=== PATIENT | female | born 1945 | race Caucasian/White ===

== ENCOUNTER 2017-08-29 02:53 | Inpatient (IN) | payer BC, MEDICARE ==
[2017-08-29] MEDS ORDERED: NS 0.9% 1000 ML* 1,000 ML IV ONE (03:00)
[2017-08-29] MEDS ORDERED: Albuterol/Ipratropium NEB.SOL* Albuterol 2.5 MG/Ipratropium 0.5 MG 3 ML INH ONE ×2 (03:22→04:38)
[2017-08-29] MEDS ORDERED: Nitroglycerin TAB 0.4 MG* 0.4 MG TAB SL ONE (03:23)
[2017-08-29 03:35] LABS: ABS Basophils 0.1 10^3/ul (0-0.2); ABS Eosinophils 0.2 10^3/ul (0-0.6); ABS Lymphocytes 1.5 10^3/ul (1.0-4.8); ABS Monocytes 0.9 10^3/ul (0-0.8); ABS Neutrophils 8.1 10^3/ul (1.5-7.7); ABS Nucleated RBC 0 10^3/ul; Hematocrit 39 % (35-47); Hemoglobin 13.1 g/dl (12.0-16.0); Lymphocyte % 13.8 % (25-47); Mean Corpuscular HGB Conc 33 g/dl (31-36); Mean Corpuscular Hemoglobin 30 pg (27-31); Mean Corpuscular Volume 91 fL (80-97); Mean Platelet Volume 8 um3 (7.4-10.4); Nucleated Red Blood Cells % 0.1; Platelet Count 205 10^3/ul (150-450); Red Blood Count 4.33 10^6/ul (4.0-5.4); Red Cell Distribution Width 17 % (10.5-15); White Blood Count 10.9 10^3/ul (3.5-10.8)
[2017-08-29 03:41] LABS: EGFR Non-African American 27.5 (>60); INR 1.01 (0.77-1.02)
[2017-08-29] MEDS ORDERED: methylPREDNISolone 125 MG* 2 ML VIAL IV ONE (04:38)
[2017-08-29] MEDS ORDERED: Labetalol IV* 5 MG/ML 20 ML VIAL IV PUSH ONE (04:40)
[2017-08-29] MEDS ORDERED: Levofloxacin 750 MG IVPREMIX(* 750 MG/150 ML BAG IVPB ONE (04:44)
[2017-08-29] MEDS ORDERED: Furosemide IV* 10 MG/ML VIAL (40 MG) IV SLOW PU ONE (05:43)
[2017-08-29] MEDS ORDERED: Albuterol 2.5 MG/3 ML NEB.SOL* (0.083%) INH PRN (05:51)
[2017-08-29] MEDS ORDERED: clonazePAM TAB(*) 0.5 MG PO PRN (05:51)
[2017-08-29] MEDS ORDERED: cloNIDine 0.2 MG PATCH* 0.2 MG/24 HR 7 DAY PATCH TRANSDERM SCH (06:00)
--- NOTE | 2017-08-29 07:01 | ED ---
Miladys Castro Julia, scribed for Mendez Dumont MD on 08/29/17 at 0308 . Respiratory - HPI Summary HPI Summary: This patient is a 72 year old F BIBA to [facility] accompanied by her with a chief complaint of SOB since 16:30 yesterday worsening this morning. Patient reports recent LE edema, cough, and neck pain. Patient denies wheezing, chest pain, and palpitations. Patient has a history of CHF, COPD, descending aortic stent, PTX, and anxiety. Patient believes she may be having an anxiety attack. - History of Current Complaint Chief Complaint: EDShortnessOfBreath Stated Complaint: DIFFICULTY BREATHING Hx Obtained From: Patient Onset/Duration: Lasting Hours, Worse Since - this morning Pain Intensity: 0 Character: Dyspnea at Rest Associated Signs and Symptoms: SOB, Edema Related History: Similar Episode/Dx as - COPD, CHF, PTX, anxiety - Allergy/Home Medications Allergies/Adverse Reactions: Allergies Allergy/AdvReac Type Severity Reaction Status Date / Time erythromycin base Allergy Unknown Verified 08/29/17 05:13 Reaction Details latex Allergy Itching Verified 08/29/17 05:13 nickel Allergy Hives Verified 08/29/17 05:13 Home Medications: Home Medications Albuterol Sulfate [Proventil Hfa] 2 puff INH Q4HR PRN 08/29/17 [History Confirmed 08/29/17] Carvedilol TAB* [Coreg TAB*] 25 mg PO BID 08/29/17 [History Confirmed 08/29/17] Citalopram TAB* [CeleXA TAB*] 20 mg PO DAILY 08/29/17 [History Confirmed ] Famotidine TAB* [Pepcid 20 MG TAB*] 20 mg PO QPM 08/29/17 [History Confirmed ] Levothyroxine TAB* [Synthroid TAB*] 100 mcg PO DAILY 08/29/17 [History Confirmed 08/29/17] Valsartan TAB* [Diovan TAB*] 320 mg PO DAILY 08/29/17 [History Confirmed ] amLODIPine TAB* [Norvasc 5 mg TAB*] 10 mg PO DAILY 08/29/17 [History Confirmed 08/29/17] cloNIDine 0.2 MG PATCH* [Onwfmjtg-Zty-0 0.2 mg Patch*] 0.2 mg TRANSDERM Q7D [History Confirmed 08/29/17] clonazePAM TAB(*) [KlonoPIN TAB(*)] 0.5 mg PO BID PRN 08/29/17 [History Confirmed 08/29/17] PMH/Surg Hx/FS Hx/Imm Hx Endocrine/Hematology History: Denies: Hx Diabetes Cardiovascular History: Reports: Hx Congestive Heart Failure, Hx Hypercholesterolemia, Hx Hypertension - on medication Respiratory History: Reports: Hx Chronic Obstructive Pulmonary Disease (COPD), Other Respiratory Problems/Disorders - PTX History: Reports: Hx Renal Disease - stage 4 Psychiatric History: Reports: Hx Anxiety - Cancer History Cancer Type, Location and Year: uterine CA- - Surgical History Surgery Procedure, Year, and Place: 3 right foot surgery, hysterectomy(urterine CA) Infectious Disease History: No Infectious Disease History: Denies: Traveled Outside the [place] in Last 30 Days - Family History Known Family History: Positive: Cardiac Disease - mother - Social History Alcohol Use: None Hx Substance Use: No Substance Use Type: Reports: None Hx Tobacco Use: Yes Smoking Status (MU): Light Every Day Tobacco Smoker Amount Used/How Often: 1/2 PPD Review of Systems Negative: Palpitations, Chest Pain Respiratory: Negative - wheezing Positive: Shortness Of Breath, Cough Positive: Myalgia - neck, Edema All Other Systems Reviewed And Are Negative: Yes Physical Exam - Summary Physical Exam Summary: Appearance: Well appearing, no pain distress, tripod position Skin: warm, dry, reflects adequate perfusion Head/face: normal Eyes: EOMI, RUTH ENT: normal Neck: mild JVD, non-tender Respiratory:, breath sounds present but diminished at the bases with fine wheezes and rales at the bases bilaterally worse on the L Cardiovascular: RRR, pulses symmetrical, no murmur Abdomen: non-tender, soft Bowel: present Musculoskeletal: , strength/ROM intact, bilateral pitting edema to just below the knees Neuro: normal, sensory motor intact, A&Ox3 Triage Information Reviewed: Yes Vital Signs On Initial Exam: Initial Vitals Temp Pulse Resp BP Pulse Ox 99 F 82 26 161/86 100 08/29/17 02:58 08/29/17 02:58 08/29/17 02:58 08/29/17 02:58 08/29/17 02:58 Vital Signs Reviewed: Yes Diagnostics - Vital Signs Vital Signs Temp Pulse Resp BP Pulse Ox 08/29/17 02:58 99 F 82 26 161/86 100 - Laboratory Lab Results: Lab Results 08/29/17 08/29/17 08/29/17 Range/Units 03:15 03:15 03:15 WBC 10.9 H (3.5-10.8) 10^3/ul RBC 4.33 (4.0-5.4) 10^6/ul Hgb 13.1 (12.0-16.0) g/dl Hct 39 (35-47) % MCV 91 (80-97) fL MCH 30 (27-31) pg MCHC 33 (31-36) g/dl RDW 17 H (10.5-15) % Plt Count 205 (150-450) 10^3/ul MPV 8 (7.4-10.4) um3 Neut % (Auto) 74.9 (38-83) % Lymph % (Auto) 13.8 L (25-47) % [place] % (Auto) 8.0 (1-9) % Eos % (Auto) 2.0 (0-6) % Baso % (Auto) 1.3 (0-2) % Absolute Neuts (auto) 8.1 H (1.5-7.7) 10^3/ul Absolute Lymphs (auto) 1.5 (1.0-4.8) 10^3/ul Absolute Monos (auto) 0.9 H (0-0.8) 10^3/ul Absolute Eos (auto) 0.2 (0-0.6) 10^3/ul Absolute Basos (auto) 0.1 (0-0.2) 10^3/ul Absolute Nucleated RBC 0 10^3/ul Nucleated RBC % 0.1 INR (Anticoag Therapy) 1.01 (0.77-1.02) APTT 31.6 (26.0-36.3) seconds D-Dimer, Quantitative > 1050 H (Less Than 230) ng/mL Patient Temperature ABG pH (7.35-7.45) ABG pH (Temp Correct) ABG pCO2 (35-45) mmHg ABG pCO2 (Temp Corrct ABG pO2 (80-100) mmHg ABG pO2 (Temp Correct ABG HCO3 (19-31) mmol/L ABG O2 Saturation (95-98) % ABG Base Excess (-2.0-2.0) Respiration Rate O2 Delivery Device Ventilator Type Vent Mode FiO2 Inspiratory Time PEEP Pressure Support Pressure Control EPAP IPAP BiPAP Sodium (133-145) mmol/L Potassium (3.5-5.0) mmol/L Chloride (101-111) mmol/L Carbon Dioxide (22-32) mmol/L Anion Gap (2-11) mmol/L BUN (6-24) mg/dL Creatinine (0.51-0.95) mg/dL Est GFR ( Amer) (>60) Est GFR (Non-Af Amer) (>60) BUN/Creatinine Ratio (8-20) Glucose (70-100) mg/dL Lactic Acid (0.5-2.0) mmol/L Calcium (8.6-10.3) mg/dL Total Bilirubin (0.2-1.0) mg/dL AST (13-39) U/L ALT (7-52) U/L Alkaline Phosphatase (34-104) U/L Troponin I (<0.04) ng/mL B-Natriuretic Peptide 269 H ( - 100) pg/mL Total Protein (6.4-8.9) g/dL Albumin (3.2-5.2) g/dL Globulin (2-4) g/dL Albumin/Globulin Ratio (1-3) TSH (0.34-5.60) mcIU/mL Digoxin 08/29/17 08/29/17 08/29/17 Range/Units 03:15 03:15 04:55 WBC (3.5-10.8) 10^3/ul RBC (4.0-5.4) 10^6/ul Hgb (12.0-16.0) g/dl Hct (35-47) % MCV (80-97) fL MCH (27-31) pg MCHC (31-36) g/dl RDW (10.5-15) % Plt Count (150-450) 10^3/ul MPV (7.4-10.4) um3 Neut % (Auto) (38-83) % Lymph % (Auto) (25-47) % [place] % (Auto) (1-9) % Eos % (Auto) (0-6) % Baso % (Auto) (0-2) % Absolute Neuts (auto) (1.5-7.7) 10^3/ul Absolute Lymphs (auto) (1.0-4.8) 10^3/ul Absolute Monos (auto) (0-0.8) 10^3/ul Absolute Eos (auto) (0-0.6) 10^3/ul Absolute Basos (auto) (0-0.2) 10^3/ul Absolute Nucleated RBC 10^3/ul Nucleated RBC % INR (Anticoag Therapy) (0.77-1.02) APTT (26.0-36.3) seconds D-Dimer, Quantitative (Less Than 230) ng/mL Patient Temperature Not Reportable ABG pH 7.37 (7.35-7.45) ABG pH (Temp Correct) Not Reportable ABG pCO2 44 (35-45) mmHg ABG pCO2 (Temp Corrct Not Reportable ABG pO2 53 L* (80-100) mmHg ABG pO2 (Temp Correct Not Reportable ABG HCO3 24.6 (19-31) mmol/L ABG O2 Saturation 92.0 L (95-98) % ABG Base Excess -0.1 (-2.0-2.0) Respiration Rate Not Reportable O2 Delivery Device Nc Ventilator Type Not Reportable Vent Mode Not Reportable FiO2 3 Inspiratory Time Not Reportable PEEP Not Reportable Pressure Support Not Reportable Pressure Control Not Reportable EPAP Not Reportable IPAP Not Reportable BiPAP Not Reportable Sodium 137 (133-145) mmol/L Potassium 4.3 (3.5-5.0) mmol/L Chloride 107 (101-111) mmol/L Carbon Dioxide 25 (22-32) mmol/L Anion Gap 5 (2-11) mmol/L BUN 39 H (6-24) mg/dL Creatinine 1.81 H (0.51-0.95) mg/dL Est GFR ( Amer) 35.3 (>60) Est GFR (Non-Af Amer) 27.5 (>60) BUN/Creatinine Ratio 21.5 H (8-20) Glucose 117 H (70-100) mg/dL Lactic Acid 0.8 (0.5-2.0) mmol/L Calcium 9.3 (8.6-10.3) mg/dL Total Bilirubin 0.50 (0.2-1.0) mg/dL AST 22 (13-39) U/L ALT 20 (7-52) U/L Alkaline Phosphatase 76 (34-104) U/L Troponin I 0.06 H* (<0.04) ng/mL B-Natriuretic Peptide ( - 100) pg/mL Total Protein 7.6 (6.4-8.9) g/dL Albumin 3.7 (3.2-5.2) g/dL Globulin 3.9 (2-4) g/dL Albumin/Globulin Ratio 0.9 L (1-3) TSH 5.48 (0.34-5.60) mcIU/mL Digoxin Cancelled Result Diagrams: 08/29/17 03:15 08/29/17 03:15 Lab Statement: Any lab studies that have been ordered have been reviewed, and results considered in the medical decision making process. - Radiology CXR Radiology Interpretation Completed By: ED Physician - cardiomegaly, wide mediastinum with aoritc stent in place, increased interstitial markings without effusion - EKG 0332 Cardiac Rate: NL - at 78 BPM EKG Rhythm: Sinus Rhythm ST Segment: Non-Specific EKG Interpretation: nml axis, poor R wave progression, borderline QT prolongation Re-Evaluation - Re-Evaluation 1 Re-Evaluation Time: 04:40 Change: Improved - Breathing improved with two treatments Disposition - Course Course Of Treatment: pt with a hx of COPD/CHF and TAD s/p stenting. Tripoding with wheezing and some coarsness of breathing on arrival. Breathing calmed significantly with breathing tx. Added steroids and abx. 1 dose of nitro on arrival. No impact to BP. IV labetalol for BPs. No ripping or tearing CP. No pain in abd, arms or neck. BPs in both arms similar. Aldo LE edema, symmetric. Cr up. Admit for further. - Differential Dx - Cardiopulmonary Differential Diagnoses - Cardiopulmonary: CAD, Chest Wall Pain, Exacerbation Of COPD, Hypoxia, Influenza, Lower Resp Infection, Pneumothorax, Pulmonary Edema, Pulmonary Embolism - Diagnoses Provider Diagnoses: Dyspnea, COPD exacerbation, Tobacco abuse, Elevated blood pressure reading - Physician Notifications Discussed Care Of Patient With: Hue Roman - admit for further Time Discussed With Above Provider: 04:45 Instructed by Provider To: Admit As Inpatient - Critical Care Time Critical Care Time: 30-74 min - exlusive of seperately billable proceudre Discharge - Discharge Plan Condition: Fair Disposition: AD[facility]ITT[facility] TO [facility] The documentation as recorded by the Miladys castro Julia accurately reflects the service I personally performed and the decisions made by me, Mendez Dumont MD.
--- NOTE | 2017-08-29 08:02 | RAD ---
INDICATION: Chest pain. COMPARISON: Comparison is made with a prior chest x-ray study from March 01, 2016. TECHNIQUE: A portable view of the chest was obtained. FINDINGS: The heart is moderately enlarged. The thoracic aorta is tortuous and ectatic. There is a endovascular stent graft present within the aorta. The lungs are clear. There is blunting of the left costophrenic angle consistent with a small pleural effusion or pleural thickening. IMPRESSION: 1. CARDIOMEGALY, UNCHANGED. 2. TORTUOUS ECTATIC THORACIC AORTA , STATUS POST PLACEMENT OF AORTIC ENDOVASCULAR STENT GRAFT. 3. SMALL LEFT PLEURAL EFFUSION VERSUS PLEURAL THICKENING.
[2017-08-29] MEDS: Carvedilol TAB* 25 MG PO SCH ×2 (08:59→21:18)
[2017-08-29] MEDS: Heparin VIAL(*) 5000 UNITS/ML VIAL (FIVE THOUSAND) SUBCUT SCH ×3 (08:59→21:20)
[2017-08-29] MEDS: Valsartan TAB* 160 MG PO SCH (08:59)
[2017-08-29] MEDS: Levothyroxine TAB* 100 MCG TAB PO SCH (08:59)
[2017-08-29] MEDS: amLODIPine TAB* 5 MG PO SCH (08:59)
[2017-08-29] MEDS: Citalopram TAB* 10 MG PO SCH (08:59)
[2017-08-29] MEDS ORDERED: predniSONE TAB* 20 MG PO SCH (09:00)
--- NOTE | 2017-08-29 10:28 | HP ---
CC: Dr. Lockhart; Dr. Aleman * HISTORY AND PHYSICAL: DATE OF ADMISSION: 08/29/17 PRIMARY CARE PROVIDER: Dr. Lockhart. CUFF SLITTER: Dr. Aleman. CHIEF COMPLAINT: Shortness of breath. HISTORY OF PRESENT ILLNESS: Ms. Hannah is a 72-year-old female who has a history of hypertension; anxiety/depression; questionable CHF and history of descending aortic aneurysm with rupture, status post emergent repair in 2016, who presents to the emergency room with complaints of shortness of breath. The patient is very short of breath at the time I went to evaluate her. She has just gotten up to the commode to go to the bathroom. The patient states that off and on for the last few months she would get what she describes are panic attacks. She states that she will get severely short of breath. She will sit straight up with her feet down on the floor and watch TV for a period of time and very slowly the shortness of breath will go away. The patient, however, has been noted in the emergency room to be severely dyspneic with any exertion per nursing. Additionally, the patient complains of feeling lightheaded like she may pass out. The patient admits to cough with foamy white sputum. She also notes increased swelling in her legs beginning before 2016. She had her diuretics stopped late last year for chronic kidney disease. The patient denies any chest pain. She states that she cannot lie flat at baseline , so it is unclear if this is worse than normal. PAST MEDICAL HISTORY: 1. Hypertension. 2. Anxiety/depression. 3. Hypothyroidism. 4. GERD. 5. Possible CHF. 6. History of uterine cancer. PAST SURGICAL HISTORY: 1. Hysterectomy. 2. Descending aortic aneurysm repair in 2016. 3. Right foot surgery x3. MEDICATIONS: 1. Clonidine 0.2 mg per patch topically q.7 days. 2. Celexa 20 mg p.o. daily. 3. Famotidine 20 mg p.o. q.p.m. 4. Amlodipine 10 mg p.o. daily. 5. Coreg 25 mg p.o. b.i.d. 6. Clonazepam 0.5 mg p.o. b.i.d. 7. Proventil 2 puffs inhaled q.4 hours p.r.n. shortness of breath. 8. Valsartan 320 mg p.o. daily. 9. Levothyroxine 100 mcg p.o. daily. ALLERGIES: ERYTHROMYCIN, NICKEL, and LATEX. FAMILY HISTORY: Mom in her 80s of CHF. Dad at 86, complications after hip fracture. SOCIAL HISTORY: The patient is an active smoker of one half pack per day. She does not drink alcohol. 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 She is . She has 3 children. Her , Jarrett, is her healthcare proxy and if he is not available her daughterYamile Newhart-Lee is her healthcare proxy. REVIEW OF SYSTEMS: Complete 11-system of review of systems was obtained. Pertinent positives and negatives are as per HPI, and in addition the patient complains of being constipated and having neck pain; otherwise, the review of systems is negative. PHYSICAL EXAMINATION GENERAL: The patient is a well-developed, elderly female, seen sitting straight up on the bed in moderate respiratory distress. VITAL SIGNS: Blood pressure 163/64, pulse 78, respirations 20, temp 99, O2 sat 95% on 3 L. HEENT: Pupils are equal and round. Extraocular muscles are intact. Oropharynx is clear. Oral mucosa is moist. There is no submandibular, cervical or supraclavicular adenopathy. Thyroid is not enlarged. No thyroid nodules are noted. PULMONARY: There are decreased breath sounds at the bases bilaterally. Breath sounds, however, are diminished in all lung [place]. CARDIAC: Normal S1, S2. Regular rate and rhythm. I do not appreciate any murmurs. There is left greater than right lower extremity edema. ABDOMEN: Bowel sounds are present. Abdomen is soft, nontender, nondistended. MUSCULOSKELETAL: There is no cyanosis or clubbing of the digits. There is full active range of motion of all 4 extremities. SKIN: Warm and dry. There are no rashes. NEURO: Cranial nerves II through XII are grossly intact. Sensation is intact to light touch throughout. Strength is 5/5 and symmetric in both upper and lower extremities bilaterally. PSYCH: The patient is alert, she is oriented x3. Affect appears appropriate. DIAGNOSTIC STUDIES/LAB DATA: WBC 10.9, hemoglobin 13.1, hematocrit 39, platelets 205. INR 1.01. D-dimer greater than 1050. Sodium 137, potassium 4.3 , chloride 107, CO2 25, BUN 39, creatinine 1.81, glucose 117, lactic acid 0.8, calcium 9.3. Bilirubin 0.5, AST 22, ALT 20, alk phos 76. Troponin 0.06. BNP 269. Albumin 3.7. EKG reveals normal sinus rhythm without any acute ST-T wave abnormalities. Chest x-ray to my interpretation reveals likely cardiomegaly. The patient appears to have a tortuous aorta with possible identified graft material. A question of left pleural effusion. ASSESSMENT AND PLAN: Ms. Hannah is a 72-year-old female who has a history of hypertension, anxiety/depression, ongoing tobacco use, possible congestive heart failure, and is status post descending aortic aneurysm/dissection repair who presents to the emergency room with complaints of shortness of breath. 1. Dyspnea. The differential diagnosis for dyspnea includes acute congestive heart failure versus chronic obstructive pulmonary disease exacerbation versus possible pulmonary embolism. Infection seems unlikely as the patient denies any true sputum production or fever. No clear infiltrates are seen on chest x- ray. The patient will undergo a transthoracic echocardiogram to evaluate her EF. A dose of Lasix 40 mg IV x1 now will be given. I am suspicious the patient may have systolic CHF given her medications including Coreg and valsartan as well as her complaints of foamy white sputum, increased lower extremity edema and inability to lie back. COPD is also a possibility as the patient does have a longstanding history of smoking. Her breath sounds are diminished in all lung monroe. The patient received Solu-Medrol in the emergency room as well as levofloxacin and nebulizer. The patient will have albuterol nebs available to her. I will also order prednisone 40 mg daily to start this morning. I am going to hold on antibiotic therapy for now, however. The patient does have a markedly elevated D- dimer of greater than 1050. Her left lower extremity is more swollen than the right. A Doppler of the left lower extremity will be obtained to evaluate for DVT. If DVT is identified, the patient will obviously need to be anticoagulated; however, a V/Q scan could be considered to evaluate for possible PE. CTA would need to be avoided given the patient's chronic kidney disease. 2. Elevated troponin. I suspect this represents demand ischemia. The patient will have followup troponins obtained at 0600 and 0900. Her EKG is not concerning at this point. We will follow the troponin. I will not anticoagulate fully at this time. 3. Stage 4 chronic kidney disease. The patient's creatinine is elevated at 1.81. We do not have many previous creatinines to compare to. The patient does state that she has taken off her diuretic late last winter because of her chronic kidney disease. Her creatinine will need to be monitored especially as I am giving a dose of IV Lasix. 4. Hypertension. The patient's blood pressure is moderately elevated. She will receive her usual home medication regimen and we will adjust her medications as needed to achieve optimal blood pressure control. 5. Anxiety/depression. The patient is currently quite anxious. She will continue with her Celexa and p.r.n. clonazepam. 6. Hypothyroidism. We will continue current dose of Synthroid. We will check TSH. 7. Gastroesophageal reflux disease. We will continue her famotidine. 8. DVT prophylaxis. According to the Adult Thrombosis Prophylaxis Risk Factor Assessment Guide, the patient has a total risk factor score of 5, making her the highest risk. Heparin 5000 units subcutaneous q.8 hours will be initiated as DVT prophylaxis. 7. Code status is full. TIME SPENT: Sixty-five minutes was spent admitting this patient. [id number]/[facility] #: [id number] KASEY
--- NOTE | 2017-08-29 10:47 | ECHO ---
Amended Report Patient: REYMUNDO MANZANARES [facility] Rec#: [id number] : 1945 Date: 08/29/2017 Age: 72y Height: 165.1 cm / 65.0 in Weight: 90.7 kg / 199.9 lbs Sex: F BSA: 2 Room#: [facility] Admit Date#: 08/29/2017 Type: Inpatient Referring: Hue Roman DO Reading: Toby Cm MD Sexual Abuse Counsellor: Nicolle Gomez RN RDCS CC: Petar Dalal MD Transthoracic Echocardiogram Indication: Dyspnea BP: 170/59 HR: 79 Rhythm: NSR Findings History: CHF, HTN, HLD, COPD, smoker, renal disease, aortic aneurysm with stenting of the descending aorta, obesity. Technical Comments: The study is technically limited due to patient body habitus. The study is technically limited due to the patient's history of COPD. The study was technically limited due to the patient's inability to lay in the left lateral decubitus position. The patient was sitting upright in bed during the exam. Completed at 0925. Left Ventricle: The left ventricular chamber size is normal. Moderate concentric left ventricular hypertrophy is observed. Global left ventricular wall motion and contractility are within normal limits. There is normal left ventricular systolic function. The estimated ejection fraction is 55-60%. The assessment of diastolic function is non-diagnostic. Left Atrium: The left atrium is mild to moderately dilated. Right Ventricle: The right ventricle wall thickness is mildly increased. The right ventricular cavity size is normal. The right ventricular global systolic function is normal. Right Atrium: The right atrium is mild to moderately dilated. Aortic Valve: The aortic valve is trileaflet. The aortic valve leaflets are mildly thickened. There is mild thickening of the right coronary cusp. Systolic excursion of the right coronary cusp is reduced. There is mild to moderate aortic regurgitation. There is borderline aortic stenosis present. The mean gradient of the aortic valve is 9.5 mmHg. The peak instantaneous gradient of the aortic valve is 19 mmHg. The aortic valve area, by peak velocities, is calculated at 2 cm2. The aortic valve area, by VTI's, is calculated at 2.3 cm2. Mitral Valve: The mitral valve leaflets are mildly thickened. There is a trace of mitral regurgitation. There is no evidence of mitral stenosis. Tricuspid Valve: The tricuspid valve leaflets are normal. There is trace tricuspid regurgitation. Unable to estimate the right ventricular systolic pressure. There is no tricuspid stenosis. Pulmonic Valve: The pulmonic valve structure is not well visualized. There is a trace pulmonic regurgitation. There is no pulmonic stenosis. Pericardium: There is a small pericardial effusion. There are no signs of significant hemodynamic compromise. The pericardial effusion is seen adjacent to the left ventricle. The pericardial effusion is seen adjacent to the right atrium. A pericardial fat pad is visualized. Aorta: There is moderate dilatation of the ascending aorta.4.4 cm The aortic arch is not well visualized. There is no dilation of the aortic root. Pulmonary Artery: The main pulmonary artery is not well visualized. Venous: The inferior vena cava is dilated. There is an approximate 50% respiratory change in the inferior vena cava dimension. Summary: There was not any prior study for comparison. Conclusions Global left ventricular wall motion and contractility are within normal limits. There is normal left ventricular systolic function. The estimated ejection fraction is 55-60%. The right ventricular global systolic function is normal. There is mild thickening of the right coronary cusp. There is borderline aortic stenosis present. The mean gradient of the aortic valve is 9.5 mmHg. There is mild to moderate aortic regurgitation. There is a trace of mitral regurgitation. There is trace tricuspid regurgitation. Unable to estimate the right ventricular systolic pressure. There is a small pericardial effusion. The pericardial effusion is seen adjacent to the right atrium. There is moderate dilatation of the ascending aorta.4.4 cm Measurements Name Value Normal Range RVDdMajor (2D) 2.5 cm (2.2 - 4.4) RAd ISD 4CH 5.6 cm (3.4 - 4.9) RA (A4C)W 3.5 cm (2.9 - 4.6) IVSd (2D) 1.5 cm (0.6 - 1) LVPWd (2D) 1.5 cm (0.6 - 1) LVIDd (2D) 5.2 cm (3.6 - 5.4) LVIDs (2D) 3.3 cm - LV FS (2D) 36 % (25 - 45) Aortic Annulus 2.1 cm (1.4 - 2.6) Ao root diameter (2D) 3 cm (2.1 - 3.5) Ascending Ao 4.4 cm (2.1 - 3.4) LA dimension (AP) 2D 2.9 cm (2.3 - 3.8) LAd ISD 4CH 5.8 cm (2.9 - 5.3) LA ISD 4CH W 4.6 cm (2.5 - 4.5) Name Value Normal Range MV E-wave Vmax 0.96 m/sec - MV deceleration time 172 msec - MV A-wave Vmax 1.2 m/sec - MV E:A ratio 0.84 ratio - LV septal e' Vmax 0.06 m/sec - LV lateral e' Vmax 0.09 m/sec - LV E:e' septal ratio 16 ratio - LV E:e' lateral ratio 10.7 ratio - Name Value Normal Range AV Vmax 2.2 m/sec - AV VTI 45.9 cm - AV peak gradient 19 mmHg - AV mean gradient 9.5 mmHg - LVOT diameter 2 cm - LVOT Vmax 1.4 m/sec - LVOT VTI 33.7 cm - LVOT peak gradient 8.2 mmHg - LVOT mean gradient 5.3 mmHg - DOI (VTI) 0.73 ratio - DOI (Vmax) 0.64 ratio - DAPHNE (continuity Vmax) 2 cm2 - DAPHNE (continuity VTI) 2.3 cm2 - AR PHT 460 msec - Name Value Normal Range IVC diameter 2.6 cm - Name Value Normal Range PV Vmax 0.86 m/sec -
--- NOTE | 2017-08-29 12:47 | RAD ---
HISTORY: Left leg edema TECHNIQUE: Multiple transverse and longitudinal ultrasound images were obtained of the veins of the left lower extremity using grayscale, color Doppler, and spectral Doppler imaging with and without compression and with augmentation. FINDINGS: VEINS: The common femoral vein, deep femoral vein, femoral vein and popliteal vein are compressible throughout their course, with normal flow on color Doppler imaging and normal response to augmentation on spectral Doppler imaging. SOFT TISSUES: There is subcutaneous edema overlying the lower left leg. IMPRESSION: No sonographic evidence of deep vein thrombosis.
--- NOTE | 2017-08-29 12:52 | RAD ---
INDICATION: Cough. Short of breath. History of thoracic aneurysm/dissection. History of endovascular stent grafts. COMPARISON: CTA chest March 02, 2016 TECHNIQUE: Noncontrast axial source images were obtained from the thoracic inlet to the hemidiaphragms. Coronal and sagittal reconstructed images were acquired. The visualized neck to include the thyroid appear normal. Chest wall: There are no acute abnormalities of the bony thorax or chest wall. There is no supraclavicular, infraclavicular, or axillary lymphadenopathy. Lungs : There is coarsening of interstitium. There is linear change in the right lung base, right middle lobe, left lung base, lingular segment most consistent with atelectasis. Suggest follow-up chest x-ray. Cardiomediastinal structures: The heart is mildly enlarged. There is a small pericardial effusion. There is interval placement of a endovascular stent in the thoracic aorta. The stent originates in the lamine ascending aorta and extends caudally to the proximal abdominal aorta. This examination is not a CT angiogram and therefore evaluation of the graft is incomplete. Importantly, however. There is no increase in the size of the [place] aorta in the interval. 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 Immediately below the endovascular stent graft the abdominal aorta measures 4.2 x 5.8 cm this measurement appears essentially unchanged. Pleura : There is a small moderate-sized left-sided pleural effusion. Other: There are no other acute or significant CT findings of the visualized upper abdomen. IMPRESSION: 1. Linear airspace disease most consistent with atelectasis. 2. Small left-sided pleural effusion. 3. Cardiomegaly with small pericardial effusion. Interval endovascular stent graft as described.
--- NOTE | 2017-08-29 15:57 | PN ---
Subjective Date of Service: 08/29/17 Interval History: Feels less SOB, at or near her baseline. Little cough. No chest pain. Objective Active Medications: Albuterol (Ventolin 2.5 Mg/3 Ml Neb.Danita*) 2.5 mg INH Q4H PRN PRN Reason: SOB/WHEEZING Amlodipine Besylate (Norvasc Tab*) 10 mg PO DAILY [facility] Last Admin: 08/29/17 08:59 Dose: 10 mg Carvedilol (Coreg Tab*) 25 mg PO BID [facility] Last Admin: 08/29/17 08:59 Dose: 25 mg Citalopram Hydrobromide (Celexa Tab*) 20 mg PO DAILY [facility] Last Admin: 08/29/17 08:59 Dose: 20 mg Clonazepam (Klonopin Tab(*)) 0.5 mg PO BID PRN PRN Reason: ANXIETY Clonidine HCl (Cljvfqpf-Qli-6 0.2 Mg Patch*) 0.2 mg TRANSDERM Q7D [facility] Last Admin: 08/29/17 09:04 Dose: 0.2 mg Famotidine (Pepcid Tab*) 20 mg PO QPM [facility] Heparin Sodium (Porcine) (Heparin Vial(*)) 5,000 units SUBCUT Q8HR [facility] Last Admin: 08/29/17 13:44 Dose: 5,000 units Levothyroxine Sodium (Synthroid Tab*) 100 mcg PO 0600 [facility] Last Admin: 08/29/17 08:59 Dose: 100 mcg Prednisone (Deltasone Tab*) 40 mg PO DAILY [facility] Last Admin: 08/29/17 09:04 Dose: Not Given Valsartan (Diovan Tab*) 320 mg PO DAILY [facility] Last Admin: 08/29/17 08:59 Dose: 320 mg Vital Signs - 8 hr 08/29/17 08/29/17 08/29/17 08:00 10:15 12:30 Temperature 98.1 F Pulse Rate 85 76 Respiratory 28 16 20 Rate Blood Pressure 152/61 (mmHg) O2 Sat by Pulse 92 94 Oximetry Oxygen Devices in Use Now: Nasal Cannula Appearance: Alert, partly up in bed. In good spirits. Looks comfortable. Eyes: No Scleral Icterus Respiratory: Symmetrical Chest Expansion and Respiratory Effort, Clear to Percussion, - - diminished BS BL Cardiovascular: NL Sounds; No Murmurs; No JVD, RRR, No Edema, - Extremities: No Clubbing, Cyanosis, - - Tr edema L leg Skin: No Rash or Ulcers, No Nodules or Sclerosis, - Neurological: Alert and Oriented x 3, NL Sensation Result Diagrams: 08/29/17 03:15 08/29/17 03:15 Additional Lab and Data: Lab Results 08/29/17 08/29/17 08/29/17 Range/Units 03:15 03:15 03:15 WBC 10.9 H (3.5-10.8) 10^3/ul RBC 4.33 (4.0-5.4) 10^6/ul Hgb 13.1 (12.0-16.0) g/dl Hct 39 (35-47) % MCV 91 (80-97) fL MCH 30 (27-31) pg MCHC 33 (31-36) g/dl RDW 17 H (10.5-15) % Plt Count 205 (150-450) 10^3/ul MPV 8 (7.4-10.4) um3 Neut % (Auto) 74.9 (38-83) % Lymph % (Auto) 13.8 L (25-47) % [place] % (Auto) 8.0 (1-9) % Eos % (Auto) 2.0 (0-6) % Baso % (Auto) 1.3 (0-2) % Absolute Neuts (auto) 8.1 H (1.5-7.7) 10^3/ul Absolute Lymphs (auto) 1.5 (1.0-4.8) 10^3/ul Absolute Monos (auto) 0.9 H (0-0.8) 10^3/ul Absolute Eos (auto) 0.2 (0-0.6) 10^3/ul Absolute Basos (auto) 0.1 (0-0.2) 10^3/ul Absolute Nucleated RBC 0 10^3/ul Nucleated RBC % 0.1 INR (Anticoag Therapy) 1.01 (0.77-1.02) APTT 31.6 (26.0-36.3) seconds D-Dimer, Quantitative > 1050 H (Less Than 230) ng/mL Patient Temperature ABG pH (7.35-7.45) ABG pH (Temp Correct) ABG pCO2 (35-45) mmHg ABG pCO2 (Temp Corrct ABG pO2 (80-100) mmHg ABG pO2 (Temp Correct ABG HCO3 (19-31) mmol/L ABG O2 Saturation (95-98) % ABG Base Excess (-2.0-2.0) Respiration Rate O2 Delivery Device Ventilator Type Vent Mode FiO2 Inspiratory Time PEEP Pressure Support Pressure Control EPAP IPAP BiPAP Sodium (133-145) mmol/L Potassium (3.5-5.0) mmol/L Chloride (101-111) mmol/L Carbon Dioxide (22-32) mmol/L Anion Gap (2-11) mmol/L BUN (6-24) mg/dL Creatinine (0.51-0.95) mg/dL Est GFR ( Amer) (>60) Est GFR (Non-Af Amer) (>60) BUN/Creatinine Ratio (8-20) Glucose (70-100) mg/dL Lactic Acid (0.5-2.0) mmol/L Calcium (8.6-10.3) mg/dL Total Bilirubin (0.2-1.0) mg/dL AST (13-39) U/L ALT (7-52) U/L Alkaline Phosphatase (34-104) U/L Troponin I (<0.04) ng/mL B-Natriuretic Peptide 269 H ( - 100) pg/mL Total Protein (6.4-8.9) g/dL Albumin (3.2-5.2) g/dL Globulin (2-4) g/dL Albumin/Globulin Ratio (1-3) TSH (0.34-5.60) mcIU/mL Digoxin 08/29/17 08/29/17 08/29/17 Range/Units 03:15 03:15 04:55 WBC (3.5-10.8) 10^3/ul RBC (4.0-5.4) 10^6/ul Hgb (12.0-16.0) g/dl Hct (35-47) % MCV (80-97) fL MCH (27-31) pg MCHC (31-36) g/dl RDW (10.5-15) % Plt Count (150-450) 10^3/ul MPV (7.4-10.4) um3 Neut % (Auto) (38-83) % Lymph % (Auto) (25-47) % [place] % (Auto) (1-9) % Eos % (Auto) (0-6) % Baso % (Auto) (0-2) % Absolute Neuts (auto) (1.5-7.7) 10^3/ul Absolute Lymphs (auto) (1.0-4.8) 10^3/ul Absolute Monos (auto) (0-0.8) 10^3/ul Absolute Eos (auto) (0-0.6) 10^3/ul Absolute Basos (auto) (0-0.2) 10^3/ul Absolute Nucleated RBC 10^3/ul Nucleated RBC % INR (Anticoag Therapy) (0.77-1.02) APTT (26.0-36.3) seconds D-Dimer, Quantitative (Less Than 230) ng/mL Patient Temperature Not Reportable ABG pH 7.37 (7.35-7.45) ABG pH (Temp Correct) Not Reportable ABG pCO2 44 (35-45) mmHg ABG pCO2 (Temp Corrct Not Reportable ABG pO2 53 L* (80-100) mmHg ABG pO2 (Temp Correct Not Reportable ABG HCO3 24.6 (19-31) mmol/L ABG O2 Saturation 92.0 L (95-98) % ABG Base Excess -0.1 (-2.0-2.0) Respiration Rate Not Reportable O2 Delivery Device Nc Ventilator Type Not Reportable Vent Mode Not Reportable FiO2 3 Inspiratory Time Not Reportable PEEP Not Reportable Pressure Support Not Reportable Pressure Control Not Reportable EPAP Not Reportable IPAP Not Reportable BiPAP Not Reportable Sodium 137 (133-145) mmol/L Potassium 4.3 (3.5-5.0) mmol/L Chloride 107 (101-111) mmol/L Carbon Dioxide 25 (22-32) mmol/L Anion Gap 5 (2-11) mmol/L BUN 39 H (6-24) mg/dL Creatinine 1.81 H (0.51-0.95) mg/dL Est GFR ( Amer) 35.3 (>60) Est GFR (Non-Af Amer) 27.5 (>60) BUN/Creatinine Ratio 21.5 H (8-20) Glucose 117 H (70-100) mg/dL Lactic Acid 0.8 (0.5-2.0) mmol/L Calcium 9.3 (8.6-10.3) mg/dL Total Bilirubin 0.50 (0.2-1.0) mg/dL AST 22 (13-39) U/L ALT 20 (7-52) U/L Alkaline Phosphatase 76 (34-104) U/L Troponin I 0.06 H* (<0.04) ng/mL B-Natriuretic Peptide ( - 100) pg/mL Total Protein 7.6 (6.4-8.9) g/dL Albumin 3.7 (3.2-5.2) g/dL Globulin 3.9 (2-4) g/dL Albumin/Globulin Ratio 0.9 L (1-3) TSH 5.48 (0.34-5.60) mcIU/mL Digoxin Cancelled Assess/Plan/Problems-Billing Assessment: - Patient Problems (1) Diastolic CHF Current Visit: Yes Status: Acute Code(s): I50.30 - UNSPECIFIED DIASTOLIC ( CONGESTIVE) HEART FAILURE SNOMED Code(s): 242150545 Comment: Will check BMP in AM, probably start small (20 mg) dose or oral furosemide. (2) COPD (chronic obstructive pulmonary disease) Current Visit: Yes Status: Acute Code(s): J44.9 - CHRONIC OBSTRUCTIVE PULMONARY DISEASE, UNSPECIFIED SNOMED Code(s): 76759012 Comment: Stop prednisone. No wheezing now or on admission, may not be of signiiicant benefit. Pt afraid to take it. (3) CKD (chronic kidney disease) stage 4, GFR 15-29 ml/min Current Visit: Yes Status: Acute Code(s): N18.4 - CHRONIC KIDNEY DISEASE, STAGE 4 (SEVERE) SNOMED Code(s): 034306573 Comment: Est GFR 27.5 08/29, repeat BMP 08/30/17. (4) HTN (hypertension) Current Visit: Yes Status: Acute Code(s): I10 - ESSENTIAL (PRIMARY) HYPERTENSION SNOMED Code(s): 40091287 Comment: Continue home doses valsartan, amlodipine, carvedilol. (5) Hypothyroidism Current Visit: Yes Status: Acute Code(s): E03.9 - HYPOTHYROIDISM, UNSPECIFIED SNOMED Code(s): 05537681 Comment: TSH wnl 08/29/17. Continue levothyroxine.
--- NOTE | 2017-08-29 16:11 | PN ---
Subjective Date of Service: 08/29/17 Interval History: This is an addendum to today's earlier note. Objective Active Medications: Albuterol (Ventolin 2.5 Mg/3 Ml Neb.Danita*) 2.5 mg INH Q4H PRN PRN Reason: SOB/WHEEZING Amlodipine Besylate (Norvasc Tab*) 10 mg PO DAILY [facility] Last Admin: 08/29/17 08:59 Dose: 10 mg Carvedilol (Coreg Tab*) 25 mg PO BID [facility] Last Admin: 08/29/17 08:59 Dose: 25 mg Citalopram Hydrobromide (Celexa Tab*) 20 mg PO DAILY [facility] Last Admin: 08/29/17 08:59 Dose: 20 mg Clonazepam (Klonopin Tab(*)) 0.5 mg PO BID PRN PRN Reason: ANXIETY Clonidine HCl (Nhurbocd-Kxm-9 0.2 Mg Patch*) 0.2 mg TRANSDERM Q7D [facility] Last Admin: 08/29/17 09:04 Dose: 0.2 mg Famotidine (Pepcid Tab*) 20 mg PO QPM [facility] Heparin Sodium (Porcine) (Heparin Vial(*)) 5,000 units SUBCUT Q8HR [facility] Last Admin: 08/29/17 13:44 Dose: 5,000 units Levothyroxine Sodium (Synthroid Tab*) 100 mcg PO 0600 [facility] Last Admin: 08/29/17 08:59 Dose: 100 mcg Valsartan (Diovan Tab*) 320 mg PO DAILY [facility] Last Admin: 08/29/17 08:59 Dose: 320 mg Vital Signs - 8 hr 08/29/17 08/29/17 08/29/17 10:15 12:30 15:20 Temperature 98.1 F 98.4 F Pulse Rate 85 76 82 Respiratory 16 20 20 Rate Blood Pressure 152/61 150/65 (mmHg) O2 Sat by Pulse 92 94 97 Oximetry Oxygen Devices in Use Now: Nasal Cannula Result Diagrams: 08/29/17 03:15 08/29/17 03:15 Additional Lab and Data: Lab Results 08/29/17 08/29/17 08/29/17 Range/Units 03:15 03:15 03:15 WBC 10.9 H (3.5-10.8) 10^3/ul RBC 4.33 (4.0-5.4) 10^6/ul Hgb 13.1 (12.0-16.0) g/dl Hct 39 (35-47) % MCV 91 (80-97) fL MCH 30 (27-31) pg MCHC 33 (31-36) g/dl RDW 17 H (10.5-15) % Plt Count 205 (150-450) 10^3/ul MPV 8 (7.4-10.4) um3 Neut % (Auto) 74.9 (38-83) % Lymph % (Auto) 13.8 L (25-47) % [place] % (Auto) 8.0 (1-9) % Eos % (Auto) 2.0 (0-6) % Baso % (Auto) 1.3 (0-2) % Absolute Neuts (auto) 8.1 H (1.5-7.7) 10^3/ul Absolute Lymphs (auto) 1.5 (1.0-4.8) 10^3/ul Absolute Monos (auto) 0.9 H (0-0.8) 10^3/ul Absolute Eos (auto) 0.2 (0-0.6) 10^3/ul Absolute Basos (auto) 0.1 (0-0.2) 10^3/ul Absolute Nucleated RBC 0 10^3/ul Nucleated RBC % 0.1 INR (Anticoag Therapy) 1.01 (0.77-1.02) APTT 31.6 (26.0-36.3) seconds D-Dimer, Quantitative > 1050 H (Less Than 230) ng/mL Patient Temperature ABG pH (7.35-7.45) ABG pH (Temp Correct) ABG pCO2 (35-45) mmHg ABG pCO2 (Temp Corrct ABG pO2 (80-100) mmHg ABG pO2 (Temp Correct ABG HCO3 (19-31) mmol/L ABG O2 Saturation (95-98) % ABG Base Excess (-2.0-2.0) Respiration Rate O2 Delivery Device Ventilator Type Vent Mode FiO2 Inspiratory Time PEEP Pressure Support Pressure Control EPAP IPAP BiPAP Sodium (133-145) mmol/L Potassium (3.5-5.0) mmol/L Chloride (101-111) mmol/L Carbon Dioxide (22-32) mmol/L Anion Gap (2-11) mmol/L BUN (6-24) mg/dL Creatinine (0.51-0.95) mg/dL Est GFR ( Amer) (>60) Est GFR (Non-Af Amer) (>60) BUN/Creatinine Ratio (8-20) Glucose (70-100) mg/dL Lactic Acid (0.5-2.0) mmol/L Calcium (8.6-10.3) mg/dL Total Bilirubin (0.2-1.0) mg/dL AST (13-39) U/L ALT (7-52) U/L Alkaline Phosphatase (34-104) U/L Troponin I (<0.04) ng/mL B-Natriuretic Peptide 269 H ( - 100) pg/mL Total Protein (6.4-8.9) g/dL Albumin (3.2-5.2) g/dL Globulin (2-4) g/dL Albumin/Globulin Ratio (1-3) TSH (0.34-5.60) mcIU/mL Digoxin 08/29/17 08/29/17 08/29/17 Range/Units 03:15 03:15 04:55 WBC (3.5-10.8) 10^3/ul RBC (4.0-5.4) 10^6/ul Hgb (12.0-16.0) g/dl Hct (35-47) % MCV (80-97) fL MCH (27-31) pg MCHC (31-36) g/dl RDW (10.5-15) % Plt Count (150-450) 10^3/ul MPV (7.4-10.4) um3 Neut % (Auto) (38-83) % Lymph % (Auto) (25-47) % [place] % (Auto) (1-9) % Eos % (Auto) (0-6) % Baso % (Auto) (0-2) % Absolute Neuts (auto) (1.5-7.7) 10^3/ul Absolute Lymphs (auto) (1.0-4.8) 10^3/ul Absolute Monos (auto) (0-0.8) 10^3/ul Absolute Eos (auto) (0-0.6) 10^3/ul Absolute Basos (auto) (0-0.2) 10^3/ul Absolute Nucleated RBC 10^3/ul Nucleated RBC % INR (Anticoag Therapy) (0.77-1.02) APTT (26.0-36.3) seconds D-Dimer, Quantitative (Less Than 230) ng/mL Patient Temperature Not Reportable ABG pH 7.37 (7.35-7.45) ABG pH (Temp Correct) Not Reportable ABG pCO2 44 (35-45) mmHg ABG pCO2 (Temp Corrct Not Reportable ABG pO2 53 L* (80-100) mmHg ABG pO2 (Temp Correct Not Reportable ABG HCO3 24.6 (19-31) mmol/L ABG O2 Saturation 92.0 L (95-98) % ABG Base Excess -0.1 (-2.0-2.0) Respiration Rate Not Reportable O2 Delivery Device Nc Ventilator Type Not Reportable Vent Mode Not Reportable FiO2 3 Inspiratory Time Not Reportable PEEP Not Reportable Pressure Support Not Reportable Pressure Control Not Reportable EPAP Not Reportable IPAP Not Reportable BiPAP Not Reportable Sodium 137 (133-145) mmol/L Potassium 4.3 (3.5-5.0) mmol/L Chloride 107 (101-111) mmol/L Carbon Dioxide 25 (22-32) mmol/L Anion Gap 5 (2-11) mmol/L BUN 39 H (6-24) mg/dL Creatinine 1.81 H (0.51-0.95) mg/dL Est GFR ( Amer) 35.3 (>60) Est GFR (Non-Af Amer) 27.5 (>60) BUN/Creatinine Ratio 21.5 H (8-20) Glucose 117 H (70-100) mg/dL Lactic Acid 0.8 (0.5-2.0) mmol/L Calcium 9.3 (8.6-10.3) mg/dL Total Bilirubin 0.50 (0.2-1.0) mg/dL AST 22 (13-39) U/L ALT 20 (7-52) U/L Alkaline Phosphatase 76 (34-104) U/L Troponin I 0.06 H* (<0.04) ng/mL B-Natriuretic Peptide ( - 100) pg/mL Total Protein 7.6 (6.4-8.9) g/dL Albumin 3.7 (3.2-5.2) g/dL Globulin 3.9 (2-4) g/dL Albumin/Globulin Ratio 0.9 L (1-3) TSH 5.48 (0.34-5.60) mcIU/mL Digoxin Cancelled Assess/Plan/Problems-Billing Assessment: - Patient Problems (1) Diastolic CHF Current Visit: Yes Status: Acute Code(s): I50.30 - UNSPECIFIED DIASTOLIC ( CONGESTIVE) HEART FAILURE SNOMED Code(s): 105109689 Comment: Will check BMP in AM, probably start small (20 mg) dose or oral furosemide. (2) COPD (chronic obstructive pulmonary disease) Current Visit: Yes Status: Acute Code(s): J44.9 - CHRONIC OBSTRUCTIVE PULMONARY DISEASE, UNSPECIFIED SNOMED Code(s): 84413656 Comment: Stop prednisone. No wheezing now or on admission, may not be of signiiicant benefit. Pt afraid to take it. (3) CKD (chronic kidney disease) stage 4, GFR 15-29 ml/min Current Visit: Yes Status: Acute Code(s): N18.4 - CHRONIC KIDNEY DISEASE, STAGE 4 (SEVERE) SNOMED Code(s): 498253062 Comment: Est GFR 27.5 08/29, repeat BMP 08/30/17. (4) HTN (hypertension) Current Visit: Yes Status: Acute Code(s): I10 - ESSENTIAL (PRIMARY) HYPERTENSION SNOMED Code(s): 16531254 Comment: Continue home doses valsartan, amlodipine, carvedilol. (5) Hypothyroidism Current Visit: Yes Status: Acute Code(s): E03.9 - HYPOTHYROIDISM, UNSPECIFIED SNOMED Code(s): 02341941 Comment: TSH wnl 08/29/17. Continue levothyroxine. (6) Tobacco abuse Current Visit: Yes Status: Acute Code(s): Z72.0 - TOBACCO USE SNOMED Code( s): 428828659 Comment: Pt advised to quit smoking and avoid second hand smoke.
[2017-08-29] MEDS: Famotidine TAB* 20 MG PO SCH (18:09)
[2017-08-30] MEDS: Levothyroxine TAB* 100 MCG TAB PO SCH (06:05)
[2017-08-30] MEDS: Heparin VIAL(*) 5000 UNITS/ML VIAL (FIVE THOUSAND) SUBCUT SCH ×3 (06:06→21:05)
[2017-08-30 07:26] LABS: Hematocrit 36 % (35-47); Hemoglobin 11.9 g/dl (12.0-16.0); Mean Corpuscular HGB Conc 33 g/dl (31-36); Mean Corpuscular Hemoglobin 30 pg (27-31); Mean Corpuscular Volume 91 fL (80-97); Mean Platelet Volume 8 um3 (7.4-10.4); Platelet Count 207 10^3/ul (150-450); Red Blood Count 3.99 10^6/ul (4.0-5.4); Red Cell Distribution Width 17 % (10.5-15); White Blood Count 16.2 10^3/ul (3.5-10.8)
[2017-08-30 07:42] LABS: EGFR Non-African American 17.5 (>60)
[2017-08-30] MEDS: Citalopram TAB* 10 MG PO SCH (08:34)
[2017-08-30] MEDS: Carvedilol TAB* 25 MG PO SCH ×2 (08:34→21:05)
[2017-08-30] MEDS: amLODIPine TAB* 5 MG PO SCH (08:34)
[2017-08-30] MEDS: Valsartan TAB* 160 MG PO SCH (08:34)
[2017-08-30] MEDS ORDERED: NS 0.9% 1000 ML* 500 ML IV ONE (08:42)
[2017-08-30 15:49] LABS: EGFR Non-African American 14.8 (>60)
[2017-08-30] MEDS: Famotidine TAB* 20 MG PO SCH (18:21)
[2017-08-31] MEDS: Levothyroxine TAB* 100 MCG TAB PO SCH (05:45)
[2017-08-31] MEDS: Heparin VIAL(*) 5000 UNITS/ML VIAL (FIVE THOUSAND) SUBCUT SCH ×2 (05:46→14:43)
[2017-08-31] MEDS: Valsartan TAB* 160 MG PO SCH (08:16)
[2017-08-31] MEDS: Citalopram TAB* 10 MG PO SCH (08:16)
[2017-08-31] MEDS: Carvedilol TAB* 25 MG PO SCH (08:16)
[2017-08-31] MEDS: amLODIPine TAB* 5 MG PO SCH (08:16)
--- NOTE | 2017-08-31 10:17 | DCNOTE ---
Subjective Date of Service: 08/31/17 Interval History: No c/o 's office [phone]. Objective Active Medications: Albuterol (Ventolin 2.5 Mg/3 Ml Neb.Danita*) 2.5 mg INH Q4H PRN PRN Reason: SOB/WHEEZING Amlodipine Besylate (Norvasc Tab*) 10 mg PO DAILY [facility] Last Admin: 08/31/17 08:16 Dose: 10 mg Carvedilol (Coreg Tab*) 25 mg PO BID [facility] Last Admin: 08/31/17 08:16 Dose: 25 mg Citalopram Hydrobromide (Celexa Tab*) 20 mg PO DAILY [facility] Last Admin: 08/31/17 08:16 Dose: 20 mg Clonazepam (Klonopin Tab(*)) 0.5 mg PO BID PRN PRN Reason: ANXIETY Clonidine HCl (Nzdyqmnx-Yxz-6 0.2 Mg Patch*) 0.2 mg TRANSDERM Q7D [facility] Last Admin: 08/29/17 09:04 Dose: 0.2 mg Famotidine (Pepcid Tab*) 20 mg PO QPM [facility] Last Admin: 08/30/17 18:21 Dose: 20 mg Heparin Sodium (Porcine) (Heparin Vial(*)) 5,000 units SUBCUT Q8HR [facility] Last Admin: 08/31/17 05:46 Dose: 5,000 units Levothyroxine Sodium (Synthroid Tab*) 100 mcg PO 0600 [facility] Last Admin: 08/31/17 05:45 Dose: 100 mcg Valsartan (Diovan Tab*) 320 mg PO DAILY [facility] Last Admin: 08/31/17 08:16 Dose: 320 mg Vital Signs - 8 hr 08/31/17 08/31/17 08/31/17 04:27 07:56 07:58 Temperature 97.9 F 97.4 F Pulse Rate 61 63 Respiratory 16 18 18 Rate Blood Pressure 146/55 148/53 (mmHg) O2 Sat by Pulse 99 97 Oximetry Oxygen Devices in Use Now: Nasal Cannula Appearance: Alert, standing by her bed. In fair spirits. Looks comfortable but concerned. Eyes: No Scleral Icterus Neck: NL Appearance and Movements; NL JVP, No Thyroid Enlargement, Masses Respiratory: Symmetrical Chest Expansion and Respiratory Effort, Clear to Auscultation, Clear to Percussion Cardiovascular: NL Sounds; No Murmurs; No JVD, RRR, No Edema, - Extremities: No Clubbing, Cyanosis, - - Tr edema BL. Skin: No Rash or Ulcers, No Nodules or Sclerosis, - Neurological: Alert and Oriented x 3, NL Sensation Result Diagrams: 08/30/17 06:22 08/31/17 05:37 Additional Lab and Data: Lab Results 08/29/17 08/29/17 08/29/17 Range/Units 03:15 03:15 03:15 WBC 10.9 H (3.5-10.8) 10^3/ul RBC 4.33 (4.0-5.4) 10^6/ul Hgb 13.1 (12.0-16.0) g/dl Hct 39 (35-47) % MCV 91 (80-97) fL MCH 30 (27-31) pg MCHC 33 (31-36) g/dl RDW 17 H (10.5-15) % Plt Count 205 (150-450) 10^3/ul MPV 8 (7.4-10.4) um3 Neut % (Auto) 74.9 (38-83) % Lymph % (Auto) 13.8 L (25-47) % [place] % (Auto) 8.0 (1-9) % Eos % (Auto) 2.0 (0-6) % Baso % (Auto) 1.3 (0-2) % Absolute Neuts (auto) 8.1 H (1.5-7.7) 10^3/ul Absolute Lymphs (auto) 1.5 (1.0-4.8) 10^3/ul Absolute Monos (auto) 0.9 H (0-0.8) 10^3/ul Absolute Eos (auto) 0.2 (0-0.6) 10^3/ul Absolute Basos (auto) 0.1 (0-0.2) 10^3/ul Absolute Nucleated RBC 0 10^3/ul Nucleated RBC % 0.1 INR (Anticoag Therapy) 1.01 (0.77-1.02) APTT 31.6 (26.0-36.3) seconds D-Dimer, Quantitative > 1050 H (Less Than 230) ng/mL Patient Temperature ABG pH (7.35-7.45) ABG pH (Temp Correct) ABG pCO2 (35-45) mmHg ABG pCO2 (Temp Corrct ABG pO2 (80-100) mmHg ABG pO2 (Temp Correct ABG HCO3 (19-31) mmol/L ABG O2 Saturation (95-98) % ABG Base Excess (-2.0-2.0) Respiration Rate O2 Delivery Device Ventilator Type Vent Mode FiO2 Inspiratory Time PEEP Pressure Support Pressure Control EPAP IPAP BiPAP Sodium (133-145) mmol/L Potassium (3.5-5.0) mmol/L Chloride (101-111) mmol/L Carbon Dioxide (22-32) mmol/L Anion Gap (2-11) mmol/L BUN (6-24) mg/dL Creatinine (0.51-0.95) mg/dL Est GFR ( Amer) (>60) Est GFR (Non-Af Amer) (>60) BUN/Creatinine Ratio (8-20) Glucose (70-100) mg/dL Lactic Acid (0.5-2.0) mmol/L Calcium (8.6-10.3) mg/dL Total Bilirubin (0.2-1.0) mg/dL AST (13-39) U/L ALT (7-52) U/L Alkaline Phosphatase (34-104) U/L Troponin I (<0.04) ng/mL B-Natriuretic Peptide 269 H ( - 100) pg/mL Total Protein (6.4-8.9) g/dL Albumin (3.2-5.2) g/dL Globulin (2-4) g/dL Albumin/Globulin Ratio (1-3) TSH (0.34-5.60) mcIU/mL Digoxin 08/29/17 08/29/17 08/29/17 Range/Units 03:15 03:15 04:55 WBC (3.5-10.8) 10^3/ul RBC (4.0-5.4) 10^6/ul Hgb (12.0-16.0) g/dl Hct (35-47) % MCV (80-97) fL MCH (27-31) pg MCHC (31-36) g/dl RDW (10.5-15) % Plt Count (150-450) 10^3/ul MPV (7.4-10.4) um3 Neut % (Auto) (38-83) % Lymph % (Auto) (25-47) % [place] % (Auto) (1-9) % Eos % (Auto) (0-6) % Baso % (Auto) (0-2) % Absolute Neuts (auto) (1.5-7.7) 10^3/ul Absolute Lymphs (auto) (1.0-4.8) 10^3/ul Absolute Monos (auto) (0-0.8) 10^3/ul Absolute Eos (auto) (0-0.6) 10^3/ul Absolute Basos (auto) (0-0.2) 10^3/ul Absolute Nucleated RBC 10^3/ul Nucleated RBC % INR (Anticoag Therapy) (0.77-1.02) APTT (26.0-36.3) seconds D-Dimer, Quantitative (Less Than 230) ng/mL Patient Temperature Not Reportable ABG pH 7.37 (7.35-7.45) ABG pH (Temp Correct) Not Reportable ABG pCO2 44 (35-45) mmHg ABG pCO2 (Temp Corrct Not Reportable ABG pO2 53 L* (80-100) mmHg ABG pO2 (Temp Correct Not Reportable ABG HCO3 24.6 (19-31) mmol/L ABG O2 Saturation 92.0 L (95-98) % ABG Base Excess -0.1 (-2.0-2.0) Respiration Rate Not Reportable O2 Delivery Device Nc Ventilator Type Not Reportable Vent Mode Not Reportable FiO2 3 Inspiratory Time Not Reportable PEEP Not Reportable Pressure Support Not Reportable Pressure Control Not Reportable EPAP Not Reportable IPAP Not Reportable BiPAP Not Reportable Sodium 137 (133-145) mmol/L Potassium 4.3 (3.5-5.0) mmol/L Chloride 107 (101-111) mmol/L Carbon Dioxide 25 (22-32) mmol/L Anion Gap 5 (2-11) mmol/L BUN 39 H (6-24) mg/dL Creatinine 1.81 H (0.51-0.95) mg/dL Est GFR ( Amer) 35.3 (>60) Est GFR (Non-Af Amer) 27.5 (>60) BUN/Creatinine Ratio 21.5 H (8-20) Glucose 117 H (70-100) mg/dL Lactic Acid 0.8 (0.5-2.0) mmol/L Calcium 9.3 (8.6-10.3) mg/dL Total Bilirubin 0.50 (0.2-1.0) mg/dL AST 22 (13-39) U/L ALT 20 (7-52) U/L Alkaline Phosphatase 76 (34-104) U/L Troponin I 0.06 H* (<0.04) ng/mL B-Natriuretic Peptide ( - 100) pg/mL Total Protein 7.6 (6.4-8.9) g/dL Albumin 3.7 (3.2-5.2) g/dL Globulin 3.9 (2-4) g/dL Albumin/Globulin Ratio 0.9 L (1-3) TSH 5.48 (0.34-5.60) mcIU/mL Digoxin Cancelled Assess/Plan/Problems-Billing Assessment: - Patient Problems (1) Diastolic CHF Current Visit: Yes Status: Acute Code(s): I50.30 - UNSPECIFIED DIASTOLIC ( CONGESTIVE) HEART FAILURE SNOMED Code(s): 490070909 Comment: No diuretic while wup for ARF in progress. (2) COPD (chronic obstructive pulmonary disease) Current Visit: Yes Status: Acute Code(s): J44.9 - CHRONIC OBSTRUCTIVE PULMONARY DISEASE, UNSPECIFIED SNOMED Code(s): 32507479 Comment: Stop prednisone. No wheezing now or on admission, may not be of signiiicant benefit. Pt afraid to take it. (3) CKD (chronic kidney disease) stage 4, GFR 15-29 ml/min Current Visit: Yes Status: Acute Code(s): N18.4 - CHRONIC KIDNEY DISEASE, STAGE 4 (SEVERE) SNOMED Code(s): 076239490 Comment: Creatinine up to 3.71. Awaiting bed at [facility] for transfer for nephrology care. PVR 22 ml by nurse 08/31/17. Dr. Alonso accepting hospitalist. Note no eos on smear. (4) HTN (hypertension) Current Visit: Yes Status: Acute Code(s): I10 - ESSENTIAL (PRIMARY) HYPERTENSION SNOMED Code(s): 18661769 Comment: Continue home doses valsartan, amlodipine, carvedilol. (5) Hypothyroidism Current Visit: Yes Status: Acute Code(s): E03.9 - HYPOTHYROIDISM, UNSPECIFIED SNOMED Code(s): 55704995 Comment: TSH wnl 08/29/17. Continue levothyroxine. (6) Tobacco abuse Current Visit: Yes Status: Acute Code(s): Z72.0 - TOBACCO USE SNOMED Code( s): 595428926 Comment: Pt advised to quit smoking and avoid second hand smoke. Status and Disposition: Transfer to [facility].
--- NOTE | 2017-08-31 11:38 | PN ---
Progress Note - Progress Note Date of Service: 08/31/17 Note: Time spent on discharge 70 minutes.
--- NOTE | 2017-08-31 12:33 | TRS ---
CC: Dr. Dalal * DATE OF ADMISSION: 08/29/2017. DATE OF TRANSFER: 08/31/2017. HISTORY OF PRESENT ILLNESS: This 72-year-old woman presented with shortness of breath. The details of the admission presentation are in the admission note. She received Furosemide 40 mg IV in the emergency room. She has three troponins levels, all of which were 0.06, 0.05, and 0.04 in that order. She was monitored on our Telemetry Unit. She has a transthoracic echocardiogram on 08/29/2017 that showed an ejection fraction of 55 to 60 percent. The exam was technically limited. There was borderline aortic stenosis, mild to moderate aortic regurgitation, and 4.4 cm dilatation of the ascending aorta. I believe that the 40 mg dose of Furosemide in the emergency room was the only diuretic she received. Her creatinine at the time of administration of the Furosemide was 1.81. About 24 hours later, her creatinine was 2.68. No diuretic was given that day. She was given 500 ml of normal saline. That afternoon of the , her creatinine was 3.10 and this morning on the day of transfer it is 3.71. She remained relatively asymptomatic. I think she really improved some. She did get a dose of Methylprednisolone 125 mg in the emergency room. She did not get any further doses of steroid. She did get Levothyroxine 750 mg in the emergency room on August 29. She got one dose of Labetalol 20 mg IV. She got a Nitroglycerin tablet. She got nebulized Albuterol and Ipratropium. On the day of transfer, her postvoid residual by bladder scan was 22 ml. Random urine sodium on August 30 at 4:15 p.m. was 43. Random creatinine at that time was 56.9. FINAL DIAGNOSES: 1. COPD. 2. Possible diastolic heart failure. 3. Hypothyroidism. 4. Acute renal failure. TRANSFER MEDICATIONS: 1. Albuterol 2.5 mg by nebulizer every 4 hours prn. 2. Amlodipine 10 mg daily. 3. Carvedilol 25 mg b.i.d. 4. Citalopram 20 mg daily. 5. Clonazepam 0.5 mg b.i.d. prn. 6. Clonidine 0.2 mg patch every 7 days. 7. Famotidine 20 mg daily in the evening. 8. Levothyroxine 100 mcg daily. 9. Valsartan 320 mg daily. The patient was transferred to [facility] for nephrology care. [id number]/[facility] #: [id number] [facility]
[2017-08-31 15:51] VITALS: BP 148/51
== END 2017-08-31 16:08 | disposition short-term general hospital (02) | DRG 194 ==
LOC: ED 02:53 → MEDTELE 05:49
PROVIDERS: ADMIT Hospitalist; ATTEND Internal Medicine
DX: I13.0 Hypertensive heart and chronic kidney disease with heart failure and stage 1 through stage 4 chronic kidney disease, or unspecified chronic kidney disease (principal); I50.30 Unspecified diastolic (congestive) heart failure; N18.4 Chronic kidney disease, stage 4 (severe); N17.9 Acute kidney failure, unspecified; F17.210 Nicotine dependence, cigarettes, uncomplicated; E03.9 Hypothyroidism, unspecified; J44.9 Chronic obstructive pulmonary disease, unspecified; F41.8 Other specified anxiety disorders; K21.9 Gastro-esophageal reflux disease without esophagitis; Z85.42 Personal history of malignant neoplasm of other parts of uterus; Z79.899 Other long term (current) drug therapy; Z88.1 Allergy status to other antibiotic agents; Z91.040 Latex allergy status; Z91.048 Other nonmedicinal substance allergy status; R74.8 Abnormal levels of other serum enzymes
CPT/HCPCS: 36415; 71045; 71250; 80048; 80053; 82570; 82803; 83605; 83880; 84300; 84443; 84484; 85025; 85027; 85379; 85610; 85730; 87040; 89190; 93005; 93306; 94640; 94760; 99285; A9270-GY; J1644; J1940; J2930; J7512

== ENCOUNTER 2017-09-25 14:21 | Observation (INO) | payer BC, MEDICARE ==
--- NOTE | 2017-09-25 15:43 | RAD ---
INDICATION: Hemoptysis COMPARISON: August 29, 2017 TECHNIQUE: PA and lateral dual-energy views were obtained. FINDINGS: Bones/Soft Tissues: There are no acute bony findings. Cardiomediastinal: The cardiomediastinal silhouette is unchanged. There is prior endovascular stent grafting. Lungs: There are bilateral pleural effusions left greater than right. There is probably basilar atelectasis.. Pleura: Bilateral pleural effusions as noted above. Other: None IMPRESSION: BILATERAL PLEURAL EFFUSIONS WITH RESULTANT BIBASILAR ATELECTASIS. THERE IS MILD WORSENING AERATION IN THE RIGHT LUNG BASE. SUGGEST FOLLOW-UP INDICATED.
[2017-09-25 15:54] LABS: Hematocrit 28 % (35-47); Hemoglobin 9.3 g/dl (12.0-16.0); Mean Corpuscular HGB Conc 33 g/dl (31-36); Mean Corpuscular Hemoglobin 30 pg (27-31); Mean Corpuscular Volume 90 fL (80-97); Mean Platelet Volume 7 um3 (7.4-10.4); Platelet Count 119 10^3/ul (150-450); Red Cell Distribution Width 17 % (10.5-15); White Blood Count 4.1 10^3/ul (3.5-10.8)
[2017-09-25 16:00] LABS: INR 0.99 (0.77-1.02)
[2017-09-25 16:42] LABS: EGFR Non-African American 11.5 (>60)
[2017-09-25] MEDS ORDERED: Albuterol/Ipratropium NEB.SOL* Albuterol 2.5 MG/Ipratropium 0.5 MG 3 ML INH ONE ×2 (17:36→17:38)
[2017-09-25] MEDS ORDERED: Ipratropium 0.5MG/2.5ML NEB* 0.5 MG/2.5 ML NEB.SOLN INH PRN (18:33)
--- NOTE | 2017-09-25 18:50 | ADMNOTE ---
Subjective Date of Service: 09/25/17 Interval History: ADMISSION HISTORY AND PHYSICAL EXAM: Allergies Allergy/AdvReac Type Severity Reaction Status Date / Time erythromycin base Allergy Unknown Verified 09/25/17 14:53 Reaction Details latex Allergy Itching Verified 09/25/17 14:53 nickel Allergy Hives Verified 09/25/17 14:53 walnut Allergy Anaphylatic Verified 09/25/17 14:53 Shock Home Medications Medication Instructions Recorded Confirmed Type Carvedilol TAB* [Coreg TAB*] 25 mg PO BID 08/29/17 09/25/17 History Citalopram TAB* [CeleXA TAB*] 20 mg PO BEDTIME 08/29/17 09/25/17 History Famotidine TAB* [Pepcid 20 MG TAB*] 20 mg PO DAILY 08/29/17 09/25/17 History Levothyroxine TAB* [Synthroid TAB*] 100 mcg PO DAILY 08/29/17 09/25/17 History cloNIDine 0.2 MG PATCH* 0.2 mg TRANSDERM WEEKLY 08/29/17 09/25/17 History [Ikwvhqrw-Zre-3 0.2 mg Patch*] clonazePAM TAB(*) [KlonoPIN TAB(*)] 0.25 mg PO BID PRN MDD 2 08/29/17 09/25/17 History Ipratropium 0.5MG/2.5ML NEB* 0.5 mg INH Q4H PRN 09/25/17 09/25/17 History [Atrovent 0.5 MG NEB.LEEROY*] Isosorbide Mononitrate ER TAB* 60 mg PO DAILY 09/25/17 09/25/17 History [Imdur ER TAB*] Turmeric [Curcumin] 1 gm PO DAILY 09/25/17 09/25/17 History hydrALAZINE TAB* [Apresoline TAB*] 50 mg PO TID 09/25/17 09/25/17 History HPI: The patient was in her usual state of health until about 12:00 to 1:00 PM today. She was eating lunch with her daughter. A cracker got caught in her throat and she coughed until she eventually coughed up the cracker. Her daughter brought her to her appointment with Dr. Boyd at 1:45 PM. In his office she coughed up some blood. Dr. Boyd walked her over the the ED. She has not coughed up any more blood since then. She denies any change in her chronic cough or PRIEST, denies any chest pain, chills, sweats. Family History: Findings - Mother in her 80's of CHF. Father age 86 after hip fracture. Social History: Findings - Recent smoker (Quit 08/27). No alcohol abuse. Lives with her . and daughter Yamile are HCP's. Three children. Past Medical History: Findings - Descending aortic aneurysm repair 06/2016, uterine cancer, HTN, CKD, hypothryoid, depression, GERD, ? CHF. Review of Systems - Measurements Intake and Output: Intake and Output Last 24 Hours 09/23/17 09/24/17 09/25/17 09/26/17 06:59 06:59 06:59 06:59 Weight 220 lb - Review of Systems Constitutional Symptoms: Negative: Weight Gain, Weight Loss, Weakness, Fatigue, Fever, Night Sweats, Unexplained Falls, Other Dermatology: Positive: Normal HEENT: Positive: Normal Eyes: Positive: Normal Thyroid: Positive: Primary Hypothyroidism Pulmonary: Positive: Cough, Shortness of Breath, Home Oxygen Cardiology: Positive: Shortness of Breath, Edema Gastroenterology: Positive: Normal Genital - Urinary: Positive: Normal Musculoskeletal: Negative: Joint Pain, Joint Stiffness, Arthritis, Osteoporosis, Low Back Pain , Sciatica, Joint Deformities, Kyphoscoliosis, Other Endocrinology: Positive: Thyroid Problems Hematologic/Lymphatic: Positive: Anemia Neurology: Positive: Normal Psychiatry: Positive: Depression Allergic/Immunologic: Negative: Hx Anaphylaxis, Hx Angioedema, Hx Environmental, Hx Seasonal, Athsma, Hx HIV, Immunocompromise, Swollen Glands LymphNodes, Other Objective Vital Signs - 8 hr 09/25/17 09/25/17 09/25/17 14:23 14:37 14:40 Temperature 97.7 F Pulse Rate 74 70 78 Respiratory 26 23 Rate Blood Pressure 173/55 174/66 (mmHg) O2 Sat by Pulse 94 91 94 Oximetry 09/25/17 09/25/17 09/25/17 15:00 15:30 16:00 Temperature Pulse Rate 75 77 Respiratory 22 17 Rate Blood Pressure 166/58 176/65 194/69 (mmHg) O2 Sat by Pulse 97 96 Oximetry 09/25/17 09/25/17 09/25/17 16:30 17:00 17:24 Temperature Pulse Rate 80 81 80 Respiratory 21 27 28 Rate Blood Pressure 183/85 194/69 (mmHg) O2 Sat by Pulse 96 97 97 Oximetry 09/25/17 09/25/17 09/25/17 17:30 17:55 18:00 Temperature Pulse Rate 80 80 77 Respiratory 25 21 Rate Blood Pressure 195/73 177/95 (mmHg) O2 Sat by Pulse 97 96 Oximetry Oxygen Devices in Use Now: Nasal Cannula Appearance: Alert, neutral affect. Partly up on ED stretcher. Looks comfortable. No cough during my visit. Neck: NL Appearance and Movements; NL JVP, No Thyroid Enlargement, Masses Respiratory: Symmetrical Chest Expansion and Respiratory Effort, Clear to Auscultation, Clear to Percussion Cardiovascular: NL Sounds; No Murmurs; No JVD, RRR, No Edema, - Abdominal: NL Sounds; No Tenderness; No Distention, No Hepatosplenomegaly, - Extremities: No Clubbing, Cyanosis, - - 2+ pitting edema BL, R sl worse Skin: No Nodules or Sclerosis, - - Skin dry and shiny on both lower legs Neurological: Alert and Oriented x 3, NL Sensation Result Diagrams: 09/25/17 15:30 09/25/17 15:30 Assess/Plan/Problems-Billing Assessment: - Patient Problems (1) Hemoptysis Current Visit: Yes Status: Acute Code(s): R04.2 - HEMOPTYSIS SNOMED Code(s ): 65940461 Comment: Likely related to near-aspiration of cracker. Patient seems completely at her baseline now. I will admit her for observation to see if hemoptysis recurs. Repeat CXR 09/26. (2) CKD (chronic kidney disease) stage 5, GFR less than 15 ml/min Current Visit: Yes Status: Acute Code(s): N18.5 - CHRONIC KIDNEY DISEASE, STAGE 5 SNOMED Code(s): 963182032 Comment: Est GFR 11.5 on 09/25/17. Repeat BMP 09/26. Fup with Dr. Boyd. (3) HTN (hypertension) Current Visit: No Status: Acute Code(s): I10 - ESSENTIAL (PRIMARY) HYPERTENSION SNOMED Code(s): 19634205 Comment: Continue home doses hydralzine, clonidine, carvedilol, isosorbide mononitrate. (4) Hypothyroidism Current Visit: No Status: Acute Code(s): E03.9 - HYPOTHYROIDISM, UNSPECIFIED SNOMED Code(s): 39810544 Comment: TSH wnl 08/29/17. Continue levothyroxine. (5) Tobacco abuse Current Visit: No Status: Acute Code(s): Z72.0 - TOBACCO USE SNOMED Code(s ): 370829242 Comment: Pt quit smoking about 6 weeks before this admission (DOA 09/25/17).
[2017-09-25] MEDS ORDERED: cloNIDine 0.2 MG PATCH* 0.2 MG/24 HR 7 DAY PATCH TRANSDERM SCH (19:00)
[2017-09-25] MEDS: hydrALAZINE TAB* 25 MG PO SCH (20:53)
[2017-09-25] MEDS: Carvedilol TAB* 25 MG PO SCH (20:53)
[2017-09-25] MEDS: Heparin VIAL(*) 5000 UNITS/ML VIAL (FIVE THOUSAND) SUBCUT SCH (20:54)
[2017-09-25] MEDS ORDERED: Citalopram TAB* 10 MG PO SCH (21:00)
[2017-09-25] MEDS: clonazePAM TAB(*) 0.5 MG PO PRN (23:26)
[2017-09-26] MEDS: Heparin VIAL(*) 5000 UNITS/ML VIAL (FIVE THOUSAND) SUBCUT SCH ×2 (05:59→14:01)
[2017-09-26] MEDS ORDERED: Levothyroxine TAB* 100 MCG TAB PO SCH (06:00)
[2017-09-26 06:57] LABS: EGFR Non-African American 11.2 (>60)
[2017-09-26] MEDS: Carvedilol TAB* 25 MG PO SCH (08:47)
[2017-09-26] MEDS: hydrALAZINE TAB* 25 MG PO SCH ×2 (08:47→14:00)
[2017-09-26] MEDS ORDERED: Famotidine TAB* 20 MG PO SCH (09:00)
[2017-09-26] MEDS ORDERED: Isosorbide Mononitrate ER TAB* 60 MG PO SCH (09:00)
--- NOTE | 2017-09-26 10:03 | RAD ---
Indication: Hemoptysis. 2 views of the chest including dual energy PA views demonstrates aortic stent graft in place. Overall appearance of the aorta is tortuous and unchanged from previous exam. There is loculated left pleural effusion. Small right pleural effusion is noted. Overall no changes noted since September 25, 2017. IMPRESSION: Patient is status post stent graft repair of the descending thoracic aorta with bilateral pleural effusion and likely bibasilar atelectasis unchanged from previous exam.
--- NOTE | 2017-09-26 10:40 | PN ---
Subjective Date of Service: 09/26/17 Family History: Findings - Mother in her 80's of CHF. Father age 86 after hip fracture. Social History: Findings - Recent smoker (Quit 08/27). No alcohol abuse. Lives with her . and daughter Yamile are HCP's. Three children. Past Medical History: Findings - Descending aortic aneurysm repair 06/2016, uterine cancer, HTN, CKD, hypothryoid, depression, GERD, ? CHF. Objective Active Medications: Carvedilol (Coreg Tab*) 25 mg PO BID [facility] Last Admin: 09/26/17 08:47 Dose: 25 mg Citalopram Hydrobromide (Celexa Tab*) 10 mg PO BEDTIME [facility] Last Admin: 09/25/17 20:53 Dose: 10 mg Clonazepam (Klonopin Tab(*)) 0.25 mg PO BID PRN PRN Reason: ANXIETY Last Admin: 09/25/17 23:26 Dose: 0.25 mg Clonidine HCl (Sosbwrti-Qla-2 0.2 Mg Patch*) 0.2 mg TRANSDERM WEEKLY [facility] Famotidine (Pepcid Tab*) 20 mg PO DAILY [facility] Last Admin: 09/26/17 07:47 Dose: 20 mg Heparin Sodium (Porcine) (Heparin Vial(*)) 5,000 units SUBCUT Q8HR [facility] Last Admin: 09/26/17 05:59 Dose: 5,000 units Hydralazine HCl (Apresoline Tab*) 50 mg PO TID [facility] Last Admin: 09/26/17 08:47 Dose: 50 mg Ipratropium [place] (Atrovent 0.5 Mg Neb.Danita*) 0.5 mg INH Q4H PRN PRN Reason: SOB/WHEEZING Isosorbide Mononitrate (Imdur Er Tab*) 60 mg PO DAILY [facility] Last Admin: 09/26/17 08:47 Dose: 60 mg Levothyroxine Sodium (Synthroid Tab*) 100 mcg PO 0600 [facility] Last Admin: 09/26/17 05:59 Dose: 100 mcg Vital Signs - 8 hr 09/26/17 09/26/17 04:16 07:13 Temperature 97.5 F 97.6 F Pulse Rate 73 76 Respiratory 16 16 Rate Blood Pressure 178/60 185/65 (mmHg) O2 Sat by Pulse 97 95 Oximetry Oxygen Devices in Use Now: Nasal Cannula Result Diagrams: 09/25/17 15:30 09/26/17 06:31 Assess/Plan/Problems-Billing Assessment:
[2017-09-26] MEDS: clonazePAM TAB(*) 0.5 MG PO PRN (14:00)
[2017-09-26 15:11] VITALS: BP 182/71
--- NOTE | 2017-09-27 19:02 | DS ---
CC: Dr. Iglesia Lockhart. * MEDICINE DISCHARGE SUMMARY: DATE OF ADMISSION: 09/25/17 DATE OF DISCHARGE: 09/26/17 PRIMARY CARE PHYSICIAN: Iglesia oLckhart MD PROVIDER: Rosalba Villegas NP ATTENDING PHYSICIAN: Hue Roman DO * (as dictated by Rosalba Villegas NP). PRIMARY DISCHARGE DIAGNOSES: 1. Hemoptysis following aspiration of cracker. 2. Kidney disease. 3. Elevated D-dimer. SECONDARY DISCHARGE DIAGNOSES: 1. Descending aortic aneurysm repair in 2016. 2. Hypertension. 3. Hypothyroidism. 4. Depression. 5. Gastroesophageal reflux disease. 6. Question of congestive heart failure. 7. History of uterine cancer. MEDICATIONS AT DISCHARGE: 1. Clonidine 0.2 mg patch apply weekly transdermally. 2. 1 g daily. 3. Levothyroxine 100 mcg daily. 4. Atrovent 0.5 mg inhaled q. 4 hours p.r.n. 5. Famotidine 20 mg daily. 6. Hydralazine 50 mg t.i.d. 7. Isosorbide mononitrate ER 60 mg daily. 8. Carvedilol 25 mg b.i.d. 9. Clonazepam 0.25 mg b.i.d. p.r.n. 10. Citalopram 20 mg at bedtime. HOSPITAL COURSE OF STAY: For full details, please refer to the H and P provided by Dr. Camargo on admission. In summary, the patient was in a usual state of health. When at lunch, she was eating with her daughter and a cracker got caught in her throat and she coughed until she eventually coughed up the cracker. She was brought into her appointment following the event to Dr. Boyd 's office and she coughed up some more blood and the patient was transported to the ER for further evaluation. There has been no further hemoptysis since then. She denies any changes to her chronic cough or dyspnea and is on her baseline oxygen. She denies any chest pain, leg pain or shortness of breath. She had a repeat chest x-ray, which looks similar to previous. While in the ER , D-dimer was checked, but her pre- test probability for PE as well as her assessment, it seems to be low likelihood of PE. Given that she had some atelectasis and pleural effusions seen on chest x-ray, it is felt that V/Q scan would likely be inclusive given the haziness of her lungs. I did review her results and her condition with Dr. Boyd who will see her again next week as well as with Dr. Sanchez. Dr. Sanchez felt that the patient would likely not benefit at this time for V/Q scan and with her low-test probability, felt that it would be okay to hold off on testing unless patient shows further complications or concerns. She will see the patient in outpatient followup. The patient was advised to follow up with Dr. Sanchez as an outpatient, which can be arranged through her PCP office. No further complaints at this time. The patient is at baseline and eager to go home. PHYSICAL EXAM: Vital Signs: Temperature 97.4, pulse of 81, respiratory rate 18 , blood pressure 165/63, O2 saturation is 96% on 2 L. General: This is an older female, sitting up in chair, in no acute distress. HEENT: Pupils are equal, round, and reactive to light. Oral mucosa is moist. Neck is supple. No JVD noted. Cardiac: S1, S2. Heart sounds regular rate and rhythm. Lungs are clear to auscultation bilaterally. Abdomen: Soft, nontender, nondistended. Bowel sounds normoactive. Extremities: The patient has 2+ bilateral lower extremity edema, but no tenderness or erythema. Neuro: She is alert and oriented x3. Affect is appropriate. No focal deficits noted. DIET: Renal, low sodium diet. ACTIVITY: As tolerated. CONDITION: Stable. DISPOSITION: To home. TIME SPENT: Time spent on this discharge was approximately 40 minutes. OUTPATIENT FOLLOWUP NEEDS: The patient needs to follow up with Dr. Boyd, which is scheduled for next week as well as Dr. Sanchez for Pulmonology. Again, this is only a brief summary of the patient's hospital course of stay. For full details, please refer to the full medical record. If you have any further questions or need further assistance, please feel free to contact me at [phone]. ROSALBA VILLEGAS NP [id number]/[facility] #: [id number] KASEY
== END 2017-09-26 15:50 | disposition home or self-care (01) ==
LOC: ED 14:21 → MED 18:29
PROVIDERS: ADMIT Internal Medicine; ATTEND Hospitalist
DX: R04.2 Hemoptysis (principal); N18.5 Chronic kidney disease, stage 5; R79.1 Abnormal coagulation profile; I10 Essential (primary) hypertension; E03.9 Hypothyroidism, unspecified; R06.02 Shortness of breath; R05 Cough; Z72.0 Tobacco use; Z87.19 Personal history of other diseases of the digestive system; Z85.42 Personal history of malignant neoplasm of other parts of uterus
CPT/HCPCS: 36415; 71046; 80048; 80053; 85027; 85379; 85610; 94640; 94760; 99283; A9270-GY; G0378; J1644

== ENCOUNTER 2017-10-03 18:49 | Inpatient (IN) | payer BC ==
[2017-10-03] MEDS ORDERED: LORazepam INJ* 2 MG/ML 1 ML VIAL IV PUSH ONE (19:01)
[2017-10-03] MEDS ORDERED: Nitroglycerin TAB 0.4 MG* 0.4 MG TAB SL ONE (19:01)
[2017-10-03 19:16] LABS: ABS Basophils 0.1 10^3/ul (0-0.2); ABS Eosinophils 0.1 10^3/ul (0-0.6); ABS Lymphocytes 1.5 10^3/ul (1.0-4.8); ABS Monocytes 0.7 10^3/ul (0-0.8); ABS Neutrophils 6.6 10^3/ul (1.5-7.7); ABS Nucleated RBC 0 10^3/ul; Eosinophil % 1.2 % (0-6); Hematocrit 32 % (35-47); Hemoglobin 10.4 g/dl (12.0-16.0); Lymphocyte % 16.8 % (25-47); Mean Corpuscular HGB Conc 33 g/dl (31-36); Mean Corpuscular Hemoglobin 30 pg (27-31); Mean Corpuscular Volume 91 fL (80-97); Nucleated Red Blood Cells % 0.1; Platelet Count 180 10^3/ul (150-450); Red Blood Count 3.47 10^6/ul (4.0-5.4); Red Cell Distribution Width 18 % (10.5-15)
[2017-10-03] MEDS ORDERED: Furosemide IV* 10 MG/ML 10 ML VIAL (100 MG) IV ONE (19:20)
[2017-10-03 19:21] LABS: INR 1.02 (0.77-1.02)
--- NOTE | 2017-10-03 19:41 | RAD ---
INDICATION: Difficulty breathing COMPARISON: Most recent comparison chest x-rays dated September 26, 2017 TECHNIQUE: Single AP portable view of the chest was obtained. FINDINGS: Image quality is compromised due to the relative inferiority of a portable chest x-ray. Similar to the prior chest x-ray there is a thoracic aortic stent graft starting at the ascending aorta and extending down to the level the diaphragm. There is mild cardiomegaly. There is density obscuring the bilateral lung bases. Patchy densities are seen more superiorly over the lungs. The pulmonary vasculature appears to be engorged and indistinct. IMPRESSION: Chest x-ray findings are most consistent with cardiogenic pulmonary edema with likely bibasilar pleural effusions. The appearance is similar to the September 26, 2017 chest x-ray.
[2017-10-03] MEDS ORDERED: nitroGLYCERIN DRIP* 25,000 MCG/250 ML BTL IV SCH (20:00)
[2017-10-03] MEDS ORDERED: Furosemide IV* 10 MG/ML 2 ML VIAL (20 MG) IV ONE (20:36)
[2017-10-03] MEDS ORDERED: Albuterol 2.5 MG/3 ML NEB.SOL* (0.083%) INH PRN (20:36)
[2017-10-03] MEDS ORDERED: Furosemide IV* 10 MG/ML VIAL (40 MG) IV SLOW PU ONE (20:45)
[2017-10-03] MEDS ORDERED: Metolazone TAB* 5 MG PO ONE (20:45)
[2017-10-03] MEDS ORDERED: nitroGLYCERIN DRIP* 25,000 MCG/250 ML BTL ONE (20:46)
--- NOTE | 2017-10-03 20:49 | ED ---
Kaleb Castro Nilda, scribed for Mendez Dumont MD on 10/03/17 at 1911 . Respiratory - HPI Summary HPI Summary: LVL 5 CAVEAT: Hx and PE are limited due to pt severe respiratory distress and inability to speak. This patient is a 72 year old F BIBA accompanied by EMS with a chief complaint of acute constant severe respiratory distress since approximately 45 mins ago. Per EMS, patient was 65% O2Sat and in severe respiratory distress at home and was given CPAP on EMS arrival. CPAP was given at pressure of 7.5 and resulted in O2Sat improvement to 89%. Symptoms aggravated by nothing and alleviated by oxygen. Pt is still unable to speak and can only answer questions by head nodding. Patient reports exacerbated edema lately, but denies CP, wheezing, and cough. PMHx CHF and COPD. Pt has high BP on arrival (210). - History of Current Complaint Stated Complaint: DIFF BREATHING Hx Obtained From: Patient, EMS Onset/Duration: Sudden Onset, Lasting Minutes, Still Present Timing: Constant Initial Severity: Severe Current Severity: Severe Character: Dyspnea at Rest Sputum Amount: None Aggravating Factor(s): Nothing Alleviating Factor(s): Oxygen Associated Signs and Symptoms: Edema, Dyspnea - Allergy/Home Medications Allergies/Adverse Reactions: Allergies Allergy/AdvReac Type Severity Reaction Status Date / Time erythromycin base Allergy Unknown Verified 09/25/17 14:53 Reaction Details latex Allergy Itching Verified 09/25/17 14:53 nickel Allergy Hives Verified 09/25/17 14:53 walnut Allergy Anaphylatic Verified 09/25/17 14:53 Shock PMH/Surg Hx/FS Hx/Imm Hx Endocrine/Hematology History: Reports: Hx Thyroid Disease Denies: Hx Diabetes Cardiovascular History: Reports: Hx Congestive Heart Failure, Hx Hypercholesterolemia, Hx Hypertension - on medication Respiratory History: Reports: Hx Chronic Obstructive Pulmonary Disease (COPD), Other Respiratory Problems/Disorders - PTX History: Reports: Hx Renal Disease - stage 4 Musculoskeletal History: Denies: Hx Arthritis, Hx Osteoporosis Sensory History: Reports: Hx Contacts or Glasses Denies: Hx Hearing Aid Opthamlomology History: Reports: Hx Contacts or Glasses Psychiatric History: Reports: Hx Anxiety, Hx Depression - Cancer History Cancer Type, Location and Year: uterine CA- - Surgical History Surgery Procedure, Year, and Place: 3 right foot surgery, hysterectomy(urterine CA) - Family History Known Family History: Positive: Cardiac Disease - mother - Social History Alcohol Use: None Hx Substance Use: No Substance Use Type: Reports: None Hx Tobacco Use: Yes Smoking Status (MU): Light Every Day Tobacco Smoker Amount Used/How Often: 1/2 PPD Review of Systems - ROS Summary Review of Systems Summary: LVL 5 CAVEAT: Hx and PE are limited due to pt's severe respiratory distress and inability to speak. Negative: Chest Pain Positive: Shortness Of Breath, Other - negative wheezing. Negative: Cough Positive: Edema All Other Systems Reviewed And Are Negative: No Physical Exam - Summary Physical Exam Summary: Appearance: severe distress, labored breathing Skin: warm, dry, chronic changes in skin of lower extremities Head/face: normal Eyes: EOMI, RUTH Neck: supple, non-tender, JVD in neck Respiratory: Tachypnea, coarse breath sounds bilat (left greater than right) Cardiovascular: Tachycardia, distant heart sounds, pulses symmetrical Abdomen: non-tender, soft Musculoskeletal: 4+ pitting edema, good peripheral pulses Neuro: alert but unable to speak, no focal deficit or weakness Triage Information Reviewed: Yes Vital Signs On Initial Exam: Initial Vitals Temp Pulse Resp BP Pulse Ox 99.6 F 113 30 173/104 100 10/03/17 18:54 10/03/17 18:54 10/03/17 18:54 10/03/17 18:54 10/03/17 18:54 Vital Signs Reviewed: Yes Completion Of Physical Exam Limited Due To: Level 5 - LVL 5 CAVEAT: Hx and PE are limited due to pt severe respiratory distress and inability to speak. Diagnostics - Vital Signs Vital Signs Temp Pulse Resp BP Pulse Ox 10/03/17 20:25 102 18 100 10/03/17 20:00 104 100 10/03/17 19:30 104 172/93 100 10/03/17 19:27 38 10/03/17 19:05 109 43 100 10/03/17 19:00 110 138/108 99 10/03/17 18:57 110 88 10/03/17 18:55 173/104 10/03/17 18:54 99.6 F 113 30 173/104 100 - Laboratory Lab Results: Lab Results 10/03/17 10/03/17 10/03/17 Range/Units 19:01 19:06 19:06 WBC 9.0 (3.5-10.8) 10^3/ul RBC 3.47 L (4.0-5.4) 10^6/ul Hgb 10.4 L (12.0-16.0) g/dl Hct 32 L (35-47) % MCV 91 (80-97) fL MCH 30 (27-31) pg MCHC 33 (31-36) g/dl RDW 18 H (10.5-15) % Plt Count 180 (150-450) 10^3/ul MPV 7.0 L (7.4-10.4) um3 Neut % (Auto) 73.6 (38-83) % Lymph % (Auto) 16.8 L (25-47) % Tucker % (Auto) 7.3 H (0-7) % Eos % (Auto) 1.2 (0-6) % Baso % (Auto) 1.1 (0-2) % Absolute Neuts (auto) 6.6 (1.5-7.7) 10^3/ul Absolute Lymphs (auto) 1.5 (1.0-4.8) 10^3/ul Absolute Monos (auto) 0.7 (0-0.8) 10^3/ul Absolute Eos (auto) 0.1 (0-0.6) 10^3/ul Absolute Basos (auto) 0.1 (0-0.2) 10^3/ul Absolute Nucleated RBC 0 10^3/ul Nucleated RBC % 0.1 INR (Anticoag Therapy) (0.77-1.02) Patient Temperature Not Reportable ABG pH 7.18 L* (7.35-7.45) ABG pH (Temp Correct) Not Reportable ABG pCO2 71 H (35-45) mmHg ABG pCO2 (Temp Corrct TNP ABG pO2 150 H (80-100) mmHg ABG pO2 (Temp Correct Not Reportable ABG HCO3 21.6 (19-31) mmol/L ABG O2 Saturation 99.8 H (95-98) % ABG Base Excess -4.2 L (-2.0-2.0) Respiration Rate Not Reportable O2 Delivery Device Cpap Ventilator Type Not Reportable Vent Mode Not Reportable FiO2 100 Inspiratory Time Not Reportable PEEP Not Reportable Pressure Support Not Reportable Pressure Control Not Reportable EPAP Not Reportable IPAP Not Reportable BiPAP Not Reportable Sodium (139-145) mmol/L Potassium (3.5-5.0) mmol/L Chloride (101-111) mmol/L Carbon Dioxide (22-32) mmol/L Anion Gap (2-11) mmol/L BUN (6-24) mg/dL Creatinine (0.51-0.95) mg/dL Est GFR ( Amer) (>60) Est GFR (Non-Af Amer) (>60) BUN/Creatinine Ratio (8-20) Glucose (70-100) mg/dL Calcium (8.6-10.3) mg/dL Total Bilirubin (0.2-1.0) mg/dL AST (13-39) U/L ALT (7-52) U/L Alkaline Phosphatase (34-104) U/L Troponin I (<0.04) ng/mL B-Natriuretic Peptide 458 H ( - 100) pg/mL Total Protein (6.4-8.9) g/dL Albumin (3.2-5.2) g/dL Globulin (2-4) g/dL Albumin/Globulin Ratio (1-3) TSH (0.34-5.60) mcIU/mL Digoxin (0.8-2.0) ng/ml 10/03/17 10/03/17 10/03/17 Range/Units 19:06 19:06 20:00 WBC (3.5-10.8) 10^3/ul RBC (4.0-5.4) 10^6/ul Hgb (12.0-16.0) g/dl Hct (35-47) % MCV (80-97) fL MCH (27-31) pg MCHC (31-36) g/dl RDW (10.5-15) % Plt Count (150-450) 10^3/ul MPV (7.4-10.4) um3 Neut % (Auto) (38-83) % Lymph % (Auto) (25-47) % Tucker % (Auto) (0-7) % Eos % (Auto) (0-6) % Baso % (Auto) (0-2) % Absolute Neuts (auto) (1.5-7.7) 10^3/ul Absolute Lymphs (auto) (1.0-4.8) 10^3/ul Absolute Monos (auto) (0-0.8) 10^3/ul Absolute Eos (auto) (0-0.6) 10^3/ul Absolute Basos (auto) (0-0.2) 10^3/ul Absolute Nucleated RBC 10^3/ul Nucleated RBC % INR (Anticoag Therapy) 1.02 (0.77-1.02) Patient Temperature Not Reportable ABG pH 7.14 L* (7.35-7.45) ABG pH (Temp Correct) Not Reportable ABG pCO2 73 H* (35-45) mmHg ABG pCO2 (Temp Corrct Not Reportable ABG pO2 243 H (80-100) mmHg ABG pO2 (Temp Correct Not Reportable ABG HCO3 21.1 (19-31) mmol/L ABG O2 Saturation 100.1 H (95-98) % ABG Base Excess -4.9 L (-2.0-2.0) Respiration Rate Not Reportable O2 Delivery Device Bipap Ventilator Type Not Reportable Vent Mode Not Reportable FiO2 100 Inspiratory Time Not Reportable PEEP Not Reportable Pressure Support Not Reportable Pressure Control Not Reportable EPAP Not Reportable IPAP Not Reportable BiPAP Not Reportable Sodium 142 (139-145) mmol/L Potassium 4.2 (3.5-5.0) mmol/L Chloride 109 (101-111) mmol/L Carbon Dioxide 24 (22-32) mmol/L Anion Gap 9 (2-11) mmol/L BUN 40 H (6-24) mg/dL Creatinine 4.35 H (0.51-0.95) mg/dL Est GFR ( Amer) 12.8 (>60) Est GFR (Non-Af Amer) 10.0 (>60) BUN/Creatinine Ratio 9.2 (8-20) Glucose 152 H (70-100) mg/dL Calcium 8.8 (8.6-10.3) mg/dL Total Bilirubin 0.80 (0.2-1.0) mg/dL AST 21 (13-39) U/L ALT 13 (7-52) U/L Alkaline Phosphatase 92 (34-104) U/L Troponin I 0.02 (<0.04) ng/mL B-Natriuretic Peptide ( - 100) pg/mL Total Protein 6.3 L (6.4-8.9) g/dL Albumin 3.4 (3.2-5.2) g/dL Globulin 2.9 (2-4) g/dL Albumin/Globulin Ratio 1.2 (1-3) TSH 5.09 (0.34-5.60) mcIU/mL Digoxin < 0.2 L (0.8-2.0) ng/ml Result Diagrams: 10/03/17 19:06 10/03/17 19:06 Lab Statement: Any lab studies that have been ordered have been reviewed, and results considered in the medical decision making process. - Radiology CXR Radiology Interpretation Completed By: Radiologist - Chest x-ray findings are most consistent with cardiogenic pulmonary edema with likely bibasilar pleural effusions. The appearance is similar to the September 26, 2017 chest x-ray. Dr. Dumont has reviewed this report. - EKG 1911 Cardiac Rate: Tachycardia EKG Rhythm: Sinus Tachycardia - 106 bpm EKG Interpretation: nonspeicific ST, normal axis, baseline artifact. QTc 488msec. Re-Evaluation - Re-Evaluation First Eval Re-Evaluation Time: 19:57 Comment: Pt was started on NTG drip and is starting to improve but is still having respiratory difficulties. Reviewed plan to admit pt. She is agreeable with plan. Disposition - Course Course Of Treatment: pt presents critically ill in resp distress. Pitting edema above knees, coarse lungs with JVD. BPs up. Transitioned to BiPAP /6 here from CPAP prehosp. Improving WOB. Nitro SL then IV gtt started. Dylon. CXR c/w pulm edema. Acidotic. D/W Hospitalist team who evaluated at bedside and will admit to ICU for further. - Differential Dx - Cardiopulmonary Differential Diagnoses - Cardiopulmonary: Acute Coronary, CAD, Cardiomyopathy, CHF, Exacerbation Of COPD - Diagnoses Provider Diagnoses: CKD (chronic kidney disease) stage 5, GFR less than 15 ml/min, Pulmonary edema cardiac cause, Respiratory failure with hypoxia, HTN (hypertension) - Physician Notifications Discussed Care Of Patient With: Dat Vilalseñor - Hospitalist [facility]ATH[facility] SPONGER Time Discussed With Above Provider: 19:56 Instructed by Provider To: Admit As Inpatient - Critical Care Time Critical Care Time: 30-74 min - 30 mins CCT. CCT is EXCLUSIVE of separately billable procedures. Discharge - Sign-Out/Discharge Documenting (check all that apply): Discharge - Pt admitted to [facility] ( Hospitalist LEATHER SPONGER) for further treatment in ICU. - Discharge Plan Condition: Stable Disposition: ADMITTED TO [facility] Referrals: Iglesia Lockhart MD [Primary Care Provider] - - Billing Disposition and Condition Condition: STABLE Disposition: [facility] The documentation as recorded by the Kaleb castro Nilda accurately reflects the service I personally performed and the decisions made by Julia torres Kirk, MD.
[2017-10-03 20:55] LABS: Urine Appearance Cloudy; Urine Blood 1+ (Negative); Urine Color Yellow; Urine Ketones Negative (Negative); Urine Protein 3+(>=500 mg/dL) (Negative); Urine Specific Gravity 1.011 (1.010-1.030); Urine Urobilinogen Negative (Negative)
[2017-10-03] MEDS ORDERED: cloNIDine 0.2 MG PATCH* 0.2 MG/24 HR 7 DAY PATCH TRANSDERM SCH (21:00)
[2017-10-03] MEDS: Mometasone/Formoter 200/5 MDI INH SCH (21:02)
[2017-10-03] MEDS ORDERED: methylPREDNISolone 125 MG* 2 ML VIAL IV ONE (21:08)
[2017-10-03] MEDS ORDERED: Albuterol/Ipratropium NEB.SOL* Albuterol 2.5 MG/Ipratropium 0.5 MG 3 ML INH SCH (23:00)
[2017-10-03] MEDS: hydrALAZINE TAB* 25 MG PO SCH ×2 (23:46→23:56)
[2017-10-03] MEDS: Carvedilol TAB* 25 MG PO SCH (23:46)
[2017-10-03] MEDS: Heparin VIAL(*) 5000 UNITS/ML VIAL (FIVE THOUSAND) SUBCUT SCH (23:47)
[2017-10-03] MEDS: Furosemide IV* 100 MG in NS 0.9% 100 ML* 90 ML IV SCH (23:47)
--- NOTE | 2017-10-04 00:42 | HP ---
CC: Dr. Lockhart; Dr. Hickman; Dr. Boyd * HISTORY AND PHYSICAL: DATE OF ADMISSION: 10/03/17 PRIMARY CARE PROVIDER: Dr. Lockhart. ATTENDING PHYSICIAN WHILE IN THE HOSPITAL: Stuart Gupta MD * (report dictated by Abhijit Villaseñor NP) CONSULTING STREET SUPERINTENDENT: Dr. Hickman. CONSULTING DICTAPHONE TECHNICIAN: Dr. Boyd. CHIEF COMPLAINT: Shortness of breath. HISTORY OF PRESENT ILLNESS: Mrs. Hannah is a 72-year-old female patient with multiple medical problems coming into the ED today with complaints of respiratory distress, increasing shortness of breath. She has a history of CKD , history of CHF, hypertension, COPD, history of depression, hypothyroidism, uterine cancer, hypertension, AAA requiring AAA repair 2 years ago. She comes in to the ED today. She is really unable to give much history at this point and she is wearing a BiPAP. She will answer simple questions, but the history is mostly obtained from the . There has been reports today that the patient has been having worsening shortness of breath over the last couple of days but today it was much worse particularly when she was walking back from the bathroom. was concerned, immediately called 911 because she could barely breathe. The patient does state that she has been gaining weight. She says that she cannot really lie flat to sleep. She says that she has been getting progressively worse over the last couple of days. There has been no reports of cough. She does admit to having weight change and admitted having leg swelling, but no fevers or coughing was reported. No nausea, vomiting, diarrhea and she denied having any chest pain. She came into the emergency department today. She was noted to be in extremis. She was put on BiPAP immediately and there was concern for possible CHF exacerbation. We were asked to evaluate for admission. PAST MEDICAL HISTORY: Significant for: 1. Descending thoracic aneurysm. 2. GERD. 3. Hypertension. 4. CHF. 5. COPD. 6. Hypothyroidism. 7. Uterine cancer. 8. Depression. 9. CKD. PAST SURGICAL HISTORY: 1. She has had a descending aneurysm repair. 2. Hysterectomy. HOME MEDICATIONS: Include: 1. Turmeric 1 g p.o. daily. 2. Synthroid 100 mcg p.o. daily. 3. Imdur 60 mg daily. 4. Atrovent 0.5 mg inhaled every 4 hours as needed. 5. Pepcid 20 mg daily. 6. Celexa 20 mg at bedtime. 7. Carvedilol 25 mg p.o. b.i.d. 8. Hydralazine 50 mg p.o. t.i.d. 9. Klonopin 0.25 mg p.o. b.i.d. as needed. 10. Clonidine patch 0.2 mg transdermally weekly. ALLERGIES TO MEDICATIONS: Include erythromycin. FAMILY HISTORY: Mother had a history of CHF. Father had a history of dementia. SOCIAL HISTORY: The patient is a smoker. She quit about a month ago. She does not drink alcohol. Surrogate decision maker is her . REVIEW OF SYSTEMS: There is no documented fever. There is a significant weight change. Denies having any double vision. No ear discharge. There is no rhinorrhea. Denies having any sore throat. No thyroid enlargement. Denies having any chest pain. She does admit to having orthopnea. She does admit to having nocturnal dyspnea. There was no abdominal pain. There was no nausea, no vomiting. There is no dysuria, no frequency. There are no seizures. No loss of consciousness, no pruritus, and no skin ulcerations. Review of 14 systems completed, all others negative. PHYSICAL EXAMINATION GENERAL: At this time, Ms. Hannah is a 72-year-old female patient. She is sitting in the ED stretcher. She appears to be in mild to moderate amount of respiratory distress. VITAL SIGNS: Blood pressure 189/82, pulse 100, respirations were 18, O2 saturations 95% on 50%, temperature was 99.6. HEENT: Head: Atraumatic, normocephalic. Eyes: EOMs intact. Sclerae anicteric, not pale. Throat: Oral mucosa appears to be dry. No oropharyngeal erythema. NECK: Supple. LUNGS: She had crackles and wheezing noted in the bases bilaterally. She had equal diaphragmatic expansion. HEART: Sounds S1, S2. Regular rate and rhythm. ABDOMEN: Soft, flat, nontender. Bowel sounds are present. EXTREMITIES: Pulses were 2+ throughout. She had +4 pitting edema bilaterally to just below her knees. She had 5/5 strength. NEUROLOGIC: She is awake. She is alert. She is drowsy, but she awakens. She knows her name. She knows where she is. She is oriented x3. Her speech was clear. Her tongue was midline. Benefits Consulting Analyst were equal. She had no gross focal neurological deficits. SKIN: Grossly intact. DIAGNOSTIC STUDIES/LAB DATA: WBC 9.0, RBC of 3.47, hemoglobin 10.4, hematocrit 32, platelet count 180. INR 1.02. Blood gas, her initial pH was 7.18, pCO2 of 71, and bicarb was 21. Repeat was 7.14 for pH, 73 for pCO2 and 21 for bicarb. Chemistries: Sodium 142, potassium 4.2, chloride of 109, bicarb 24, BUN 40, creatinine of 4.35, glucose was 152, calcium 8.8, total bili 0.8, AST 21, ALT 13, alk phos 92. Troponin 0.02. Albumin of 3.4. BNP of 458. Urine showed 3+ protein, 1+ blood, 1+ wbc, 2+ glucose. Toxicology was negative. She had a chest x-ray obtained today for which when I reviewed it, it does appear that she has bilateral effusion. Radiology read it as chest x-ray findings most consistent with cardiogenic pulmonary edema with likely basilar pleural effusions similar to 09/26/17 exam. She had an EKG obtained today, shows a sinus tachycardia, rate of 106. No ST elevations were noted. When we reviewed it to her previous EKG from about a month ago, appears to be unchanged except the rate is faster now. She had an echo done about a month ago. EF was noted to be 55% to 60%. Old medical records were reviewed. ASSESSMENT AND PLAN: Ms. Hannah is a 72-year-old female patient with a complex medical history coming into the ED today with complaints of increasing shortness of breath, not feeling well and on evaluation found to be what appeared to be in congestive heart failure exacerbation. We were asked to evaluate for admission. She will be admitted under inpatient status for: 1. Acute respiratory failure: I suspect this is multifactorial. This is probably being driven by congestive heart failure. In addition to this, she also does have component of chronic obstructive pulmonary disease exacerbation. She does appear to be again volume overloaded. My plan will be to go ahead and give her Lasix. She has got a bolus here in the ED, a total of 80 mg IV. In addition to this, she also got Zaroxolyn and we are starting her on a Lasix drip at 20 mg an hour and will continue aggressive diuresis. I have also put her on nebulizers in the form of DuoNebs every 4 hours and p.r.n. albuterol and inhaled steroids. She did receive a dose of steroids here in the ED. I am concerned because the second ABG did not show improvement; however, the patient clinically does appear to be improving. She is more awake. She is talking. The respiratory therapist had just increased her inspiratory and expiratory pressures on BIPAP. I would like to give her another hour to see if she continues to improve so we can avoid intubation. Should she not improve, then we will proceed with intubation. I did touch base with Dr. Hickman, who felt that at this point, intubation will be warranted. However, clinically, she is improving and Dr. Dumont, the ER physician that would perform intubation, felt that he would like to give her some more time. The two of them discussed and at this point, the plan will be to wait to see if she improves. If she does not , proceed with intubation, but she clinically does appear to be better and will continue to follow. I did order Reyna catheter and frequent BMPs because of the Lasix drip. 2. Acute respiratory failure: Again, continue the BiPAP, nebs. Continue treating the underlying congestive heart failure and continue to follow. 3. Hypertension with hypertensive malignancy. She is on a nitro drip. I would like to try to get that blood pressure and the systolic less than 160, the nitro drip was started at 20 with titration orders. Continue this as well as Lasix drip and will continue to follow. 4. History of gastroesophageal reflux disease: Continue meds as prescribed. 5. History of congestive heart failure: Again, she does appear to be in acute failure at this point. We will get an echo, cycle her troponins, diurese her aggressively and will follow. 6. Hypothyroidism: Continue her Synthroid. 7. Depression: Continue with supportive care. 8. Chronic kidney disease: Again with diuretics, I am concerned for her kidney function. I did touch base with Dr. Boyd and he will be coming into evaluate to help us and will continue to follow. 9. DVT prophylaxis: Heparin subcu has been ordered. 10. Code status: Full code. 11. Fluid, electrolytes, nutrition, n.p.o. diet pending due to her respiratory status. At this point, again if she does need intubation, I do not want to have her a full diet. TIME SPENT: Time spent on the admission was approximately 70 minutes, greater than half time spent [id number] with the patient obtaining my history and physical, other half time spent going over the plan of care with patient and implementing the plan of care. I did discuss the plan of care with my attending, Dr. Gupta, he is in agreement. ABHIJIT VILLASEÑOR, WAITER/WAITRESS TAKE OUT [id number]/CPS #: [id number] KASEY
[2017-10-04 00:43] LABS: EGFR Non-African American 9.3 (>60)
[2017-10-04 03:40] LABS: EGFR Non-African American 9.5 (>60)
[2017-10-04] MEDS: Furosemide IV* 100 MG in NS 0.9% 100 ML* 90 ML IV SCH ×5 (04:32→23:29)
[2017-10-04 05:38] LABS: ABS Basophils 0 10^3/ul (0-0.2); ABS Eosinophils 0 10^3/ul (0-0.6); ABS Lymphocytes 0.4 10^3/ul (1.0-4.8); ABS Monocytes 0.1 10^3/ul (0-0.8); ABS Neutrophils 5.3 10^3/ul (1.5-7.7); ABS Nucleated RBC 0 10^3/ul; Eosinophil % 0.1 % (0-6); Hematocrit 25 % (35-47); Hemoglobin 8.2 g/dl (12.0-16.0); Lymphocyte % 6.8 % (25-47); Mean Corpuscular HGB Conc 33 g/dl (31-36); Mean Corpuscular Hemoglobin 30 pg (27-31); Mean Corpuscular Volume 91 fL (80-97); Mean Platelet Volume 7.1 um3 (7.4-10.4); Nucleated Red Blood Cells % 0; Platelet Count 138 10^3/ul (150-450); Red Blood Count 2.76 10^6/ul (4.0-5.4); Red Cell Distribution Width 17 % (10.5-15); White Blood Count 5.7 10^3/ul (3.5-10.8)
[2017-10-04 05:56] LABS: EGFR Non-African American 9.5 (>60)
[2017-10-04] MEDS ORDERED: Furosemide IV* 10 MG/ML 10 ML VIAL (100 MG) IV SCH (08:00)
[2017-10-04] MEDS: nitroGLYCERIN DRIP* 25,000 MCG/250 ML BTL IV SCH ×2 (08:10→17:44)
[2017-10-04] MEDS: hydrALAZINE TAB* 25 MG PO SCH ×3 (08:17→22:07)
[2017-10-04] MEDS: Levothyroxine TAB* 100 MCG TAB PO SCH (08:17)
--- NOTE | 2017-10-04 08:57 | ECHO ---
Patient: REYMUNDO MANZANARES [facility] Rec#: [id number] : 1945 Date: 10/04/2017 Age: 72y Height: 165.1 cm / 65.0 in Weight: 96.16 kg / 211.9 lbs Sex: F BSA: 2.03 Room#: ICU-1 Admit Date#: 10/03/2017 Type: Inpatient Referring: Dat Villaseñor NP Reading: Neelam Roland MD Skein Winder: [facility] Tran[facility]hor[facility] Ech[facility]ogram Indication: CHF BP: 151/62 HR: 80 Rhythm: NSR Findings History: CHF, AAA repair, CAD with PCI, HTN, HLD, COPD, CKD IV, smoker, hypothyroid, uterine cancer. Technical Comments: The study quality is fair. The study is technically limited due to the patient's history of COPD. Completed at 0830. Left Ventricle: The left ventricular chamber size is normal. Mild concentric left ventricular hypertrophy is observed. Global left ventricular wall motion and contractility are within normal limits. There is normal left ventricular systolic function. The estimated ejection fraction is 60-65%. Abnormal left ventricular diastolic filling is observed, consistent with impaired relaxation. Left Atrium: The left atrium is moderately dilated. Right Ventricle: Moderator Band present. The right ventricular cavity size is normal. Right Atrium: The right atrium is moderately dilated. Aortic Valve: The aortic valve is trileaflet. Mild aortic leaflet calcification is visualized. Systolic excursion of the aortic valve cusps is reduced. There is moderate aortic regurgitation. There is mild aortic stenosis. Mitral Valve: There is mitral annular calcification. The mitral valve leaflets are moderately thickened. There is a trace of mitral regurgitation. There is no evidence of mitral stenosis. Tricuspid Valve: The tricuspid valve leaflets are mildly thickened. There is a physiologic tricuspid regurgitation. Unable to estimate the right ventricular systolic pressure. There is no tricuspid stenosis. Pulmonic Valve: The pulmonic valve appears normal. There is a trace pulmonic regurgitation. There is no pulmonic stenosis. Pericardium: A pericardial effusion is visualized. A trivial pericardial effusion is visualized. There are no signs of significant hemodynamic compromise. A pericardial fat pad is visualized. Aorta: There is moderate dilatation of the ascending aorta. The aortic arch is not well visualized. The aortic root is normal in size. Pulmonary Artery: The main pulmonary artery appears normal. Venous: The inferior vena cava appears normal in size. There is less than 50% respiratory change in the inferior vena cava dimension. Conclusions Mild concentric left ventricular hypertrophy is observed. Global left ventricular wall motion and contractility are within normal limits. The estimated ejection fraction is 60-65%. Abnormal left ventricular diastolic filling is observed, consistent with impaired relaxation. The right ventricular cavity size is normal. The left atrium is moderately dilated. The right atrium is moderately dilated. There is moderate aortic regurgitation on visual estimate, unable to see descending aorta well or obtain P 1/2. Calcific aortic valve sclerosis with mild aortic stenosis: mean gradient 12 mmHg, DAPHNE 1.4-1.5 cm2. There is a trace of mitral regurgitation. There is a physiologic tricuspid regurgitation. Unable to estimate the right ventricular systolic pressure. A trivial pericardial effusion is visualized. There is moderate dilatation of the ascending aorta: 4.5 cm. Compared with prior echo of 08/29/17, LV and RV function are stable, no significan changes in valvular function, mean gradient across aortic valve previously 9.5 mmHg, aorta diameter is stable. Prior pericardial effusion was small. Measurements Name Value Normal Range RVIDd (AP) 2D 2.5 cm (0.9 - 2.6) RVDdMajor (2D) 3.5 cm (2.2 - 4.4) RAd ISD 4CH 5.6 cm (3.4 - 4.9) RA (A4C)W 4 cm (2.9 - 4.6) IVSd (2D) 1.2 cm (0.6 - 1) LVPWd (2D) 1.2 cm (0.6 - 1) LVIDd (2D) 5.1 cm (3.6 - 5.4) LVIDs (2D) 3.6 cm - LV FS (2D) 30 % (25 - 45) Aortic Annulus 1.9 cm (1.4 - 2.6) Ao root diameter (2D) 3.2 cm (2.1 - 3.5) Ascending Ao 4.5 cm (2.1 - 3.4) LA dimension (AP) 2D 3.3 cm (2.3 - 3.8) LAd ISD 4CH 5.2 cm (2.9 - 5.3) LA ISD 4CH W 5.1 cm (2.5 - 4.5) Name Value Normal Range LA ESV SP 4CH (A/L) 122 ml - LA ESV SP 2CH (A/L) 55 ml - LA ESV BP (A/L) 91 ml - LA ESV BP (A/L) index 45 ml/m2 - LA ESV SP 4CH (MOD) 111 ml - LA ESV SP 2CH (MOD) 52 ml - Name Value Normal Range MV E-wave Vmax 0.76 m/sec - MV deceleration time 174.5 msec - MV A-wave Vmax 1.15 m/sec - MV E:A ratio 0.66 ratio - LV septal e' Vmax 0.05 m/sec - LV lateral e' Vmax 0.07 m/sec - LV E:e' septal ratio 15.2 ratio - LV E:e' lateral ratio 10.86 ratio - Name Value Normal Range AV Vmax 2.4 m/sec - AV VTI 56.9 cm - AV peak gradient 23.09 mmHg - AV mean gradient 11.59 mmHg - LVOT diameter 2.1 cm - LVOT Vmax 1 m/sec - LVOT VTI 24.48 cm - LVOT peak gradient 3.98 mmHg - LVOT mean gradient 2.29 mmHg - DOI (VTI) 0.43 ratio - DAPHNE (continuity Vmax) 1.4 cm2 - DAPHNE (continuity VTI) 1.5 cm2 - AR peak gradient 52.7 mmHg - Name Value Normal Range IVC diameter 1.9 cm - Name Value Normal Range PV Vmax 1.5 m/sec - PV peak gradient 9.08 mmHg - MT end-diastolic Vmax 1.54 m/sec -
[2017-10-04] MEDS: Heparin VIAL(*) 5000 UNITS/ML VIAL (FIVE THOUSAND) SUBCUT SCH ×3 (09:08→22:07)
[2017-10-04] MEDS: Carvedilol TAB* 25 MG PO SCH ×2 (09:37→22:07)
[2017-10-04] MEDS: Mometasone/Formoter 200/5 MDI INH SCH ×2 (10:29→19:42)
[2017-10-04] MEDS ORDERED: Morphine INJ* 2 MG/ML 1 ML CARPUJECT IV PRN (12:09)
[2017-10-04] MEDS ORDERED: Morphine INJ* 2 MG/ML 1 ML CARPUJECT ONE (12:13)
--- NOTE | 2017-10-04 14:10 | PN ---
Date of Service: 10/04/17 Critical Care Services: Patient is doing much better today - is now off BiPAP and breathing comfortably on nasal O2 at 2-3 L/min. Is on nitroglycerin infusion for BP control and furosemide infusion for diuresis. Complains of a headache. Vital Signs: Temp Pulse Resp BP SpO2 FiO2 97.7 F 90 22 172/71 95 50 Physical Exam: Gen:Alert, oriented, and breathing comfortably. HEENT: No JVD Lungs: BS distant. Occasional inspiratory crackles at both bases. No wheezes. Extremities: 3-4+ edema in ower limbs. Fluid Balance (Past 24 Hours): 10/04/17 06:59 Intake Total 317 Output Total 1150 Balance -833 Weight 216 lb Intake: Medicated IV 317 CC - Nitroglycerine/ 157 Tridil GEN - Furosemide/Lasix 160 Output: Reyna 1150 Labs: 10/03/17 10/03/17 10/03/17 20:39 22:11 23:33 WBC RBC Hgb Hct MCV MCH MCHC RDW Plt Count MPV Neut % (Auto) Lymph % (Auto) [place] % (Auto) Eos % (Auto) Baso % (Auto) Absolute Neuts (auto) Absolute Lymphs (auto) Absolute Monos (auto) Absolute Eos (auto) Absolute Basos (auto) Absolute Nucleated RBC Nucleated RBC % INR (Anticoag Therapy) ABG pH 7.23 L ABG pCO2 57 H ABG pO2 79 L ABG HCO3 21.9 ABG O2 Saturation 98.4 H ABG Base Excess -3.9 L O2 Delivery Device Bipap FiO2 50 Sodium Potassium Chloride Carbon Dioxide Anion Gap BUN Creatinine Est GFR ( Amer) Est GFR (Non-Af Amer) BUN/Creatinine Ratio Glucose Calcium Troponin I Urine Color Yellow Urine Appearance Cloudy Urine pH 5.0 Ur Specific Daisy 1.011 Urine Protein 3+(>=500 mg/dl) A Urine Ketones Negative Urine Blood 1+ A Urine Nitrate Negative Urine Bilirubin Negative Urine Urobilinogen Negative Ur Leukocyte Esterase Negative Urine WBC (Auto) 1+(6-10/hpf) A Urine RBC (Auto) Trace(0-2/hpf) Ur Squamous Epith Cells Present A Urine Bacteria Absent Urine Glucose 2+(150 mg/dl) A Influenza A (Rapid) Negative Influenza B (Rapid) Negative 03/28/18 03/28/18 03/28/18 03:15 05:20 05:20 WBC 5.7 RBC 2.76 L Hgb 8.2 L Hct 25 L MCV 91 MCH 30 MCHC 33 RDW 17 H Plt Count 138 L INR (Anticoag Therapy) 1.00 Patient Temperature ABG pH ABG pH (Temp Correct) ABG pCO2 ABG pCO2 (Temp Corrct ABG pO2 ABG pO2 (Temp Correct ABG HCO3 ABG O2 Saturation ABG Base Excess Respiration Rate O2 Delivery Device Ventilator Type Vent Mode FiO2 Inspiratory Time PEEP Pressure Support Pressure Control EPAP IPAP BiPAP Sodium 141 Potassium 4.1 Chloride 110 Carbon Dioxide 22 Anion Gap 9 BUN 44 H Creatinine 4.56 H Est GFR ( Amer) 12.2 Est GFR (Non-Af Amer) 9.5 BUN/Creatinine Ratio 9.6 Glucose 152 H Calcium 8.4 L Troponin I 0.04 H* Urine Color Urine Appearance Urine pH Ur Specific Daisy Urine Protein Urine Ketones Urine Blood Urine Nitrate Urine Bilirubin Urine Urobilinogen Ur Leukocyte Esterase Urine WBC (Auto) Urine RBC (Auto) Ur Squamous Epith Cells Urine Bacteria Urine Glucose Influenza A (Rapid) Influenza B (Rapid) 10/04/17 05:20 WBC RBC Hgb Hct MCV MCH MCHC RDW Plt Count MPV Neut % (Auto) Lymph % (Auto) [place] % (Auto) Eos % (Auto) Baso % (Auto) Absolute Neuts (auto) Absolute Lymphs (auto) Absolute Monos (auto) Absolute Eos (auto) Absolute Basos (auto) Absolute Nucleated RBC Nucleated RBC % INR (Anticoag Therapy) Patient Temperature ABG pH ABG pH (Temp Correct) ABG pCO2 ABG pCO2 (Temp Corrct ABG pO2 ABG pO2 (Temp Correct ABG HCO3 ABG O2 Saturation ABG Base Excess Respiration Rate O2 Delivery Device Ventilator Type Vent Mode FiO2 Inspiratory Time PEEP Pressure Support Pressure Control EPAP IPAP BiPAP Sodium 141 Potassium 4.1 Chloride 109 Carbon Dioxide 21 Anion Gap 11 BUN 45 Creatinine 4.54 H Est GFR (Non-Af Amer) 9.5 BUN/Creatinine Ratio 9.9 Glucose 159 H Calcium 8.3 L Troponin I Urine Color Urine Appearance Urine pH Ur Specific Daisy Urine Protein Urine Ketones Urine Blood Urine Nitrate Urine Bilirubin Urine Urobilinogen Ur Leukocyte Esterase Urine WBC (Auto) Urine RBC (Auto) Ur Squamous Epith Cells Urine Bacteria Urine Glucose Influenza A (Rapid) Influenza B (Rapid) Studies: Cardiac ECHO shows a dilated aortic arch and moderate aortic insufficiency - unchanged from prior study. Nutrition: Oral diet (low sodium) Impression: Pulmonary congestion improving on nitroglycerin infusion (for BP control) and furosemide infusion (for diuresis). ? is the aortic insufficiency contrinuting to the problem? The renal insufficiency is advanced but no worse than admission (? is there a prerenal component). Plan: Will continue the current management overnight, and consider d/cing the infusions tomorrow. Cardiology will evaluate the severity of the AI. Critical Care Time: 40 minutes
[2017-10-04] MEDS: Acetaminophen TAB* 325 MG PO PRN (14:16)
[2017-10-04] MEDS: Ondansetron INJ* 2 MG/ML VIAL IV PRN (23:48)
[2017-10-05] MEDS ORDERED: LORazepam INJ* 2 MG/ML 1 ML VIAL IV PUSH ONE (00:15)
[2017-10-05] MEDS: nitroGLYCERIN DRIP* 25,000 MCG/250 ML BTL IV SCH (02:09)
[2017-10-05] MEDS: Levothyroxine TAB* 100 MCG TAB PO SCH (05:40)
[2017-10-05] MEDS: Heparin VIAL(*) 5000 UNITS/ML VIAL (FIVE THOUSAND) SUBCUT SCH ×3 (05:41→20:17)
[2017-10-05] MEDS: Furosemide IV* 100 MG in NS 0.9% 100 ML* 90 ML IV SCH (05:41)
[2017-10-05 06:19] LABS: Hematocrit 25 % (35-47); Hemoglobin 8.2 g/dl (12.0-16.0); Mean Corpuscular HGB Conc 33 g/dl (31-36); Mean Corpuscular Hemoglobin 30 pg (27-31); Mean Corpuscular Volume 90 fL (80-97); Mean Platelet Volume 7.9 um3 (7.4-10.4); Platelet Count 163 10^3/ul (150-450); Red Blood Count 2.78 10^6/ul (4.0-5.4); Red Cell Distribution Width 18 % (10.5-15); White Blood Count 11.4 10^3/ul (3.5-10.8)
[2017-10-05 06:26] LABS: EGFR Non-African American 9.3 (>60)
[2017-10-05] MEDS: Mometasone/Formoter 200/5 MDI INH SCH ×2 (07:44→19:57)
[2017-10-05] MEDS: Isosorbide Mononitrate ER TAB* 60 MG PO SCH ×2 (08:29→09:00)
[2017-10-05] MEDS: hydrALAZINE TAB* 25 MG PO SCH ×3 (08:29→20:16)
--- NOTE | 2017-10-05 08:40 | RAD ---
HISTORY: CHF COMPARISONS: October 03, 2017 VIEWS: 1: frontal portable view of the chest at 6:00 AM FINDINGS: LINES AND TUBES: None. CARDIOMEDIASTINAL SILHOUETTE: The aorta is tortuous. An aortic stent graft is noted. PLEURA: There are moderate left and small right pleural effusions. LUNG PARENCHYMA: There is patchy alveolar opacification of the lung bases bilaterally. ABDOMEN: The upper abdomen is clear. There is no subphrenic gas. BONES AND SOFT TISSUES: No bone or soft tissue abnormalities are noted. IMPRESSION: LEFT GREATER THAN RIGHT BILATERAL PLEURAL EFFUSIONS WITH BIBASILAR ATELECTASIS VERSUS EARLY CONSOLIDATION.
[2017-10-05] MEDS: Furosemide TAB* 40 MG PO SCH (09:42)
[2017-10-05] MEDS: clonazePAM TAB(*) 0.5 MG PO PRN ×2 (09:42→20:28)
[2017-10-05] MEDS: NIFEdipine CAP* 10 MG PO SCH ×3 (09:42→20:28)
--- NOTE | 2017-10-05 11:37 | PN ---
Date of Service: 10/05/17 Critical Care Services: Patient had an uneventful evening. The nitroglycerin and furosemide drips were d /cd this AM, and kurt is currently sitting up in a chair and breathing comfortably. I added nifedipine (10 mg TID) for BP control after d/cing the nitroglycerin. Vital Signs: Temp Pulse Resp BP SpO2 FiO2 98.3 F 86 24 164/77 94 50 Physical Exam: Gen:alert, oriented, NAD Lungs: decreased BS both bases. No crackles or wheezes. Extremities: 2+edema both legs. Fluid Balance (Past 24 Hours): 10/05/17 06:59 Intake Total 1222 Output Total 2850 Balance -1628 Weight 218 lb Intake: Medicated IV 997 CC - Nitroglycerine/ 539 Tridil GEN - Furosemide/Lasix 458 Oral 225 Output: Reyna 2850 Labs: 10/05/17 10/05/17 05:50 05:50 WBC 11.4 H Hgb 8.2 L Hct 25 L MCV 90 Plt Count 163 Sodium 140 Potassium 3.8 Chloride 106 Carbon Dioxide 24 Anion Gap 10 BUN 53 Creatinine 4.62 Est GFR (Non-Af Amer) 9.3 Glucose 160 H Calcium 8.3 L Studies: CXR: probable bilateral pleural effusions Nutrition: Oral diet Impression: Respiratory status has improved with agressive diuresis and BP control - however , renal function remains marginal. Plan: 1. Start nifedipine 10 mg TID 2. Start oral furosemide at [address] Boyd will follow for possible future dialysis.
[2017-10-05] MEDS: Carvedilol TAB* 25 MG PO SCH ×2 (13:11→20:16)
[2017-10-05] MEDS: Ondansetron INJ* 2 MG/ML VIAL IV PRN (20:10)
[2017-10-06] MEDS ORDERED: hydrALAZINE IV* 20 MG/ML VIAL IV PRN (03:52)
[2017-10-06] MEDS ORDERED: hydrALAZINE IV* 20 MG/ML VIAL ONE (04:00)
[2017-10-06] MEDS: Heparin VIAL(*) 5000 UNITS/ML VIAL (FIVE THOUSAND) SUBCUT SCH ×3 (04:17→22:26)
[2017-10-06] MEDS: Levothyroxine TAB* 100 MCG TAB PO SCH (04:17)
[2017-10-06 05:40] LABS: ABS Basophils 0 10^3/ul (0-0.2); ABS Eosinophils 0 10^3/ul (0-0.6); ABS Lymphocytes 1.3 10^3/ul (1.0-4.8); ABS Neutrophils 10.1 10^3/ul (1.5-7.7); ABS Nucleated RBC 0 10^3/ul; Eosinophil % 0.1 % (0-6); Hematocrit 28 % (35-47); Hemoglobin 9.1 g/dl (12.0-16.0); Lymphocyte % 10.2 % (25-47); Mean Corpuscular HGB Conc 33 g/dl (31-36); Mean Corpuscular Hemoglobin 30 pg (27-31); Mean Corpuscular Volume 90 fL (80-97); Mean Platelet Volume 7.8 um3 (7.4-10.4); Nucleated Red Blood Cells % 0.1; Platelet Count 193 10^3/ul (150-450); Red Blood Count 3.08 10^6/ul (4.0-5.4); Red Cell Distribution Width 18 % (10.5-15); White Blood Count 12.5 10^3/ul (3.5-10.8)
[2017-10-06 06:07] LABS: EGFR Non-African American 8.6 (>60)
[2017-10-06] MEDS: Mometasone/Formoter 200/5 MDI INH SCH ×2 (07:58→20:11)
[2017-10-06] MEDS: NIFEdipine CAP* 10 MG PO SCH ×3 (08:16→20:24)
[2017-10-06] MEDS: Furosemide TAB* 40 MG PO SCH (08:16)
[2017-10-06] MEDS: Isosorbide Mononitrate ER TAB* 60 MG PO SCH (08:16)
[2017-10-06] MEDS: Carvedilol TAB* 25 MG PO SCH ×2 (08:16→20:24)
[2017-10-06] MEDS: hydrALAZINE TAB* 25 MG PO SCH ×3 (08:16→20:24)
[2017-10-06] MEDS ORDERED: cloNIDine 0.1 MG PATCH* 0.1 MG/24 HR 7 DAY PATCH TRANSDERM SCH (14:21)
--- NOTE | 2017-10-06 15:06 | PN ---
Subjective Date of Service: 10/06/17 Interval History: Feels near her baseline. No new c/o. Objective Active Medications: Acetaminophen (Tylenol Tab*) 650 mg PO Q6H PRN PRN Reason: FEVER/PAIN Last Admin: 10/04/17 14:16 Dose: 650 mg Albuterol (Ventolin 2.5 Mg/3 Ml Neb.Danita*) 2.5 mg INH Q2H PRN PRN Reason: SOB/WHEEZING Carvedilol (Coreg Tab*) 25 mg PO BID [facility] Last Admin: 10/06/17 08:16 Dose: 25 mg Clonazepam (Klonopin Tab(*)) 0.25 mg PO BID PRN PRN Reason: ANXIETY Last Admin: 10/05/17 20:28 Dose: 0.25 mg Clonidine HCl (Wupeqvom-Pmi-6 0.1 Mg Patch*) 0.1 mg TRANSDERM WEEKLY [facility] Furosemide (Lasix Tab*) 40 mg PO DAILY [facility] Last Admin: 10/06/17 08:16 Dose: 40 mg Heparin Sodium (Porcine) (Heparin Vial(*)) 5,000 units SUBCUT Q8HR [facility] Last Admin: 10/06/17 14:36 Dose: 5,000 units Hydralazine HCl (Apresoline Tab*) 50 mg PO TID [facility] Last Admin: 10/06/17 14:36 Dose: 50 mg Isosorbide Mononitrate (Imdur Er Tab*) 60 mg PO DAILY [facility] Last Admin: 10/06/17 08:16 Dose: 60 mg Levothyroxine Sodium (Synthroid Tab*) 100 mcg PO DAILY@0600 [facility] Last Admin: 10/06/17 04:17 Dose: 100 mcg Mometasone Furoate/Formoterol Fumar (Dulera 200/5 Mdi*) 2 puff INH BID [facility] Last Admin: 10/06/17 07:58 Dose: 2 puff Morphine Sulfate (Morphine Inj (Syringe)*) 2 mg IV Q4H PRN PRN Reason: PAIN - MILD Nifedipine (Procardia Cap*) 10 mg PO TID [facility] Last Admin: 10/06/17 14:36 Dose: 10 mg Ondansetron HCl (Zofran Inj*) 4 mg IV Q6H PRN PRN Reason: NAUSEA Last Admin: 10/05/17 20:10 Dose: 4 mg Vital Signs - 8 hr 10/06/17 10/06/17 10/06/17 07:58 08:00 11:43 Temperature 97.6 F 98.8 F Pulse Rate 79 77 Respiratory 16 16 16 Rate Blood Pressure 187/63 148/50 (mmHg) O2 Sat by Pulse 91 92 Oximetry Oxygen Devices in Use Now: Nasal Cannula Appearance: Supine in bed. Neutral affect, passive. Looks comfortable. Eyes: No Scleral Icterus Respiratory: Symmetrical Chest Expansion and Respiratory Effort, Clear to Auscultation, Clear to Percussion Cardiovascular: RRR, No Edema, - - 1/6 systolic murmur across precordium Extremities: - - 2-3 + edema R leg and foot, 1+ edema L leg (chronic) Neurological: Alert and Oriented x 3, NL Sensation Result Diagrams: 10/06/17 05:26 10/06/17 05:26 Additional Lab and Data: Lab Results 10/03/17 10/03/17 10/03/17 Range/Units 19:01 19:06 19:06 WBC 9.0 (3.5-10.8) 10^3/ul RBC 3.47 L (4.0-5.4) 10^6/ul Hgb 10.4 L (12.0-16.0) g/dl Hct 32 L (35-47) % MCV 91 (80-97) fL MCH 30 (27-31) pg MCHC 33 (31-36) g/dl RDW 18 H (10.5-15) % Plt Count 180 (150-450) 10^3/ul MPV 7.0 L (7.4-10.4) um3 Neut % (Auto) 73.6 (38-83) % Lymph % (Auto) 16.8 L (25-47) % [place] % (Auto) 7.3 H (0-7) % Eos % (Auto) 1.2 (0-6) % Baso % (Auto) 1.1 (0-2) % Absolute Neuts (auto) 6.6 (1.5-7.7) 10^3/ul Absolute Lymphs (auto) 1.5 (1.0-4.8) 10^3/ul Absolute Monos (auto) 0.7 (0-0.8) 10^3/ul Absolute Eos (auto) 0.1 (0-0.6) 10^3/ul Absolute Basos (auto) 0.1 (0-0.2) 10^3/ul Absolute Nucleated RBC 0 10^3/ul Nucleated RBC % 0.1 INR (Anticoag Therapy) (0.77-1.02) Patient Temperature Not Reportable ABG pH 7.18 L* (7.35-7.45) ABG pH (Temp Correct) Not Reportable ABG pCO2 71 H (35-45) mmHg ABG pCO2 (Temp Corrct TNP ABG pO2 150 H (80-100) mmHg ABG pO2 (Temp Correct Not Reportable ABG HCO3 21.6 (19-31) mmol/L ABG O2 Saturation 99.8 H (95-98) % ABG Base Excess -4.2 L (-2.0-2.0) Respiration Rate Not Reportable O2 Delivery Device Cpap Ventilator Type Not Reportable Vent Mode Not Reportable FiO2 100 Inspiratory Time Not Reportable PEEP Not Reportable Pressure Support Not Reportable Pressure Control Not Reportable EPAP Not Reportable IPAP Not Reportable BiPAP Not Reportable Sodium (139-145) mmol/L Potassium (3.5-5.0) mmol/L Chloride (101-111) mmol/L Carbon Dioxide (22-32) mmol/L Anion Gap (2-11) mmol/L BUN (6-24) mg/dL Creatinine (0.51-0.95) mg/dL Est GFR ( Amer) (>60) Est GFR (Non-Af Amer) (>60) BUN/Creatinine Ratio (8-20) Glucose (70-100) mg/dL Calcium (8.6-10.3) mg/dL Total Bilirubin (0.2-1.0) mg/dL AST (13-39) U/L ALT (7-52) U/L Alkaline Phosphatase (34-104) U/L Troponin I (<0.04) ng/mL B-Natriuretic Peptide 458 H ( - 100) pg/mL Total Protein (6.4-8.9) g/dL Albumin (3.2-5.2) g/dL Globulin (2-4) g/dL Albumin/Globulin Ratio (1-3) TSH (0.34-5.60) mcIU/mL Digoxin (0.8-2.0) ng/ml 03/27/18 03/27/18 03/27/18 Range/Units 19:06 19:06 20:00 WBC (3.5-10.8) 10^3/ul RBC (4.0-5.4) 10^6/ul Hgb (12.0-16.0) g/dl Hct (35-47) % MCV (80-97) fL MCH (27-31) pg MCHC (31-36) g/dl RDW (10.5-15) % Plt Count (150-450) 10^3/ul MPV (7.4-10.4) um3 Neut % (Auto) (38-83) % Lymph % (Auto) (25-47) % [place] % (Auto) (0-7) % Eos % (Auto) (0-6) % Baso % (Auto) (0-2) % Absolute Neuts (auto) (1.5-7.7) 10^3/ul Absolute Lymphs (auto) (1.0-4.8) 10^3/ul Absolute Monos (auto) (0-0.8) 10^3/ul Absolute Eos (auto) (0-0.6) 10^3/ul Absolute Basos (auto) (0-0.2) 10^3/ul Absolute Nucleated RBC 10^3/ul Nucleated RBC % INR (Anticoag Therapy) 1.02 (0.77-1.02) Patient Temperature Not Reportable ABG pH 7.14 L* (7.35-7.45) ABG pH (Temp Correct) Not Reportable ABG pCO2 73 H* (35-45) mmHg ABG pCO2 (Temp Corrct Not Reportable ABG pO2 243 H (80-100) mmHg ABG pO2 (Temp Correct Not Reportable ABG HCO3 21.1 (19-31) mmol/L ABG O2 Saturation 100.1 H (95-98) % ABG Base Excess -4.9 L (-2.0-2.0) Respiration Rate Not Reportable O2 Delivery Device Bipap Ventilator Type Not Reportable Vent Mode Not Reportable FiO2 100 Inspiratory Time Not Reportable PEEP Not Reportable Pressure Support Not Reportable Pressure Control Not Reportable EPAP Not Reportable IPAP Not Reportable BiPAP Not Reportable Sodium 142 (139-145) mmol/L Potassium 4.2 (3.5-5.0) mmol/L Chloride 109 (101-111) mmol/L Carbon Dioxide 24 (22-32) mmol/L Anion Gap 9 (2-11) mmol/L BUN 40 H (6-24) mg/dL Creatinine 4.35 H (0.51-0.95) mg/dL Est GFR ( Amer) 12.8 (>60) Est GFR (Non-Af Amer) 10.0 (>60) BUN/Creatinine Ratio 9.2 (8-20) Glucose 152 H (70-100) mg/dL Calcium 8.8 (8.6-10.3) mg/dL Total Bilirubin 0.80 (0.2-1.0) mg/dL AST 21 (13-39) U/L ALT 13 (7-52) U/L Alkaline Phosphatase 92 (34-104) U/L Troponin I 0.02 (<0.04) ng/mL B-Natriuretic Peptide ( - 100) pg/mL Total Protein 6.3 L (6.4-8.9) g/dL Albumin 3.4 (3.2-5.2) g/dL Globulin 2.9 (2-4) g/dL Albumin/Globulin Ratio 1.2 (1-3) TSH 5.09 (0.34-5.60) mcIU/mL Digoxin < 0.2 L (0.8-2.0) ng/ml Microbiology and Other Data: Microbiology 10/03/17 20:39 Urine Culture - Final Urine No Growth (<1,000 CFU/mL) 10/03/17 23:33 Nasal Screen MRSA (PCR)(RHIANNON) - Final Nasal Mrsa Not Detected 10/03/17 23:33 Influenza Types A,B Antigen (RHIANNON) - Final Nasal Specimen received for Influenza A/B Molecular testing Assess/Plan/Problems-Billing Assessment: - Patient Problems (1) COPD (chronic obstructive pulmonary disease) Current Visit: No Status: Acute Code(s): J44.9 - CHRONIC OBSTRUCTIVE PULMONARY DISEASE, UNSPECIFIED SNOMED Code(s): 45863803 Comment: Respiratory status returned to her baseline after diuresis in the ICU. On furosemide 40 mg po daily. Continue daily weights. (2) HTN (hypertension) Current Visit: No Status: Acute Code(s): I10 - ESSENTIAL (PRIMARY) HYPERTENSION SNOMED Code(s): 29089113 Comment: Continue home doses hydralzine, carvedilol, isosorbide mononitrate. Clonidine reduced to 0.1 mg patch to avoid sedation. Nifedipine changed to 30 mg XR daily. (3) Hypothyroidism Current Visit: No Status: Acute Code(s): E03.9 - HYPOTHYROIDISM, UNSPECIFIED SNOMED Code(s): 49462576 Comment: TSH wnl 10/03/17. Continue levothyroxine. (4) CKD (chronic kidney disease) stage 5, GFR less than 15 ml/min Current Visit: No Status: Acute Code(s): N18.5 - CHRONIC KIDNEY DISEASE, STAGE 5 SNOMED Code(s): 552089629 Comment: Est GFR 8.6 on 10/06/17. Repeat BMP 10/07. Discussed with Dr. Boyd. (5) Debility Current Visit: Yes Status: Acute Code(s): R53.81 - OTHER MALAISE SNOMED Code(s): 12741167 Comment: PT, OT ordered.
[2017-10-06] MEDS: clonazePAM TAB(*) 0.5 MG PO PRN (20:31)
[2017-10-06] MEDS ORDERED: Potassium Chlor TAB* 20 MEQ TAB.ER PO ONE (21:00)
[2017-10-06] MEDS: Acetaminophen TAB* 325 MG PO PRN (23:42)
[2017-10-07] MEDS: Heparin VIAL(*) 5000 UNITS/ML VIAL (FIVE THOUSAND) SUBCUT SCH ×3 (05:54→22:14)
[2017-10-07] MEDS: Levothyroxine TAB* 100 MCG TAB PO SCH (05:54)
[2017-10-07 07:39] LABS: EGFR Non-African American 8.3 (>60)
[2017-10-07] MEDS: Mometasone/Formoter 200/5 MDI INH SCH ×2 (07:41→19:41)
[2017-10-07] MEDS: Carvedilol TAB* 25 MG PO SCH ×2 (07:49→20:24)
[2017-10-07] MEDS: Isosorbide Mononitrate ER TAB* 60 MG PO SCH (07:49)
[2017-10-07] MEDS: Furosemide TAB* 40 MG PO SCH (07:49)
[2017-10-07] MEDS: hydrALAZINE TAB* 25 MG PO SCH ×3 (07:49→20:24)
[2017-10-07] MEDS ORDERED: NIFEdipine ER TAB* 30 MG PO ONE (09:00)
[2017-10-07] MEDS ORDERED: NIFEdipine CAP* 10 MG PO ONE (12:36)
--- NOTE | 2017-10-07 15:34 | PN ---
Subjective Date of Service: 10/07/17 Interval History: No overnight events, feels good today. Still feels short of breath lying down; she is only able to lie about 45 degrees without getting short of breath. Good appetite, sleepy during the day. Family History: Unchanged from Admission Social History: Unchanged from Admission Past Medical History: Unchanged from Admission Objective Active Medications: Acetaminophen (Tylenol Tab*) 650 mg PO Q6H PRN PRN Reason: FEVER/PAIN Last Admin: 10/06/17 23:42 Dose: 650 mg Albuterol (Ventolin 2.5 Mg/3 Ml Neb.Danita*) 2.5 mg INH Q2H PRN PRN Reason: SOB/WHEEZING Carvedilol (Coreg Tab*) 25 mg PO BID [facility] Last Admin: 10/07/17 07:49 Dose: 25 mg Clonazepam (Klonopin Tab(*)) 0.25 mg PO BID PRN PRN Reason: ANXIETY Last Admin: 10/06/17 20:31 Dose: 0.25 mg Clonidine HCl (Qlvjrjbv-Can-9 0.1 Mg Patch*) 0.1 mg TRANSDERM WEEKLY [facility] Furosemide (Lasix Tab*) 40 mg PO DAILY [facility] Last Admin: 10/07/17 07:49 Dose: 40 mg Heparin Sodium (Porcine) (Heparin Vial(*)) 5,000 units SUBCUT Q8HR [facility] Last Admin: 10/07/17 13:19 Dose: 5,000 units Hydralazine HCl (Apresoline Tab*) 50 mg PO TID [facility] Last Admin: 10/07/17 13:19 Dose: 50 mg Isosorbide Mononitrate (Imdur Er Tab*) 60 mg PO DAILY [facility] Last Admin: 10/07/17 07:49 Dose: 60 mg Levothyroxine Sodium (Synthroid Tab*) 100 mcg PO DAILY@0600 [facility] Last Admin: 10/07/17 05:54 Dose: 100 mcg Mometasone Furoate/Formoterol Fumar (Dulera 200/5 Mdi*) 2 puff INH BID [facility] Last Admin: 10/07/17 07:41 Dose: 2 puff Morphine Sulfate (Morphine Inj (Syringe)*) 2 mg IV Q4H PRN PRN Reason: PAIN - MILD Ondansetron HCl (Zofran Inj*) 4 mg IV Q6H PRN PRN Reason: NAUSEA Last Admin: 10/05/17 20:10 Dose: 4 mg Vital Signs - 8 hr 10/07/17 10/07/17 10/07/17 07:32 08:00 09:26 Temperature 97.7 F Pulse Rate 74 Respiratory 16 20 Rate Blood Pressure 189/64 155/48 (mmHg) O2 Sat by Pulse 98 Oximetry 10/07/17 11:14 Temperature 97.5 F Pulse Rate 70 Respiratory 15 Rate Blood Pressure 186/61 (mmHg) O2 Sat by Pulse 97 Oximetry Oxygen Devices in Use Now: Nasal Cannula Appearance: alert, well appearing Eyes: No Scleral Icterus, PERRLA Ears/Nose/Mouth/Throat: NL Teeth, Lips, Gums Neck: - - JVP 12cm Cardiovascular: - - systolic murmur throughout Abdominal: NL Sounds; No Tenderness; No Distention, No Hepatosplenomegaly Lymphatic: No Cervical Adenopathy Extremities: No Edema, - - RLE > LLE Neurological: Alert and Oriented x 3 Result Diagrams: 10/06/17 05:26 10/07/17 06:54 Additional Lab and Data: Lab Results 10/03/17 10/03/17 10/03/17 Range/Units 19:01 19:06 19:06 WBC 9.0 (3.5-10.8) 10^3/ul RBC 3.47 L (4.0-5.4) 10^6/ul Hgb 10.4 L (12.0-16.0) g/dl Hct 32 L (35-47) % MCV 91 (80-97) fL MCH 30 (27-31) pg MCHC 33 (31-36) g/dl RDW 18 H (10.5-15) % Plt Count 180 (150-450) 10^3/ul MPV 7.0 L (7.4-10.4) um3 Neut % (Auto) 73.6 (38-83) % Lymph % (Auto) 16.8 L (25-47) % [place] % (Auto) 7.3 H (0-7) % Eos % (Auto) 1.2 (0-6) % Baso % (Auto) 1.1 (0-2) % Absolute Neuts (auto) 6.6 (1.5-7.7) 10^3/ul Absolute Lymphs (auto) 1.5 (1.0-4.8) 10^3/ul Absolute Monos (auto) 0.7 (0-0.8) 10^3/ul Absolute Eos (auto) 0.1 (0-0.6) 10^3/ul Absolute Basos (auto) 0.1 (0-0.2) 10^3/ul Absolute Nucleated RBC 0 10^3/ul Nucleated RBC % 0.1 INR (Anticoag Therapy) (0.77-1.02) Patient Temperature Not Reportable ABG pH 7.18 L* (7.35-7.45) ABG pH (Temp Correct) Not Reportable ABG pCO2 71 H (35-45) mmHg ABG pCO2 (Temp Corrct TNP ABG pO2 150 H (80-100) mmHg ABG pO2 (Temp Correct Not Reportable ABG HCO3 21.6 (19-31) mmol/L ABG O2 Saturation 99.8 H (95-98) % ABG Base Excess -4.2 L (-2.0-2.0) Respiration Rate Not Reportable O2 Delivery Device Cpap Ventilator Type Not Reportable Vent Mode Not Reportable FiO2 100 Inspiratory Time Not Reportable PEEP Not Reportable Pressure Support Not Reportable Pressure Control Not Reportable EPAP Not Reportable IPAP Not Reportable BiPAP Not Reportable Sodium (139-145) mmol/L Potassium (3.5-5.0) mmol/L Chloride (101-111) mmol/L Carbon Dioxide (22-32) mmol/L Anion Gap (2-11) mmol/L BUN (6-24) mg/dL Creatinine (0.51-0.95) mg/dL Est GFR ( Amer) (>60) Est GFR (Non-Af Amer) (>60) BUN/Creatinine Ratio (8-20) Glucose (70-100) mg/dL Calcium (8.6-10.3) mg/dL Total Bilirubin (0.2-1.0) mg/dL AST (13-39) U/L ALT (7-52) U/L Alkaline Phosphatase (34-104) U/L Troponin I (<0.04) ng/mL B-Natriuretic Peptide 458 H ( - 100) pg/mL Total Protein (6.4-8.9) g/dL Albumin (3.2-5.2) g/dL Globulin (2-4) g/dL Albumin/Globulin Ratio (1-3) TSH (0.34-5.60) mcIU/mL Digoxin (0.8-2.0) ng/ml 10/03/17 10/03/17 10/03/17 Range/Units 19:06 19:06 20:00 WBC (3.5-10.8) 10^3/ul RBC (4.0-5.4) 10^6/ul Hgb (12.0-16.0) g/dl Hct (35-47) % MCV (80-97) fL MCH (27-31) pg MCHC (31-36) g/dl RDW (10.5-15) % Plt Count (150-450) 10^3/ul MPV (7.4-10.4) um3 Neut % (Auto) (38-83) % Lymph % (Auto) (25-47) % [place] % (Auto) (0-7) % Eos % (Auto) (0-6) % Baso % (Auto) (0-2) % Absolute Neuts (auto) (1.5-7.7) 10^3/ul Absolute Lymphs (auto) (1.0-4.8) 10^3/ul Absolute Monos (auto) (0-0.8) 10^3/ul Absolute Eos (auto) (0-0.6) 10^3/ul Absolute Basos (auto) (0-0.2) 10^3/ul Absolute Nucleated RBC 10^3/ul Nucleated RBC % INR (Anticoag Therapy) 1.02 (0.77-1.02) Patient Temperature Not Reportable ABG pH 7.14 L* (7.35-7.45) ABG pH (Temp Correct) Not Reportable ABG pCO2 73 H* (35-45) mmHg ABG pCO2 (Temp Corrct Not Reportable ABG pO2 243 H (80-100) mmHg ABG pO2 (Temp Correct Not Reportable ABG HCO3 21.1 (19-31) mmol/L ABG O2 Saturation 100.1 H (95-98) % ABG Base Excess -4.9 L (-2.0-2.0) Respiration Rate Not Reportable O2 Delivery Device Bipap Ventilator Type Not Reportable Vent Mode Not Reportable FiO2 100 Inspiratory Time Not Reportable PEEP Not Reportable Pressure Support Not Reportable Pressure Control Not Reportable EPAP Not Reportable IPAP Not Reportable BiPAP Not Reportable Sodium 142 (139-145) mmol/L Potassium 4.2 (3.5-5.0) mmol/L Chloride 109 (101-111) mmol/L Carbon Dioxide 24 (22-32) mmol/L Anion Gap 9 (2-11) mmol/L BUN 40 H (6-24) mg/dL Creatinine 4.35 H (0.51-0.95) mg/dL Est GFR ( Amer) 12.8 (>60) Est GFR (Non-Af Amer) 10.0 (>60) BUN/Creatinine Ratio 9.2 (8-20) Glucose 152 H (70-100) mg/dL Calcium 8.8 (8.6-10.3) mg/dL Total Bilirubin 0.80 (0.2-1.0) mg/dL AST 21 (13-39) U/L ALT 13 (7-52) U/L Alkaline Phosphatase 92 (34-104) U/L Troponin I 0.02 (<0.04) ng/mL B-Natriuretic Peptide ( - 100) pg/mL Total Protein 6.3 L (6.4-8.9) g/dL Albumin 3.4 (3.2-5.2) g/dL Globulin 2.9 (2-4) g/dL Albumin/Globulin Ratio 1.2 (1-3) TSH 5.09 (0.34-5.60) mcIU/mL Digoxin < 0.2 L (0.8-2.0) ng/ml Microbiology and Other Data: Microbiology 10/03/17 20:39 Urine Culture - Final Urine No Growth (<1,000 CFU/mL) 10/03/17 23:33 Nasal Screen MRSA (PCR)(RHIANNON) - Final Nasal Mrsa Not Detected 10/03/17 23:33 Influenza Types A,B Antigen (RHIANNON) - Final Nasal Specimen received for Influenza A/B Molecular testing Assess/Plan/Problems-Billing Assessment: 72 yo female with history of ckd , copd, and diastolic heart failure admitted with hypoxia and found to have worsening renal function - Patient Problems (1) CKD (chronic kidney disease) stage 5, GFR less than 15 ml/min Current Visit: No Status: Acute Code(s): N18.5 - CHRONIC KIDNEY DISEASE, STAGE 5 SNOMED Code(s): 225421525 Comment: Etiology remains unclear, 24 hr urine protein pending Hep panel, quantiferon pending Urine output acceptable, lytes okay Minimal evidence of uremia with daytime sleepiness, but 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 (2) COPD (chronic obstructive pulmonary disease) Current Visit: No Status: Acute Code(s): J44.9 - CHRONIC OBSTRUCTIVE PULMONARY DISEASE, UNSPECIFIED SNOMED Code(s): 21748939 Comment: Continue PRN nebs No wheezing (3) Diastolic CHF Current Visit: No Status: Acute Code(s): I50.30 - UNSPECIFIED DIASTOLIC ( CONGESTIVE) HEART FAILURE SNOMED Code(s): 814832700 Comment: Responded well to diuresis, now on her home O2 requirement of 2L continuously (4) HTN (hypertension) Current Visit: No Status: Acute Code(s): I10 - ESSENTIAL (PRIMARY) HYPERTENSION SNOMED Code(s): 58669349 Comment: Continue home doses hydralazine, carvedilol, isosorbide mononitrate. Clonidine reduced to 0.1 mg patch to avoid sedation. Nifedipine changed to 30 mg XR daily--required additional 10mg short acting today; will change to short acting for ease of titration.
--- NOTE | 2017-10-07 16:03 | CONS ---
AMENDED REPORT NOW INCLUDES DATE OF CONSULT NEPHROLOGY CONSULTATION: DATE OF CONSULT: 10/07/17 HISTORY OF PRESENT ILLNESS: Ms. Hannah is a 72-year-old female that I had begun to consult on couple of weeks ago when she began to cough up bright red blood in my office. I have brought her to the emergency room where she was admitted and did fairly well afterwards. She was readmitted on this occasion because of worsening shortness of breath. She has a known history of severe COPD. She was almost in need of intubation and ventilation, but she was able to be managed on BiPAP. She is breathing much better at the present time and is about back at her baseline. She has a history of diastolic congestive heart failure, but I do not think that is the reason for her worsening renal function and she did not have depressed fractional excretion of sodium when it was measured in August. She has a history of aortic aneurysm replacement. She has a history of hypertension, hypothyroidism, and uterine cancer. She has a long history of depression. Of significance, while her renal function was not normal back in February 2016, she seems to have had a significant progressive worsening of her renal function since August of this year. Her creatinine on September 06 was 1.81 and she has progressively worsened up to now 5.3. I have not been able to identify any of the usual culprits. She has not been on nonsteroidal anti-inflammatory drugs. She has not been getting any x-ray contrast agents. She has not been dehydrated. There have been no significant infections. We have no evidence of urinary obstruction. While she has had some dysoxia, it is not so bad as to be a usual culprit for acute renal failure. MEDICATIONS: Her medications at the time of admission included; 1. Synthroid 100 mcg daily. 2. Imdur 60 mg daily. 3. Atrovent 0.5 mg every 4 hours p.r.n. 4. Pepcid 20 mg daily. 5. Celexa 20 mg daily. 6. Carvedilol 25 mg b.i.d. 7. Hydralazine 50 mg t.i.d. 8. Klonopin 0.25 mg b.i.d. 9. Clonidine 0.2 mg transdermally one weekly. ALLERGIES: She is allergic to ERYTHROMYCIN. FAMILY HISTORY: Significant in that her mother had COPD. SOCIAL HISTORY: She has continued to be a smoker. She does not use alcohol. She is . REVIEW OF SYSTEMS: No visual disturbances. No swallowing difficulties. No recent episodes of angina. No nausea. No vomiting, no change in her bowel habits. She has had a little edema to her right leg. PHYSICAL EXAM: She is an obese white female who appears to be quite comfortable at the present time. Vital Signs: Blood pressure 155/48 with a pulse of 74. She is afebrile. Respirations are 20. She is on 2 L of oxygen. HEENT: She is normocephalic. Her extraocular muscles are intact. The mucous membranes are moist. Chest: Revealed scattered rhonchi. Heart: Revealed a regular rhythm. While others have heard murmurs, I have not been able to hear a murmur on her, but her heart tones are very distant. Abdomen: Obese, nontender. There is no organomegaly. Bones, Joints, Extremities: Reveals about 1+ edema in her right leg. There is less edema in her left leg. DIAGNOSTIC STUDIES/LAB DATA: A review of her laboratory studies reveals a white count of 12.5, hemoglobin of 9.1 with normal indices suggestive of chronic renal insufficiency. Sodium of 141, potassium 3.3, chloride 102, total CO2 of 32, BUN 64, creatinine 5.13. Her EGFR is 8.3. Calcium 8.2. Her urinalysis reveals 1+ blood, 3+ protein. IMPRESSION: Rapidly progressively renal insufficiency, the etiology of which is not clear. She does have 3+ proteinuria. However, on the other hand I do not believe she is a very good candidate for aggressive immunosuppression because of her chronic underlying conditions. She has required steroids which I have no objection to, but they have not changed her courses, they have been used over the past couple of months. She is basically at the need for dialysis at this time. I had a long discussion with her about the nature of dialysis, the technique to be used, vascular access, the potential for recovery, etc. I answered all of her questions. At the present time, she is a little ambivalent but she states that her family would want her to proceed. She is not sure, but she also states she has a number of things she wants to accomplish in her life. So, we are going to make preparations to proceed on with dialysis at this point. I have discussed the case with Dr. Camargo. [id number]/[facility] #: [id number] KASEY
[2017-10-07] MEDS: NIFEdipine CAP* 10 MG PO SCH (20:24)
[2017-10-07] MEDS: Ondansetron INJ* 2 MG/ML VIAL IV PRN (21:10)
[2017-10-07] MEDS: clonazePAM TAB(*) 0.5 MG PO PRN (21:17)
[2017-10-08] MEDS: hydrALAZINE IV* 20 MG/ML VIAL IV PRN (05:05)
[2017-10-08] MEDS: Heparin VIAL(*) 5000 UNITS/ML VIAL (FIVE THOUSAND) SUBCUT SCH ×3 (05:05→22:34)
[2017-10-08] MEDS: Levothyroxine TAB* 100 MCG TAB PO SCH (05:05)
[2017-10-08 05:47] LABS: Hematocrit 28 % (35-47); Hemoglobin 9.2 g/dl (12.0-16.0); Mean Corpuscular HGB Conc 33 g/dl (31-36); Mean Corpuscular Hemoglobin 30 pg (27-31); Mean Corpuscular Volume 90 fL (80-97); Mean Platelet Volume 7.6 um3 (7.4-10.4); Platelet Count 199 10^3/ul (150-450); Red Blood Count 3.09 10^6/ul (4.0-5.4); Red Cell Distribution Width 18 % (10.5-15); White Blood Count 9.3 10^3/ul (3.5-10.8)
[2017-10-08 06:03] LABS: EGFR Non-African American 8.5 (>60)
[2017-10-08 06:42] LABS: ABS Basophils 0.1 10^3/ul (0-0.2); ABS Eosinophils 0.1 10^3/ul (0-0.6); ABS Lymphocytes 1.3 10^3/ul (1.0-4.8); ABS Monocytes 0.8 10^3/ul (0-0.8); ABS Neutrophils 7.1 10^3/ul (1.5-7.7); ABS Nucleated RBC 0 10^3/ul; Eosinophil % 0.6 % (0-6); Lymphocyte % 13.5 % (25-47); Nucleated Red Blood Cells % 0.1
[2017-10-08] MEDS: Mometasone/Formoter 200/5 MDI INH SCH ×2 (08:08→19:38)
[2017-10-08] MEDS: Furosemide TAB* 40 MG PO SCH (08:24)
[2017-10-08] MEDS: hydrALAZINE TAB* 25 MG PO SCH ×3 (08:25→20:01)
[2017-10-08] MEDS: Carvedilol TAB* 25 MG PO SCH ×2 (08:25→20:01)
[2017-10-08] MEDS: Isosorbide Mononitrate ER TAB* 60 MG PO SCH (08:25)
[2017-10-08] MEDS: NIFEdipine CAP* 10 MG PO SCH ×3 (08:25→20:02)
[2017-10-08] MEDS ORDERED: Adenosine* 3 MG/ML VIAL ONE (08:54)
[2017-10-08] MEDS ORDERED: Adenosine* 3 MG/ML VIAL IV PUSH ONE (09:11)
[2017-10-08] MEDS ORDERED: NS 0.9% 1000 ML* 250 ML IV ONE (09:11)
[2017-10-08] MEDS ORDERED: Digoxin IV* 0.5 MG/2 ML AMP (0.25 MG/ML) IV SLOW PU ONE (09:14)
--- NOTE | 2017-10-08 10:02 | RAD ---
HISTORY: Shortness of breath COMPARISONS: October 05, 2017 VIEWS: 1: frontal portable view of the chest at 9:40 AM FINDINGS: LINES AND TUBES: None. CARDIOMEDIASTINAL SILHOUETTE: The aorta is tortuous. An aortic stent graft is noted. The cardiomediastinal silhouette is stable. PLEURA: There are small bilateral pleural effusions. LUNG PARENCHYMA: There is a diffuse reticular pattern with indistinct pulmonary vessels. ABDOMEN: The upper abdomen is clear. There is no subphrenic gas. BONES AND SOFT TISSUES: No bone or soft tissue abnormalities are noted. IMPRESSION: 1. PULMONARY INTERSTITIAL EDEMA. 2. SMALL BILATERAL PLEURAL EFFUSIONS.
[2017-10-08] MEDS ORDERED: Potassium Chloride LIQUID* 20 MEQ PACKET PO ONE (12:12)
--- NOTE | 2017-10-08 15:48 | PN ---
Cardiology Progress Note Date of Service: 10/08/17 - CC: SOB and CP Full note dictated. Pt seen today for regular SVT with drop in BP to 85 systolic and CP ECG and rhythm strips with rate control and then adenocard c/w Atypical flutter 2:1 block to 4:1 block. Then AV dissociation with adenocard to NSR. This occurred in setting of KCl 3.0 (post diuresis) CHF COPD hypercarbia AI LVH/hypertensive heart disease. CKD. Agree with KCl, but I gave her 40 meq more. Getting old records from Dr Rider and [facility]. Short term optimize above medical issues. Serial trops due to CP and lateral ST depression with SVT. Consider anticoagulation if not contraindicated. Not starting antiarrhythmic now, but may need in the future. blasting entryman flutter ablation may be an additional option.
[2017-10-08] MEDS ORDERED: Potassium Chlor TAB* 10 MEQ TAB.ER PO ONE (17:00)
--- NOTE | 2017-10-08 17:36 | PN ---
Subjective Date of Service: 10/08/17 Interval History: Called this morning for regular tachycardia to 130s. At that time, she was feeling short of breath and having chest pain. I pushed adenosine 6mg IV, which caused slowing of the ventricular rhythm and revealed some underlying flutter waves, but then her hr returned to the 130s. At that time, her blood pressures was 80s/50s, so I discussed the case with cardiology, who recommended digoxin 1mg, however before her nurse could push this, Ms. Hannah converted to NSR in the 70s. She felt better. Family History: Unchanged from Admission Social History: Unchanged from Admission Past Medical History: Unchanged from Admission Objective Active Medications: Acetaminophen (Tylenol Tab*) 650 mg PO Q6H PRN PRN Reason: FEVER/PAIN Last Admin: 10/06/17 23:42 Dose: 650 mg Albuterol (Ventolin 2.5 Mg/3 Ml Neb.Danita*) 2.5 mg INH Q2H PRN PRN Reason: SOB/WHEEZING Carvedilol (Coreg Tab*) 25 mg PO BID [facility] Last Admin: 10/08/17 08:25 Dose: 25 mg Clonazepam (Klonopin Tab(*)) 0.25 mg PO BID PRN PRN Reason: ANXIETY Last Admin: 10/07/17 21:17 Dose: 0.25 mg Clonidine HCl (Sgxgcfyi-Oux-4 0.1 Mg Patch*) 0.1 mg TRANSDERM WEEKLY [facility] Furosemide (Lasix Tab*) 40 mg PO DAILY [facility] Last Admin: 10/08/17 08:24 Dose: 40 mg Heparin Sodium (Porcine) (Heparin Vial(*)) 5,000 units SUBCUT Q8HR [facility] Last Admin: 10/08/17 14:16 Dose: 5,000 units Hydralazine HCl (Apresoline Tab*) 50 mg PO TID [facility] Last Admin: 10/08/17 14:15 Dose: 50 mg Hydralazine HCl (Apresoline Iv*) 10 mg IV Q4H PRN PRN Reason: Systolic >170 Last Admin: 10/08/17 05:05 Dose: 10 mg Isosorbide Mononitrate (Imdur Er Tab*) 60 mg PO DAILY [facility] Last Admin: 10/08/17 08:25 Dose: 60 mg Levothyroxine Sodium (Synthroid Tab*) 100 mcg PO DAILY@0600 [facility] Last Admin: 10/08/17 05:05 Dose: 100 mcg Mometasone Furoate/Formoterol Fumar (Dulera 200/5 Mdi*) 2 puff INH BID [facility] Last Admin: 10/08/17 08:08 Dose: 2 puff Morphine Sulfate (Morphine Inj (Syringe)*) 2 mg IV Q4H PRN PRN Reason: PAIN - MILD Nifedipine (Procardia Cap*) 20 mg PO TID [facility] Last Admin: 10/08/17 14:15 Dose: 20 mg Ondansetron HCl (Zofran Inj*) 4 mg IV Q6H PRN PRN Reason: NAUSEA Last Admin: 10/07/17 21:10 Dose: 4 mg Vital Signs - 8 hr 10/08/17 10/08/17 10/08/17 11:31 11:45 12:21 Temperature 97.8 F Pulse Rate 85 Respiratory 24 Rate Blood Pressure 167/64 116/55 167/62 (mmHg) O2 Sat by Pulse 94 Oximetry 10/08/17 15:25 Temperature 99.2 F Pulse Rate 75 Respiratory 20 Rate Blood Pressure 157/57 (mmHg) O2 Sat by Pulse 95 Oximetry Oxygen Devices in Use Now: Nasal Cannula Appearance: alert, mildly tachypneic, no distress Eyes: No Scleral Icterus Ears/Nose/Mouth/Throat: NL Teeth, Lips, Gums Neck: - - JVP ~14 cm Respiratory: Symmetrical Chest Expansion and Respiratory Effort, Clear to Auscultation Abdominal: NL Sounds; No Tenderness; No Distention, No Hepatosplenomegaly Lymphatic: No Cervical Adenopathy Extremities: - - 2+ LE edema, RLE>LLE Skin: No Rash or Ulcers Neurological: Alert and Oriented x 3 Result Diagrams: 10/08/17 05:33 10/08/17 05:33 Additional Lab and Data: Lab Results 10/03/17 10/03/17 10/03/17 Range/Units 19:01 19:06 19:06 WBC 9.0 (3.5-10.8) 10^3/ul RBC 3.47 L (4.0-5.4) 10^6/ul Hgb 10.4 L (12.0-16.0) g/dl Hct 32 L (35-47) % MCV 91 (80-97) fL MCH 30 (27-31) pg MCHC 33 (31-36) g/dl RDW 18 H (10.5-15) % Plt Count 180 (150-450) 10^3/ul MPV 7.0 L (7.4-10.4) um3 Neut % (Auto) 73.6 (38-83) % Lymph % (Auto) 16.8 L (25-47) % [place] % (Auto) 7.3 H (0-7) % Eos % (Auto) 1.2 (0-6) % Baso % (Auto) 1.1 (0-2) % Absolute Neuts (auto) 6.6 (1.5-7.7) 10^3/ul Absolute Lymphs (auto) 1.5 (1.0-4.8) 10^3/ul Absolute Monos (auto) 0.7 (0-0.8) 10^3/ul Absolute Eos (auto) 0.1 (0-0.6) 10^3/ul Absolute Basos (auto) 0.1 (0-0.2) 10^3/ul Absolute Nucleated RBC 0 10^3/ul Nucleated RBC % 0.1 INR (Anticoag Therapy) (0.77-1.02) Patient Temperature Not Reportable ABG pH 7.18 L* (7.35-7.45) ABG pH (Temp Correct) Not Reportable ABG pCO2 71 H (35-45) mmHg ABG pCO2 (Temp Corrct TNP ABG pO2 150 H (80-100) mmHg ABG pO2 (Temp Correct Not Reportable ABG HCO3 21.6 (19-31) mmol/L ABG O2 Saturation 99.8 H (95-98) % ABG Base Excess -4.2 L (-2.0-2.0) Respiration Rate Not Reportable O2 Delivery Device Cpap Ventilator Type Not Reportable Vent Mode Not Reportable FiO2 100 Inspiratory Time Not Reportable PEEP Not Reportable Pressure Support Not Reportable Pressure Control Not Reportable EPAP Not Reportable IPAP Not Reportable BiPAP Not Reportable Sodium (139-145) mmol/L Potassium (3.5-5.0) mmol/L Chloride (101-111) mmol/L Carbon Dioxide (22-32) mmol/L Anion Gap (2-11) mmol/L BUN (6-24) mg/dL Creatinine (0.51-0.95) mg/dL Est GFR ( Amer) (>60) Est GFR (Non-Af Amer) (>60) BUN/Creatinine Ratio (8-20) Glucose (70-100) mg/dL Calcium (8.6-10.3) mg/dL Total Bilirubin (0.2-1.0) mg/dL AST (13-39) U/L ALT (7-52) U/L Alkaline Phosphatase (34-104) U/L Troponin I (<0.04) ng/mL B-Natriuretic Peptide 458 H ( - 100) pg/mL Total Protein (6.4-8.9) g/dL Albumin (3.2-5.2) g/dL Globulin (2-4) g/dL Albumin/Globulin Ratio (1-3) TSH (0.34-5.60) mcIU/mL Digoxin (0.8-2.0) ng/ml 10/03/17 10/03/17 10/03/17 Range/Units 19:06 19:06 20:00 WBC (3.5-10.8) 10^3/ul RBC (4.0-5.4) 10^6/ul Hgb (12.0-16.0) g/dl Hct (35-47) % MCV (80-97) fL MCH (27-31) pg MCHC (31-36) g/dl RDW (10.5-15) % Plt Count (150-450) 10^3/ul MPV (7.4-10.4) um3 Neut % (Auto) (38-83) % Lymph % (Auto) (25-47) % [place] % (Auto) (0-7) % Eos % (Auto) (0-6) % Baso % (Auto) (0-2) % Absolute Neuts (auto) (1.5-7.7) 10^3/ul Absolute Lymphs (auto) (1.0-4.8) 10^3/ul Absolute Monos (auto) (0-0.8) 10^3/ul Absolute Eos (auto) (0-0.6) 10^3/ul Absolute Basos (auto) (0-0.2) 10^3/ul Absolute Nucleated RBC 10^3/ul Nucleated RBC % INR (Anticoag Therapy) 1.02 (0.77-1.02) Patient Temperature Not Reportable ABG pH 7.14 L* (7.35-7.45) ABG pH (Temp Correct) Not Reportable ABG pCO2 73 H* (35-45) mmHg ABG pCO2 (Temp Corrct Not Reportable ABG pO2 243 H (80-100) mmHg ABG pO2 (Temp Correct Not Reportable ABG HCO3 21.1 (19-31) mmol/L ABG O2 Saturation 100.1 H (95-98) % ABG Base Excess -4.9 L (-2.0-2.0) Respiration Rate Not Reportable O2 Delivery Device Bipap Ventilator Type Not Reportable Vent Mode Not Reportable FiO2 100 Inspiratory Time Not Reportable PEEP Not Reportable Pressure Support Not Reportable Pressure Control Not Reportable EPAP Not Reportable IPAP Not Reportable BiPAP Not Reportable Sodium 142 (139-145) mmol/L Potassium 4.2 (3.5-5.0) mmol/L Chloride 109 (101-111) mmol/L Carbon Dioxide 24 (22-32) mmol/L Anion Gap 9 (2-11) mmol/L BUN 40 H (6-24) mg/dL Creatinine 4.35 H (0.51-0.95) mg/dL Est GFR ( Amer) 12.8 (>60) Est GFR (Non-Af Amer) 10.0 (>60) BUN/Creatinine Ratio 9.2 (8-20) Glucose 152 H (70-100) mg/dL Calcium 8.8 (8.6-10.3) mg/dL Total Bilirubin 0.80 (0.2-1.0) mg/dL AST 21 (13-39) U/L ALT 13 (7-52) U/L Alkaline Phosphatase 92 (34-104) U/L Troponin I 0.02 (<0.04) ng/mL B-Natriuretic Peptide ( - 100) pg/mL Total Protein 6.3 L (6.4-8.9) g/dL Albumin 3.4 (3.2-5.2) g/dL Globulin 2.9 (2-4) g/dL Albumin/Globulin Ratio 1.2 (1-3) TSH 5.09 (0.34-5.60) mcIU/mL Digoxin < 0.2 L (0.8-2.0) ng/ml Microbiology and Other Data: Microbiology 10/03/17 20:39 Urine Culture - Final Urine No Growth (<1,000 CFU/mL) 10/03/17 23:33 Nasal Screen MRSA (PCR)(RHIANNON) - Final Nasal Mrsa Not Detected 10/03/17 23:33 Influenza Types A,B Antigen (RHIANNON) - Final Nasal Specimen received for Influenza A/B Molecular testing Assess/Plan/Problems-Billing Assessment: 72 yo female with history of ckd , copd, and diastolic heart failure admitted with hypoxia and found to have worsening renal function - Patient Problems (1) CKD (chronic kidney disease) stage 5, GFR less than 15 ml/min Current Visit: No Status: Acute Code(s): N18.5 - CHRONIC KIDNEY DISEASE, STAGE 5 SNOMED Code(s): 275688539 Comment: Etiology remains unclear, 24 hr urine protein pending She has had some blood-tinged sputum, which has been thought to be irritation, but will send ANCAs as well Hep panel, quantiferon pending Urine output acceptable, lytes okay Minimal evidence of uremia with daytime sleepiness, but 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, however she does have volume overload (2) COPD (chronic obstructive pulmonary disease) Current Visit: No Status: Acute Code(s): J44.9 - CHRONIC OBSTRUCTIVE PULMONARY DISEASE, UNSPECIFIED SNOMED Code(s): 18659145 Comment: Continue PRN nebs No evidence of exacerbation (3) Diastolic CHF Current Visit: No Status: Acute Code(s): I50.30 - UNSPECIFIED DIASTOLIC ( CONGESTIVE) HEART FAILURE SNOMED Code(s): 343825374 Comment: Responded well to diuresis, now on her home O2 requirement of 2L continuously (4) HTN (hypertension) Current Visit: No Status: Acute Code(s): I10 - ESSENTIAL (PRIMARY) HYPERTENSION SNOMED Code(s): 27123164 Comment: Continue home doses hydralazine, carvedilol, isosorbide mononitrate. Clonidine reduced to 0.1 mg patch to avoid sedation. I changed nifedipine to short acting for ease of titration (5) Atrial fib/flutter, transient Current Visit: Yes Status: Acute Code(s): YUI3454 - SNOMED Code(s): 446365405 Comment: converted after adenosine this morning i discussed anticoagulation with her, but she wants to think about it before initiating, which is appropriate since we will plan for a perm cath early this week
[2017-10-08 17:37] LABS: Urine Urea Nitrogen/24HR 5.8
[2017-10-08] MEDS: clonazePAM TAB(*) 0.5 MG PO PRN (20:02)
--- NOTE | 2017-10-09 01:13 | CONS ---
CC: Dr. Boyd; Dr. Aleman; Primary Care Physician * CONSULTATION REPORT: DATE OF CONSULT: 10/08/17 REASON FOR CONSULT: Supraventricular tachycardia. HISTORY OF PRESENT ILLNESS: Ms. Hannah is a 72-year-old woman, who tells me she has a history of coronary disease and cardiac stenting and is followed by Dr. Aleman for Cardiology. She also tells me she has chronic renal insufficiency and sees Dr. Boyd. The patient presented to the hospital because of severe shortness of breath. The patient denies any recent changes in medications or dietary changes or recent change in her usual habits. The patient was having progressive shortness of breath for a day or two prior to admission and was very short of breath when she arrived to the emergency room. On 10/03/17, her shortness of breath was felt to be multifactorial, a combination of COPD, for which she was given steroids and congestive heart failure for which she was given diuretics. This morning, the patient acutely developed supraventricular tachycardia at a rate of approximately 140 beats a minute. The patient became hypotensive with systolics in the 85 and she said she felt like she was having a heart attack with severe chest discomfort. The dysrhythmia was initially slowed down with rate lowering agents and then with Adenocard, it broke to normal sinus rhythm and states that her chest pain symptoms gradually as opposed to abruptly improved. Currently, she is free of chest pain. At the time of the dysrhythmias, the patient had a low potassium and hypertension. PAST MEDICAL HISTORY: 1. The patient has a past medical history of descending thoracica aneurysm. 2. Hypertension. 3. Chronic renal insufficiency. 4. COPD. 5. Congestive heart failure. 6. Coronary artery disease with stents at [facility]. 7. Reflux. 8. Uterine cancer. 9. Depression. 10. Obesity. 11. Hypothyroid disease. PAST SURGICAL HISTORY: Includes: 1. Descending aneurysm surgical repair. 2. Hysterectomy. MEDICATIONS: Current inpatient medications include: 1. Tylenol p.r.n. 2. Albuterol nebulizer p.r.n. 3. Coreg 25 mg b.i.d. 4. Klonopin 0.25 mg b.i.d. p.r.n. anxiety. 5. Catapres patch 0.1 mg weekly. 6. Lasix 40 mg a day. 7. Subcutaneous heparin. 8. Hydralazine 50 mg t.i.d. 9. Hydralazine 10 mg IV p.r.n. 10. Imdur 60 mg a day. 11. Synthroid 100 mcg a day. 12. Dulera MDI 2 puffs b.i.d. 13. Morphine sulfate p.r.n. 14. Procardia 20 mg t.i.d. 15. Zofran p.r.n. During the admission, she received Adenocard, digoxin, potassium replacement and transient normal saline for hypotension with SVT. ALLERGIES: Include ERYTHROMYCIN. FAMILY HISTORY: Significant that her mother had 5-vessel bypass surgery and diabetes. Her father had heart attack at a very young age and she has a brother with a history of paroxysmal atrial fibrillation SOCIAL HISTORY: The patient is , lives with her . She is a former smoker. No history of alcohol abuse or caffeine abuse. REVIEW OF SYSTEMS: See history of present illness, but progressive shortness of breath prior to admission, chest pain with palpitations and racing of the heart, chronic orthopnea, swellings in the leg. Appetite has been good. No dysuria, hematuria or fevers, chills, sweats and other review of system was unremarkable. PHYSICAL EXAM: On exam, the patient is an overweight older woman, lying at 45 degrees, appears comfortable, and in no distress. Psychologically pleasant and cooperative, neurologically awake, alert and oriented to person, place and time. Cranial nerves II through XII intact, grossly normal sensory and motor function in the upper and lower extremities and normal gait. Skin: Warm and dry. No cyanosis of the lips and nail bed. Nasal cannula in. HEENT: Pupils are equal and round. HEENT: Pupils are equal and round. Mucous membranes are moderately moist. Neck: Thick without appreciable thyromegaly or increased JVP. Breath sounds very diminished throughout, distant, no wheezing, rales, or rhonchi. Coronary: S1, S2, regular, 1 to 2/ 6 early to mid peaking systolic murmur heard in the right upper sternal border. Heart sounds are distant from obesity. Abdomen: Overweight. Active bowel sounds. Soft and nontender. Lower extremities show mild edema though left lower extremity is greater than right and the skin is pruning as if she has had recent diuresis. DIAGNOSTIC STUDIES/LAB DATA: From 5 this morning, sodium 140, potassium 3.0, chloride 100, BUN 64, creatinine 5.0, glucose 114 magnesium 2.2. Troponin from 10/04/17 of 0.04. BNP on admission was 458. TSH on admission 5.09. ABG on admission on 10/03/17 showed a pH of 7.18, PCO2 71, PO2 150. ABG from 10/03/17 at 2200 showed pH 7.23, PCO2 57, PO2 79 and oxygen saturation 98%. From today, white count 9.3, hemoglobin 9.2, hematocrit 28 with a baseline hematocrit approximately 30 in early September and 36 in August. Urinalysis with 3+ protein , 1+ blood, 1+ white cells, 2+ glucose from 10/03/17. A 12-lead ECG on admission 10/03/17, showed sinus tachycardia, 106 beats a minute, QRS axis 0, normal AV and IV conduction time. ST segments were unremarkable. A 12-lead ECG this morning with supraventricular tachycardia showed a regular narrow complex tachycardia at 134 beats a minute, QRS axis 0, normal intraventricular conduction time. She had ST depression in the lateral leads I, aVL, V5 and V6, most prominent in I and V6. Rhythm strips with rate lower agents, the patient had a regular rhythm at 70 beats a minute approximately with Adenocard, there are underlying atypical flutter waves seen in lead II and she then broke into AV dissociation with a slow sinus bradycardia and the slow escape rhythm. Currently, the patient is back in normal sinus rhythm. Echocardiogram from 10/03/17 showed mild left ventricular hypertrophy with ejection fraction of 60% to 65% and abnormal diastolic filling, biatrial enlargement, moderate aortic insufficiency, on visual estimate (suboptimal exam) , aortic valve sclerosis with mild aortic stenosis, mean gradient 12 mmHg, aortic valve area 1.4 to 1.5 cm2. Trace mitral and tricuspid insufficiency, moderate dilatation of the ascending aorta at 4.5 cm. ASSESSMENT AND PLAN: In summary, Gricelda Hannah is a 72-year-old woman, who developed narrow complex regular supraventricular tachycardia in the setting of hypertension, probable hypercarbia, marked hypokalemia, congestive heart failure and her chronic medical history of renal insufficiency, hypertension, hypertensive heart disease, aortic insufficiency and aortic stenosis. As reviewed above, I think the supraventricular tachycardia is most consistent with atypical flutter and therefore there is some stroke risk and she has a high CHADS score (at least 2) and if not contraindicated with other medical problems including renal insufficiency and her history of aortic problems, I would consider full anticoagulation extending into the outpatient at discharge. Acutely, I agree with Dr. Rios that she will benefit from potassium repletion and I had aimed to replete her levels to around 4, it looks like her aggressive diuresis on admission led to potassium repletion. She has multiple potential triggers including in addition to the hyponatremia including her age, COPD, valvular heart disease and hypertensive heart disease, fluid retention and atrial stretch from her renal insufficiency. Optimization of her overall medical health will minimize the chance of recurrent atrial flutter. Because the patient had angina like symptoms, I am going to get serial troponins , we will try to obtain old records from Dr. Aleman in [facility]. Future decisions will include: 1. Anticoagulation. 2. Antiarrhythmic (complicated by renal insufficiency). 3. Possible ischemic workup. Consideration could be made at some point to get a transesophageal echo for the patient's aortic insufficiency as transthoracic echoes are going to be limited due to her body habitus, but I think this can be pursued as an outpatient as long as she continues to improve on this admission. Thank you for allowing to assist in this nice woman's care. [id number]/[facility] #: [id number] KASEY
[2017-10-09] MEDS: Levothyroxine TAB* 100 MCG TAB PO SCH (05:56)
[2017-10-09] MEDS: Heparin VIAL(*) 5000 UNITS/ML VIAL (FIVE THOUSAND) SUBCUT SCH ×2 (05:57→14:10)
[2017-10-09 06:17] LABS: Hematocrit 28 % (35-47); Hemoglobin 9.1 g/dl (12.0-16.0); Mean Corpuscular HGB Conc 33 g/dl (31-36); Mean Corpuscular Hemoglobin 30 pg (27-31); Mean Corpuscular Volume 90 fL (80-97); Mean Platelet Volume 7.6 um3 (7.4-10.4); Platelet Count 191 10^3/ul (150-450); Red Blood Count 3.05 10^6/ul (4.0-5.4); Red Cell Distribution Width 19 % (10.5-15)
[2017-10-09 06:19] LABS: ABS Basophils 0 10^3/ul (0-0.2); ABS Eosinophils 0 10^3/ul (0-0.6); ABS Monocytes 0.8 10^3/ul (0-0.8); ABS Neutrophils 7.2 10^3/ul (1.5-7.7)
[2017-10-09 06:34] LABS: EGFR Non-African American 8.2 (>60)
[2017-10-09 06:45] LABS: ABS Nucleated RBC 0 10^3/ul; Eosinophil % 0.5 % (0-6); Lymphocyte % 10.9 % (25-47); Nucleated Red Blood Cells % 0
[2017-10-09] MEDS: Mometasone/Formoter 200/5 MDI INH SCH ×2 (08:04→19:29)
[2017-10-09] MEDS: NIFEdipine CAP* 10 MG PO SCH ×3 (08:47→20:07)
[2017-10-09] MEDS: Carvedilol TAB* 25 MG PO SCH ×2 (08:47→20:07)
[2017-10-09] MEDS: hydrALAZINE TAB* 25 MG PO SCH ×3 (08:48→20:07)
[2017-10-09] MEDS: Isosorbide Mononitrate ER TAB* 60 MG PO SCH (08:48)
[2017-10-09] MEDS: Furosemide TAB* 40 MG PO SCH (08:49)
--- NOTE | 2017-10-09 10:21 | PN ---
Subjective Date of Service: 10/09/17 Interval History: No SOB, chest pain, cough. Appetite OK. Last BM 2 days ago. Family History: Unchanged from Admission Social History: Unchanged from Admission Past Medical History: Unchanged from Admission Objective Active Medications: Acetaminophen (Tylenol Tab*) 650 mg PO Q6H PRN PRN Reason: FEVER/PAIN Last Admin: 10/06/17 23:42 Dose: 650 mg Albuterol (Ventolin 2.5 Mg/3 Ml Neb.Danita*) 2.5 mg INH Q2H PRN PRN Reason: SOB/WHEEZING Carvedilol (Coreg Tab*) 25 mg PO BID [facility] Last Admin: 10/09/17 08:47 Dose: 25 mg Clonazepam (Klonopin Tab(*)) 0.25 mg PO BID PRN PRN Reason: ANXIETY Last Admin: 10/08/17 20:02 Dose: 0.25 mg Clonidine HCl (Hhfzrwzj-Uim-3 0.1 Mg Patch*) 0.1 mg TRANSDERM WEEKLY [facility] Furosemide (Lasix Tab*) 40 mg PO DAILY [facility] Last Admin: 10/09/17 08:49 Dose: 40 mg Heparin Sodium (Porcine) (Heparin Vial(*)) 5,000 units SUBCUT Q8HR [facility] Last Admin: 10/09/17 05:57 Dose: 5,000 units Hydralazine HCl (Apresoline Tab*) 50 mg PO TID [facility] Last Admin: 10/09/17 08:48 Dose: 50 mg Hydralazine HCl (Apresoline Iv*) 10 mg IV Q4H PRN PRN Reason: Systolic >170 Last Admin: 10/08/17 05:05 Dose: 10 mg Isosorbide Mononitrate (Imdur Er Tab*) 60 mg PO DAILY [facility] Last Admin: 10/09/17 08:48 Dose: 60 mg Levothyroxine Sodium (Synthroid Tab*) 100 mcg PO DAILY@0600 [facility] Last Admin: 10/09/17 05:56 Dose: 100 mcg Mometasone Furoate/Formoterol Fumar (Dulera 200/5 Mdi*) 2 puff INH BID [facility] Last Admin: 10/09/17 08:04 Dose: 2 puff Morphine Sulfate (Morphine Inj (Syringe)*) 2 mg IV Q4H PRN PRN Reason: PAIN - MILD Nifedipine (Procardia Cap*) 20 mg PO TID [facility] Last Admin: 10/09/17 08:47 Dose: 20 mg Ondansetron HCl (Zofran Inj*) 4 mg IV Q6H PRN PRN Reason: NAUSEA Last Admin: 10/07/17 21:10 Dose: 4 mg Potassium Chloride (Klor Con Er Tab*) 20 meq PO DAILY [facility] Vital Signs - 8 hr 10/09/17 10/09/17 10/09/17 03:40 07:30 07:48 Temperature 97.8 F 98.0 F Pulse Rate 73 80 Respiratory 16 24 20 Rate Blood Pressure 170/61 190/65 (mmHg) O2 Sat by Pulse 94 92 Oximetry 10/09/17 10/09/17 10/09/17 07:59 08:00 09:44 Temperature 98.3 F Pulse Rate 80 82 71 Respiratory 19 19 20 Rate Blood Pressure 159/56 (mmHg) O2 Sat by Pulse 94 95 94 Oximetry Oxygen Devices in Use Now: Nasal Cannula Appearance: Alert, partly up in bed. Neutral affect. Looks comfortable. Eyes: No Scleral Icterus Respiratory: Symmetrical Chest Expansion and Respiratory Effort, Clear to Auscultation, Clear to Percussion Cardiovascular: NL Sounds; No Murmurs; No JVD, RRR, No Edema, - Extremities: No Edema, No Clubbing, Cyanosis, - Skin: No Rash or Ulcers, No Nodules or Sclerosis, - Neurological: Alert and Oriented x 3, NL Sensation Result Diagrams: 10/09/17 05:55 10/09/17 05:55 Additional Lab and Data: Lab Results 10/03/17 10/03/17 10/03/17 Range/Units 19:01 19:06 19:06 WBC 9.0 (3.5-10.8) 10^3/ul RBC 3.47 L (4.0-5.4) 10^6/ul Hgb 10.4 L (12.0-16.0) g/dl Hct 32 L (35-47) % MCV 91 (80-97) fL MCH 30 (27-31) pg MCHC 33 (31-36) g/dl RDW 18 H (10.5-15) % Plt Count 180 (150-450) 10^3/ul MPV 7.0 L (7.4-10.4) um3 Neut % (Auto) 73.6 (38-83) % Lymph % (Auto) 16.8 L (25-47) % [place] % (Auto) 7.3 H (0-7) % Eos % (Auto) 1.2 (0-6) % Baso % (Auto) 1.1 (0-2) % Absolute Neuts (auto) 6.6 (1.5-7.7) 10^3/ul Absolute Lymphs (auto) 1.5 (1.0-4.8) 10^3/ul Absolute Monos (auto) 0.7 (0-0.8) 10^3/ul Absolute Eos (auto) 0.1 (0-0.6) 10^3/ul Absolute Basos (auto) 0.1 (0-0.2) 10^3/ul Absolute Nucleated RBC 0 10^3/ul Nucleated RBC % 0.1 INR (Anticoag Therapy) (0.77-1.02) Patient Temperature Not Reportable ABG pH 7.18 L* (7.35-7.45) ABG pH (Temp Correct) Not Reportable ABG pCO2 71 H (35-45) mmHg ABG pCO2 (Temp Corrct TNP ABG pO2 150 H (80-100) mmHg ABG pO2 (Temp Correct Not Reportable ABG HCO3 21.6 (19-31) mmol/L ABG O2 Saturation 99.8 H (95-98) % ABG Base Excess -4.2 L (-2.0-2.0) Respiration Rate Not Reportable O2 Delivery Device Cpap Ventilator Type Not Reportable Vent Mode Not Reportable FiO2 100 Inspiratory Time Not Reportable PEEP Not Reportable Pressure Support Not Reportable Pressure Control Not Reportable EPAP Not Reportable IPAP Not Reportable BiPAP Not Reportable Sodium (139-145) mmol/L Potassium (3.5-5.0) mmol/L Chloride (101-111) mmol/L Carbon Dioxide (22-32) mmol/L Anion Gap (2-11) mmol/L BUN (6-24) mg/dL Creatinine (0.51-0.95) mg/dL Est GFR ( Amer) (>60) Est GFR (Non-Af Amer) (>60) BUN/Creatinine Ratio (8-20) Glucose (70-100) mg/dL Calcium (8.6-10.3) mg/dL Total Bilirubin (0.2-1.0) mg/dL AST (13-39) U/L ALT (7-52) U/L Alkaline Phosphatase (34-104) U/L Troponin I (<0.04) ng/mL B-Natriuretic Peptide 458 H ( - 100) pg/mL Total Protein (6.4-8.9) g/dL Albumin (3.2-5.2) g/dL Globulin (2-4) g/dL Albumin/Globulin Ratio (1-3) TSH (0.34-5.60) mcIU/mL Digoxin (0.8-2.0) ng/ml 10/03/17 10/03/17 10/03/17 Range/Units 19:06 19:06 20:00 WBC (3.5-10.8) 10^3/ul RBC (4.0-5.4) 10^6/ul Hgb (12.0-16.0) g/dl Hct (35-47) % MCV (80-97) fL MCH (27-31) pg MCHC (31-36) g/dl RDW (10.5-15) % Plt Count (150-450) 10^3/ul MPV (7.4-10.4) um3 Neut % (Auto) (38-83) % Lymph % (Auto) (25-47) % [place] % (Auto) (0-7) % Eos % (Auto) (0-6) % Baso % (Auto) (0-2) % Absolute Neuts (auto) (1.5-7.7) 10^3/ul Absolute Lymphs (auto) (1.0-4.8) 10^3/ul Absolute Monos (auto) (0-0.8) 10^3/ul Absolute Eos (auto) (0-0.6) 10^3/ul Absolute Basos (auto) (0-0.2) 10^3/ul Absolute Nucleated RBC 10^3/ul Nucleated RBC % INR (Anticoag Therapy) 1.02 (0.77-1.02) Patient Temperature Not Reportable ABG pH 7.14 L* (7.35-7.45) ABG pH (Temp Correct) Not Reportable ABG pCO2 73 H* (35-45) mmHg ABG pCO2 (Temp Corrct Not Reportable ABG pO2 243 H (80-100) mmHg ABG pO2 (Temp Correct Not Reportable ABG HCO3 21.1 (19-31) mmol/L ABG O2 Saturation 100.1 H (95-98) % ABG Base Excess -4.9 L (-2.0-2.0) Respiration Rate Not Reportable O2 Delivery Device Bipap Ventilator Type Not Reportable Vent Mode Not Reportable FiO2 100 Inspiratory Time Not Reportable PEEP Not Reportable Pressure Support Not Reportable Pressure Control Not Reportable EPAP Not Reportable IPAP Not Reportable BiPAP Not Reportable Sodium 142 (139-145) mmol/L Potassium 4.2 (3.5-5.0) mmol/L Chloride 109 (101-111) mmol/L Carbon Dioxide 24 (22-32) mmol/L Anion Gap 9 (2-11) mmol/L BUN 40 H (6-24) mg/dL Creatinine 4.35 H (0.51-0.95) mg/dL Est GFR ( Amer) 12.8 (>60) Est GFR (Non-Af Amer) 10.0 (>60) BUN/Creatinine Ratio 9.2 (8-20) Glucose 152 H (70-100) mg/dL Calcium 8.8 (8.6-10.3) mg/dL Total Bilirubin 0.80 (0.2-1.0) mg/dL AST 21 (13-39) U/L ALT 13 (7-52) U/L Alkaline Phosphatase 92 (34-104) U/L Troponin I 0.02 (<0.04) ng/mL B-Natriuretic Peptide ( - 100) pg/mL Total Protein 6.3 L (6.4-8.9) g/dL Albumin 3.4 (3.2-5.2) g/dL Globulin 2.9 (2-4) g/dL Albumin/Globulin Ratio 1.2 (1-3) TSH 5.09 (0.34-5.60) mcIU/mL Digoxin < 0.2 L (0.8-2.0) ng/ml Microbiology and Other Data: Microbiology 10/03/17 20:39 Urine Culture - Final Urine No Growth (<1,000 CFU/mL) 10/03/17 23:33 Nasal Screen MRSA (PCR)(RHIANNON) - Final Nasal Mrsa Not Detected 10/03/17 23:33 Influenza Types A,B Antigen (RHIANNON) - Final Nasal Specimen received for Influenza A/B Molecular testing Assess/Plan/Problems-Billing Assessment: 72 yo female with history of ckd , copd, and diastolic heart failure admitted with hypoxia and found to have worsening renal function - Patient Problems (1) COPD (chronic obstructive pulmonary disease) Current Visit: No Status: Acute Code(s): J44.9 - CHRONIC OBSTRUCTIVE PULMONARY DISEASE, UNSPECIFIED SNOMED Code(s): 26155089 Comment: Continue PRN nebs No evidence of exacerbation (2) HTN (hypertension) Current Visit: No Status: Acute Code(s): I10 - ESSENTIAL (PRIMARY) HYPERTENSION SNOMED Code(s): 64771681 Comment: Continue home doses hydralazine, carvedilol, isosorbide mononitrate , nifedipine. D/C clonidine to avoid sedation. (3) Hypothyroidism Current Visit: No Status: Acute Code(s): E03.9 - HYPOTHYROIDISM, UNSPECIFIED SNOMED Code(s): 61525561 Comment: TSH wnl 10/03/17. Continue levothyroxine. (4) CKD (chronic kidney disease) stage 5, GFR less than 15 ml/min Current Visit: No Status: Acute Code(s): N18.5 - CHRONIC KIDNEY DISEASE, STAGE 5 SNOMED Code(s): 274339354 Comment: Etiology remains unclear, 24 hr urine protein pending She has had some blood-tinged sputum, which has been thought to be irritation. ANCA panel pending. Hep panel, quantiferon pending Discussed with Dr. Boyd 10/09. HD catheter to be placed 10/10. 24 hr creat clear 15, urea clearance 6.49. Minimal evidence of uremia with daytime sleepiness, but no urgent indications for IPHONE DEVELOPER, however she does have volume overload (5) Debility Current Visit: Yes Status: Acute Code(s): R53.81 - OTHER MALAISE SNOMED Code(s): 07213343 Comment: PT, OT ordered.
[2017-10-09] MEDS: Potassium Chlor TAB* 10 MEQ TAB.ER PO SCH (10:38)
[2017-10-09] MEDS: clonazePAM TAB(*) 0.5 MG PO PRN (19:18)
[2017-10-09] MEDS: Polyethylene Glycol 3350* 17 GM PACKET PO PRN (20:07)
[2017-10-10] MEDS: hydrALAZINE IV* 20 MG/ML VIAL IV PRN (04:09)
[2017-10-10] MEDS: Levothyroxine TAB* 100 MCG TAB PO SCH (05:10)
[2017-10-10 05:42] LABS: Hematocrit 27 % (35-47); Hemoglobin 8.9 g/dl (12.0-16.0); Mean Corpuscular HGB Conc 33 g/dl (31-36); Mean Corpuscular Hemoglobin 30 pg (27-31); Mean Corpuscular Volume 91 fL (80-97); Mean Platelet Volume 7.3 um3 (7.4-10.4); Platelet Count 180 10^3/ul (150-450); Red Blood Count 2.99 10^6/ul (4.0-5.4); Red Cell Distribution Width 18 % (10.5-15); White Blood Count 8.8 10^3/ul (3.5-10.8)
[2017-10-10 05:53] LABS: INR 0.94 (0.77-1.02)
[2017-10-10 06:00] LABS: ABS Basophils 0.1 10^3/ul (0-0.2); ABS Eosinophils 0.1 10^3/ul (0-0.6); ABS Lymphocytes 1.1 10^3/ul (1.0-4.8); ABS Monocytes 0.8 10^3/ul (0-0.8); ABS Neutrophils 6.7 10^3/ul (1.5-7.7)
[2017-10-10 06:37] LABS: ABS Nucleated RBC 0 10^3/ul; Eosinophil % 0.8 % (0-6); Lymphocyte % 12.9 % (25-47); Nucleated Red Blood Cells % 0
[2017-10-10] MEDS: Mometasone/Formoter 200/5 MDI INH SCH ×2 (08:24→19:59)
[2017-10-10] MEDS ORDERED: ceFAZolin 1 GM in Dextrose (*) 1 GM/50 ML BAG IVPB ONE (09:00)
[2017-10-10] MEDS: Carvedilol TAB* 25 MG PO SCH ×2 (09:03→20:09)
[2017-10-10] MEDS: Furosemide TAB* 40 MG PO SCH (09:03)
[2017-10-10] MEDS: NIFEdipine CAP* 10 MG PO SCH ×3 (09:03→20:09)
[2017-10-10] MEDS: hydrALAZINE TAB* 25 MG PO SCH ×3 (09:03→20:09)
[2017-10-10] MEDS: Potassium Chlor TAB* 10 MEQ TAB.ER PO SCH (09:03)
[2017-10-10] MEDS: Isosorbide Mononitrate ER TAB* 60 MG PO SCH (09:04)
[2017-10-10] MEDS: Ondansetron INJ* 2 MG/ML VIAL IV PRN (09:40)
[2017-10-10] MEDS ORDERED: Midazolam* 1 MG/ML 10 ML VIAL (10 MG) ONE (11:04)
[2017-10-10] MEDS ORDERED: fentaNYL* 50 MCG/ML 2 ML VIAL (100 MCG VIAL) ONE (11:04)
--- NOTE | 2017-10-10 14:21 | RAD ---
CPT II Codes: 6045F Procedures performed: Placement of a right internal jugular vein tunneled hemodialysis catheter with ultrasound and fluoroscopic guidance. Date of service: October 10, 2017 Indication for procedure: Renal failure Comparison: Same day bedside ultrasound of the right internal jugular and subclavian veins as well as CT of the chest dated August 29, 2017 Contrast: None Fluoroscopy Time: 1 minute and 27 seconds Vessels Accessed: Percutaneous access was obtained with ultrasound guidance in the right internal jugular vein towards the cavoatrial junction. Anesthesia: Conscious sedation with IV Fentanyl and Versed as well as local 1% lidocaine injected locally at the venotomy site. Conscious sedation time: Timeout: 1158 hours Case end: 1229 hours Total conscious sedation time: 31 minutes Additional medications: Ancef 1 gram IV. Heparin 100 units per mL injected into each catheter lumen according to package checker's recommendation. Procedure narration and imaging findings: In the holding area prior to entering the angiography suite, the risks, benefits and alternative therapies of the procedure were discussed with the patient and informed consent was obtained. Real-time ultrasound of the right internal jugular vein and subclavian vein was acquired demonstrating patent flow and phasicity. The right internal jugular vein is compressible. Preoperative ultrasound of the right internal jugular vein demonstrated the vein to patent and compressible. Assistant Health Educator images were saved. The patient was placed in the supine position in the fluoroscopy suite and the neck and upper chest was prepped and draped according to standard sterile protocol. A formal time out was performed by Dr. Medina in the presence of the IR staff and all agreed on the patient, procedure and laterality. The skin overlying the jugular vein and upper chest was anesthetized with 1% lidocaine. Real time ultrasound imaging shows the internal jugular vein is patent and determined to be adequate for catheter placement. Utilizing real time ultrasound visualization the internal jugular vein was accessed with an 18 gauge needle. An image was recorded and saved confirming appropriate intraluminal position of the needle tip. Blood return further confirmed position. Through the needle and under fluoroscopic control a 0.035 inch guidewire was advanced below the diaphragm into the IVC confirming appropriate venous access. An image of the wire in the IVC was recorded. The wire tip was then positioned in the cavoatrial junction and the length of intravascular wire was measured. Then the percutaneous catheter exit site was selected at the upper chest appropriate for the tip-to-cuff and tip-to-hub lengths. Over the access wire the internal jugular venotomy was serially dilated culminating with placement of the peel away sheath. A skin herman was created at the previously selected upper chest skin exit site and the catheter was tunnelled subcutaneously with a blunt tunnelling device from the skin herman to the venotomy site. The tunnelling device was removed and the catheter was advanced into the peel away sheath under fluoroscopic control. The sheath was peeled away and the catheter tip was pulled back so that it terminated approximately at the cavoatrial junction. Each lumen of the catheter was tested for adequate blood flow, flushed with sterile saline and finally filled with an appropriate volume of 100 units/mL of Heparin according to the device specifications. A fluoroscopic image was saved demonstrating appropriate position of the entire length of the hemodialysis catheter. The venotomy site was sutured closed with a single buried absorbable suture. A "purse string" suture was tied around the upper chest catheter exit site with non-absorbable suture. The catheter was secured to the skin with additional non-absorbable sutures. The venotomy and catheter exit site were dressed with sterile gauze and Tegaderm. The patient tolerated the procedure well and left the fluoroscopy suite in stable condition for one hour of observation prior to discharge. SUMMARY OF PROCEDURE, IMAGING FINDINGS AND INTERVENTIONS PERFORMED: 1. Diagnostic studies performed: * Venous access was obtained at the right internal jugular vein in the antegrade direction (i.e. towards the heart) with ultrasound guidance. A sonographic image was recorded. * Preprocedural bedside ultrasound of the right internal jugular vein and subclavian vein were obtained. 2. Interpretation of diagnostic studies performed: * The right internal jugular vein and subclavian veins appear to be adequately patent according to sonographic criteria. * Evaluation of the venotomy site with sonography demonstrated the vessel to be patent and adequately sized for catheter placement. 3. Surgical interventions performed: * Placement of a 16 [place], AngioDynamics BioFlo DuraMax right internal jugular vein tunneled hemodialysis catheter with ultrasound and fluoroscopic guidance. 4. Interpretation of interventions performed: * Final fluoroscopic image demonstrates the catheter to be in appropriate position with the catheter tips at the cavoatrial junction. PLAN: 1. The hemodialysis catheter may be accessed immediately for hemodialysis. 2. The "pursestring" suture tied around the catheter exit site should be removed 5-7 days post procedure. If this cannot be done at the hemodialysis center please refer the patient back to Interventional Radiology for suture removal.
--- NOTE | 2017-10-10 16:07 | PN ---
Subjective Date of Service: 10/10/17 Interval History: C/O being sleepy. Several hours since her Dialysis catheter inserted. Family History: Unchanged from Admission Social History: Unchanged from Admission Past Medical History: Unchanged from Admission Objective Active Medications: Acetaminophen (Tylenol Tab*) 650 mg PO Q6H PRN PRN Reason: FEVER/PAIN Last Admin: 10/06/17 23:42 Dose: 650 mg Albuterol (Ventolin 2.5 Mg/3 Ml Neb.Danita*) 2.5 mg INH Q2H PRN PRN Reason: SOB/WHEEZING Carvedilol (Coreg Tab*) 25 mg PO BID [facility] Last Admin: 10/10/17 09:03 Dose: 25 mg Clonazepam (Klonopin Tab(*)) 0.25 mg PO BID PRN PRN Reason: ANXIETY Last Admin: 10/09/17 19:18 Dose: 0.25 mg Furosemide (Lasix Tab*) 40 mg PO DAILY [facility] Last Admin: 10/10/17 09:03 Dose: 40 mg Hydralazine HCl (Apresoline Tab*) 50 mg PO TID [facility] Last Admin: 10/10/17 14:46 Dose: 50 mg Hydralazine HCl (Apresoline Iv*) 10 mg IV Q4H PRN PRN Reason: Systolic >170 Last Admin: 10/10/17 04:09 Dose: 10 mg Isosorbide Mononitrate (Imdur Er Tab*) 60 mg PO DAILY [facility] Last Admin: 10/10/17 09:04 Dose: 60 mg Levothyroxine Sodium (Synthroid Tab*) 100 mcg PO DAILY@0600 [facility] Last Admin: 10/10/17 05:10 Dose: Not Given Mometasone Furoate/Formoterol Fumar (Dulera 200/5 Mdi*) 2 puff INH BID [facility] Last Admin: 10/10/17 08:24 Dose: 2 puff Morphine Sulfate (Morphine Inj (Syringe)*) 2 mg IV Q4H PRN PRN Reason: PAIN - MILD Last Admin: 10/09/17 23:51 Dose: 2 mg Nifedipine (Procardia Cap*) 20 mg PO TID [facility] Last Admin: 10/10/17 14:46 Dose: 20 mg Ondansetron HCl (Zofran Inj*) 4 mg IV Q6H PRN PRN Reason: NAUSEA Last Admin: 10/10/17 09:40 Dose: 4 mg Polyethylene Glycol/Electrolytes (Miralax*) 17 gm PO DAILY PRN PRN Reason: CONSTIPATION Last Admin: 10/09/17 20:07 Dose: 17 gm Potassium Chloride (Klor Con Er Tab*) 20 meq PO DAILY [facility] Last Admin: 10/10/17 09:03 Dose: 20 meq Vital Signs - 8 hr 10/10/17 10/10/17 10/10/17 13:16 13:26 14:00 Temperature 98.7 F Pulse Rate 77 79 Respiratory 18 Rate Blood Pressure 160/69 160/69 (mmHg) O2 Sat by Pulse 93 95 Oximetry 10/10/17 10/10/17 14:16 15:24 Temperature 98.1 F Pulse Rate 79 Respiratory Rate Blood Pressure 149/67 (mmHg) O2 Sat by Pulse 94 Oximetry Oxygen Devices in Use Now: Nasal Cannula Appearance: Alert, supine in bed. Neutral affect. Looks comfortable. Eyes: No Scleral Icterus Respiratory: Symmetrical Chest Expansion and Respiratory Effort, Clear to Auscultation, Clear to Percussion Cardiovascular: NL Sounds; No Murmurs; No JVD, RRR, No Edema, - Extremities: No Edema, No Clubbing, Cyanosis, - Skin: No Rash or Ulcers, No Nodules or Sclerosis, - Neurological: Alert and Oriented x 3, NL Sensation Result Diagrams: 10/10/17 05:31 10/09/17 05:55 Additional Lab and Data: Lab Results 10/03/17 10/03/17 10/03/17 Range/Units 19:01 19:06 19:06 WBC 9.0 (3.5-10.8) 10^3/ul RBC 3.47 L (4.0-5.4) 10^6/ul Hgb 10.4 L (12.0-16.0) g/dl Hct 32 L (35-47) % MCV 91 (80-97) fL MCH 30 (27-31) pg MCHC 33 (31-36) g/dl RDW 18 H (10.5-15) % Plt Count 180 (150-450) 10^3/ul MPV 7.0 L (7.4-10.4) um3 Neut % (Auto) 73.6 (38-83) % Lymph % (Auto) 16.8 L (25-47) % Fisher % (Auto) 7.3 H (0-7) % Eos % (Auto) 1.2 (0-6) % Baso % (Auto) 1.1 (0-2) % Absolute Neuts (auto) 6.6 (1.5-7.7) 10^3/ul Absolute Lymphs (auto) 1.5 (1.0-4.8) 10^3/ul Absolute Monos (auto) 0.7 (0-0.8) 10^3/ul Absolute Eos (auto) 0.1 (0-0.6) 10^3/ul Absolute Basos (auto) 0.1 (0-0.2) 10^3/ul Absolute Nucleated RBC 0 10^3/ul Nucleated RBC % 0.1 INR (Anticoag Therapy) (0.77-1.02) Patient Temperature Not Reportable ABG pH 7.18 L* (7.35-7.45) ABG pH (Temp Correct) Not Reportable ABG pCO2 71 H (35-45) mmHg ABG pCO2 (Temp Corrct TNP ABG pO2 150 H (80-100) mmHg ABG pO2 (Temp Correct Not Reportable ABG HCO3 21.6 (19-31) mmol/L ABG O2 Saturation 99.8 H (95-98) % ABG Base Excess -4.2 L (-2.0-2.0) Respiration Rate Not Reportable O2 Delivery Device Cpap Ventilator Type Not Reportable Vent Mode Not Reportable FiO2 100 Inspiratory Time Not Reportable PEEP Not Reportable Pressure Support Not Reportable Pressure Control Not Reportable EPAP Not Reportable IPAP Not Reportable BiPAP Not Reportable Sodium (139-145) mmol/L Potassium (3.5-5.0) mmol/L Chloride (101-111) mmol/L Carbon Dioxide (22-32) mmol/L Anion Gap (2-11) mmol/L BUN (6-24) mg/dL Creatinine (0.51-0.95) mg/dL Est GFR ( Amer) (>60) Est GFR (Non-Af Amer) (>60) BUN/Creatinine Ratio (8-20) Glucose (70-100) mg/dL Calcium (8.6-10.3) mg/dL Total Bilirubin (0.2-1.0) mg/dL AST (13-39) U/L ALT (7-52) U/L Alkaline Phosphatase (34-104) U/L Troponin I (<0.04) ng/mL B-Natriuretic Peptide 458 H ( - 100) pg/mL Total Protein (6.4-8.9) g/dL Albumin (3.2-5.2) g/dL Globulin (2-4) g/dL Albumin/Globulin Ratio (1-3) TSH (0.34-5.60) mcIU/mL Digoxin (0.8-2.0) ng/ml 10/03/17 10/03/17 10/03/17 Range/Units 19:06 19:06 20:00 WBC (3.5-10.8) 10^3/ul RBC (4.0-5.4) 10^6/ul Hgb (12.0-16.0) g/dl Hct (35-47) % MCV (80-97) fL MCH (27-31) pg MCHC (31-36) g/dl RDW (10.5-15) % Plt Count (150-450) 10^3/ul MPV (7.4-10.4) um3 Neut % (Auto) (38-83) % Lymph % (Auto) (25-47) % Fisher % (Auto) (0-7) % Eos % (Auto) (0-6) % Baso % (Auto) (0-2) % Absolute Neuts (auto) (1.5-7.7) 10^3/ul Absolute Lymphs (auto) (1.0-4.8) 10^3/ul Absolute Monos (auto) (0-0.8) 10^3/ul Absolute Eos (auto) (0-0.6) 10^3/ul Absolute Basos (auto) (0-0.2) 10^3/ul Absolute Nucleated RBC 10^3/ul Nucleated RBC % INR (Anticoag Therapy) 1.02 (0.77-1.02) Patient Temperature Not Reportable ABG pH 7.14 L* (7.35-7.45) ABG pH (Temp Correct) Not Reportable ABG pCO2 73 H* (35-45) mmHg ABG pCO2 (Temp Corrct Not Reportable ABG pO2 243 H (80-100) mmHg ABG pO2 (Temp Correct Not Reportable ABG HCO3 21.1 (19-31) mmol/L ABG O2 Saturation 100.1 H (95-98) % ABG Base Excess -4.9 L (-2.0-2.0) Respiration Rate Not Reportable O2 Delivery Device Bipap Ventilator Type Not Reportable Vent Mode Not Reportable FiO2 100 Inspiratory Time Not Reportable PEEP Not Reportable Pressure Support Not Reportable Pressure Control Not Reportable EPAP Not Reportable IPAP Not Reportable BiPAP Not Reportable Sodium 142 (139-145) mmol/L Potassium 4.2 (3.5-5.0) mmol/L Chloride 109 (101-111) mmol/L Carbon Dioxide 24 (22-32) mmol/L Anion Gap 9 (2-11) mmol/L BUN 40 H (6-24) mg/dL Creatinine 4.35 H (0.51-0.95) mg/dL Est GFR ( Amer) 12.8 (>60) Est GFR (Non-Af Amer) 10.0 (>60) BUN/Creatinine Ratio 9.2 (8-20) Glucose 152 H (70-100) mg/dL Calcium 8.8 (8.6-10.3) mg/dL Total Bilirubin 0.80 (0.2-1.0) mg/dL AST 21 (13-39) U/L ALT 13 (7-52) U/L Alkaline Phosphatase 92 (34-104) U/L Troponin I 0.02 (<0.04) ng/mL B-Natriuretic Peptide ( - 100) pg/mL Total Protein 6.3 L (6.4-8.9) g/dL Albumin 3.4 (3.2-5.2) g/dL Globulin 2.9 (2-4) g/dL Albumin/Globulin Ratio 1.2 (1-3) TSH 5.09 (0.34-5.60) mcIU/mL Digoxin < 0.2 L (0.8-2.0) ng/ml Microbiology and Other Data: Microbiology 10/03/17 20:39 Urine Culture - Final Urine No Growth (<1,000 CFU/mL) 10/03/17 23:33 Nasal Screen MRSA (PCR)(RHIANNON) - Final Nasal Mrsa Not Detected 10/03/17 23:33 Influenza Types A,B Antigen (RHIANNON) - Final Nasal Specimen received for Influenza A/B Molecular testing Assess/Plan/Problems-Billing Assessment: 72 yo female with history of ckd , copd, and diastolic heart failure admitted with hypoxia and found to have worsening renal function - Patient Problems (1) COPD (chronic obstructive pulmonary disease) Current Visit: No Status: Acute Code(s): J44.9 - CHRONIC OBSTRUCTIVE PULMONARY DISEASE, UNSPECIFIED SNOMED Code(s): 06987820 Comment: Continue PRN nebs No evidence of exacerbation (2) HTN (hypertension) Current Visit: No Status: Acute Code(s): I10 - ESSENTIAL (PRIMARY) HYPERTENSION SNOMED Code(s): 64642717 Comment: Continue home doses hydralazine, carvedilol, isosorbide mononitrate , nifedipine. D/C clonidine to avoid sedation. (3) Hypothyroidism Current Visit: No Status: Acute Code(s): E03.9 - HYPOTHYROIDISM, UNSPECIFIED SNOMED Code(s): 59525600 Comment: TSH wnl 10/03/17. Continue levothyroxine. (4) CKD (chronic kidney disease) stage 5, GFR less than 15 ml/min Current Visit: No Status: Acute Code(s): N18.5 - CHRONIC KIDNEY DISEASE, STAGE 5 SNOMED Code(s): 653570296 Comment: Etiology remains unclear, 24 hr urine protein pending She has had some blood-tinged sputum, which has been thought to be irritation. ANCA panel pending. Hep panel all neg, quantiferon not performed. Discussed with Dr. Boyd 10/09. HD catheter placed 10/10. 24 hr creat clear 15, urea clearance 6.49. Minimal evidence of uremia with daytime sleepiness, but no urgent indications for BACCARAT [employer]ER, however she does have volume overload (5) Debility Current Visit: Yes Status: Acute Code(s): R53.81 - OTHER MALAISE SNOMED Code(s): 70483075 Comment: PT, OT ordered.
[2017-10-10] MEDS: Polyethylene Glycol 3350* 17 GM PACKET PO PRN (20:20)
[2017-10-10] MEDS: clonazePAM TAB(*) 0.5 MG PO PRN (20:20)
[2017-10-11] MEDS: hydrALAZINE IV* 20 MG/ML VIAL IV PRN ×2 (04:44→23:46)
[2017-10-11] MEDS: Levothyroxine TAB* 100 MCG TAB PO SCH (04:44)
[2017-10-11] MEDS: clonazePAM TAB(*) 0.5 MG PO PRN (07:28)
[2017-10-11] MEDS: Mometasone/Formoter 200/5 MDI INH SCH ×2 (07:50→19:15)
[2017-10-11] MEDS: Carvedilol TAB* 25 MG PO SCH ×2 (09:39→20:26)
[2017-10-11] MEDS: NIFEdipine CAP* 10 MG PO SCH ×3 (09:39→20:26)
[2017-10-11] MEDS: Isosorbide Mononitrate ER TAB* 60 MG PO SCH (09:40)
[2017-10-11] MEDS: hydrALAZINE TAB* 25 MG PO SCH ×3 (09:40→20:26)
[2017-10-11] MEDS: Potassium Chlor TAB* 10 MEQ TAB.ER PO SCH (09:40)
[2017-10-11] MEDS: Furosemide TAB* 40 MG PO SCH (09:40)
--- NOTE | 2017-10-11 09:49 | RAD ---
Indication: Preprocedure planning for RIGHT internal jugular vein port catheter placement. Comparison: No relevant prior exams available on the [facility] PACS for comparison. Technique: Ultrasound of the RIGHT internal jugular and subclavian veins with Doppler. Report: Patency of the RIGHT internal jugular and proximal subclavian veins documented. The internal jugular vein measures up to 1.6 cm diameter. IMPRESSION: Patent RIGHT internal jugular and proximal subclavian veins.
[2017-10-11] MEDS ORDERED: Epoetin Alfa* 10,000 UNITS/ML VIAL IV ONE (12:00)
[2017-10-11] MEDS ORDERED: Heparin DIALYSIS ONLY(*) 1,000 UNITS/ML VIAL DIALYSIS ONE (12:00)
[2017-10-11] MEDS ORDERED: Magnesium Hydroxide LIQ* 30 ML UDC PO ONE (14:44)
--- NOTE | 2017-10-11 16:59 | PN ---
Subjective Date of Service: 10/11/17 Interval History: She tolerated her first dialysis well. Somewhat tired. Family History: Unchanged from Admission Social History: Unchanged from Admission Past Medical History: Unchanged from Admission Objective Active Medications: Acetaminophen (Tylenol Tab*) 650 mg PO Q6H PRN PRN Reason: FEVER/PAIN Last Admin: 10/06/17 23:42 Dose: 650 mg Albuterol (Ventolin 2.5 Mg/3 Ml Neb.Danita*) 2.5 mg INH Q2H PRN PRN Reason: SOB/WHEEZING Carvedilol (Coreg Tab*) 25 mg PO BID [facility] Last Admin: 10/11/17 09:39 Dose: 25 mg Clonazepam (Klonopin Tab(*)) 0.25 mg PO BID PRN PRN Reason: ANXIETY Last Admin: 10/11/17 07:28 Dose: 0.25 mg Furosemide (Lasix Tab*) 40 mg PO DAILY [facility] Last Admin: 10/11/17 09:40 Dose: 40 mg Hydralazine HCl (Apresoline Tab*) 50 mg PO TID [facility] Last Admin: 10/11/17 15:02 Dose: 50 mg Hydralazine HCl (Apresoline Iv*) 10 mg IV Q4H PRN PRN Reason: Systolic >170 Last Admin: 10/11/17 04:44 Dose: 10 mg Isosorbide Mononitrate (Imdur Er Tab*) 60 mg PO DAILY [facility] Last Admin: 10/11/17 09:40 Dose: 60 mg Levothyroxine Sodium (Synthroid Tab*) 100 mcg PO DAILY@0600 [facility] Last Admin: 10/11/17 04:44 Dose: 100 mcg Mometasone Furoate/Formoterol Fumar (Dulera 200/5 Mdi*) 2 puff INH BID [facility] Last Admin: 10/11/17 07:50 Dose: 2 puff Nifedipine (Procardia Cap*) 20 mg PO TID [facility] Last Admin: 10/11/17 15:01 Dose: 20 mg Ondansetron HCl (Zofran Inj*) 4 mg IV Q6H PRN PRN Reason: NAUSEA Last Admin: 10/10/17 09:40 Dose: 4 mg Polyethylene Glycol/Electrolytes (Miralax*) 17 gm PO BID [facility] Potassium Chloride (Klor Con Er Tab*) 20 meq PO DAILY [facility] Last Admin: 10/11/17 09:40 Dose: 20 meq Vital Signs - 8 hr 10/11/17 10/11/17 10/11/17 09:41 13:59 15:25 Temperature 99.1 F 98.3 F Pulse Rate 79 78 Respiratory 16 18 16 Rate Blood Pressure 181/56 148/61 (mmHg) O2 Sat by Pulse 95 97 Oximetry Oxygen Devices in Use Now: Nasal Cannula Appearance: Alert, partly up in bed. In fair spirits. Looks comfortable. Eyes: No Scleral Icterus Respiratory: Symmetrical Chest Expansion and Respiratory Effort, Clear to Auscultation, Clear to Percussion Extremities: No Edema, No Clubbing, Cyanosis, - Skin: No Rash or Ulcers, No Nodules or Sclerosis, - Neurological: Alert and Oriented x 3, NL Sensation Result Diagrams: 10/10/17 05:31 10/09/17 05:55 Additional Lab and Data: Lab Results 10/03/17 10/03/17 10/03/17 Range/Units 19:01 19:06 19:06 WBC 9.0 (3.5-10.8) 10^3/ul RBC 3.47 L (4.0-5.4) 10^6/ul Hgb 10.4 L (12.0-16.0) g/dl Hct 32 L (35-47) % MCV 91 (80-97) fL MCH 30 (27-31) pg MCHC 33 (31-36) g/dl RDW 18 H (10.5-15) % Plt Count 180 (150-450) 10^3/ul MPV 7.0 L (7.4-10.4) um3 Neut % (Auto) 73.6 (38-83) % Lymph % (Auto) 16.8 L (25-47) % Donley % (Auto) 7.3 H (0-7) % Eos % (Auto) 1.2 (0-6) % Baso % (Auto) 1.1 (0-2) % Absolute Neuts (auto) 6.6 (1.5-7.7) 10^3/ul Absolute Lymphs (auto) 1.5 (1.0-4.8) 10^3/ul Absolute Monos (auto) 0.7 (0-0.8) 10^3/ul Absolute Eos (auto) 0.1 (0-0.6) 10^3/ul Absolute Basos (auto) 0.1 (0-0.2) 10^3/ul Absolute Nucleated RBC 0 10^3/ul Nucleated RBC % 0.1 INR (Anticoag Therapy) (0.77-1.02) Patient Temperature Not Reportable ABG pH 7.18 L* (7.35-7.45) ABG pH (Temp Correct) Not Reportable ABG pCO2 71 H (35-45) mmHg ABG pCO2 (Temp Corrct TNP ABG pO2 150 H (80-100) mmHg ABG pO2 (Temp Correct Not Reportable ABG HCO3 21.6 (19-31) mmol/L ABG O2 Saturation 99.8 H (95-98) % ABG Base Excess -4.2 L (-2.0-2.0) Respiration Rate Not Reportable O2 Delivery Device Cpap Ventilator Type Not Reportable Vent Mode Not Reportable FiO2 100 Inspiratory Time Not Reportable PEEP Not Reportable Pressure Support Not Reportable Pressure Control Not Reportable EPAP Not Reportable IPAP Not Reportable BiPAP Not Reportable Sodium (139-145) mmol/L Potassium (3.5-5.0) mmol/L Chloride (101-111) mmol/L Carbon Dioxide (22-32) mmol/L Anion Gap (2-11) mmol/L BUN (6-24) mg/dL Creatinine (0.51-0.95) mg/dL Est GFR ( Amer) (>60) Est GFR (Non-Af Amer) (>60) BUN/Creatinine Ratio (8-20) Glucose (70-100) mg/dL Calcium (8.6-10.3) mg/dL Total Bilirubin (0.2-1.0) mg/dL AST (13-39) U/L ALT (7-52) U/L Alkaline Phosphatase (34-104) U/L Troponin I (<0.04) ng/mL B-Natriuretic Peptide 458 H ( - 100) pg/mL Total Protein (6.4-8.9) g/dL Albumin (3.2-5.2) g/dL Globulin (2-4) g/dL Albumin/Globulin Ratio (1-3) TSH (0.34-5.60) mcIU/mL Digoxin (0.8-2.0) ng/ml 10/03/17 10/03/17 10/03/17 Range/Units 19:06 19:06 20:00 WBC (3.5-10.8) 10^3/ul RBC (4.0-5.4) 10^6/ul Hgb (12.0-16.0) g/dl Hct (35-47) % MCV (80-97) fL MCH (27-31) pg MCHC (31-36) g/dl RDW (10.5-15) % Plt Count (150-450) 10^3/ul MPV (7.4-10.4) um3 Neut % (Auto) (38-83) % Lymph % (Auto) (25-47) % Donley % (Auto) (0-7) % Eos % (Auto) (0-6) % Baso % (Auto) (0-2) % Absolute Neuts (auto) (1.5-7.7) 10^3/ul Absolute Lymphs (auto) (1.0-4.8) 10^3/ul Absolute Monos (auto) (0-0.8) 10^3/ul Absolute Eos (auto) (0-0.6) 10^3/ul Absolute Basos (auto) (0-0.2) 10^3/ul Absolute Nucleated RBC 10^3/ul Nucleated RBC % INR (Anticoag Therapy) 1.02 (0.77-1.02) Patient Temperature Not Reportable ABG pH 7.14 L* (7.35-7.45) ABG pH (Temp Correct) Not Reportable ABG pCO2 73 H* (35-45) mmHg ABG pCO2 (Temp Corrct Not Reportable ABG pO2 243 H (80-100) mmHg ABG pO2 (Temp Correct Not Reportable ABG HCO3 21.1 (19-31) mmol/L ABG O2 Saturation 100.1 H (95-98) % ABG Base Excess -4.9 L (-2.0-2.0) Respiration Rate Not Reportable O2 Delivery Device Bipap Ventilator Type Not Reportable Vent Mode Not Reportable FiO2 100 Inspiratory Time Not Reportable PEEP Not Reportable Pressure Support Not Reportable Pressure Control Not Reportable EPAP Not Reportable IPAP Not Reportable BiPAP Not Reportable Sodium 142 (139-145) mmol/L Potassium 4.2 (3.5-5.0) mmol/L Chloride 109 (101-111) mmol/L Carbon Dioxide 24 (22-32) mmol/L Anion Gap 9 (2-11) mmol/L BUN 40 H (6-24) mg/dL Creatinine 4.35 H (0.51-0.95) mg/dL Est GFR ( Amer) 12.8 (>60) Est GFR (Non-Af Amer) 10.0 (>60) BUN/Creatinine Ratio 9.2 (8-20) Glucose 152 H (70-100) mg/dL Calcium 8.8 (8.6-10.3) mg/dL Total Bilirubin 0.80 (0.2-1.0) mg/dL AST 21 (13-39) U/L ALT 13 (7-52) U/L Alkaline Phosphatase 92 (34-104) U/L Troponin I 0.02 (<0.04) ng/mL B-Natriuretic Peptide ( - 100) pg/mL Total Protein 6.3 L (6.4-8.9) g/dL Albumin 3.4 (3.2-5.2) g/dL Globulin 2.9 (2-4) g/dL Albumin/Globulin Ratio 1.2 (1-3) TSH 5.09 (0.34-5.60) mcIU/mL Digoxin < 0.2 L (0.8-2.0) ng/ml Microbiology and Other Data: Microbiology 10/03/17 20:39 Urine Culture - Final Urine No Growth (<1,000 CFU/mL) 10/03/17 23:33 Nasal Screen MRSA (PCR)(RHIANNON) - Final Nasal Mrsa Not Detected 10/03/17 23:33 Influenza Types A,B Antigen (RHIANNON) - Final Nasal Specimen received for Influenza A/B Molecular testing Assess/Plan/Problems-Billing Assessment: 72 yo female with history of ckd , copd, and diastolic heart failure admitted with hypoxia and found to have worsening renal function - Patient Problems (1) COPD (chronic obstructive pulmonary disease) Current Visit: No Status: Acute Code(s): J44.9 - CHRONIC OBSTRUCTIVE PULMONARY DISEASE, UNSPECIFIED SNOMED Code(s): 54590071 Comment: Continue PRN nebs No evidence of exacerbation. Still very limited, might benefit from STR. (2) HTN (hypertension) Current Visit: No Status: Acute Code(s): I10 - ESSENTIAL (PRIMARY) HYPERTENSION SNOMED Code(s): 77150068 Comment: Continue home doses hydralazine, carvedilol, isosorbide mononitrate , nifedipine. D/C clonidine to avoid sedation. (3) Hypothyroidism Current Visit: No Status: Acute Code(s): E03.9 - HYPOTHYROIDISM, UNSPECIFIED SNOMED Code(s): 24116453 Comment: TSH wnl 10/03/17. Continue levothyroxine. (4) CKD (chronic kidney disease) stage 5, GFR less than 15 ml/min Current Visit: No Status: Acute Code(s): N18.5 - CHRONIC KIDNEY DISEASE, STAGE 5 SNOMED Code(s): 179795249 Comment: Tolerated first HD 10/11/17 well. (5) Debility Current Visit: Yes Status: Acute Code(s): R53.81 - OTHER MALAISE SNOMED Code(s): 14647824 Comment: PT, OT ordered.
[2017-10-11] MEDS: Polyethylene Glycol 3350* 17 GM PACKET PO SCH (20:26)
[2017-10-12] MEDS: hydrALAZINE IV* 20 MG/ML VIAL IV PRN (03:52)
[2017-10-12] MEDS: Levothyroxine TAB* 100 MCG TAB PO SCH (05:33)
[2017-10-12] MEDS: Mometasone/Formoter 200/5 MDI INH SCH ×2 (08:05→19:38)
[2017-10-12] MEDS: NIFEdipine CAP* 10 MG PO SCH ×3 (09:16→20:02)
[2017-10-12] MEDS: Isosorbide Mononitrate ER TAB* 60 MG PO SCH (09:16)
[2017-10-12] MEDS: Potassium Chlor TAB* 10 MEQ TAB.ER PO SCH (09:16)
[2017-10-12] MEDS: Polyethylene Glycol 3350* 17 GM PACKET PO SCH ×2 (09:16→20:30)
[2017-10-12] MEDS: Carvedilol TAB* 25 MG PO SCH ×2 (09:17→20:02)
[2017-10-12] MEDS: hydrALAZINE TAB* 25 MG PO SCH ×3 (09:17→20:02)
[2017-10-12] MEDS: Furosemide TAB* 40 MG PO SCH (09:17)
--- NOTE | 2017-10-12 11:06 | PN ---
Subjective Date of Service: 10/12/17 Interval History: Patient seen and examined at bedside. Denies fever, chills, shortness of breath , chest discomfort, N/V/D. Pt states that she had diarrhea yesterday, that has resolved. Pt agrees that she would benefit from ANJALI. Tele: Sinus rhythm, rate 60-70's. Family History: Unchanged from Admission Social History: Unchanged from Admission Past Medical History: Unchanged from Admission Objective Active Medications: Acetaminophen (Tylenol Tab*) 650 mg PO Q6H PRN Reason: FEVER/PAIN Albuterol (Ventolin 2.5 Mg/3 Ml Neb.Danita*) 2.5 mg INH Q2H PRN Reason: SOB/ WHEEZING Carvedilol (Coreg Tab*) 25 mg PO BID [facility] Clonazepam (Klonopin Tab(*)) 0.25 mg PO BID PRN Reason: ANXIETY Furosemide (Lasix Tab*) 40 mg PO DAILY [facility] Hydralazine HCl (Apresoline Tab*) 50 mg PO TID [facility] Hydralazine HCl (Apresoline Iv*) 10 mg IV Q4H PRN Reason: Systolic >170 Isosorbide Mononitrate (Imdur Er Tab*) 60 mg PO DAILY [facility] Levothyroxine Sodium (Synthroid Tab*) 100 mcg PO DAILY@0600 [facility] Mometasone Furoate/Formoterol Fumar (Dulera 200/5 Mdi*) 2 puff INH BID [facility] Nifedipine (Procardia Cap*) 20 mg PO TID [facility] Ondansetron HCl (Zofran Inj*) 4 mg IV Q6H PRN Reason: NAUSEA Polyethylene Glycol/Electrolytes (Miralax*) 17 gm PO BID [facility] Potassium Chloride (Klor Con Er Tab*) 20 meq PO DAILY [facility] Vital Signs - 8 hr 10/12/17 10/12/17 10/12/17 03:36 04:30 08:08 Temperature 97.9 F Pulse Rate 76 76 81 Respiratory 18 16 Rate Blood Pressure 187/63 171/68 (mmHg) O2 Sat by Pulse 93 94 Oximetry 10/12/17 08:59 Temperature Pulse Rate Respiratory Rate Blood Pressure 186/56 (mmHg) O2 Sat by Pulse Oximetry Oxygen Devices in Use Now: Nasal Cannula - 3L Appearance: NAD, sitting up in bed Ears/Nose/Mouth/Throat: Mucous Membranes Moist Respiratory: Symmetrical Chest Expansion and Respiratory Effort, Clear to Auscultation Cardiovascular: NL Sounds; No Murmurs; No JVD, RRR Abdominal: NL Sounds; No Tenderness; No Distention Extremities: - - Mild bilateral LE edema Neurological: Alert and Oriented x 3, NL Muscle Strength and Tone Lines/Tubes/Other Access: Clean, Dry and Intact Other Access - HD port to left upper chest intact, site benign Nutrition: Taking PO's Result Diagrams: 10/10/17 05:31 10/09/17 05:55 Additional Lab and Data: Microbiology and Other Data: Microbiology 10/03/17 20:39 Urine Culture - Final Urine No Growth (<1,000 CFU/mL) 10/03/17 23:33 Nasal Screen MRSA (PCR)(RHIANNON) - Final Nasal Mrsa Not Detected 10/03/17 23:33 Influenza Types A,B Antigen (RHIANNON) - Final Nasal Specimen received for Influenza A/B Molecular testing Assess/Plan/Problems-Billing Assessment: Ms. Hannah is a 72 yo female with history of ckd , copd, and diastolic heart failure admitted with hypoxia and found to have worsening renal function. - Patient Problems (1) CKD (chronic kidney disease) stage 5, GFR less than 15 ml/min Code(s): N18.5 - CHRONIC KIDNEY DISEASE, STAGE 5 SNOMED Code(s): 998497213 Comment: - Tolerated first HD 10/11/17 well. (2) Atrial fib/flutter, transient Code(s): SHA2319 - SNOMED Code(s): 783375781 Comment: - Converted after adenosine - Hold on anticoagulation at this time, may need it initiated in the future (3) Respiratory failure with hypoxia Code(s): J96.91 - RESPIRATORY FAILURE, UNSPECIFIED WITH HYPOXIA SNOMED Code(s) : 28704978433215238 Comment: - Acute on chronic - Improved, now back to baseline O2 requirements (4) Debility Code(s): R53.81 - OTHER MALAISE SNOMED Code(s): 16797166 Comment: - Continue PT and OT (5) COPD (chronic obstructive pulmonary disease) Code(s): J44.9 - CHRONIC OBSTRUCTIVE PULMONARY DISEASE, UNSPECIFIED SNOMED Code(s): 38797826 Comment: - No evidence of exacerbation. - Still very limited, might benefit from ANJALI. - Continue PRN nebs. (6) Diastolic CHF Code(s): I50.30 - UNSPECIFIED DIASTOLIC (CONGESTIVE) HEART FAILURE SNOMED Code (s): 435074804 Comment: - Improving, acute on chronic at admission - Responded well to diuresis, now on her home O2 requirement of 2L continuously (7) HTN (hypertension) Code(s): I10 - ESSENTIAL (PRIMARY) HYPERTENSION SNOMED Code(s): 01298396 Comment: - Hypertensive, SBP 140-180's - Continue home doses hydralazine, carvedilol, isosorbide mononitrate, nifedipine - Clonidine DC'd to avoid sedation, may need to be resumed (8) Hypothyroidism Code(s): E03.9 - HYPOTHYROIDISM, UNSPECIFIED SNOMED Code(s): 35964476 Comment: - TSH wnl 10/03/17. - Continue levothyroxine. (9) DVT prophylaxis Code(s): PYN5746 - SNOMED Code(s): 859518608 (10) Full code status Code(s): Z78.9 - OTHER SPECIFIED HEALTH STATUS SNOMED Code(s): 872134040 Status and Disposition: Inpatient. Discharge once medically stable and has a dialysis chair. Pt will likely need ANJALI.
[2017-10-12 17:57] LABS: EGFR Non-African American 10.2 (>60)
[2017-10-12] MEDS: Ondansetron INJ* 2 MG/ML VIAL IV PRN (20:02)
[2017-10-12] MEDS: clonazePAM TAB(*) 0.5 MG PO PRN (23:40)
[2017-10-13] MEDS: Levothyroxine TAB* 100 MCG TAB PO SCH (05:29)
[2017-10-13 06:13] LABS: ABS Basophils 0.1 10^3/ul (0-0.2); ABS Eosinophils 0.1 10^3/ul (0-0.6); ABS Lymphocytes 0.9 10^3/ul (1.0-4.8); ABS Neutrophils 7.2 10^3/ul (1.5-7.7); ABS Nucleated RBC 0 10^3/ul; Eosinophil % 0.9 % (0-6); Hematocrit 27 % (35-47); Hemoglobin 8.8 g/dl (12.0-16.0); Lymphocyte % 9.5 % (25-47); Mean Corpuscular HGB Conc 33 g/dl (31-36); Mean Corpuscular Hemoglobin 30 pg (27-31); Mean Corpuscular Volume 92 fL (80-97); Mean Platelet Volume 7.5 um3 (7.4-10.4); Nucleated Red Blood Cells % 0; Platelet Count 158 10^3/ul (150-450); Red Cell Distribution Width 19 % (10.5-15); White Blood Count 9.3 10^3/ul (3.5-10.8)
[2017-10-13] MEDS: Mometasone/Formoter 200/5 MDI INH SCH ×2 (08:13→21:13)
[2017-10-13] MEDS: NIFEdipine CAP* 10 MG PO SCH ×3 (08:30→21:21)
[2017-10-13] MEDS: Furosemide TAB* 40 MG PO SCH (08:30)
[2017-10-13] MEDS: Carvedilol TAB* 25 MG PO SCH ×2 (08:30→21:21)
[2017-10-13] MEDS: Isosorbide Mononitrate ER TAB* 60 MG PO SCH (08:30)
[2017-10-13] MEDS: Polyethylene Glycol 3350* 17 GM PACKET PO SCH ×2 (08:31→21:21)
[2017-10-13] MEDS: Potassium Chlor TAB* 10 MEQ TAB.ER PO SCH (08:31)
[2017-10-13] MEDS: hydrALAZINE TAB* 25 MG PO SCH ×3 (08:31→21:21)
[2017-10-13] MEDS ORDERED: Heparin DIALYSIS ONLY(*) 1,000 UNITS/ML VIAL DIALYSIS ONE (12:00)
[2017-10-13] MEDS ORDERED: Epoetin Alfa* 10,000 UNITS/ML VIAL IV ONE (12:00)
--- NOTE | 2017-10-13 14:17 | PN ---
Subjective Date of Service: 10/13/17 Interval History: Patient seen and examined at bedside. Denies fever, shortness of breath, chest discomfort, N/V/D. Pt reports chills at the start of her dialysis and per her family she has been having intermittent chills since prior to her admission. Tele: Sinus rhythm, rate 70-80's. Family History: Unchanged from Admission Social History: Unchanged from Admission Past Medical History: Unchanged from Admission Objective Active Medications: Acetaminophen (Tylenol Tab*) 650 mg PO Q6H PRN Reason: FEVER/PAIN Albuterol (Ventolin 2.5 Mg/3 Ml Neb.Danita*) 2.5 mg INH Q2H PRN Reason: SOB/ WHEEZING Carvedilol (Coreg Tab*) 25 mg PO BID NIMA Clonazepam (Klonopin Tab(*)) 0.25 mg PO BID PRN Reason: ANXIETY Furosemide (Lasix Tab*) 40 mg PO DAILY NIMA Hydralazine HCl (Apresoline Tab*) 50 mg PO TID NIMA Hydralazine HCl (Apresoline Iv*) 10 mg IV Q4H PRN Reason: Systolic >170 Isosorbide Mononitrate (Imdur Er Tab*) 60 mg PO DAILY NIMA Levothyroxine Sodium (Synthroid Tab*) 100 mcg PO DAILY@0600 NIMA Mometasone Furoate/Formoterol Fumar (Dulera 200/5 Mdi*) 2 puff INH BID NIMA Nifedipine (Procardia Cap*) 20 mg PO TID NIMA Ondansetron HCl (Zofran Inj*) 4 mg IV Q6H PRN Reason: NAUSEA Polyethylene Glycol/Electrolytes (Miralax*) 17 gm PO BID NIMA Potassium Chloride (Klor Con Er Tab*) 20 meq PO DAILY NIMA Vital Signs - 8 hr 10/13/17 10/13/17 10/13/17 07:12 07:43 08:15 Temperature 98.3 F Pulse Rate 73 74 Respiratory 16 16 16 Rate Blood Pressure 176/59 (mmHg) O2 Sat by Pulse 96 94 Oximetry 10/13/17 10:24 Temperature 98.5 F Pulse Rate 63 Respiratory 16 Rate Blood Pressure 136/47 (mmHg) O2 Sat by Pulse 96 Oximetry Oxygen Devices in Use Now: Nasal Cannula - 2L Appearance: NAD, sitting up in bed Ears/Nose/Mouth/Throat: Mucous Membranes Moist Respiratory: Symmetrical Chest Expansion and Respiratory Effort, Clear to Auscultation Cardiovascular: NL Sounds; No Murmurs; No JVD, RRR Abdominal: NL Sounds; No Tenderness; No Distention Neurological: Alert and Oriented x 3, NL Muscle Strength and Tone Lines/Tubes/Other Access: Clean, Dry and Intact Peripheral IV - site benign, Clean, Dry and Intact Other Access - HD port, site benign Nutrition: Taking PO's Result Diagrams: 10/13/17 06:00 10/12/17 17:29 Additional Lab and Data: Microbiology and Other Data: Microbiology 10/03/17 20:39 Urine Culture - Final Urine No Growth (<1,000 CFU/mL) 10/03/17 23:33 Nasal Screen MRSA (PCR)(RHIANNON) - Final Nasal Mrsa Not Detected 10/03/17 23:33 Influenza Types A,B Antigen (RHIANNON) - Final Nasal Specimen received for Influenza A/B Molecular testing Assess/Plan/Problems-Billing Assessment: Ms. Hannah is a 72 yo female with history of ckd , copd, and diastolic heart failure admitted with hypoxia and found to have worsening renal function. - Patient Problems (1) CKD (chronic kidney disease) stage 5, GFR less than 15 ml/min Code(s): N18.5 - CHRONIC KIDNEY DISEASE, STAGE 5 SNOMED Code(s): 097341396 Comment: - Tolerated first HD 10/11/17 and second on 10/13/17 well. - Management per Dr. Boyd (2) Atrial fib/flutter, transient Code(s): [id number] - SNOMED Code(s): 424424223 Comment: - Converted after adenosine - Hold on anticoagulation at this time, may need it initiated in the future (3) Respiratory failure with hypoxia Code(s): J96.91 - RESPIRATORY FAILURE, UNSPECIFIED WITH HYPOXIA SNOMED Code(s) : 31977826195983401 Comment: - Acute on chronic - Improved, now back to baseline O2 requirements (4) Anemia Code(s): D64.9 - ANEMIA, UNSPECIFIED SNOMED Code(s): 955127871 Comment: - HH stable - Suspect ACD (5) Elevated troponin Code(s): R74.8 - ABNORMAL LEVELS OF OTHER SERUM ENZYMES SNOMED Code(s): 570115775 Comment: - In the setting of CKD, near baseline - Suspect secondary to demand ischemia (6) Debility Code(s): R53.81 - OTHER MALAISE SNOMED Code(s): 05394666 Comment: - Continue PT and OT (7) COPD (chronic obstructive pulmonary disease) Code(s): J44.9 - CHRONIC OBSTRUCTIVE PULMONARY DISEASE, UNSPECIFIED SNOMED Code(s): 43477896 Comment: - No evidence of exacerbation. - Still very limited, would benefit from ANJALI. - Continue PRN nebs. (8) Diastolic CHF Code(s): I50.30 - UNSPECIFIED DIASTOLIC (CONGESTIVE) HEART FAILURE SNOMED Code (s): 862911127 Comment: - Improving, acute on chronic at admission - Responded well to diuresis, now on her home O2 requirement of 2L continuously (9) HTN (hypertension) Code(s): I10 - ESSENTIAL (PRIMARY) HYPERTENSION SNOMED Code(s): 59302481 Comment: - Hypertensive, SBP 120-170's - Continue home doses hydralazine, carvedilol, isosorbide mononitrate, nifedipine - Clonidine DC'd to avoid sedation, may need to be resumed (10) Hypothyroidism Code(s): E03.9 - HYPOTHYROIDISM, UNSPECIFIED SNOMED Code(s): 04239844 Comment: - TSH wnl 10/03/17. - Continue levothyroxine. (11) DVT prophylaxis Code(s): HIS5568 - SNOMED Code(s): 692346435 (12) Full code status Code(s): Z78.9 - OTHER SPECIFIED HEALTH STATUS SNOMED Code(s): 571705646 Status and Disposition: Inpatient. Discharge once medically stable and has a dialysis chair. Pt will likely need ANJALI.
[2017-10-13] MEDS: Ondansetron INJ* 2 MG/ML VIAL IV PRN (17:05)
[2017-10-13] MEDS: clonazePAM TAB(*) 0.5 MG PO PRN (21:26)
[2017-10-13] MEDS: Calcium Carbonate CHEW TAB* 500 MG (TUMS) PO PRN (21:39)
[2017-10-14] MEDS: hydrALAZINE IV* 20 MG/ML VIAL IV PRN ×2 (04:03→04:07)
[2017-10-14] MEDS: Levothyroxine TAB* 100 MCG TAB PO SCH (06:17)
[2017-10-14] MEDS: Mometasone/Formoter 200/5 MDI INH SCH ×2 (07:46→19:30)
[2017-10-14] MEDS: Polyethylene Glycol 3350* 17 GM PACKET PO SCH ×2 (09:02→21:23)
[2017-10-14] MEDS: Furosemide TAB* 40 MG PO SCH (09:17)
[2017-10-14] MEDS: Carvedilol TAB* 25 MG PO SCH ×2 (09:17→21:25)
[2017-10-14] MEDS: NIFEdipine CAP* 10 MG PO SCH ×3 (09:18→21:26)
[2017-10-14] MEDS: hydrALAZINE TAB* 25 MG PO SCH ×3 (09:18→21:26)
[2017-10-14] MEDS: Potassium Chlor TAB* 10 MEQ TAB.ER PO SCH (09:18)
[2017-10-14] MEDS: Isosorbide Mononitrate ER TAB* 60 MG PO SCH (09:18)
--- NOTE | 2017-10-14 11:04 | PN ---
Subjective Date of Service: 10/14/17 Interval History: Patient seen and examined at bedside. Denies fever, chills, shortness of breath , chest discomfort, N/V/D. Tele: Sinus rhythm, rate 60-70's Family History: Unchanged from Admission Social History: Unchanged from Admission Past Medical History: Unchanged from Admission Objective Active Medications: Acetaminophen (Tylenol Tab*) 650 mg PO Q6H PRN Reason: FEVER/PAIN Albuterol (Ventolin 2.5 Mg/3 Ml Neb.Danita*) 2.5 mg INH Q2H PRN Reason: SOB/ WHEEZING Calcium Carbonate (Tums*) 500 mg PO Q4H PRN Reason: DYSPEPSIA Carvedilol (Coreg Tab*) 25 mg PO BID NIMA Clonazepam (Klonopin Tab(*)) 0.25 mg PO BID PRN Reason: ANXIETY Furosemide (Lasix Tab*) 40 mg PO DAILY NIMA Hydralazine HCl (Apresoline Tab*) 50 mg PO TID NIMA Hydralazine HCl (Apresoline Iv*) 10 mg IV Q4H PRN Reason: Systolic >170 Isosorbide Mononitrate (Imdur Er Tab*) 60 mg PO DAILY NIMA Levothyroxine Sodium (Synthroid Tab*) 100 mcg PO DAILY@0600 NIMA Mometasone Furoate/Formoterol Fumar (Dulera 200/5 Mdi*) 2 puff INH BID NIMA Nifedipine (Procardia Cap*) 20 mg PO TID NIMA Ondansetron HCl (Zofran Inj*) 4 mg IV Q6H PRN Reason: NAUSEA Polyethylene Glycol/Electrolytes (Miralax*) 17 gm PO BID NIMA Potassium Chloride (Klor Con Er Tab*) 20 meq PO DAILY [facility] Vital Signs - 8 hr 10/14/17 10/14/17 10/14/17 03:34 04:02 05:00 Temperature 98.9 F Pulse Rate 75 77 Respiratory 22 Rate Blood Pressure 169/63 175/60 183/56 (mmHg) O2 Sat by Pulse 94 Oximetry 10/14/17 10/14/17 08:00 09:07 Temperature 98.4 F Pulse Rate 80 Respiratory 20 Rate Blood Pressure 172/59 (mmHg) O2 Sat by Pulse 97 Oximetry Oxygen Devices in Use Now: Nasal Cannula Appearance: NAD, laying in bed Ears/Nose/Mouth/Throat: Mucous Membranes Moist Respiratory: Symmetrical Chest Expansion and Respiratory Effort, Clear to Auscultation Cardiovascular: NL Sounds; No Murmurs; No JVD, RRR Abdominal: NL Sounds; No Tenderness; No Distention Extremities: - - Mild bilateral LE edema Skin: No Rash or Ulcers Neurological: Alert and Oriented x 3, NL Muscle Strength and Tone Lines/Tubes/Other Access: Clean, Dry and Intact Peripheral IV - site benign, Clean, Dry and Intact Other Access - HD port, site benign Nutrition: Taking PO's Result Diagrams: 10/13/17 06:00 10/12/17 17:29 Additional Lab and Data: Microbiology and Other Data: Microbiology 10/03/17 20:39 Urine Culture - Final Urine No Growth (<1,000 CFU/mL) 10/03/17 23:33 Nasal Screen MRSA (PCR)(RHIANNON) - Final Nasal Mrsa Not Detected 10/03/17 23:33 Influenza Types A,B Antigen (RHIANNON) - Final Nasal Specimen received for Influenza A/B Molecular testing Assess/Plan/Problems-Billing Assessment: Ms. Hannah is a 72 yo female with history of ckd , copd, and diastolic heart failure admitted with hypoxia and found to have worsening renal function. - Patient Problems (1) CKD (chronic kidney disease) stage 5, GFR less than 15 ml/min Code(s): N18.5 - CHRONIC KIDNEY DISEASE, STAGE 5 SNOMED Code(s): 349331560 Comment: - Tolerated first HD 10/11/17 and second on 10/13/17 well. - Management per Dr. Boyd (2) Atrial fib/flutter, transient Code(s): [id number] - SNOMED Code(s): 341154305 Comment: - Converted after adenosine - Hold on anticoagulation at this time, may need it initiated in the future (3) Respiratory failure with hypoxia Code(s): J96.91 - RESPIRATORY FAILURE, UNSPECIFIED WITH HYPOXIA SNOMED Code(s) : 89085744043232220 Comment: - Acute on chronic - Improved, now back to baseline O2 requirements of 2L (4) Anemia Code(s): D64.9 - ANEMIA, UNSPECIFIED SNOMED Code(s): 569171845 Comment: - HH stable - Suspect ACD (5) Elevated troponin Code(s): R74.8 - ABNORMAL LEVELS OF OTHER SERUM ENZYMES SNOMED Code(s): 388952901 Comment: - In the setting of CKD, near baseline - Suspect secondary to demand ischemia (6) Debility Code(s): R53.81 - OTHER MALAISE SNOMED Code(s): 11365952 Comment: - Continue PT and OT (7) COPD (chronic obstructive pulmonary disease) Code(s): J44.9 - CHRONIC OBSTRUCTIVE PULMONARY DISEASE, UNSPECIFIED SNOMED Code(s): 66898712 Comment: - No evidence of exacerbation. - Still very limited, would benefit from ANJALI. - Continue PRN nebs. (8) Diastolic CHF Code(s): I50.30 - UNSPECIFIED DIASTOLIC (CONGESTIVE) HEART FAILURE SNOMED Code (s): 152260294 Comment: - Improving, acute on chronic at admission - Responded well to diuresis, now on her home O2 requirement of 2L continuously (9) HTN (hypertension) Code(s): I10 - ESSENTIAL (PRIMARY) HYPERTENSION SNOMED Code(s): 90866005 Comment: - Hypertensive, SBP 150-180's - Continue home doses hydralazine, carvedilol, isosorbide mononitrate, nifedipine - Clonidine DC'd to avoid sedation, may need to be resumed (10) Hypothyroidism Code(s): E03.9 - HYPOTHYROIDISM, UNSPECIFIED SNOMED Code(s): 95944857 Comment: - TSH wnl 10/03/17. - Continue levothyroxine. (11) DVT prophylaxis Code(s): MEN8598 - SNOMED Code(s): 368776855 (12) Full code status Code(s): Z78.9 - OTHER SPECIFIED HEALTH STATUS SNOMED Code(s): 201893721 Status and Disposition: Inpatient. Discharge once medically stable and has a dialysis chair. Pt will likely need ANJALI.
[2017-10-14] MEDS: clonazePAM TAB(*) 0.5 MG PO PRN (21:30)
[2017-10-14] MEDS: Calcium Carbonate CHEW TAB* 500 MG (TUMS) PO PRN (21:31)
[2017-10-15] MEDS: Levothyroxine TAB* 100 MCG TAB PO SCH (05:03)
[2017-10-15 06:59] LABS: EGFR Non-African American 10.3 (>60)
[2017-10-15 07:01] LABS: Hematocrit 27 % (35-47); Hemoglobin 9.1 g/dl (12.0-16.0); Mean Corpuscular HGB Conc 33 g/dl (31-36); Mean Corpuscular Hemoglobin 31 pg (27-31); Mean Corpuscular Volume 92 fL (80-97); Mean Platelet Volume 7.9 um3 (7.4-10.4); Platelet Count 167 10^3/ul (150-450); Red Blood Count 2.96 10^6/ul (4.0-5.4); Red Cell Distribution Width 19 % (10.5-15); White Blood Count 10.6 10^3/ul (3.5-10.8)
[2017-10-15] MEDS: Mometasone/Formoter 200/5 MDI INH SCH ×2 (07:25→20:11)
[2017-10-15 07:29] LABS: ABS Basophils 0.1 10^3/ul (0-0.2); ABS Eosinophils 0.1 10^3/ul (0-0.6); ABS Monocytes 0.9 10^3/ul (0-0.8); ABS Neutrophils 8.5 10^3/ul (1.5-7.7); ABS Nucleated RBC 0 10^3/ul; Eosinophil % 0.8 % (0-6); Lymphocyte % 9.8 % (25-47); Nucleated Red Blood Cells % 0.2
[2017-10-15] MEDS: NIFEdipine CAP* 10 MG PO SCH ×3 (08:57→19:51)
[2017-10-15] MEDS: Furosemide TAB* 40 MG PO SCH (08:57)
[2017-10-15] MEDS: Potassium Chlor TAB* 10 MEQ TAB.ER PO SCH (08:57)
[2017-10-15] MEDS: hydrALAZINE TAB* 25 MG PO SCH ×3 (08:57→19:53)
[2017-10-15] MEDS: Carvedilol TAB* 25 MG PO SCH ×2 (08:58→19:52)
[2017-10-15] MEDS: Isosorbide Mononitrate ER TAB* 60 MG PO SCH (08:58)
[2017-10-15] MEDS ORDERED: cloNIDine 0.1 MG PATCH* 0.1 MG/24 HR 7 DAY PATCH TRANSDERM SCH (09:00)
[2017-10-15] MEDS: Polyethylene Glycol 3350* 17 GM PACKET PO SCH ×2 (09:06→19:53)
--- NOTE | 2017-10-15 10:01 | PN ---
Subjective Date of Service: 10/15/17 Interval History: Patient seen and examined at bedside. Denies fever, chills, shortness of breath , chest discomfort, N/V/D. Pt states that she is still urinating without difficulty. She would like to go for a walk today. Tele: Sinus rhythm, rate 60-70's. Family History: Unchanged from Admission Social History: Unchanged from Admission Past Medical History: Unchanged from Admission Objective Active Medications: Acetaminophen (Tylenol Tab*) 650 mg PO Q6H PRN Reason: FEVER/PAIN Albuterol (Ventolin 2.5 Mg/3 Ml Neb.Danita*) 2.5 mg INH Q2H PRN Reason: SOB/ WHEEZING Calcium Carbonate (Tums*) 500 mg PO Q4H PRN Reason: DYSPEPSIA Carvedilol (Coreg Tab*) 25 mg PO BID NIMA Clonazepam (Klonopin Tab(*)) 0.25 mg PO BID PRN Reason: ANXIETY Clonidine HCl (Ubcjsgmy-Fqv-6 0.1 Mg Patch*) 0.1 mg TRANSDERM Q7D NIMA Furosemide (Lasix Tab*) 40 mg PO DAILY NIMA Hydralazine HCl (Apresoline Tab*) 50 mg PO TID NIMA Hydralazine HCl (Apresoline Iv*) 10 mg IV Q4H PRN Reason: Systolic >170 Isosorbide Mononitrate (Imdur Er Tab*) 60 mg PO DAILY NIMA Levothyroxine Sodium (Synthroid Tab*) 100 mcg PO DAILY@0600 NIMA Mometasone Furoate/Formoterol Fumar (Dulera 200/5 Mdi*) 2 puff INH BID NIMA Nifedipine (Procardia Cap*) 20 mg PO TID NIMA Ondansetron HCl (Zofran Inj*) 4 mg IV Q6H PRN Reason: NAUSEA Polyethylene Glycol/Electrolytes (Miralax*) 17 gm PO BID NIMA Potassium Chloride (Klor Con Er Tab*) 20 meq PO DAILY NIMA Vital Signs - 8 hr 10/15/17 10/15/17 10/15/17 02:13 03:35 08:14 Temperature 97.7 F 98.1 F Pulse Rate 75 75 Respiratory 20 20 16 Rate Blood Pressure 176/57 154/47 (mmHg) O2 Sat by Pulse 93 97 Oximetry Oxygen Devices in Use Now: Nasal Cannula - 2L Appearance: NAD, sitting up in bed Ears/Nose/Mouth/Throat: Mucous Membranes Moist Respiratory: Symmetrical Chest Expansion and Respiratory Effort, Clear to Auscultation Cardiovascular: NL Sounds; No Murmurs; No JVD, RRR Abdominal: NL Sounds; No Tenderness; No Distention Extremities: - - Trace bilateral LE edema Neurological: Alert and Oriented x 3, NL Muscle Strength and Tone Lines/Tubes/Other Access: Clean, Dry and Intact Peripheral IV - site benign, Clean, Dry and Intact Other Access - HD cath, site benign Nutrition: Taking PO's Result Diagrams: 10/15/17 06:12 10/15/17 06:12 Additional Lab and Data: Microbiology and Other Data: Microbiology 10/03/17 20:39 Urine Culture - Final Urine No Growth (<1,000 CFU/mL) 10/03/17 23:33 Nasal Screen MRSA (PCR)(RHIANNON) - Final Nasal Mrsa Not Detected 10/03/17 23:33 Influenza Types A,B Antigen (RHIANNON) - Final Nasal Specimen received for Influenza A/B Molecular testing Assess/Plan/Problems-Billing Assessment: Ms. Hannah is a 72 yo female with history of ckd , copd, and diastolic heart failure admitted with hypoxia and found to have worsening renal function. - Patient Problems (1) CKD (chronic kidney disease) stage 5, GFR less than 15 ml/min Code(s): N18.5 - CHRONIC KIDNEY DISEASE, STAGE 5 SNOMED Code(s): 931268323 Comment: - Tolerated first HD 10/11/17 and second on 10/13/17 well. - Management per Dr. Boyd (2) Atrial fib/flutter, transient Code(s): [id number] - SNOMED Code(s): 836463650 Comment: - Converted after adenosine - Hold on anticoagulation at this time, may need it initiated in the future (3) Respiratory failure with hypoxia Code(s): J96.91 - RESPIRATORY FAILURE, UNSPECIFIED WITH HYPOXIA SNOMED Code(s) : 11805468178723001 Comment: - Acute on chronic - Improved, now back to baseline O2 requirements of 2L (4) Anemia Code(s): D64.9 - ANEMIA, UNSPECIFIED SNOMED Code(s): 222843301 Comment: - HH stable - Suspect ACD (5) Elevated troponin Code(s): R74.8 - ABNORMAL LEVELS OF OTHER SERUM ENZYMES SNOMED Code(s): 512345528 Comment: - In the setting of CKD, near baseline - Suspect secondary to demand ischemia (6) Debility Code(s): R53.81 - OTHER MALAISE SNOMED Code(s): 78025360 Comment: - Continue PT and OT (7) COPD (chronic obstructive pulmonary disease) Code(s): J44.9 - CHRONIC OBSTRUCTIVE PULMONARY DISEASE, UNSPECIFIED SNOMED Code(s): 05514501 Comment: - No evidence of exacerbation. - Still very limited, would benefit from ANJALI. - Continue PRN nebs. (8) Diastolic CHF Code(s): I50.30 - UNSPECIFIED DIASTOLIC (CONGESTIVE) HEART FAILURE SNOMED Code (s): 590502604 Comment: - Improving, acute on chronic at admission - Responded well to diuresis, now on her home O2 requirement of 2L continuously (9) HTN (hypertension) Code(s): I10 - ESSENTIAL (PRIMARY) HYPERTENSION SNOMED Code(s): 52949636 Comment: - Hypertensive, SBP 150-170's - Continue home doses hydralazine, carvedilol, isosorbide mononitrate, nifedipine - Resume Clonidine at decreased dose (10) Hypothyroidism Code(s): E03.9 - HYPOTHYROIDISM, UNSPECIFIED SNOMED Code(s): 91271364 Comment: - TSH wnl 10/03/17. - Continue levothyroxine. (11) DVT prophylaxis Code(s): JLQ4015 - SNOMED Code(s): 642419974 Comment: - SQ heparin (12) Full code status Code(s): Z78.9 - OTHER SPECIFIED HEALTH STATUS SNOMED Code(s): 195139636 Status and Disposition: Inpatient. Discharge once medically stable and has a dialysis chair. Pt will likely need ANJALI. Attending: Lucy Otero
[2017-10-15] MEDS: Heparin VIAL(*) 5000 UNITS/ML VIAL (FIVE THOUSAND) SUBCUT SCH ×2 (14:14→20:36)
[2017-10-15] MEDS: clonazePAM TAB(*) 0.5 MG PO PRN (18:11)
[2017-10-15] MEDS: Calcium Carbonate CHEW TAB* 500 MG (TUMS) PO PRN (20:00)
[2017-10-16] MEDS: hydrALAZINE IV* 20 MG/ML VIAL IV PRN (04:45)
[2017-10-16] MEDS: Heparin VIAL(*) 5000 UNITS/ML VIAL (FIVE THOUSAND) SUBCUT SCH ×3 (05:01→23:02)
[2017-10-16] MEDS: Levothyroxine TAB* 100 MCG TAB PO SCH (05:01)
[2017-10-16] MEDS: Mometasone/Formoter 200/5 MDI INH SCH ×2 (08:09→21:03)
[2017-10-16] MEDS: Polyethylene Glycol 3350* 17 GM PACKET PO SCH (08:32)
[2017-10-16] MEDS: Carvedilol TAB* 25 MG PO SCH ×2 (08:33→21:28)
[2017-10-16] MEDS: Furosemide TAB* 40 MG PO SCH (08:33)
[2017-10-16] MEDS: hydrALAZINE TAB* 25 MG PO SCH ×3 (08:34→21:28)
[2017-10-16] MEDS: Isosorbide Mononitrate ER TAB* 60 MG PO SCH (08:34)
[2017-10-16] MEDS: NIFEdipine CAP* 10 MG PO SCH ×3 (08:34→21:33)
[2017-10-16] MEDS: Potassium Chlor TAB* 10 MEQ TAB.ER PO SCH (08:35)
[2017-10-16] MEDS ORDERED: Polyethylene Glycol 3350* 17 GM PACKET PO PRN (10:19)
[2017-10-16] MEDS: Calcium Carbonate CHEW TAB* 500 MG (TUMS) PO PRN (13:37)
[2017-10-16] MEDS ORDERED: Epoetin Alfa* 10,000 UNITS/ML VIAL IV ONE (17:00)
[2017-10-16] MEDS ORDERED: Heparin DIALYSIS ONLY(*) 1,000 UNITS/ML VIAL DIALYSIS ONE (17:00)
--- NOTE | 2017-10-16 18:15 | PN ---
Subjective Date of Service: 10/16/17 Interval History: Patient seen and examined at bedside. Denies fever, chills, shortness of breath , chest discomfort, N/V/D. Pt states that she feels much stronger than she has been, and thinks that she can go home and no longer needs rehab. While in the room with the patient discussing her dialysis chair situation, she became tachycardic with palpitations, she felt very upset about the discussion. After I left she continued to be tachycardic, will check an EKG. Family History: Unchanged from Admission Social History: Unchanged from Admission Past Medical History: Unchanged from Admission Objective Active Medications: Acetaminophen (Tylenol Tab*) 650 mg PO Q6H PRN Reason: FEVER/PAIN Albuterol (Ventolin 2.5 Mg/3 Ml Neb.Danita*) 2.5 mg INH Q2H PRN Reason: SOB/ WHEEZING Calcium Carbonate (Tums*) 500 mg PO Q4H PRN Reason: DYSPEPSIA Carvedilol (Coreg Tab*) 25 mg PO BID NIMA Clonazepam (Klonopin Tab(*)) 0.25 mg PO BID PRN Reason: ANXIETY Clonidine HCl (Yvzhjaoh-Cbf-5 0.1 Mg Patch*) 0.1 mg TRANSDERM Q7D NIMA Furosemide (Lasix Tab*) 40 mg PO DAILY NIMA Heparin Sodium (Porcine) (Heparin Vial(*)) 5,000 units SUBCUT Q8HR NIMA Hydralazine HCl (Apresoline Tab*) 50 mg PO TID NIMA Hydralazine HCl (Apresoline Iv*) 10 mg IV Q4H PRN Reason: Systolic >170 Isosorbide Mononitrate (Imdur Er Tab*) 60 mg PO DAILY NIMA Levothyroxine Sodium (Synthroid Tab*) 100 mcg PO DAILY@0600 NIMA Mometasone Furoate/Formoterol Fumar (Dulera 200/5 Mdi*) 2 puff INH BID NIMA Nifedipine (Procardia Cap*) 20 mg PO TID NIMA Ondansetron HCl (Zofran Inj*) 4 mg IV Q6H PRN Reason: NAUSEA Polyethylene Glycol/Electrolytes (Miralax*) 17 gm PO BID PRN Reason: CONSTIPATION Potassium Chloride (Klor Con Er Tab*) 20 meq PO DAILY [facility] Vital Signs - 8 hr 10/16/17 11:15 Temperature 98.4 F Pulse Rate 68 Respiratory 20 Rate Blood Pressure 145/49 (mmHg) O2 Sat by Pulse 100 Oximetry Oxygen Devices in Use Now: Nasal Cannula - 2L Appearance: NAD, sitting up in a chair Ears/Nose/Mouth/Throat: Mucous Membranes Moist Respiratory: Symmetrical Chest Expansion and Respiratory Effort, Clear to Auscultation Cardiovascular: NL Sounds; No Murmurs; No JVD, RRR Abdominal: NL Sounds; No Tenderness; No Distention Extremities: - - Mild bilateral LE edema Neurological: Alert and Oriented x 3, NL Muscle Strength and Tone Lines/Tubes/Other Access: Clean, Dry and Intact Peripheral IV - site benign, Clean, Dry and Intact Other Access - HD site right upper chest, patent Nutrition: Taking PO's Result Diagrams: 10/15/17 06:12 10/16/17 05:38 Additional Lab and Data: Microbiology and Other Data: Microbiology 10/03/17 20:39 Urine Culture - Final Urine No Growth (<1,000 CFU/mL) 10/03/17 23:33 Nasal Screen MRSA (PCR)(RHIANNON) - Final Nasal Mrsa Not Detected 10/03/17 23:33 Influenza Types A,B Antigen (RHIANNON) - Final Nasal Specimen received for Influenza A/B Molecular testing Assess/Plan/Problems-Billing Assessment: Ms. Hannah is a 72 yo female with history of ckd , copd, and diastolic heart failure admitted with hypoxia and found to have worsening renal function. - Patient Problems (1) CKD (chronic kidney disease) stage 5, GFR less than 15 ml/min Code(s): N18.5 - CHRONIC KIDNEY DISEASE, STAGE 5 SNOMED Code(s): 361320095 Comment: - Tolerated first HD 10/11/17 and second on 10/13/17 well. - Management per Dr. Boyd (2) Atrial fib/flutter, transient Code(s): KTU2414 - SNOMED Code(s): 525479131 Comment: - Converted after adenosine - Hold on anticoagulation at this time, may need it initiated in the future (3) Respiratory failure with hypoxia Code(s): J96.91 - RESPIRATORY FAILURE, UNSPECIFIED WITH HYPOXIA SNOMED Code(s) : 50983022445102407 Comment: - Acute on chronic - Improved, now back to baseline O2 requirements of 2L (4) Anemia Code(s): D64.9 - ANEMIA, UNSPECIFIED SNOMED Code(s): 760961587 Comment: - HH stable - Suspect ACD (5) Elevated troponin Code(s): R74.8 - ABNORMAL LEVELS OF OTHER SERUM ENZYMES SNOMED Code(s): 493015737 Comment: - In the setting of CKD, near baseline - Suspect secondary to demand ischemia (6) Debility Code(s): R53.81 - OTHER MALAISE SNOMED Code(s): 53065682 Comment: - Continue PT and OT (7) COPD (chronic obstructive pulmonary disease) Code(s): J44.9 - CHRONIC OBSTRUCTIVE PULMONARY DISEASE, UNSPECIFIED SNOMED Code(s): 69958931 Comment: - No evidence of exacerbation. - Continue PRN nebs. (8) Diastolic CHF Code(s): I50.30 - UNSPECIFIED DIASTOLIC (CONGESTIVE) HEART FAILURE SNOMED Code (s): 559946519 Comment: - Improving, acute on chronic at admission - Responded well to diuresis, now on her home O2 requirement of 2L continuously (9) HTN (hypertension) Code(s): I10 - ESSENTIAL (PRIMARY) HYPERTENSION SNOMED Code(s): 18092709 Comment: - Hypertensive, SBP 140-170's - Continue home doses hydralazine, carvedilol, isosorbide mononitrate, nifedipine, and Clonidine at decreased dose (may need to increase) (10) Hypothyroidism Code(s): E03.9 - HYPOTHYROIDISM, UNSPECIFIED SNOMED Code(s): 43309834 Comment: - TSH wnl 10/03/17. - Continue levothyroxine. (11) DVT prophylaxis Code(s): JSZ8989 - SNOMED Code(s): 998806896 Comment: - SQ heparin (12) Full code status Code(s): Z78.9 - OTHER SPECIFIED HEALTH STATUS SNOMED Code(s): 045340795 Status and Disposition: Inpatient. Discharge once medically stable and has a dialysis chair.
[2017-10-16] MEDS ORDERED: Metoprolol Tartrate IV* 1 MG/ML 5 ML VIAL IV ONE (18:42)
[2017-10-16] MEDS ORDERED: Metoprolol Tartrate IV* 1 MG/ML 5 ML VIAL ONE (18:44)
[2017-10-16] MEDS ORDERED: Diltiazem IV* 5 MG/ML 5 ML VIAL (for loading dose/IV Push) (25 MG) IV SLOW PU ONE (18:58)
[2017-10-16] MEDS ORDERED: Diltiazem IV VIAL* 125 MG in NS 0.9% 100 ML* 100 ML IVPB SCH (20:00)
[2017-10-16] MEDS ORDERED: Potassium Chlor TAB* 20 MEQ TAB.ER PO ONE (22:07)
[2017-10-16] MEDS: clonazePAM TAB(*) 0.5 MG PO PRN (23:18)
[2017-10-17] MEDS: hydrALAZINE IV* 20 MG/ML VIAL IV PRN (03:52)
[2017-10-17] MEDS: Heparin VIAL(*) 5000 UNITS/ML VIAL (FIVE THOUSAND) SUBCUT SCH ×3 (05:16→21:00)
[2017-10-17] MEDS: Levothyroxine TAB* 100 MCG TAB PO SCH (05:16)
[2017-10-17 06:13] LABS: EGFR Non-African American 13.5 (>60)
[2017-10-17] MEDS: Mometasone/Formoter 200/5 MDI INH SCH ×2 (07:39→19:58)
[2017-10-17] MEDS: Potassium Chlor TAB* 10 MEQ TAB.ER PO SCH (10:02)
[2017-10-17] MEDS: hydrALAZINE TAB* 25 MG PO SCH ×3 (10:02→20:58)
[2017-10-17] MEDS: Carvedilol TAB* 25 MG PO SCH ×2 (10:03→20:58)
[2017-10-17] MEDS: Furosemide TAB* 40 MG PO SCH (10:03)
[2017-10-17] MEDS: Isosorbide Mononitrate ER TAB* 60 MG PO SCH (10:03)
[2017-10-17] MEDS: NIFEdipine CAP* 10 MG PO SCH ×3 (10:07→20:59)
--- NOTE | 2017-10-17 16:31 | PN ---
Subjective Date of Service: 10/17/17 Interval History: Patient seen and examined. Per RN, had another bout with a fib with RVR, was on cardizem drip yesterday which is now DC'd. HR stable today. Denies chest pain, no palpitations, no fever or chills, denies SOB. Family History: Unchanged from Admission Social History: Unchanged from Admission Past Medical History: Unchanged from Admission Objective Active Medications: Acetaminophen (Tylenol Tab*) 650 mg PO Q6H PRN PRN Reason: FEVER/PAIN Last Admin: 10/06/17 23:42 Dose: 650 mg Albuterol (Ventolin 2.5 Mg/3 Ml Neb.Danita*) 2.5 mg INH Q2H PRN PRN Reason: SOB/WHEEZING Calcium Carbonate (Tums*) 500 mg PO Q4H PRN PRN Reason: DYSPEPSIA Last Admin: 10/16/17 13:37 Dose: 500 mg Carvedilol (Coreg Tab*) 25 mg PO BID [facility] Last Admin: 10/17/17 10:03 Dose: 25 mg Clonazepam (Klonopin Tab(*)) 0.25 mg PO BID PRN PRN Reason: ANXIETY Last Admin: 10/16/17 23:18 Dose: 0.25 mg Clonidine HCl (Zpyqxbbb-Jzz-5 0.1 Mg Patch*) 0.1 mg TRANSDERM Q7D [facility] Last Admin: 10/15/17 08:54 Dose: 0.1 mg Furosemide (Lasix Tab*) 40 mg PO DAILY [facility] Last Admin: 10/17/17 10:03 Dose: 40 mg Heparin Sodium (Porcine) (Heparin Vial(*)) 5,000 units SUBCUT Q8HR [facility] Last Admin: 10/17/17 14:18 Dose: 5,000 units Hydralazine HCl (Apresoline Tab*) 50 mg PO TID [facility] Last Admin: 10/17/17 14:19 Dose: 50 mg Hydralazine HCl (Apresoline Iv*) 10 mg IV Q4H PRN PRN Reason: Systolic >170 Last Admin: 10/17/17 03:52 Dose: 10 mg Isosorbide Mononitrate (Imdur Er Tab*) 60 mg PO DAILY [facility] Last Admin: 10/17/17 10:03 Dose: 60 mg Levothyroxine Sodium (Synthroid Tab*) 100 mcg PO DAILY@0600 [facility] Last Admin: 10/17/17 05:16 Dose: 100 mcg Mometasone Furoate/Formoterol Fumar (Dulera 200/5 Mdi*) 2 puff INH BID [facility] Last Admin: 10/17/17 07:39 Dose: 2 puff Nifedipine (Procardia Cap*) 20 mg PO TID [facility] Last Admin: 10/17/17 14:19 Dose: 20 mg Ondansetron HCl (Zofran Inj*) 4 mg IV Q6H PRN PRN Reason: NAUSEA Last Admin: 10/13/17 17:05 Dose: 4 mg Polyethylene Glycol/Electrolytes (Miralax*) 17 gm PO BID PRN PRN Reason: CONSTIPATION Potassium Chloride (Klor Con Er Tab*) 20 meq PO DAILY [facility] Last Admin: 10/17/17 10:02 Dose: 20 meq Vital Signs - 8 hr 10/17/17 10/17/17 10:44 15:10 Temperature 98.3 F 98.7 F Pulse Rate 71 77 Respiratory 16 18 Rate Blood Pressure 127/41 148/51 (mmHg) O2 Sat by Pulse 99 98 Oximetry Oxygen Devices in Use Now: Nasal Cannula Appearance: Alert, NAD Ears/Nose/Mouth/Throat: - - dry oral mucosa Neck: Trachea Midline Respiratory: Symmetrical Chest Expansion and Respiratory Effort, Clear to Auscultation Cardiovascular: RRR, - - Mild, I/ murmur noted Abdominal: NL Sounds; No Tenderness; No Distention Extremities: No Clubbing, Cyanosis Neurological: Alert and Oriented x 3, NL Sensation Nutrition: Taking PO's Result Diagrams: 10/15/17 06:12 10/17/17 05:36 Additional Lab and Data: Microbiology and Other Data: Microbiology 10/03/17 20:39 Urine Culture - Final Urine No Growth (<1,000 CFU/mL) 10/03/17 23:33 Nasal Screen MRSA (PCR)(RHIANNON) - Final Nasal Mrsa Not Detected 10/03/17 23:33 Influenza Types A,B Antigen (RHIANNON) - Final Nasal Specimen received for Influenza A/B Molecular testing Assess/Plan/Problems-Billing Assessment: Ms. Hannah is a 72 yo female with history of ckd , copd, and diastolic heart failure admitted with hypoxia and found to have worsening renal function, now started on hemodialysis. - Patient Problems (1) CKD (chronic kidney disease) stage 5, GFR less than 15 ml/min Code(s): N18.5 - CHRONIC KIDNEY DISEASE, STAGE 5 SNOMED Code(s): 540267078 Comment: - Tolerating HD without issue - Volume issues improving - Management per Dr. Boyd - Per dialysis, will have treatment tomorrow, inpatient and then initiate outpatient HD for T, Th, Sat at [facility] (2) Atrial fib/flutter, transient Code(s): IAY9311 - SNOMED Code(s): 589690973 Comment: - Continues to be paroxysmal - Was on cardizem drip yesterday then converted to sinus - Need to clarify AC and rate control with cardiology and nephro in anticipation of DC tomorrow afternoon (3) Anemia Code(s): D64.9 - ANEMIA, UNSPECIFIED SNOMED Code(s): 301362216 Comment: - HH low/stable - Suspect ACD and ESRD (4) Debility Code(s): R53.81 - OTHER MALAISE SNOMED Code(s): 60893984 Comment: - Did well in PT today - Needs walker and reconditioning with outpatient or home PT at [place] (5) Elevated troponin Code(s): R74.8 - ABNORMAL LEVELS OF OTHER SERUM ENZYMES SNOMED Code(s): 001577341 Comment: - In the setting of ESRD, likely demand - No chest pain (6) Respiratory failure with hypoxia Code(s): J96.91 - RESPIRATORY FAILURE, UNSPECIFIED WITH HYPOXIA SNOMED Code(s) : 89370405383945039 Comment: - Acute on chronic - Improved, now back to baseline O2 requirements of 2-3L - Walking sats stable per PT note today (7) COPD (chronic obstructive pulmonary disease) Code(s): J44.9 - CHRONIC OBSTRUCTIVE PULMONARY DISEASE, UNSPECIFIED SNOMED Code(s): 18813401 Comment: - No evidence of exacerbation. - Continue PRN nebs. (8) Diastolic CHF Code(s): I50.30 - UNSPECIFIED DIASTOLIC (CONGESTIVE) HEART FAILURE SNOMED Code (s): 133245596 Comment: - Improving, acute on chronic at admission - Responding to diuresis and dialysis with continuous O2 (9) HTN (hypertension) Code(s): I10 - ESSENTIAL (PRIMARY) HYPERTENSION SNOMED Code(s): 89947831 Comment: - Hypertensive, SBP 140-170's, but improving with dialysis - Continue home doses hydralazine, carvedilol, isosorbide mononitrate, nifedipine, and Clonidine at decreased dose (may need to increase) - Appreicate recs from nephro at discharge for appropriate meds at DC (10) Hypothyroidism Code(s): E03.9 - HYPOTHYROIDISM, UNSPECIFIED SNOMED Code(s): 66519574 Comment: - TSH wnl 10/03/17. - Continue levothyroxine. (11) Full code status Current Visit: Yes Status: Acute Code(s): Z78.9 - OTHER SPECIFIED HEALTH STATUS SNOMED Code(s): 946662020 Status and Disposition: Dispo planning to home now that dialysis chair is obtained. Likely DC home tomorrow after dialysis when meds clarified with cardio and nephro.
[2017-10-17] MEDS: clonazePAM TAB(*) 0.5 MG PO PRN (22:45)
[2017-10-18] MEDS: Levothyroxine TAB* 100 MCG TAB PO SCH (05:34)
[2017-10-18] MEDS: Heparin VIAL(*) 5000 UNITS/ML VIAL (FIVE THOUSAND) SUBCUT SCH ×3 (05:34→23:17)
[2017-10-18 07:24] LABS: ABS Basophils 0.1 10^3/ul (0-0.2); ABS Eosinophils 0.1 10^3/ul (0-0.6); ABS Monocytes 0.8 10^3/ul (0-0.8); ABS Neutrophils 6.5 10^3/ul (1.5-7.7); ABS Nucleated RBC 0 10^3/ul; Eosinophil % 1.5 % (0-6); Hematocrit 28 % (35-47); Lymphocyte % 11.7 % (25-47); Mean Corpuscular HGB Conc 33 g/dl (31-36); Mean Corpuscular Hemoglobin 31 pg (27-31); Mean Corpuscular Volume 94 fL (80-97); Mean Platelet Volume 7.6 um3 (7.4-10.4); Nucleated Red Blood Cells % 0.1; Platelet Count 186 10^3/ul (150-450); Red Blood Count 2.94 10^6/ul (4.0-5.4); Red Cell Distribution Width 19 % (10.5-15); White Blood Count 8.5 10^3/ul (3.5-10.8)
[2017-10-18] MEDS: Mometasone/Formoter 200/5 MDI INH SCH ×2 (07:33→20:08)
[2017-10-18] MEDS: hydrALAZINE TAB* 25 MG PO SCH ×3 (08:54→23:16)
[2017-10-18] MEDS: NIFEdipine CAP* 10 MG PO SCH ×3 (08:54→20:06)
[2017-10-18] MEDS ORDERED: Heparin DIALYSIS ONLY(*) 1,000 UNITS/ML VIAL DIALYSIS ONE (16:15)
[2017-10-18] MEDS ORDERED: Epoetin Alfa* 10,000 UNITS/ML VIAL IV ONE (16:15)
--- NOTE | 2017-10-18 18:04 | PN ---
Subjective Date of Service: 10/18/17 Interval History: No complaints today. Overall improvement noted, discussion with Dr. Boyd regarding plan. Initiating coumadin tonight for PAF. Will not require bridge and monitoring of INR while inpatient, can be followed outpatient until therapeutic. Going to dialysis today, tolerating treatments well. Denies, fever or chills, no chest pain, no SOB, no palpitations. Family History: Unchanged from Admission Social History: Unchanged from Admission Past Medical History: Unchanged from Admission Objective Active Medications: Acetaminophen (Tylenol Tab*) 650 mg PO Q6H PRN PRN Reason: FEVER/PAIN Last Admin: 10/06/17 23:42 Dose: 650 mg Albuterol (Ventolin 2.5 Mg/3 Ml Neb.Danita*) 2.5 mg INH Q2H PRN PRN Reason: SOB/WHEEZING Calcium Carbonate (Tums*) 500 mg PO Q4H PRN PRN Reason: DYSPEPSIA Last Admin: 10/16/17 13:37 Dose: 500 mg Carvedilol (Coreg Tab*) 25 mg PO BID [facility] Last Admin: 10/17/17 20:58 Dose: 25 mg Clonazepam (Klonopin Tab(*)) 0.25 mg PO BID PRN PRN Reason: ANXIETY Last Admin: 10/17/17 22:45 Dose: 0.25 mg Clonidine HCl (Eukqyszt-Pjj-8 0.1 Mg Patch*) 0.1 mg TRANSDERM Q7D [facility] Last Admin: 10/15/17 08:54 Dose: 0.1 mg Furosemide (Lasix Tab*) 40 mg PO DAILY [facility] Last Admin: 10/17/17 10:03 Dose: 40 mg Heparin Sodium (Porcine) (Heparin Vial(*)) 5,000 units SUBCUT Q8HR [facility] Last Admin: 10/18/17 05:34 Dose: 5,000 units Hydralazine HCl (Apresoline Tab*) 50 mg PO TID [facility] Last Admin: 10/18/17 08:54 Dose: 50 mg Hydralazine HCl (Apresoline Iv*) 10 mg IV Q4H PRN PRN Reason: Systolic >170 Last Admin: 10/17/17 03:52 Dose: 10 mg Isosorbide Mononitrate (Imdur Er Tab*) 60 mg PO DAILY [facility] Last Admin: 10/17/17 10:03 Dose: 60 mg Levothyroxine Sodium (Synthroid Tab*) 100 mcg PO DAILY@0600 [facility] Last Admin: 10/18/17 05:34 Dose: 100 mcg Mometasone Furoate/Formoterol Fumar (Dulera 200/5 Mdi*) 2 puff INH BID [facility] Last Admin: 10/18/17 07:33 Dose: 2 puff Nifedipine (Procardia Cap*) 20 mg PO TID [facility] Last Admin: 10/18/17 08:54 Dose: 20 mg Ondansetron HCl (Zofran Inj*) 4 mg IV Q6H PRN PRN Reason: NAUSEA Last Admin: 10/13/17 17:05 Dose: 4 mg Polyethylene Glycol/Electrolytes (Miralax*) 17 gm PO BID PRN PRN Reason: CONSTIPATION Potassium Chloride (Klor Con Er Tab*) 20 meq PO DAILY [facility] Last Admin: 10/17/17 10:02 Dose: 20 meq Warfarin Sodium (Coumadin Tab(*)) 5 mg PO DAILY@1700 [facility] PRN Reason: Protocol Vital Signs - 8 hr 10/18/17 12:05 Temperature 98.8 F Pulse Rate 78 Respiratory 16 Rate Blood Pressure 153/54 (mmHg) O2 Sat by Pulse 100 Oximetry Oxygen Devices in Use Now: Nasal Cannula Appearance: Alert, NAD Ears/Nose/Mouth/Throat: NL Teeth, Lips, Gums, Mucous Membranes Moist Neck: Trachea Midline Respiratory: Symmetrical Chest Expansion and Respiratory Effort, Clear to Auscultation Cardiovascular: NL Sounds; No Murmurs; No JVD, RRR - RSR on tele, no ectopy Extremities: No Edema, No Clubbing, Cyanosis Neurological: Alert and Oriented x 3 Nutrition: Taking PO's Result Diagrams: 10/18/17 06:46 10/17/17 05:36 Additional Lab and Data: Microbiology and Other Data: Microbiology 10/03/17 20:39 Urine Culture - Final Urine No Growth (<1,000 CFU/mL) 10/03/17 23:33 Nasal Screen MRSA (PCR)(RHIANNON) - Final Nasal Mrsa Not Detected 10/03/17 23:33 Influenza Types A,B Antigen (RHIANNON) - Final Nasal Specimen received for Influenza A/B Molecular testing Assess/Plan/Problems-Billing Assessment: Ms. Hannah is a 72 yo female with history of ckd , copd, and diastolic heart failure admitted with hypoxia and found to have worsening renal function, now started on hemodialysis. - Patient Problems (1) CKD (chronic kidney disease) stage 5, GFR less than 15 ml/min Code(s): N18.5 - CHRONIC KIDNEY DISEASE, STAGE 5 SNOMED Code(s): 987976064 Comment: - Tolerating HD without issue - Volume issues improving - Management per Dr. Boyd - Per dialysis, will have treatment tomorrow, inpatient and then initiate outpatient HD for T, Th, Sat at [facility] - Waiting for confirmation of outpatient dialysis plan with case management (2) Atrial fib/flutter, transient Code(s): YGD8302 - SNOMED Code(s): 239363603 Comment: - Continues to be paroxysmal - Was on cardizem drip, then converted to sinus - Discussed AC with Dr. Boyd, coumadin initiated - Can follow INR as an outpatient, does not require rhythm/rate control at this time (3) Anemia Code(s): D64.9 - ANEMIA, UNSPECIFIED SNOMED Code(s): 067424571 Comment: - HH low/stable - Suspect ACD and ESRD (4) Debility Code(s): R53.81 - OTHER MALAISE SNOMED Code(s): 47204310 Comment: - Continued improvement in ADLs - Needs walker and reconditioning with outpatient or home PT at [place] (5) Elevated troponin Code(s): R74.8 - ABNORMAL LEVELS OF OTHER SERUM ENZYMES SNOMED Code(s): 518639492 Comment: - In the setting of ESRD, likely demand - No chest pain (6) Respiratory failure with hypoxia Code(s): J96.91 - RESPIRATORY FAILURE, UNSPECIFIED WITH HYPOXIA SNOMED Code(s) : 78393874291923025 Comment: - Acute on chronic - Improved, now back to baseline O2 requirements of 2-3L - Walking sats stable per PT note 10/17 (7) COPD (chronic obstructive pulmonary disease) Code(s): J44.9 - CHRONIC OBSTRUCTIVE PULMONARY DISEASE, UNSPECIFIED SNOMED Code(s): 82686714 Comment: - No evidence of exacerbation. - Continue PRN nebs. (8) Diastolic CHF Code(s): I50.30 - UNSPECIFIED DIASTOLIC (CONGESTIVE) HEART FAILURE SNOMED Code (s): 622929738 Comment: - Improving, acute on chronic at admission - Responding to diuresis and dialysis with continuous O2 (9) HTN (hypertension) Code(s): I10 - ESSENTIAL (PRIMARY) HYPERTENSION SNOMED Code(s): 98846148 Comment: - Hypertensive, SBP 140-170's, but improving with dialysis - Continue home doses hydralazine, carvedilol, isosorbide mononitrate, nifedipine, and Clonidine at decreased dose (10) Hypothyroidism Code(s): E03.9 - HYPOTHYROIDISM, UNSPECIFIED SNOMED Code(s): 30797815 Comment: - TSH wnl 10/03/17. - Continue levothyroxine. (11) Full code status Current Visit: Yes Status: Acute Code(s): Z78.9 - OTHER SPECIFIED HEALTH STATUS SNOMED Code(s): 253187109 Status and Disposition: Remain inpatient until outpatient dialysis chair is confirmed.
[2017-10-18] MEDS: Potassium Chlor TAB* 10 MEQ TAB.ER PO SCH (18:17)
[2017-10-18] MEDS: Warfarin TAB(*) 5 MG PO SCH (18:17)
[2017-10-18] MEDS: Isosorbide Mononitrate ER TAB* 60 MG PO SCH (18:17)
[2017-10-18] MEDS: Furosemide TAB* 40 MG PO SCH (18:18)
[2017-10-18] MEDS: Carvedilol TAB* 25 MG PO SCH ×2 (18:18→23:20)
[2017-10-18] MEDS: hydrALAZINE IV* 20 MG/ML VIAL IV PRN (20:07)
[2017-10-18] MEDS: clonazePAM TAB(*) 0.5 MG PO PRN (23:25)
[2017-10-19 05:26] LABS: ABS Basophils 0.1 10^3/ul (0-0.2); ABS Eosinophils 0.2 10^3/ul (0-0.6); ABS Monocytes 0.7 10^3/ul (0-0.8); ABS Neutrophils 6.5 10^3/ul (1.5-7.7); ABS Nucleated RBC 0 10^3/ul; Eosinophil % 1.9 % (0-6); Hematocrit 29 % (35-47); Hemoglobin 9.3 g/dl (12.0-16.0); Lymphocyte % 11.8 % (25-47); Mean Corpuscular HGB Conc 33 g/dl (31-36); Mean Corpuscular Hemoglobin 30 pg (27-31); Mean Corpuscular Volume 93 fL (80-97); Mean Platelet Volume 7.3 um3 (7.4-10.4); Nucleated Red Blood Cells % 0; Platelet Count 181 10^3/ul (150-450); Red Cell Distribution Width 20 % (10.5-15); White Blood Count 8.5 10^3/ul (3.5-10.8)
[2017-10-19 05:37] LABS: INR 0.96 (0.77-1.02)
[2017-10-19 05:42] LABS: EGFR Non-African American 15.6 (>60)
[2017-10-19] MEDS: Levothyroxine TAB* 100 MCG TAB PO SCH (05:43)
[2017-10-19] MEDS: Heparin VIAL(*) 5000 UNITS/ML VIAL (FIVE THOUSAND) SUBCUT SCH ×3 (05:44→20:48)
[2017-10-19] MEDS: Furosemide TAB* 40 MG PO SCH (07:47)
[2017-10-19] MEDS: Potassium Chlor TAB* 10 MEQ TAB.ER PO SCH (07:47)
[2017-10-19] MEDS: hydrALAZINE TAB* 25 MG PO SCH ×3 (07:47→20:47)
[2017-10-19] MEDS: NIFEdipine CAP* 10 MG PO SCH ×3 (07:47→20:47)
[2017-10-19] MEDS: Carvedilol TAB* 25 MG PO SCH ×2 (07:47→20:47)
[2017-10-19] MEDS: Isosorbide Mononitrate ER TAB* 60 MG PO SCH (07:47)
--- NOTE | 2017-10-19 14:14 | PN ---
Subjective Date of Service: 10/19/17 Interval History: Patient seen and examined. No acute overnight events. Feeling well, tolerating dialysis. Denies chest pain, no SOB, no palpitations, no fevers or chills. Family History: Unchanged from Admission Social History: Unchanged from Admission Past Medical History: Unchanged from Admission Objective Active Medications: Acetaminophen (Tylenol Tab*) 650 mg PO Q6H PRN PRN Reason: FEVER/PAIN Last Admin: 10/06/17 23:42 Dose: 650 mg Albuterol (Ventolin 2.5 Mg/3 Ml Neb.Danita*) 2.5 mg INH Q2H PRN PRN Reason: SOB/WHEEZING Calcium Carbonate (Tums*) 500 mg PO Q4H PRN PRN Reason: DYSPEPSIA Last Admin: 10/16/17 13:37 Dose: 500 mg Carvedilol (Coreg Tab*) 25 mg PO BID [facility] Last Admin: 10/19/17 07:47 Dose: 25 mg Clonazepam (Klonopin Tab(*)) 0.25 mg PO BID PRN PRN Reason: ANXIETY Last Admin: 10/18/17 23:25 Dose: 0.25 mg Clonidine HCl (Kmtdgykj-Qmx-3 0.1 Mg Patch*) 0.1 mg TRANSDERM Q7D [facility] Last Admin: 10/15/17 08:54 Dose: 0.1 mg Furosemide (Lasix Tab*) 40 mg PO DAILY [facility] Last Admin: 10/19/17 07:47 Dose: 40 mg Heparin Sodium (Porcine) (Heparin Vial(*)) 5,000 units SUBCUT Q8HR [facility] Last Admin: 10/19/17 13:37 Dose: 5,000 units Hydralazine HCl (Apresoline Tab*) 50 mg PO TID [facility] Last Admin: 10/19/17 13:37 Dose: 50 mg Hydralazine HCl (Apresoline Iv*) 10 mg IV Q4H PRN PRN Reason: Systolic >170 Last Admin: 10/18/17 20:07 Dose: 10 mg Isosorbide Mononitrate (Imdur Er Tab*) 60 mg PO DAILY [facility] Last Admin: 10/19/17 07:47 Dose: 60 mg Levothyroxine Sodium (Synthroid Tab*) 100 mcg PO DAILY@0600 [facility] Last Admin: 10/19/17 05:43 Dose: 100 mcg Nifedipine (Procardia Cap*) 20 mg PO TID [facility] Last Admin: 10/19/17 13:37 Dose: 20 mg Ondansetron HCl (Zofran Inj*) 4 mg IV Q6H PRN PRN Reason: NAUSEA Last Admin: 10/13/17 17:05 Dose: 4 mg Polyethylene Glycol/Electrolytes (Miralax*) 17 gm PO BID PRN PRN Reason: CONSTIPATION Potassium Chloride (Klor Con Er Tab*) 20 meq PO DAILY [facility] Last Admin: 10/19/17 07:47 Dose: 20 meq Warfarin Sodium (Coumadin Tab(*)) 5 mg PO DAILY@1700 [facility] PRN Reason: Protocol Last Admin: 10/18/17 18:17 Dose: 5 mg Vital Signs - 8 hr 10/19/17 10/19/17 10/19/17 07:31 07:55 08:28 Temperature 98.6 F Pulse Rate 75 75 Respiratory 20 20 20 Rate Blood Pressure 173/62 (mmHg) O2 Sat by Pulse 99 99 Oximetry 10/19/17 10/19/17 09:14 11:33 Temperature 97.6 F Pulse Rate 73 Respiratory 20 Rate Blood Pressure 118/51 152/59 (mmHg) O2 Sat by Pulse 100 Oximetry Oxygen Devices in Use Now: Nasal Cannula Appearance: Alert, NAD Ears/Nose/Mouth/Throat: NL Teeth, Lips, Gums Neck: NL Appearance and Movements; NL JVP, Trachea Midline Respiratory: Symmetrical Chest Expansion and Respiratory Effort, Clear to Auscultation, - Cardiovascular: NL Sounds; No Murmurs; No JVD, RRR Abdominal: NL Sounds; No Tenderness; No Distention Extremities: No Edema Neurological: Alert and Oriented x 3, NL Gait Nutrition: Taking PO's Result Diagrams: 10/19/17 05:11 10/19/17 05:11 Additional Lab and Data: Microbiology and Other Data: Microbiology 10/03/17 20:39 Urine Culture - Final Urine No Growth (<1,000 CFU/mL) 10/03/17 23:33 Nasal Screen MRSA (PCR)(RHIANNON) - Final Nasal Mrsa Not Detected 10/03/17 23:33 Influenza Types A,B Antigen (RHIANNON) - Final Nasal Specimen received for Influenza A/B Molecular testing Assess/Plan/Problems-Billing Assessment: Ms. Hannah is a 72 yo female with history of ckd , copd, and diastolic heart failure admitted with hypoxia and found to have worsening renal function, now started on hemodialysis. - Patient Problems (1) CKD (chronic kidney disease) stage 5, GFR less than 15 ml/min Code(s): N18.5 - CHRONIC KIDNEY DISEASE, STAGE 5 SNOMED Code(s): 033352328 Comment: - Tolerating HD without issue - Volume issues resolved - Management per Dr. Boyd - Per dialysis, waiting for confirmation for outpatient HD for T, Th, Sat at [facility] (2) Atrial fib/flutter, transient Code(s): RXV5743 - SNOMED Code(s): 655116110 Comment: - Currently in RSR - Discussed AC with Dr. Boyd, coumadin initiated, follow INR - Can follow INR as an outpatient, does not require rhythm/rate control at this time (3) Anemia Code(s): D64.9 - ANEMIA, UNSPECIFIED SNOMED Code(s): 402107925 Comment: - HH low/stable - Suspect ACD and ESRD (4) Debility Code(s): R53.81 - OTHER MALAISE SNOMED Code(s): 92283704 Comment: - Continued improvement in ADLs - Needs walker and reconditioning with outpatient or home PT at [place] (5) Elevated troponin Code(s): R74.8 - ABNORMAL LEVELS OF OTHER SERUM ENZYMES SNOMED Code(s): 346505554 Comment: - In the setting of ESRD, likely demand - No chest pain (6) Respiratory failure with hypoxia Code(s): J96.91 - RESPIRATORY FAILURE, UNSPECIFIED WITH HYPOXIA SNOMED Code(s) : 87738303453808969 Comment: - Acute on chronic - Back to baseline O2 requirements of 2-3L - Walking sats stable per PT note 10/17 (7) COPD (chronic obstructive pulmonary disease) Code(s): J44.9 - CHRONIC OBSTRUCTIVE PULMONARY DISEASE, UNSPECIFIED SNOMED Code(s): 99759412 Comment: - No evidence of exacerbation. - Continue PRN nebs. (8) Diastolic CHF Code(s): I50.30 - UNSPECIFIED DIASTOLIC (CONGESTIVE) HEART FAILURE SNOMED Code (s): 795431787 Comment: - Acute exacerbation resolved with dialysis, diuresis and O2 support. (9) HTN (hypertension) Code(s): I10 - ESSENTIAL (PRIMARY) HYPERTENSION SNOMED Code(s): 19588719 Comment: - Stable on hydralazine, carvedilol, isosorbide mononitrate, nifedipine, and Clonidine at decreased dose (10) Hypothyroidism Code(s): E03.9 - HYPOTHYROIDISM, UNSPECIFIED SNOMED Code(s): 72559854 Comment: - TSH wnl 10/03/17. - Continue levothyroxine. (11) Full code status Current Visit: Yes Status: Acute Code(s): Z78.9 - OTHER SPECIFIED HEALTH STATUS SNOMED Code(s): 215626075 Status and Disposition: Remain inpatient until outpatient dialysis chair is confirmed.
[2017-10-19] MEDS: Warfarin TAB(*) 5 MG PO SCH (17:05)
[2017-10-19] MEDS: clonazePAM TAB(*) 0.5 MG PO PRN (20:46)
[2017-10-20 05:32] LABS: ABS Basophils 0.1 10^3/ul (0-0.2); ABS Eosinophils 0.1 10^3/ul (0-0.6); ABS Monocytes 0.7 10^3/ul (0-0.8); ABS Neutrophils 5.5 10^3/ul (1.5-7.7); ABS Nucleated RBC 0 10^3/ul; Eosinophil % 1.5 % (0-6); Hematocrit 29 % (35-47); Hemoglobin 9.2 g/dl (12.0-16.0); Lymphocyte % 13.2 % (25-47); Mean Corpuscular HGB Conc 32 g/dl (31-36); Mean Corpuscular Hemoglobin 30 pg (27-31); Mean Corpuscular Volume 93 fL (80-97); Mean Platelet Volume 7.1 um3 (7.4-10.4); Nucleated Red Blood Cells % 0.1; Platelet Count 176 10^3/ul (150-450); Red Blood Count 3.06 10^6/ul (4.0-5.4); Red Cell Distribution Width 20 % (10.5-15); White Blood Count 7.4 10^3/ul (3.5-10.8)
[2017-10-20 05:39] LABS: INR 0.99 (0.77-1.02)
[2017-10-20] MEDS: Heparin VIAL(*) 5000 UNITS/ML VIAL (FIVE THOUSAND) SUBCUT SCH ×2 (05:48→15:09)
[2017-10-20] MEDS: Levothyroxine TAB* 100 MCG TAB PO SCH (05:49)
[2017-10-20] MEDS: hydrALAZINE IV* 20 MG/ML VIAL IV PRN (05:49)
[2017-10-20] MEDS: NIFEdipine CAP* 10 MG PO SCH ×2 (08:57→15:31)
[2017-10-20] MEDS: hydrALAZINE TAB* 25 MG PO SCH ×2 (08:58→15:08)
[2017-10-20] MEDS: Carvedilol TAB* 25 MG PO SCH (08:58)
[2017-10-20] MEDS ORDERED: Heparin DIALYSIS ONLY(*) 1,000 UNITS/ML VIAL DIALYSIS ONE (12:00)
[2017-10-20] MEDS ORDERED: Epoetin Alfa* 10,000 UNITS/ML VIAL IV ONE (12:00)
[2017-10-20] MEDS: Furosemide TAB* 40 MG PO SCH (15:08)
[2017-10-20] MEDS: Isosorbide Mononitrate ER TAB* 60 MG PO SCH (15:08)
[2017-10-20] MEDS: Potassium Chlor TAB* 10 MEQ TAB.ER PO SCH (15:09)
[2017-10-20 16:37] VITALS: BP 180/57
[2017-10-20] MEDS: Warfarin TAB(*) 5 MG PO SCH (18:19)
--- NOTE | 2017-10-21 01:13 | DS ---
CC: Dr. Boyd * DISCHARGE SUMMARY: DATE OF ADMISSION: 10/03/17 DATE OF DISCHARGE: 10/20/17 ATTENDING FOR THIS ADMISSION: Emerson Hawkins MD PRIMARY CARE PHYSICIAN AND CLOTH SHRINKING MACHINE OPERATOR HELPER: Dr. Boyd. MY ATTENDING FOR TODAY: Ale Rios DO * (DICTAETD BY KIP LOVELL NP) HOSPITAL COURSE: This is a 72-year-old female patient known to Dr. Boyd's service for having chronic renal failure. She had been progressing over a year , having some issues with her renal function, however, she presented to the emergency department on 10/03/17 with a complaint of shortness of breath. It was found that the patient went into respiratory failure requiring BiPAP and an ICU admission for 2 days. She was weaned off BiPAP and then remained on oxygen via nasal cannula, however, also during that time, she went into a narrow complex SVT and then into an atrial fibrillation/flutter and some flash heart failure. The patient was seen initially by the crystal grower, Dr. Aponte on the day of admission. Dr. Faustino Boyd consulted on the patient on 10/07/17. At that point, her progressive renal failure including fluid overload and heart failure required more immediate intervention. Hemodialysis was then recommended. However, prior to, she was seen by Dr. Neelam Roland on 10/08/17, for her SVT and also hypotension and atrial flutter. At that point, it was decided that the patient should not be initiated on anticoagulation because she was going to have insertion of a dialysis cath. Medications were titrated to reduce her heart rate. She was in rapid ventricular response and on and off Cardizem at different times. The patient then underwent hemodialysis catheter insertion on 10/10/[address] Medina. That procedure went well. She had no problems and then hemodialysis was initiated on 10/11/17. She had her first dialysis on that day and tolerated it well. She has not had any further issues with her heart rate or her renal function since stabilizing on her hemodialysis. The patient was cleared to start Coumadin daily which was started 2 days ago. She is not currently therapeutic on her INR. However, this can be followed as an outpatient. The patient was stabilized for discharge today on . There was an issue with an outpatient dialysis center, however, it was determined that she will go to [facility] in [place]. She will be started on 10/24/17 on a Monday, , Monday schedule. She underwent dialysis today, so she will be clear for the weekend. She is to start on her outpatient dialysis next week. DISCHARGE DIAGNOSES: 1. Acute on chronic renal failure, now on hemodialysis. 2. Atrial fibrillation flutter, transient. 3. Anemia. 4. General weakness and debility. 5. Elevated troponins. 6. Respiratory failure with hypoxia. 7. History of chronic obstructive pulmonary disease. 8. Diastolic heart failure, acute on chronic. 9. Hypertension with hypotension in the setting of chronic respiratory failure. 10. Hypothyroidism. DISCHARGE MEDICATIONS: Include: 1. Furosemide 40 mg daily. 2. Nifedipine 20 mg 3 times a day. 3. Coumadin 5 mg daily. 4. Clonidine patch 0.1 mg every 7 days. 5. Klonopin 0.25 mg 2 times a day as needed. 6. Hydralazine tablets 50 mg 3 times a day. 7. Carvedilol 25 mg 2 times a day. 8. Celexa 20 mg daily at bedtime. 9. Pepcid 20 mg daily. 10. Atrovent 0.5 mg nebulized q.4 hours as needed. 11. Imdur 60 mg p.o. daily. 12. Levothyroxine 100 mcg daily. 13. Turmeric supplement 1 g p.o. daily. PHYSICAL EXAMINATION: Vital Signs: On day of discharge, blood pressure 178/65 predialysis, heart rate 83, temperature 98.4, respiratory rate 16, O2 saturation 93% on 3 L nasal cannula. HEENT: The patient is atraumatic, normocephalic. PERRLA with nonicteric sclerae. Neck is supple, nontender. No JVD noted. No carotid bruits auscultated. No thyromegaly appreciated. Cardiovascular: S1, S2 are present. Rate is irregular. Rhythm is currently regular sinus. Lungs are clear at the apices bilaterally to auscultation, diminished at the bases. No wheezing, rhonchi, or rales, noted. Abdomen is soft, nontender, nondistended. Positive bowel sounds in all 4 quadrants. No organomegaly appreciated. Musculoskeletal: There is no clubbing, no cyanosis, and no edema. She has bipedal trace edema to the ankles with +2 distal pulses palpable. She has a steady gait with walker assistance. Neurologic: She is grossly intact with no focal deficits. Psychiatric: She is cooperative and appropriate. LABORATORY DATA: WBC is 7.4, RBC is 3.06, hemoglobin 9.2, hematocrit 29, platelets 176,000. Sodium 138, potassium 3.8, chloride 102, CO2 of 30, BUN 17, creatinine 2.95. GFR 15.6. Glucose 116. Calcium between 8.5 and 9. Magnesium 2.1, bilirubin 0.50, AST 13, ALT 9, alk phos 66, total protein 5.7, albumin 3.2, globulin 2.5. TSH 5.09. DISCHARGE DISPOSITION: After much consideration, it was determined the patient can be discharged to home with VNS services and outpatient dialysis. That plan has been put in place with case management and the patient's family. DISCHARGE PLAN: Again, she will follow up with [facility] in [place] this Monday. The patient is also instructed to follow up with Dr. Faustino Boyd, her pci security consultant. She may also follow up with Dr. Neelam Roland of Cardiology on an as needed basis. The patient states her understanding of her discharge plan. Her was very involved in the decision making, also states his understanding of her discharge plan, medications at the time of discharge and her followups. KIP LOVELL NP [id number]/[facility] #: [id number] KASEY
== END 2017-10-20 18:30 | disposition home health service (06) | DRG 194 ==
LOC: ED 18:49 → ICU 20:32 → MEDTELE 10-05 13:22
PROVIDERS: ADMIT Hospitalist; ATTEND Internal Medicine
PROC: 5A09357 Assistance with Respiratory Ventilation, Less than 24 Consecutive Hours, Continuous Positive Airway Pressure (ICD-10-PCS; principal; 2017-10-03)
PROC: 05HM33Z Insertion of Infusion Device into Right Internal Jugular Vein, Percutaneous Approach (ICD-10-PCS; 2017-10-10)
PROC: 5A1D70Z Performance of Urinary Filtration, Intermittent, Less than 6 Hours Per Day (ICD-10-PCS; 2017-10-11)
PROC: 5A1D70Z Performance of Urinary Filtration, Intermittent, Less than 6 Hours Per Day (ICD-10-PCS; 2017-10-13)
PROC: 5A1D70Z Performance of Urinary Filtration, Intermittent, Less than 6 Hours Per Day (ICD-10-PCS; 2017-10-16)
PROC: 5A1D70Z Performance of Urinary Filtration, Intermittent, Less than 6 Hours Per Day (ICD-10-PCS; 2017-10-18)
PROC: 5A1D70Z Performance of Urinary Filtration, Intermittent, Less than 6 Hours Per Day (ICD-10-PCS; 2017-10-20)
DX: I13.2 Hypertensive heart and chronic kidney disease with heart failure and with stage 5 chronic kidney disease, or end stage renal disease (principal); I50.33 Acute on chronic diastolic (congestive) heart failure; J96.21 Acute and chronic respiratory failure with hypoxia; E87.2 Acidosis; N18.5 Chronic kidney disease, stage 5; I47.1 Supraventricular tachycardia; I48.92 Unspecified atrial flutter; N17.9 Acute kidney failure, unspecified; J44.9 Chronic obstructive pulmonary disease, unspecified; E78.00 Pure hypercholesterolemia, unspecified; F41.9 Anxiety disorder, unspecified; F32.9 Major depressive disorder, single episode, unspecified; E03.9 Hypothyroidism, unspecified; K21.9 Gastro-esophageal reflux disease without esophagitis; R53.81 Other malaise; D64.9 Anemia, unspecified; I25.10 Atherosclerotic heart disease of native coronary artery without angina pectoris; E66.9 Obesity, unspecified; I08.3 Combined rheumatic disorders of mitral, aortic and tricuspid valves; I77.810 Thoracic aortic ectasia; R51 Headache; E87.6 Hypokalemia; I95.9 Hypotension, unspecified; I48.91 Unspecified atrial fibrillation; R74.8 Abnormal levels of other serum enzymes; Z85.42 Personal history of malignant neoplasm of other parts of uterus; Z99.81 Dependence on supplemental oxygen; Z82.49 Family history of ischemic heart disease and other diseases of the circulatory system; Z90.710 Acquired absence of both cervix and uterus; Z95.5 Presence of coronary angioplasty implant and graft; Z81.8 Family history of other mental and behavioral disorders; Z88.1 Allergy status to other antibiotic agents; Z91.040 Latex allergy status; Z91.018 Allergy to other foods; Z87.891 Personal history of nicotine dependence; Z79.01 Long term (current) use of anticoagulants; Z68.31 Body mass index [BMI] 31.0-31.9, adult
CPT/HCPCS: 36415; 36558; 36600; 71045; 76937; 77001; 80048; 80053; 80074; 80162; 81003; 81015; 82550; 82565; 82570; 82803; 83516; 83735; 83880; 84100; 84443; 84484; 84520; 84540; 85025; 85027; 85610; 85730; 86480; 87086; 87502; 87641; 90935; 93005; 93306; 93970; 94640; 94660; 94760; 99156; 99157; 99285; A9270-GY; C1752; G0257; G8978-GP-CJ; G8978-GP-CK; G8978-GP-CL; G8979-GP-CI; G8979-GP-CJ; G8987-GO-CK; G8988-GO-CI; G8989-GO-CI; J0153; J0360; J0690; J0885; J1160; J1642; J1644; J1940; J2060; J2250; J2270; J2405; J2930; J3010; J3490

== ENCOUNTER 2017-11-10 12:02 | Day surgery (SDC) | payer BC ==
--- NOTE | 2017-11-08 17:24 | HP ---
HISTORY AND PHYSICAL: DATE OF ADMISSION: 11/10/17 CHIEF COMPLAINT: Endstage renal disease. HISTORY OF PRESENT ILLNESS: The patient is a 72-year-old female with endstage renal failure, currently dialyzed via a temporary dialysis catheter tunneled to the right internal jugular. The patient will require hemodialysis in the future ; not an ideal candidate for peritoneal dialysis because of prior abdominal surgeries and for this reason she is being referred for creation of dialysis access. PAST MEDICAL HISTORY: The patient's past medical history is remarkable for severe hypertension, renal failure, peripheral vascular disease, history of a ruptured thoracic aneurysm, history of a "leaky valve." The patient also has history of tobacco use for 30 years approximately 1 pack a day and quit approximately 4 months ago. CURRENT MEDICATIONS: 1. Levothyroxine 100 mcg q.d. 2. Isosorbide ER 60 mg p.o. q.d. 3. Coumadin 5 mg p.o. q.d. 4. Citalopram 20 mg p.o. q.d. 5. Famotidine 20 mg p.o. q.d. 6. Hydralazine 50 mg p.o. t.i.d. 7. Nifedipine 10 mg p.o. q.d. 8. Carvedilol 25 mg p.o. b.i.d. 9. Klonopin 0.5 mg p.o. q.d. 10. Clonidine 0.1 mg p.o. q.d. ALLERGIES: Patient is allergic to LATEX, TAPE, TEA, WALNUT, NICKEL, and ERYTHROMYCIN. FAMILY HISTORY: The patient's family history is remarkable for hypertension, her father suffered from prostate, mother had diabetes and heart disease, sisters had cancer and respiratory problems. A brother had hypertension. REVIEW OF SYSTEMS: Contributory as above patient's past medical history. PHYSICAL EXAMINATION GENERAL: The patient is alert and oriented, uses supplemental oxygen. HEAD AND NECK: No neck nodes or masses. No JVD. There is an internal jugular dialysis catheter on the right side of the neck. LUNGS: Clear to auscultation bilaterally. HEART: Regular. No murmurs auscultated. ABDOMEN: Globular. No masses are palpable. There is a long midline incision from the umbilicus to the symphysis pubis, well healed from prior surgeries. There is a large abdominal panniculus over the groin. EXTREMITIES: The patient has palpable pulses bilaterally. In the upper extremities, the patient has palpable brachial axillary and radial pulses bilaterally both being strong. The patient has visible forearm veins bilaterally better on the right side than on the left. The Zoran test is negative bilaterally. DIAGNOSTIC STUDIES: An ultrasound mapping of the veins of the upper extremity was done and the findings are as follows: On the right side, at the level of the right wrist cephalic measures 3.5 mm. The cephalic vein forearm distance to the skin is 5.6 mm. The radial artery diameter is 3.5 mm. The upper arm cephalic is 3.7 mm. The cephalic distance to the skin is 4.3 mm. The basilic is 4.3 mm on the right side. On the left, in the wrist, the basilic is 2.5 mm and in the upper arm is 3.7 mm. ASSESSMENT/PLAN: The patient appears to have potentially adequate veins for ho-chunk AV fistula. Patient understands that the 30% of ho-chunk AV fistulae do not mature. There is a potential for closure and thrombosis. There is a potential for bleeding, infection. Patient understands that she may require recurrent trips to the operating room for the fistula to create new ones because of her underlying condition. At the present time, patient understands, agrees, and wishes to proceed. The plan is then to start with a right radiocephalic fistula. If the veins do not appear to be adequate then we may consider placement of dialysis graft. [id number]/[facility] #: [id number] MTDD
[~2017-11-10 12:02] MED LIST: Buffered Lidocaine 0.9% SYRIN* 5 ML/SYR SYRINGE INTRADERM ONE; Dexamethasone IV* 4 MG/ML 1 ML (4 MG) IV SLOW PU ONE; NS 0.45% 1000 ML BAG* 1,000 ML IV SCH
[2017-11-10] MEDS ORDERED: Dexamethasone IV* 4 MG/ML 1 ML (4 MG) ONE (12:16)
[2017-11-10] MEDS ORDERED: Buffered Lidocaine 0.9% SYRIN* 5 ML/SYR SYRINGE ONE (12:16)
[2017-11-10] MEDS ORDERED: ceFAZolin 2 GM PREMIX (*) 2 GM/50 ML BAG IVPB ONE (12:16)
[2017-11-10] MEDS ORDERED: Ondansetron INJ* 2 MG/ML VIAL ONE (13:25)
[2017-11-10] MEDS ORDERED: Propofol* 10 MG/ML 20 ML BTL IV PUSH ONE (13:25)
[2017-11-10] MEDS ORDERED: Midazolam* 1 MG/ML 5 ML VIAL (5 MG) ONE (13:26)
[2017-11-10] MEDS ORDERED: fentaNYL* 50 MCG/ML 2 ML VIAL (100 MCG VIAL) ONE (13:26)
[2017-11-10] MEDS ORDERED: Heparin VIAL(*) 5000 UNITS/ML VIAL (FIVE THOUSAND) ONE (13:54)
[2017-11-10] MEDS ORDERED: Lidocaine 1% INJ* 10 MG/ML 30 ML SDV ONE (13:55)
[2017-11-10] MEDS ORDERED: Heparin DIALYSIS ONLY(*) 1,000 UNITS/ML VIAL ONE (13:55)
[2017-11-10] MEDS ORDERED: Naloxone* 0.4 MG/ML 1 ML VIAL IV PRN (14:50)
[2017-11-10 17:03] VITALS: BP 144/64
--- NOTE | 2017-11-11 11:50 | OP ---
DATE OF OPERATION: 11/10/17 - [facility] DATE OF : 45 SURGEON: Reginald Troy MD BRICK LOADER: Brenda Warren NP ANESTHESIA: Local plus MAC. PRE-OP DIAGNOSIS: End-stage renal disease. POST-OP DIAGNOSIS: End-stage renal disease. OPERATIVE PROCEDURE: Right radiocephalic arteriovenous fistula. ESTIMATED BLOOD LOSS: None. DESCRIPTION OF PROCEDURE: The patient was taken to the procedure room. She underwent proper identification of the right arm. Marking of the cephalic veins were done as well preoperatively. The patient was then placed in the supine position. She was prepped and draped in the usual sterile fashion. Lidocaine 1% was used to infiltrate on the lateral aspect of her right wrist. After a good level of anesthesia was obtained, an oblique incision was performed in this area. Incision was carried down through the skin and subcutaneous tissue. Dissection was done identifying the cephalic vein. This was dissected off all the way down to the base of the wrist and mobilized. After this was done, the radial artery was exposed, dissected off encircling vessel loops proximally and distally and care was taken to mobilize the radial nerve out of the way, but was preserved. After this was completed, the distal end of the cephalic vein was clamped, ligated with 4-0 Vicryl, and the vein was then spatulated and marked for proper orientation, and it was clamped proximally with a . Use of coronary dilators were done going easily to 2 mm in diameter and 2.5, and after this was completed, we then proceeded to clamp the radial artery proximally and distally, and arteriotomy was then performed with an 11 blade and extended with Smith scissors. The end of the cephalic transected vein already prepared and spatulated was then anastomosed to the radial artery using 6-0 Prolene running suture. Once this was completed , we then proceeded to check the area for hemostasis and control. Flow was established into the drain. One can see the vein filling up and there was a Doppler flow in the cephalic vein, distally in the radial artery and proximally in the radial artery. The hand has good capillary refill. No bleeding was noted. After this, the subcutaneous tissue was closed with interrupted 4-0 Vicryl suture, and the skin was closed with a subcuticular 4-0 Monosyn and Dermabond. After this was completed, the patient was taken in good condition to the recovery room. [id number]/[facility] #: [id number] MTDD
== END 2017-11-10 17:04 | disposition home or self-care (01) ==
LOC: OR 12:02
PROVIDERS: ATTEND Surgery
DX: N18.6 End stage renal disease (principal); I12.0 Hypertensive chronic kidney disease with stage 5 chronic kidney disease or end stage renal disease; I73.9 Peripheral vascular disease, unspecified; F17.211 Nicotine dependence, cigarettes, in remission; Z79.01 Long term (current) use of anticoagulants; Z99.2 Dependence on renal dialysis
CPT/HCPCS: J0690; J1100; J1644; J2250; J2405; J2704; J3010

== ENCOUNTER 2017-11-23 22:25 | Inpatient (IN) | payer BC ==
[2017-11-23] MEDS ORDERED: fentaNYL* 50 MCG/ML 2 ML VIAL (100 MCG VIAL) ONE (22:33)
[2017-11-23] MEDS ORDERED: fentaNYL* 50 MCG/ML 2 ML VIAL (100 MCG VIAL) IV SLOW PU ONE (22:37)
[2017-11-23] MEDS ORDERED: nitroGLYCERIN DRIP* 25,000 MCG/250 ML BTL IV ONE (22:39)
[2017-11-23] MEDS ORDERED: Propofol* 500 MG/50 ML BTL IV SCH ×2 (23:00→23:45)
[2017-11-23 23:01] LABS: Hematocrit 33 % (35-47); Mean Corpuscular HGB Conc 30 g/dl (31-36); Mean Corpuscular Hemoglobin 28 pg (27-31); Mean Corpuscular Volume 94 fL (80-97); Mean Platelet Volume 7.7 um3 (7.4-10.4); Platelet Count 238 10^3/ul (150-450); Red Blood Count 3.52 10^6/ul (4.0-5.4); Red Cell Distribution Width 19 % (10.5-15); White Blood Count 14.6 10^3/ul (3.5-10.8)
[2017-11-23 23:02] LABS: ABS Basophils 0.2 10^3/ul (0-0.2); ABS Eosinophils 0.2 10^3/ul (0-0.6); ABS Monocytes 1.1 10^3/ul (0-0.8); ABS Neutrophils 9.1 10^3/ul (1.5-7.7); ABS Nucleated RBC 0 10^3/ul; Eosinophil % 1.4 % (0-6); INR 1.16 (0.77-1.02); Lymphocyte % 27.3 % (25-47); Nucleated Red Blood Cells % 0
[2017-11-23 23:15] LABS: EGFR Non-African American 17.6 (>60)
[2017-11-23] MEDS ORDERED: Propofol* 100 ML ONE (23:53)
[2017-11-24] MEDS: Propofol* 100 ML IV SCH ×6 (00:02→23:11)
--- NOTE | 2017-11-24 00:02 | ED ---
Respiratory - HPI Summary HPI Summary: 72-year-old female history of dialysis was completed earlier today, unclear other past medical history, brought to the emergency department by EMS after complaint of shortness of breath acute onset at home when she was using the bathroom. On initial presentation, patient was obtunded and not following commands and had very few voluntary movements of the upper and lower extremities. Patient intubated immediately upon arrival and not requiring any sedative medications or paralytics. History limited by acuity of clinical condition. - History of Current Complaint Chief Complaint: EDRespiratoryDistress Stated Complaint: DIFF. BREATHING Pain Intensity: 0 Sputum Amount: None - Allergy/Home Medications Allergies/Adverse Reactions: Allergies Allergy/AdvReac Type Severity Reaction Status Date / Time erythromycin base Allergy See Comment Verified 11/23/17 22:41 latex Allergy Itching Verified 11/23/17 22:41 nickel Allergy Hives Verified 11/23/17 22:41 walnut Allergy Anaphylatic Verified 11/23/17 22:41 Shock TEA Allergy Difficulty Uncoded 11/23/17 22:41 Breathing PMH/Surg Hx/FS Hx/Imm Hx Endocrine/Hematology History: Reports: Hx Thyroid Disease, Hx Anemia - after aneurysm rupture and surgery Denies: Hx Diabetes, Hx Sickle Cell Disease Cardiovascular History: Reports: Hx Aneurysm - repair 2 years ago, Hx Angina, Hx Congestive Heart Failure, Hx Hypercholesterolemia, Hx Hypertension, Hx Valvular Heart Disease - leaky valve Denies: Other Cardiovascular Problems/Disorders Respiratory History: Reports: Hx Chronic Obstructive Pulmonary Disease (COPD), Other Respiratory Problems/Disorders - PTX Denies: Hx Asthma GI History: Reports: Hx Gastroesophageal Reflux Disease, Hx Hiatal Hernia Denies: Other GI Disorders History: Reports: Hx Chronic Renal Failure, Hx Renal Disease - stage 4 Denies: Hx Kidney Stones, Other Problems/Disorders Musculoskeletal History: Reports: Other Musculoskeletal History - broke right ankle age 15 Denies: Hx Arthritis, Hx Osteoporosis Sensory History: Reports: Hx Contacts or Glasses Denies: Hx Hearing Aid Opthamlomology History: Reports: Hx Contacts or Glasses Neurological History: Denies: Other Neuro Impairments/Disorders Psychiatric History: Reports: Hx Anxiety, Hx Depression - Cancer History Cancer Type, Location and Year: uterine CA- Hx Chemotherapy: No - Surgical History Surgery Procedure, Year, and Place: 3 right foot surgery, hysterectomy(urterine CA) Hx Anesthesia Reactions: No - Immunization History Date of Tetanus Vaccine: unk Date of Influenza Vaccine: unk Infectious Disease History: No Infectious Disease History: Denies: Traveled Outside the [place] in Last 30 Days - Family History Known Family History: Positive: Cardiac Disease - mother - Social History Alcohol Use: None Hx Substance Use: No Substance Use Type: Reports: None Hx Tobacco Use: Yes Smoking Status (MU): Former Smoker Amount Used/How Often: 1/2 PPD Have You Smoked in the Last Year: Yes Review of Systems - ROS Summary Review of Systems Summary: Unable to be obtained due to acuity of condition All Other Systems Reviewed And Are Negative: No Physical Exam - Summary Physical Exam Summary: Gen.: In acute respiratory distress with agonal breathing, not responsive to commands HEENT: Normocephalic atraumatic, no obvious neck masses, no obvious abnormalities of the posterior oropharynx Cardiovascular: severely hypertensive, sinus tachycardia on monitor, normal distal pulses in all 4 extremities Respiratory: Inspiratory crackles bilaterally, diminished breath sounds, agonal breathing, bag valve mask initiated immediately GI: No abdominal masses or tenderness Skin: Warm and dry Musculoskeletal: few voluntary movements of the upper and lower extremities on arrival Psych: Initially unresponsive to commands Neuro: GCS eyes 3, verbal 1, motor 4 total 8 Vital Signs On Initial Exam: Initial Vitals Temp Pulse Resp BP Pulse Ox 36.4 C 109 17 246/117 100 11/23/17 22:30 11/23/17 22:30 11/23/17 22:30 11/23/17 22:30 11/23/17 22:30 Procedures - Intubation Intubation Method: orotracheal Tube Size (cm): 7.5 Breath Sounds after Intubation: equal Intubation Complications: no complications Post Intubation Xray: Yes - ET tube in place Diagnostics - Vital Signs Vital Signs Temp Pulse Resp BP Pulse Ox 11/23/17 22:56 103 232/95 100 11/23/17 22:38 104 22 224/100 100 11/23/17 22:34 109 30 187/135 100 11/23/17 22:32 104 20 100 11/23/17 22:30 36.4 C 109 17 246/117 100 - Laboratory Lab Results: Lab Results 11/23/17 11/23/17 11/23/17 Range/Units 22:25 22:25 22:25 WBC 14.6 H (3.5-10.8) 10^3/ul RBC 3.52 L (4.0-5.4) 10^6/ul Hgb 10.0 L (12.0-16.0) g/dl Hct 33 L (35-47) % MCV 94 (80-97) fL MCH 28 (27-31) pg MCHC 30 L (31-36) g/dl RDW 19 H (10.5-15) % Plt Count 238 (150-450) 10^3/ul MPV 7.7 (7.4-10.4) um3 Neut % (Auto) 62.4 (38-83) % Lymph % (Auto) 27.3 (25-47) % [place] % (Auto) 7.6 H (0-7) % Eos % (Auto) 1.4 (0-6) % Baso % (Auto) 1.3 (0-2) % Absolute Neuts (auto) 9.1 H (1.5-7.7) 10^3/ul Absolute Lymphs (auto) 4.0 (1.0-4.8) 10^3/ul Absolute Monos (auto) 1.1 H (0-0.8) 10^3/ul Absolute Eos (auto) 0.2 (0-0.6) 10^3/ul Absolute Basos (auto) 0.2 (0-0.2) 10^3/ul Absolute Nucleated RBC 0 10^3/ul Nucleated RBC % 0 INR (Anticoag Therapy) 1.16 H (0.77-1.02) APTT 30.8 (26.0-36.3) seconds D-Dimer, Quantitative > 1050 H (Less Than 230) ng/mL Sodium 136 L (139-145) mmol/L Potassium 4.4 (3.5-5.0) mmol/L Chloride 103 (101-111) mmol/L Carbon Dioxide 25 (22-32) mmol/L Anion Gap 8 (2-11) mmol/L BUN 18 (6-24) mg/dL Creatinine 2.66 H (0.51-0.95) mg/dL Est GFR ( Amer) 22.7 (>60) Est GFR (Non-Af Amer) 17.6 (>60) BUN/Creatinine Ratio 6.8 L (8-20) Glucose 258 H (70-100) mg/dL Lactic Acid (0.5-2.0) mmol/L Calcium 8.6 (8.6-10.3) mg/dL Magnesium 2.3 (1.9-2.7) mg/dL Total Bilirubin 0.50 (0.2-1.0) mg/dL AST 25 (13-39) U/L ALT 11 (7-52) U/L Alkaline Phosphatase 73 (34-104) U/L Troponin I 0.13 H* (<0.04) ng/mL B-Natriuretic Peptide ( - 100) pg/mL Total Protein 7.0 (6.4-8.9) g/dL Albumin 3.8 (3.2-5.2) g/dL Globulin 3.2 (2-4) g/dL Albumin/Globulin Ratio 1.2 (1-3) Blood Type Antibody Screen 11/23/17 11/23/17 11/23/17 Range/Units 22:25 22:25 22:25 WBC (3.5-10.8) 10^3/ul RBC (4.0-5.4) 10^6/ul Hgb (12.0-16.0) g/dl Hct (35-47) % MCV (80-97) fL MCH (27-31) pg MCHC (31-36) g/dl RDW (10.5-15) % Plt Count (150-450) 10^3/ul MPV (7.4-10.4) um3 Neut % (Auto) (38-83) % Lymph % (Auto) (25-47) % [place] % (Auto) (0-7) % Eos % (Auto) (0-6) % Baso % (Auto) (0-2) % Absolute Neuts (auto) (1.5-7.7) 10^3/ul Absolute Lymphs (auto) (1.0-4.8) 10^3/ul Absolute Monos (auto) (0-0.8) 10^3/ul Absolute Eos (auto) (0-0.6) 10^3/ul Absolute Basos (auto) (0-0.2) 10^3/ul Absolute Nucleated RBC 10^3/ul Nucleated RBC % INR (Anticoag Therapy) (0.77-1.02) APTT (26.0-36.3) seconds D-Dimer, Quantitative (Less Than 230) ng/mL Sodium (139-145) mmol/L Potassium (3.5-5.0) mmol/L Chloride (101-111) mmol/L Carbon Dioxide (22-32) mmol/L Anion Gap (2-11) mmol/L BUN (6-24) mg/dL Creatinine (0.51-0.95) mg/dL Est GFR ( Amer) (>60) Est GFR (Non-Af Amer) (>60) BUN/Creatinine Ratio (8-20) Glucose (70-100) mg/dL Lactic Acid 3.8 H* (0.5-2.0) mmol/L Calcium (8.6-10.3) mg/dL Magnesium (1.9-2.7) mg/dL Total Bilirubin (0.2-1.0) mg/dL AST (13-39) U/L ALT (7-52) U/L Alkaline Phosphatase (34-104) U/L Troponin I (<0.04) ng/mL B-Natriuretic Peptide 1319 H ( - 100) pg/mL Total Protein (6.4-8.9) g/dL Albumin (3.2-5.2) g/dL Globulin (2-4) g/dL Albumin/Globulin Ratio (1-3) Blood Type A Positive Antibody Screen Pending Result Diagrams: 11/23/17 22:25 11/23/17 22:25 Lab Statement: Any lab studies that have been ordered have been reviewed, and results considered in the medical decision making process. Disposition - Course Assessment/Plan: B lines bilaterally seen on bedside ultrasound, and the contents of severe hypertension suspicious for acute pulmonary edema. Copious secretions were seen on initial fiber-optic laryngoscopy, patient tolerated intubation without sedative or paralytic medications. Patient's mental status gradually started to improve after intubation, patient placed on propofol for sedation and comfort. Hemodynamic stable, currently on nitroglycerin 50 mics per minute, propofol titrated for sedation, admitted for further treatment - Diagnoses Provider Diagnoses: Respiratory failure, Acute pulmonary edema - Physician Notifications Discussed Care Of Patient With: Stuart Gupta Instructed by Provider To: Admit As Inpatient Discharge - Sign-Out/Discharge Documenting (check all that apply): Discharge/Admit/Transfer - Discharge Plan Condition: Stable Disposition: ADMITTED TO [facility] Referrals: Iglesia Lockhart MD [Primary Care Provider] - - Billing Disposition and Condition Condition: STABLE Disposition: [facility]
--- NOTE | 2017-11-24 00:57 | HP ---
H&P (Free Text) History and Physical: PCP: Malcolm Lockhart MD Nephrology: Brian Boyd MD Date/Time: 11/24/2017 0050 CC: SOB HPI: Mrs Hannah is a 72YO female HX ESRD-HD, descending thoracic aneurysm s/p repair, CHF, COPD, uterine CA, HTN, HLD, & hypothyroidism who attended dialysis AM with normal fatigue afterwards throughout the day. However, around 21:30 she went to the restroom to prepare for bed and became suddenly more SOB prompting EMS to be called. Upon their arrival, she was placed on CPAP and transfer initiated. Upon arrival to [facility] [place] was reportedly obtunded and unable to protect her airway and thus intubated. She as able to be kept awake on the ventilator and participate to a significant degree with this history and physical. She does report some dull L-sided chest pain and sharp R-sided chest pain associated with sweating & F/C, but no cough, congestion, palpitations, light-headedness, or other issues. Case was reviewed with Brian Boyd MD nephrology who agreed with proceeding to CTA to r/o PE as he did not feel she was volume overloaded at dialysis last AM. PMedHx HX ESRD-HD descending thoracic aneurysm s/p repair CHF COPD uterine CA HTN HLD hypothyroidism Ambulatory Orders Carvedilol TAB* [Coreg TAB*] 25 mg PO BID 08/29/17 Citalopram TAB* [Celexa TAB*] 20 mg PO QPM 08/29/17 Famotidine TAB* [Pepcid 20 MG TAB*] 20 mg PO QAM 08/29/17 Levothyroxine TAB* [Synthroid 100 MCG TAB*] 100 mcg PO QAM 08/29/17 clonazePAM TAB(*) [Klonopin TAB(*)] 0.25 mg PO BID PRN MDD 2 08/29/17 Ipratropium 0.5MG/2.5ML NEB* [Atrovent 0.5 MG NEB.LEEROY*] 0.5 mg INH Q4H PRN 09/25 Isosorbide Mononitrate ER TAB* [Imdur ER TAB*] 60 mg PO QPM 09/25/17 Turmeric [Curcumin] 1 cap PO QAM 09/25/17 hydrALAZINE TAB* [Apresoline TAB*] 50 mg PO TID 09/25/17 cloNIDine 0.1 MG PATCH* [Jqvbtxmb-[id number]-8 0.1 mg Patch*] 0.1 mg TRANSDERM Q7D 35 Days #5 patch 10/17/17 Warfarin TAB(*) [Coumadin TAB(*)] 5 mg PO DAILY@1700 30 Days #30 tab 10/20/17 Berberine 1 cap PO QAM 11/08/17 Furosemide TAB* [Lasix TAB*] 40 mg PO QAM 11/08/17 NIFEdipine CAP* [Procardia CAP*] 20 mg PO TID 11/10/17 Allergies erythromycin base Allergy (Verified 11/23/17 22:41) See Comment Can't breathe GI distress, alot of gas latex Allergy (Verified 11/23/17 22:41) Itching nickel Allergy (Verified 11/23/17 22:41) Hives walnut Allergy (Verified 11/23/17 22:41) Anaphylatic Shock TEA Allergy (Uncoded 11/23/17 22:41) Difficulty Breathing Dries out her mouth and throat, can't breathe PSurgHx descending thoracic aneurysm repair hysterectomy SocHx: former smoker (quite 08/2017), no alcohol or recreational drugs; lives with her ; full code status FamHx: positive for CHF & dementia ROS: as above, otherwise reviewed and all were negative vitals: Vital Signs Temp 36.4 C 11/24/17 03:43 Pulse 54 11/24/17 05:45 Resp 16 11/24/17 04:45 BP 139/58 11/24/17 05:45 Pulse Ox 100 11/24/17 05:45 Intake & Output 11/23/17 11/23/17 11/24/17 11:59 23:59 11:59 Output Total 25 Balance -25 Weight 81.647 kg 83 kg Output: Reyna 25 Constitutional: NAD, normally developed, obese elderly white female HEENM: atraumatic; sclera/conjunctiva: anicteric/clear; hearing: clinically intact; oropharynx: clear, mucosa moist Neck: soft tissue: non-tender, no nuchal rigidity; thyroid: normal Pulmonary: intubated, diminished B w/ diffuse moderate crackles, fair aeration CV: RR/RR, normal S1S2, no carotid bruit, no jugular venous distention, 2+ B DP/ PT, 1+ edema Abdominal: soft, non-distended, non-tender, no rebound/guarding/rigidity, normoactive bowel sounds, no hepatosplenomegaly or masses, no costovertebral angle tenderness Musculoskeletal: general: grossly intact, non-tender Integumental: normal appearance and texture of exposed skin Psychiatric orientation: intubate, but awake & alert affect: calm mood: cooperative eye contact: fair to poor content: non-verbal 2nd intubation responses: timely insight: fair Testing: Lab Results 11/23/17 11/23/17 11/23/17 Range/Units 22:25 22:25 22:25 WBC 14.6 H (3.5-10.8) 10^3/ul RBC 3.52 L (4.0-5.4) 10^6/ul Hgb 10.0 L (12.0-16.0) g/dl Hct 33 L (35-47) % MCV 94 (80-97) fL MCH 28 (27-31) pg MCHC 30 L (31-36) g/dl RDW 19 H (10.5-15) % Plt Count 238 (150-450) 10^3/ul MPV 7.7 (7.4-10.4) um3 Neut % (Auto) 62.4 (38-83) % Lymph % (Auto) 27.3 (25-47) % Gregory % (Auto) 7.6 H (0-7) % Eos % (Auto) 1.4 (0-6) % Baso % (Auto) 1.3 (0-2) % Absolute Neuts (auto) 9.1 H (1.5-7.7) 10^3/ul Absolute Lymphs (auto) 4.0 (1.0-4.8) 10^3/ul Absolute Monos (auto) 1.1 H (0-0.8) 10^3/ul Absolute Eos (auto) 0.2 (0-0.6) 10^3/ul Absolute Basos (auto) 0.2 (0-0.2) 10^3/ul Absolute Nucleated RBC 0 10^3/ul Nucleated RBC % 0 INR (Anticoag Therapy) 1.16 H (0.77-1.02) APTT 30.8 (26.0-36.3) seconds D-Dimer, Quantitative > 1050 H (Less Than 230) ng/mL Patient Temperature ABG pH (7.35-7.45) ABG pH (Temp Correct) ABG pCO2 (35-45) mmHg ABG pCO2 (Temp Corrct ABG pO2 (80-100) mmHg ABG pO2 (Temp Correct ABG HCO3 (19-31) mmol/L ABG O2 Saturation (95-98) % ABG Base Excess (-2.0-2.0) Respiration Rate O2 Delivery Device Ventilator Type Vent Mode FiO2 Inspiratory Time PEEP Pressure Support Pressure Control EPAP IPAP BiPAP Sodium 136 L (139-145) mmol/L Potassium 4.4 (3.5-5.0) mmol/L Chloride 103 (101-111) mmol/L Carbon Dioxide 25 (22-32) mmol/L Anion Gap 8 (2-11) mmol/L BUN 18 (6-24) mg/dL Creatinine 2.66 H (0.51-0.95) mg/dL Est GFR ( Amer) 22.7 (>60) Est GFR (Non-Af Amer) 17.6 (>60) BUN/Creatinine Ratio 6.8 L (8-20) Glucose 258 H (70-100) mg/dL Lactic Acid (0.5-2.0) mmol/L Calcium 8.6 (8.6-10.3) mg/dL Magnesium 2.3 (1.9-2.7) mg/dL Total Bilirubin 0.50 (0.2-1.0) mg/dL AST 25 (13-39) U/L ALT 11 (7-52) U/L Alkaline Phosphatase 73 (34-104) U/L Troponin I 0.13 H* (<0.04) ng/mL B-Natriuretic Peptide ( - 100) pg/mL Total Protein 7.0 (6.4-8.9) g/dL Albumin 3.8 (3.2-5.2) g/dL Globulin 3.2 (2-4) g/dL Albumin/Globulin Ratio 1.2 (1-3) Influenza A (Rapid) (Negative) Influenza B (Rapid) (Negative) Blood Type Antibody Screen 11/23/17 11/23/17 11/23/17 Range/Units 22:25 22:25 22:25 WBC (3.5-10.8) 10^3/ul RBC (4.0-5.4) 10^6/ul Hgb (12.0-16.0) g/dl Hct (35-47) % MCV (80-97) fL MCH (27-31) pg MCHC (31-36) g/dl RDW (10.5-15) % Plt Count (150-450) 10^3/ul MPV (7.4-10.4) um3 Neut % (Auto) (38-83) % Lymph % (Auto) (25-47) % Gregory % (Auto) (0-7) % Eos % (Auto) (0-6) % Baso % (Auto) (0-2) % Absolute Neuts (auto) (1.5-7.7) 10^3/ul Absolute Lymphs (auto) (1.0-4.8) 10^3/ul Absolute Monos (auto) (0-0.8) 10^3/ul Absolute Eos (auto) (0-0.6) 10^3/ul Absolute Basos (auto) (0-0.2) 10^3/ul Absolute Nucleated RBC 10^3/ul Nucleated RBC % INR (Anticoag Therapy) (0.77-1.02) APTT (26.0-36.3) seconds D-Dimer, Quantitative (Less Than 230) ng/mL Patient Temperature ABG pH (7.35-7.45) ABG pH (Temp Correct) ABG pCO2 (35-45) mmHg ABG pCO2 (Temp Corrct ABG pO2 (80-100) mmHg ABG pO2 (Temp Correct ABG HCO3 (19-31) mmol/L ABG O2 Saturation (95-98) % ABG Base Excess (-2.0-2.0) Respiration Rate O2 Delivery Device Ventilator Type Vent Mode FiO2 Inspiratory Time PEEP Pressure Support Pressure Control EPAP IPAP BiPAP Sodium (139-145) mmol/L Potassium (3.5-5.0) mmol/L Chloride (101-111) mmol/L Carbon Dioxide (22-32) mmol/L Anion Gap (2-11) mmol/L BUN (6-24) mg/dL Creatinine (0.51-0.95) mg/dL Est GFR ( Amer) (>60) Est GFR (Non-Af Amer) (>60) BUN/Creatinine Ratio (8-20) Glucose (70-100) mg/dL Lactic Acid 3.8 H* (0.5-2.0) mmol/L Calcium (8.6-10.3) mg/dL Magnesium (1.9-2.7) mg/dL Total Bilirubin (0.2-1.0) mg/dL AST (13-39) U/L ALT (7-52) U/L Alkaline Phosphatase (34-104) U/L Troponin I (<0.04) ng/mL B-Natriuretic Peptide 1319 H ( - 100) pg/mL Total Protein (6.4-8.9) g/dL Albumin (3.2-5.2) g/dL Globulin (2-4) g/dL Albumin/Globulin Ratio (1-3) Influenza A (Rapid) (Negative) Influenza B (Rapid) (Negative) Blood Type A Positive Antibody Screen Negative 11/23/17 11/24/17 11/24/17 Range/Units 23:55 04:04 04:04 WBC 14.6 H (3.5-10.8) 10^3/ul RBC 2.77 L (4.0-5.4) 10^6/ul Hgb 7.9 L (12.0-16.0) g/dl Hct 25 L (35-47) % MCV 91 (80-97) fL MCH 28 (27-31) pg MCHC 31 (31-36) g/dl RDW 18 H (10.5-15) % Plt Count 172 (150-450) 10^3/ul MPV 7.5 (7.4-10.4) um3 Neut % (Auto) 90.4 H (38-83) % Lymph % (Auto) 5.0 L (25-47) % Gregory % (Auto) 3.6 (0-7) % Eos % (Auto) 0.1 (0-6) % Baso % (Auto) 0.9 (0-2) % Absolute Neuts (auto) 13.2 H (1.5-7.7) 10^3/ul Absolute Lymphs (auto) 0.7 L (1.0-4.8) 10^3/ul Absolute Monos (auto) 0.5 (0-0.8) 10^3/ul Absolute Eos (auto) 0 (0-0.6) 10^3/ul Absolute Basos (auto) 0.1 (0-0.2) 10^3/ul Absolute Nucleated RBC 0 10^3/ul Nucleated RBC % 0 INR (Anticoag Therapy) (0.77-1.02) APTT (26.0-36.3) seconds D-Dimer, Quantitative (Less Than 230) ng/mL Patient Temperature Not Reportable ABG pH 7.23 L (7.35-7.45) ABG pH (Temp Correct) Not Reportable ABG pCO2 61 H (35-45) mmHg ABG pCO2 (Temp Corrct Not Reportable ABG pO2 167 H (80-100) mmHg ABG pO2 (Temp Correct Not Reportable ABG HCO3 23.0 (19-31) mmol/L ABG O2 Saturation 99.5 H (95-98) % ABG Base Excess -2.5 L (-2.0-2.0) Respiration Rate 14 O2 Delivery Device ventilator Ventilator Type 400 Vent Mode apv/cmv FiO2 60 Inspiratory Time 1.0 PEEP 5 Pressure Support Not Reportable Pressure Control Not Reportable EPAP Not Reportable IPAP Not Reportable BiPAP Not Reportable Sodium (139-145) mmol/L Potassium (3.5-5.0) mmol/L Chloride (101-111) mmol/L Carbon Dioxide (22-32) mmol/L Anion Gap (2-11) mmol/L BUN (6-24) mg/dL Creatinine (0.51-0.95) mg/dL Est GFR ( Amer) (>60) Est GFR (Non-Af Amer) (>60) BUN/Creatinine Ratio (8-20) Glucose (70-100) mg/dL Lactic Acid 1.0 (0.5-2.0) mmol/L Calcium (8.6-10.3) mg/dL Magnesium (1.9-2.7) mg/dL Total Bilirubin (0.2-1.0) mg/dL AST (13-39) U/L ALT (7-52) U/L Alkaline Phosphatase (34-104) U/L Troponin I (<0.04) ng/mL B-Natriuretic Peptide ( - 100) pg/mL Total Protein (6.4-8.9) g/dL Albumin (3.2-5.2) g/dL Globulin (2-4) g/dL Albumin/Globulin Ratio (1-3) Influenza A (Rapid) (Negative) Influenza B (Rapid) (Negative) Blood Type Antibody Screen 11/24/17 11/24/17 Range/Units 04:04 04:20 WBC (3.5-10.8) 10^3/ul RBC (4.0-5.4) 10^6/ul Hgb (12.0-16.0) g/dl Hct (35-47) % MCV (80-97) fL MCH (27-31) pg MCHC (31-36) g/dl RDW (10.5-15) % Plt Count (150-450) 10^3/ul MPV (7.4-10.4) um3 Neut % (Auto) (38-83) % Lymph % (Auto) (25-47) % Gregory % (Auto) (0-7) % Eos % (Auto) (0-6) % Baso % (Auto) (0-2) % Absolute Neuts (auto) (1.5-7.7) 10^3/ul Absolute Lymphs (auto) (1.0-4.8) 10^3/ul Absolute Monos (auto) (0-0.8) 10^3/ul Absolute Eos (auto) (0-0.6) 10^3/ul Absolute Basos (auto) (0-0.2) 10^3/ul Absolute Nucleated RBC 10^3/ul Nucleated RBC % INR (Anticoag Therapy) (0.77-1.02) APTT (26.0-36.3) seconds D-Dimer, Quantitative (Less Than 230) ng/mL Patient Temperature ABG pH (7.35-7.45) ABG pH (Temp Correct) ABG pCO2 (35-45) mmHg ABG pCO2 (Temp Corrct ABG pO2 (80-100) mmHg ABG pO2 (Temp Correct ABG HCO3 (19-31) mmol/L ABG O2 Saturation (95-98) % ABG Base Excess (-2.0-2.0) Respiration Rate O2 Delivery Device Ventilator Type Vent Mode FiO2 Inspiratory Time PEEP Pressure Support Pressure Control EPAP IPAP BiPAP Sodium 134 L (139-145) mmol/L Potassium 4.4 (3.5-5.0) mmol/L Chloride 104 (101-111) mmol/L Carbon Dioxide 25 (22-32) mmol/L Anion Gap 5 (2-11) mmol/L BUN 22 (6-24) mg/dL Creatinine 2.81 H (0.51-0.95) mg/dL Est GFR ( Amer) 21.3 (>60) Est GFR (Non-Af Amer) 16.5 (>60) BUN/Creatinine Ratio 7.8 L (8-20) Glucose 146 H (70-100) mg/dL Lactic Acid (0.5-2.0) mmol/L Calcium 8.1 L (8.6-10.3) mg/dL Magnesium (1.9-2.7) mg/dL Total Bilirubin (0.2-1.0) mg/dL AST (13-39) U/L ALT (7-52) U/L Alkaline Phosphatase (34-104) U/L Troponin I 0.10 H* (<0.04) ng/mL B-Natriuretic Peptide ( - 100) pg/mL Total Protein (6.4-8.9) g/dL Albumin (3.2-5.2) g/dL Globulin (2-4) g/dL Albumin/Globulin Ratio (1-3) Influenza A (Rapid) Negative (Negative) Influenza B (Rapid) Negative (Negative) Blood Type Antibody Screen ECG, personally reviewed: sinus tachycardia rate 103, mild ST depression V3-4 CXR, personally reviewed: pulmonary edema, cardiomegaly, R chest dialysis catheter, s/p aortic repair CTA chest, personally reviewed: FINDINGS: Negative for pulmonary embolus. Patient is status post stenting of the aortic arch and descending and abdominal aorta. Insufficient contrast in the aorta for evaluation of this. Moderate sized right pleural effusion with associated compressive atelectasis. Moderate left pleural effusion with pleural rind. There is associated compressive atelectasis on the left. Patchy lingular infiltrate with focal area of consolidation. Superimposed nonspecific diffuse ground glass pattern of the lungs. This can be seen with both infectious disease and heart failure. Cardiomegaly. Endotracheal tube is present with the tip in the origin of the right mainstem bronchus. This needs to be pulled back. Recommend pulling back approximately 3-3.5cm. Nasogastric tube is seen with tip in the stomach. Impression: 72F HX ESRD-HD, descending thoracic aneurysm s/p repair, CHF, COPD, uterine CA, HTN, HLD, & hypothyroidism presents in acute hypoxic/hypercapneic respiratory failure likely 2nd lingular pneumonia DIAGNOSIS & PLAN Primary acute hypoxic/hypercapneic respiratory failure likely 2nd lingular pneumonia : IV piperacillin/tazobactam : hold IVFs in setting of concomitant pulmonary edema : blood & sputum CXs : mechanical ventilation : propofol & fentanyl for adequate sedation : supportive care : case reviewed with Brian Boyd MD nephrology and Monika Dinero MD critical care who will evaluate in AM pulmonary edema likely 2nd hypertensive emergency : nitro GTT for BP control and initial management of pulmonary edema : wean nitro to off maintaining a systolic <170 : Brian Boyd MD consulted, will evaluate in AM elevated troponin, suspect demand ischemia 2nd above : trend : telemetry Secondary HX ESRD-HD : Brian Boyd MD consulted, will evaluate in AM descending thoracic aneurysm s/p repair : no acute issues COPD : albuterol, mometasone/formoterol, tiotropium HX uterine CA : no acute issues HTN : review meds once reconciled HLD : review meds once reconciled hypothyroidism : review meds once reconciled Admission Rational: inpatient for respiratory failure requiring ICU/intubation DVTp: heparin SQ & SCDs Code Status: full HCP: Critical Care Time: 110minutes
[2017-11-24] MEDS ORDERED: Ondansetron 40 MG VIAL* 2 MG/ML 20 ML VIAL IV PRN (01:02)
[2017-11-24] MEDS ORDERED: Acetaminophen SUPP* 650 MG SUPP PR PRN (01:02)
[2017-11-24] MEDS ORDERED: Iodixanol* (CONTRAST) 320 MG/ML 100 ML SDV IV ONE (01:48)
[2017-11-24] MEDS ORDERED: Zosyn per Pharmacy* NOTE FOLLOW UP PRN (02:50)
[2017-11-24] MEDS ORDERED: ZOSYN 3.375 GM x ONE DOSE over 30 miuntes IVPB ×2 (03:00)
[2017-11-24] MEDS: fentaNYL* 50 MCG/ML 2 ML VIAL (100 MCG VIAL) IV PRN (03:34)
[2017-11-24 04:16] LABS: ABS Basophils 0.1 10^3/ul (0-0.2); ABS Eosinophils 0 10^3/ul (0-0.6); ABS Lymphocytes 0.7 10^3/ul (1.0-4.8); ABS Monocytes 0.5 10^3/ul (0-0.8); ABS Neutrophils 13.2 10^3/ul (1.5-7.7); ABS Nucleated RBC 0 10^3/ul; Eosinophil % 0.1 % (0-6); Hematocrit 25 % (35-47); Hemoglobin 7.9 g/dl (12.0-16.0); Mean Corpuscular HGB Conc 31 g/dl (31-36); Mean Corpuscular Hemoglobin 28 pg (27-31); Mean Corpuscular Volume 91 fL (80-97); Mean Platelet Volume 7.5 um3 (7.4-10.4); Nucleated Red Blood Cells % 0; Platelet Count 172 10^3/ul (150-450); Red Blood Count 2.77 10^6/ul (4.0-5.4); Red Cell Distribution Width 18 % (10.5-15); White Blood Count 14.6 10^3/ul (3.5-10.8)
[2017-11-24] MEDS: nitroGLYCERIN DRIP* 25,000 MCG/250 ML BTL IV SCH ×3 (04:24→09:20)
[2017-11-24 04:31] LABS: EGFR Non-African American 16.5 (>60)
[2017-11-24] MEDS: Mometasone/Formoter 200/5 MDI INH SCH ×2 (07:02→20:56)
--- NOTE | 2017-11-24 07:41 | RAD ---
HISTORY: Tube placement COMPARISONS: October 08, 2017 VIEWS: 1: frontal portable view of the chest at 11:00 PM FINDINGS: LINES AND TUBES: An endotracheal tube is noted with tip overlying the trachea just above the fidencio. A right internal jugular venous catheter is noted with tip overlying the right atrium. CARDIOMEDIASTINAL SILHOUETTE: A metallic aortic stent graft is noted. The aorta is tortuous. The cardiac silhouette is enlarged. PLEURA: There is a small left pleural effusion. The right costophrenic angle is cut off. LUNG PARENCHYMA: There is confluent alveolar opacification of the left lung base. ABDOMEN: The upper abdomen is clear. There is no subphrenic gas. BONES AND SOFT TISSUES: No bone or soft tissue abnormalities are noted. IMPRESSION: 1. LINES AND TUBES ABOVE. 2. CARDIOMEGALY. 3. LEFT LOWER LOBE ATELECTASIS VERSUS CONSOLIDATION. 4. SMALL LEFT PLEURAL EFFUSION.
--- NOTE | 2017-11-24 07:54 | RAD ---
HISTORY: Acute hypoxic, hypercapnic respiratory failure COMPARISONS: March 02, 2018, chest x-ray dated November 24, 2017 at 3:35 AM TECHNIQUE: Multiple contiguous axial CT scans of the chest were obtained after the administration of nonionic intravenous contrast, timed to the pulmonary arterial phase of contrast enhancement.. Coronal and sagittal multiplanar reformations are also submitted for review. FINDINGS: NECK AND THYROID: The lower neck and thyroid are unremarkable. CHEST WALL: There is no lower cervical, axillary, or supraclavicular lymphadenopathy by size criteria. HEART AND PERICARDIUM: The heart is unremarkable. AORTA AND PULMONARY VASCULATURE: There is no pulmonary arterial filling defect to suggest pulmonary embolism. Evaluation of the aorta is limited by the phase of contrast demonstration. There is an aortic stent graft. Aorta is tortuous.. MEDIASTINUM: There is a precarinal lymph node measuring 1.3 cm in short axis. There are subcentimeter short axis paratracheal and prevascular lymph nodes. This has developed when compared to the previous examination. ELIU: There are prominent bilateral hilar lymph nodes. These have developed compared to the previous examination. AIRWAY AND ESOPHAGUS: An endotracheal tube is noted with the tip in the trachea at the level of the right mainstem bronchus. This has been retracted on the subsequent chest x-ray. A gastric tube is noted with the tip in the stomach. LUNG PARENCHYMA: There is compressive atelectasis of the left lung base. There is patchy ground less opacification within the lungs bilaterally. PLEURA: There are moderate bilateral pleural effusions. UPPER ABDOMEN: The upper abdomen is unremarkable. BONES AND SOFT TISSUES: There has been interval development of multiple compression deformities of the thoracic spine, without osseous retropulsion. OTHER: None. IMPRESSION: 1. NO PULMONARY ARTERIAL FILLING DEFECT TO SUGGEST PULMONARY EMBOLISM. 2. MODERATE BILATERAL PLEURAL EFFUSIONS WITH BIBASILAR ATELECTASIS. THERE IS PATCHY AIRSPACE DISEASE ELSEWHERE WITHIN THE LUNGS BILATERALLY. 3. THERE ARE MILDLY ENLARGED MEDIASTINAL LYMPH NODES WITH PROMINENT HILAR LYMPH NODES THAT HAVE DEVELOPED WHEN COMPARED TO THE PREVIOUS EXAMINATION OF MARCH 02, 2016.
--- NOTE | 2017-11-24 07:55 | RAD ---
INDICATION: Endotracheal tube positioning. COMPARISON: Comparison is made with prior studies from October 08, 2017, November 23, 2017. Correlation is also made with a CT angiogram of the chest from November 24, 2017. TECHNIQUE: A portable view of the chest was obtained. FINDINGS: The heart appears moderately enlarged. There is made of an endovascular stent graft within the thoracic aorta extending from the aortic arch into the upper abdomen. The distal portion extends off the film. There is an endotracheal tube which projects over the midline. The catheter tip is located just below the level of the clavicular heads. There is a nasogastric tube which demonstrates normal course. There is a central venous catheter entering on the right side. The catheter tip projects over the right atrium. There is a small a moderate size left pleural effusion and left basilar infiltrate. IMPRESSION: 1. LEFT PLEURAL EFFUSION AND LEFT BASILAR INFILTRATE. 2. CATHETERS AND LINES NOTED. 3. AORTIC ENDOVASCULAR STENT GRAFT.
[2017-11-24] MEDS: Albuterol 2.5 MG/3 ML NEB.SOL* (0.083%) INH SCH ×3 (08:46→20:54)
[2017-11-24] MEDS: Chlorhexidine MOUTHWASH 0.12%* 15 ML UDC TOPICAL SCH ×4 (09:23→22:29)
[2017-11-24] MEDS: Pantoprazole IV* 40 MG IV SCH (09:23)
[2017-11-24] MEDS ORDERED: Vancomycin(*) 1,250 MG in NS 0.9% 250 ML* 250 ML IVPB ONE (10:06)
--- NOTE | 2017-11-24 10:09 | CONSULT ---
Consult Consult: Consultation Note Critical Care Requesting Physician: Dr Gupta Reason for consult: respiratory failure Limitations in history/physical: intubated, sedated; history from chart Date of consult: 11/24/2017 HPI: 72y F pmhx of ESRD on HD (recent permacath and right AVF), Descending thoracic Ao Aneurysm repair with stent, LV diastolic dysfunction, COPD, Uterine CA, HTN, HLD, Hypothyroidism; patient was at HD today, no significant new complaints noted. Later in evening became more dyspneic and in resp distress. EMS arrived, placed on NIV and in ER she demonstrated poor mental status, was intubated. She is currently intubated, history is not obtainable. ER hypertensive 240+, tachycardic, afebrile. CXR revealed mild pulm congestion, bilateral pleural effusion, no ptx; noted aortic stent+ Ciompared to prior CXR, not much change CTA chest negative PE, moderate pleural effusion left > right; aortic stent+; ett above fidencio; patchy airspace infiltrates, left greater than right but overall small. ROS: limited due to intubation PMHx: ESRD on HD (recent permacath and right AVF), Descending thoracic Ao Aneurysm repair with stent, LV diastolic dysfunction, COPD, Uterine CA, HTN, HLD , Hypothyroidism PSHx: descending thoracic aortic aneurysm repair/stent, hysterectomy Family History: CHF, Dementia Social History: Alcohol-none, Smoking-former ppd, Drug use-non Allergies: Allergies Allergy/AdvReac Type Severity Reaction Status Date / Time erythromycin base Allergy See Comment Verified 11/23/17 22:41 latex Allergy Itching Verified 11/23/17 22:41 nickel Allergy Hives Verified 11/23/17 22:41 walnut Allergy Anaphylatic Verified 11/23/17 22:41 Shock TEA Allergy Difficulty Uncoded 11/23/17 22:41 Breathing Home Medications: Carvedilol TAB* [Coreg TAB*] 25 mg PO BID 08/29/17 [History Confirmed 11/10/17] Citalopram TAB* [Celexa TAB*] 20 mg PO QPM 08/29/17 [History Confirmed 11/10/17] Famotidine TAB* [Pepcid 20 MG TAB*] 20 mg PO QAM 08/29/17 [History Confirmed 10/25] Levothyroxine TAB* [Synthroid 100 MCG TAB*] 100 mcg PO QAM 08/29/17 [History Confirmed 11/10/17] clonazePAM TAB(*) [Klonopin TAB(*)] 0.25 mg PO BID PRN MDD 2 08/29/17 [History Confirmed 11/10/17] Ipratropium 0.5MG/2.5ML NEB* [Atrovent 0.5 MG NEB.LEEROY*] 0.5 mg INH Q4H PRN 09/25 [History Confirmed 11/10/17] Isosorbide Mononitrate ER TAB* [Imdur ER TAB*] 60 mg PO QPM 09/25/17 [History Confirmed 11/10/17] Turmeric [Curcumin] 1 cap PO QAM 09/25/17 [History Confirmed 11/10/17] hydrALAZINE TAB* [Apresoline TAB*] 50 mg PO TID 09/25/17 [History Confirmed 10/25] cloNIDine 0.1 MG PATCH* [Syclhlgt-Uzf-0 0.1 mg Patch*] 0.1 mg TRANSDERM Q7D 35 Days #5 patch 10/17/17 [Rx Confirmed 11/10/17] Warfarin TAB(*) [Coumadin TAB(*)] 5 mg PO DAILY@1700 30 Days #30 tab 10/20/17 [ Rx Confirmed 11/10/17] Berberine 1 cap PO QAM 11/08/17 [History Confirmed 11/10/17] Furosemide TAB* [Lasix TAB*] 40 mg PO QAM 11/08/17 [History Confirmed 11/10/17] NIFEdipine CAP* [Procardia CAP*] 20 mg PO TID 11/10/17 [History Confirmed ] Tele: nsr Vitals: Vital Signs Temp 97.5 F 11/24/17 09:00 Pulse 52 11/24/17 09:00 Resp 16 11/24/17 07:00 BP 160/62 11/24/17 09:00 Pulse Ox 95 11/24/17 09:00 Intake & Output 11/23/17 11/24/17 11/24/17 18:59 06:59 18:59 Intake Total 547 Output Total 35 10 Balance 512 -10 Weight 182 lb 15.739 oz Intake: IV Fluids 30 NS/ABX 30 IVPB 111 NS/ABX 111 Medicated IV 406 CC - Propofol/Diprivan 71 Nitroglycerin 335 Output: Reyna 35 10 O2/Vent: 25% fio2, PCV mode Infusions: propofol, NTG Current Medications: Acetaminophen (Tylenol Supp*) 650 mg NV Q6H PRN PRN Reason: FEVER/PAIN Albuterol (Ventolin 2.5 Mg/3 Ml Neb.Leeroy*) 2.5 mg INH Q2H PRN PRN Reason: SOB/WHEEZING Albuterol (Ventolin 2.5 Mg/3 Ml Neb.Leeroy*) 2.5 mg INH [id number] AWAKE [facility] Last Admin: 11/24/17 08:46 Dose: 2.5 mg Aspirin (Aspirin Ec Tab*) 81 mg PO DAILY [facility] Carvedilol (Coreg Tab*) 25 mg PO BID [facility] Chlorhexidine Gluconate (Peridex Mouth Wash 0.12%*) 15 ml TOPICAL Q4H [facility] Last Admin: 11/24/17 09:23 Dose: 15 ml Clonidine HCl (Cefkhcdf-Exr-0 0.1 Mg Patch*) 0.1 mg TRANSDERM Q7D [facility] Famotidine (Pepcid Tab*) 20 mg PO QAM [facility] Fentanyl Citrate (Fentanyl*) 50 mcg IV Q2H PRN PRN Reason: PAIN Last Admin: 11/24/17 03:34 Dose: 50 mcg Heparin Sodium (Porcine) (Heparin Vial(*)) 5,000 units SUBCUT Q8HR [facility] Hydralazine HCl (Apresoline Tab*) 50 mg PO TID [facility] Propofol (Diprivan*) 100 mls @ 9.798 mls/hr IV .(Initial Rate) [facility]; 20 MCG/KG/ MIN PRN Reason: Protocol Last Admin: 11/24/17 09:27 Dose: 14.9 mls/hr Piperacillin Sod/Tazobactam (Sod 3.375 gm/ Sodium Chloride) 100 mls @ 25 mls/ hr IVPB Q12H [facility] Nitroglycerin/Dextrose (Nitroglycerin Drip*) 25,000 mcg in 250 mls @ 120 mls/ hr IV .(Initial Rate) [facility]; 200 MCG/MIN PRN Reason: Protocol Last Admin: 11/24/17 09:20 Dose: 75 mls/hr Vancomycin HCl 1,000 mg/ (Sodium Chloride) 250 mls @ 166.667 mls/hr IVPB ONCE ONE Stop: 11/24/17 11:35 Isosorbide Mononitrate (Imdur Er Tab*) 60 mg PO QPM [facility] Levothyroxine Sodium (Synthroid Tab*) 100 mcg PO QAM [facility] Mometasone Furoate/Formoterol Fumar (Dulera 200/5 Mdi*) 2 puff INH BID [facility] Last Admin: 11/24/17 07:02 Dose: Not Given Ondansetron HCl (Zofran 40 Mg Vial*) 4 mg IV Q6H PRN PRN Reason: NAUSEA Pantoprazole Sodium (Protonix Iv*) 40 mg IV DAILY [facility] Last Admin: 11/24/17 09:23 Dose: 40 mg Pharmacy Consult (Zosyn Per Pharmacy*) 1 note FOLLOW UP . PRN PRN Reason: PER PROTOCOL Pharmacy Consult (Vancomycin Per Pharmacy*) 1 note FOLLOW UP .VANC PER PHARMACY [facility] Physical Exam: General: intubated, sedated Head: normocephalic, atraumatic HEENT: no pallor, no icterus, moist mucous membranes Neck: soft, supple, no jvd CVS: normal rate, regular, no murmur Resp: bilateral air entry, no rhales, no wheeze, no rhonchi, no acc muscle use Abdomen: soft, nontender, nondistended, bowel sounds present; right chest permacath+ Ext: pulses+, warm, no edema; right arm AVF+ Skin: intact Neuro: intubated, sedated; pupils reactive bilaterally Labs: Laboratory Results - last 24 hr 11/23/17 11/23/17 11/23/17 22:25 22:25 22:25 WBC 14.6 H RBC 3.52 L Hgb 10.0 L Hct 33 L MCV 94 MCH 28 MCHC 30 L RDW 19 H Plt Count 238 MPV 7.7 Neut % (Auto) 62.4 Lymph % (Auto) 27.3 [place] % (Auto) 7.6 H Eos % (Auto) 1.4 Baso % (Auto) 1.3 Absolute Neuts (auto) 9.1 H Absolute Lymphs (auto) 4.0 Absolute Monos (auto) 1.1 H Absolute Eos (auto) 0.2 Absolute Basos (auto) 0.2 Absolute Nucleated RBC 0 Nucleated RBC % 0 INR (Anticoag Therapy) 1.16 H APTT 30.8 D-Dimer, Quantitative > 1050 H Patient Temperature ABG pH ABG pH (Temp Correct) ABG pCO2 ABG pCO2 (Temp Corrct ABG pO2 ABG pO2 (Temp Correct ABG HCO3 ABG O2 Saturation ABG Base Excess Respiration Rate O2 Delivery Device Ventilator Type Vent Mode FiO2 Inspiratory Time PEEP Pressure Support Pressure Control EPAP IPAP BiPAP Sodium 136 L Potassium 4.4 Chloride 103 Carbon Dioxide 25 Anion Gap 8 BUN 18 Creatinine 2.66 H Est GFR ( Amer) 22.7 Est GFR (Non-Af Amer) 17.6 BUN/Creatinine Ratio 6.8 L Glucose 258 H Lactic Acid Calcium 8.6 Magnesium 2.3 Total Bilirubin 0.50 AST 25 ALT 11 Alkaline Phosphatase 73 Troponin I 0.13 H* B-Natriuretic Peptide Total Protein 7.0 Albumin 3.8 Globulin 3.2 Albumin/Globulin Ratio 1.2 Influenza A (Rapid) Influenza B (Rapid) Blood Type Antibody Screen 11/23/17 11/23/17 11/23/17 22:25 22:25 22:25 WBC RBC Hgb Hct MCV MCH MCHC RDW Plt Count MPV Neut % (Auto) Lymph % (Auto) [place] % (Auto) Eos % (Auto) Baso % (Auto) Absolute Neuts (auto) Absolute Lymphs (auto) Absolute Monos (auto) Absolute Eos (auto) Absolute Basos (auto) Absolute Nucleated RBC Nucleated RBC % INR (Anticoag Therapy) APTT D-Dimer, Quantitative Patient Temperature ABG pH ABG pH (Temp Correct) ABG pCO2 ABG pCO2 (Temp Corrct ABG pO2 ABG pO2 (Temp Correct ABG HCO3 ABG O2 Saturation ABG Base Excess Respiration Rate O2 Delivery Device Ventilator Type Vent Mode FiO2 Inspiratory Time PEEP Pressure Support Pressure Control EPAP IPAP BiPAP Sodium Potassium Chloride Carbon Dioxide Anion Gap BUN Creatinine Est GFR ( Amer) Est GFR (Non-Af Amer) BUN/Creatinine Ratio Glucose Lactic Acid 3.8 H* Calcium Magnesium Total Bilirubin AST ALT Alkaline Phosphatase Troponin I B-Natriuretic Peptide 1319 H Total Protein Albumin Globulin Albumin/Globulin Ratio Influenza A (Rapid) Influenza B (Rapid) Blood Type A Positive Antibody Screen Negative 11/23/17 11/24/17 11/24/17 23:55 04:04 04:04 WBC 14.6 H RBC 2.77 L Hgb 7.9 L Hct 25 L MCV 91 MCH 28 MCHC 31 RDW 18 H Plt Count 172 MPV 7.5 Neut % (Auto) 90.4 H Lymph % (Auto) 5.0 L [place] % (Auto) 3.6 Eos % (Auto) 0.1 Baso % (Auto) 0.9 Absolute Neuts (auto) 13.2 H Absolute Lymphs (auto) 0.7 L Absolute Monos (auto) 0.5 Absolute Eos (auto) 0 Absolute Basos (auto) 0.1 Absolute Nucleated RBC 0 Nucleated RBC % 0 INR (Anticoag Therapy) APTT D-Dimer, Quantitative Patient Temperature Not Reportable ABG pH 7.23 L ABG pH (Temp Correct) Not Reportable ABG pCO2 61 H ABG pCO2 (Temp Corrct Not Reportable ABG pO2 167 H ABG pO2 (Temp Correct Not Reportable ABG HCO3 23.0 ABG O2 Saturation 99.5 H ABG Base Excess -2.5 L Respiration Rate 14 O2 Delivery Device ventilator Ventilator Type 400 Vent Mode apv/cmv FiO2 60 Inspiratory Time 1.0 PEEP 5 Pressure Support Not Reportable Pressure Control Not Reportable EPAP Not Reportable IPAP Not Reportable BiPAP Not Reportable Sodium Potassium Chloride Carbon Dioxide Anion Gap BUN Creatinine Est GFR ( Amer) Est GFR (Non-Af Amer) BUN/Creatinine Ratio Glucose Lactic Acid 1.0 Calcium Magnesium Total Bilirubin AST ALT Alkaline Phosphatase Troponin I B-Natriuretic Peptide Total Protein Albumin Globulin Albumin/Globulin Ratio Influenza A (Rapid) Influenza B (Rapid) Blood Type Antibody Screen 11/24/17 11/24/17 11/24/17 04:04 04:20 07:21 WBC RBC Hgb Hct MCV MCH MCHC RDW Plt Count MPV Neut % (Auto) Lymph % (Auto) [place] % (Auto) Eos % (Auto) Baso % (Auto) Absolute Neuts (auto) Absolute Lymphs (auto) Absolute Monos (auto) Absolute Eos (auto) Absolute Basos (auto) Absolute Nucleated RBC Nucleated RBC % INR (Anticoag Therapy) APTT D-Dimer, Quantitative Patient Temperature ABG pH ABG pH (Temp Correct) ABG pCO2 ABG pCO2 (Temp Corrct ABG pO2 ABG pO2 (Temp Correct ABG HCO3 ABG O2 Saturation ABG Base Excess Respiration Rate O2 Delivery Device Ventilator Type Vent Mode FiO2 Inspiratory Time PEEP Pressure Support Pressure Control EPAP IPAP BiPAP Sodium 134 L Potassium 4.4 Chloride 104 Carbon Dioxide 25 Anion Gap 5 BUN 22 Creatinine 2.81 H Est GFR ( Amer) 21.3 Est GFR (Non-Af Amer) 16.5 BUN/Creatinine Ratio 7.8 L Glucose 146 H Lactic Acid Calcium 8.1 L Magnesium Total Bilirubin AST ALT Alkaline Phosphatase Troponin I 0.10 H* 0.08 H* B-Natriuretic Peptide Total Protein Albumin Globulin Albumin/Globulin Ratio Influenza A (Rapid) Negative Influenza B (Rapid) Negative Blood Type Antibody Screen Imaging: cxr 11/24 - bilateral mild congestion, left effusion> right CTA chest 11/24 - no PE; small-mod effusions, patchy airspace disease+ Assessment: 72y F pmhx of ESRD on HD (recent permacath and right AVF), Descending thoracic Ao Aneurysm repair with stent, LV diastolic dysfunction, COPD, Uterine CA, HTN, HLD, Hypothyroidism; patient was at HD today, no significant new complaints noted. Later in evening became more dyspneic and in resp distress. EMS arrived, placed on NIV and in ER she demonstrated poor mental status, was intubated. Hypertensive, hypoxic, tachycardic at home. -Acute hypercapneic and hypoxic respiratory failure -Hypertensive Emergency -r/o pneumonia -pulmonary congestion mild -ESRD on HD Plan: Neuro- sedated with propofol. sedation weaning as per protocol after HD. CVS- Hypertensive, remains on NTG infusion, cont to wean. restart PO antihypertensives coreg/imdur/clonidine/hydralazine. BP may lower with HD. Goal to remove 1-2 kg with HD for possible pulm congestion. Unclear reason for warfarin at home, will have to obtain clarification from , in NSR, no afib noted. Resp- intubated, on 25% fio2. CXR noted above, possible congestion which is mild + infiltrates? pneumonia? Empiric IV abx. Repeat ABG today. Sputum culture with gram+ in chains noted. No wheezing noted, clear air entry. No steroids indicated at this time. Bronchodilators PRN. ID- afebrile. wbc 14. Patchy airspace infiltrates on CTA chest. Empiric HCAP coverage for now. BLood cultures in process. Send urine legionella/strept. GI- NPO. GI proph. Renal- ESRD; HD today. Mild congestion but goal weight. will filter 1-2 kg. K okay, no acidosis. Right IJ permacatha nd maturing Right arm AVF. Heme- hg oky, plt okay; need to obtain reason for warfarin at home? Endo- synthroid po. fingersticks as needed Musculsk- pressure ulcer proph Wounds- none Nutrition- NPO DVT prophylaxis: heparin sq, scd GI prophylaxis: protonix Central Line: right IJ permacath on admission Arterial Line: no Reyna Cathetor: yes Disposition: ICU Code Status: full code Total Critical Care time is 50 minutes, excluding procedures/teaching Kana Dinero MD Physician Office Specialist (Electronically Signed)
[2017-11-24] MEDS: Piperacillin/Tazobac ADVAN(*) 3.375 GM in NS 0.9% 100 ML* 100 ML IVPB SCH ×3 (10:49→22:30)
[2017-11-24] MEDS: cloNIDine 0.1 MG PATCH* 0.1 MG/24 HR 7 DAY PATCH TRANSDERM SCH ×2 (10:50→13:12)
[2017-11-24] MEDS ORDERED: Carvedilol TAB* 25 MG PO SCH (11:00)
[2017-11-24] MEDS ORDERED: Heparin DIALYSIS ONLY(*) 1,000 UNITS/ML VIAL DIALYSIS ONE (11:00)
[2017-11-24] MEDS ORDERED: Epoetin Alfa* 10,000 UNITS/ML VIAL IV ONE (11:00)
[2017-11-24] MEDS ORDERED: Vancomycin per Pharmacy* NOTE FOLLOW UP SCH (11:00)
[2017-11-24] MEDS: hydrALAZINE TAB* 25 MG G TUBE SCH ×2 (13:10→22:30)
[2017-11-24] MEDS: Carvedilol TAB* 25 MG G TUBE SCH ×2 (13:11→22:29)
[2017-11-24] MEDS ORDERED: Vancomycin - DIALYSIS DOSING* NOTE FOLLOW UP SCH (14:00)
--- NOTE | 2017-11-24 14:32 | PN ---
Progress Note - Progress Note Date of Service: 11/24/17 Note: Central Line Procedure Note Indication: vascular access Diagnosis: acute hypoxic respiratory failure Procedure Performed by: Dr Kana Dinero Consent was emergent , placed in bedside chart. - Prior labs/history was reviewed prior to procedure - Full sterile precautions with chlorhexidine/full drapes/gowns/gloves utilized - right IJ vein visualized with ultrasound - Vessel accessed under ultrasound guidance with return of nonpulsatile blood. A guidewire was passed into vessel and confirmed in vessel with ultrasound. 1 attempt was made to access vessel. Vessel was dilated and cathetor was passed over wire into vessel. All ports demonstrated good blood return and flushed. Catheter was sutured to site and dressing applied Adequate hemostasis was achieved, EBL <5cc No immediate complications noted, patient tolerated procedure well. CXR pending for confirmation Kana Dinero MD Applier (electronically signed)
--- NOTE | 2017-11-24 16:30 | RAD ---
INDICATION: Central line placement COMPARISON: Chest x-ray November 24, 2017 TECHNIQUE: An AP portable view obtained at 1550 hours is submitted. FINDINGS: Bones/Soft Tissues: There are no acute bony findings. There is endotracheal intubation. The endotracheal tube is 4 cm above the fidencio. There is a right IJ catheter terminating in the superior vena cava. There is a large caliber right subclavian catheter, unchanged. An orogastric tube terminates over the body the stomach. Cardiomediastinal: The cardiac silhouette is unchanged. There is an aortic stent graft. Lungs: Persistent airspace disease left lung base. Pleura: Bilateral pleural effusions left greater than right, unchanged. Other: None IMPRESSION: RIGHT IJ CATHETER PLACEMENT WITHOUT EVIDENCE OF PNEUMOTHORAX. THE REMAINDER OF THE. EXAMINATION IS UNCHANGED
[2017-11-24] MEDS: Isosorbide Mononitrate ER TAB* 60 MG PO SCH (16:57)
[2017-11-24] MEDS ORDERED: Etomidate* 2 MG/ML 20 ML VIAL (40 MG) ONE (22:26)
[2017-11-25] MEDS: Chlorhexidine MOUTHWASH 0.12%* 15 ML UDC TOPICAL SCH ×4 (00:23→12:07)
[2017-11-25] MEDS: fentaNYL* 50 MCG/ML 2 ML VIAL (100 MCG VIAL) IV PRN (00:36)
[2017-11-25] MEDS: Propofol* 100 ML IV SCH ×2 (02:29→08:21)
[2017-11-25] MEDS: Heparin VIAL(*) 5000 UNITS/ML VIAL (FIVE THOUSAND) SUBCUT SCH ×3 (05:32→22:19)
[2017-11-25] MEDS: Levothyroxine TAB* 100 MCG TAB G TUBE SCH (05:32)
[2017-11-25 05:37] LABS: Hematocrit 27 % (35-47); Hemoglobin 8.5 g/dl (12.0-16.0); Mean Corpuscular HGB Conc 32 g/dl (31-36); Mean Corpuscular Hemoglobin 28 pg (27-31); Mean Corpuscular Volume 88 fL (80-97); Mean Platelet Volume 7.7 um3 (7.4-10.4); Platelet Count 160 10^3/ul (150-450); Red Cell Distribution Width 18 % (10.5-15); White Blood Count 8.2 10^3/ul (3.5-10.8)
[2017-11-25] MEDS: Mometasone/Formoter 200/5 MDI INH SCH ×2 (08:16→20:05)
[2017-11-25] MEDS: Albuterol 2.5 MG/3 ML NEB.SOL* (0.083%) INH PRN ×2 (08:32→23:58)
[2017-11-25] MEDS: Piperacillin/Tazobac ADVAN(*) 3.375 GM in NS 0.9% 100 ML* 100 ML IVPB SCH ×2 (08:55→22:17)
[2017-11-25] MEDS: hydrALAZINE TAB* 25 MG G TUBE SCH ×3 (08:55→22:17)
[2017-11-25] MEDS: Carvedilol TAB* 25 MG G TUBE SCH ×2 (08:55→22:17)
[2017-11-25] MEDS: Famotidine TAB* 20 MG SCH (08:56)
[2017-11-25] MEDS: Aspirin 81 mg CHEW TAB* 81 MG TAB.CHEW G TUBE SCH (08:56)
[2017-11-25] MEDS: Pantoprazole IV* 40 MG IV SCH (08:56)
[2017-11-25] MEDS ORDERED: Dexmedetomidine* 200 MCG in NS 0.9% 50 ML* 48 ML IVPB SCH (10:00)
[2017-11-25] MEDS: Dexmedetomidine* 200 MCG in NS 0.9% 50 ML* 48 ML IVPB SCH ×4 (10:02→22:07)
--- NOTE | 2017-11-25 10:15 | PN ---
Progress Note - Progress Note Date of Service: 11/25/17 Note: Progress Note - Critical Care 24 hr events: -s/p HD yesterday -remains intubated, no pressors -on propofol, decreased this morning, awake/follows commands; states she wants to '' -tachypneic on CPAP but seems more restless Tele: nsr Vitals: Vital Signs Temp 99.9 F 11/25/17 08:31 Pulse 56 11/25/17 08:33 Resp 40 11/25/17 09:00 BP 164/64 11/25/17 08:31 Pulse Ox 96 11/25/17 08:33 Intake & Output 11/24/17 11/25/17 11/25/17 18:59 06:59 18:59 Intake Total 550 1018 130 Output Total 70 2 17 Balance 480 1016 113 Weight 190 lb 7.67 oz Intake: IV Fluids 30 700 NS/ABX 30 423 kvo 277 Medicated IV 520 318 CC - Propofol/Diprivan 159 318 Nitroglycerin 361 Tube Feeding 70 Tube Feeding Flush Amount 60 Output: Reyna 70 2 17 O2/Vent: CMV 50% Infusions: propofol, now precedex Current Medications: Acetaminophen (Tylenol Supp*) 650 mg [place] Q6H PRN PRN Reason: FEVER/PAIN Albuterol (Ventolin 2.5 Mg/3 Ml Neb.Danita*) 2.5 mg INH Q2H PRN PRN Reason: SOB/WHEEZING Last Admin: 11/25/17 08:32 Dose: 2.5 mg Aspirin (Aspirin 81 Mg Chew Tab*) 81 mg G TUBE DAILY [facility] Last Admin: 11/25/17 08:56 Dose: 81 mg Carvedilol (Coreg Tab*) 25 mg G TUBE BID [facility] Last Admin: 11/25/17 08:55 Dose: 25 mg Chlorhexidine Gluconate (Peridex Mouth Wash 0.12%*) 15 ml TOPICAL Q4H [facility] Last Admin: 11/25/17 08:56 Dose: 15 ml Clonidine HCl (Qqcgydng-Mds-1 0.1 Mg Patch*) 0.1 mg TRANSDERM Q7D [facility] Last Admin: 11/24/17 13:12 Dose: 0.1 mg Famotidine (Pepcid Tab*) 20 mg .SEE ORDER QAM [facility] Last Admin: 11/25/17 08:56 Dose: Not Given Fentanyl Citrate (Fentanyl*) 50 mcg IV Q2H PRN PRN Reason: PAIN Last Admin: 11/25/17 00:36 Dose: 50 mcg Heparin Sodium (Porcine) (Heparin Vial(*)) 5,000 units SUBCUT Q8HR [facility] Last Admin: 11/25/17 05:32 Dose: 5,000 units Hydralazine HCl (Apresoline Tab*) 50 mg G TUBE TID [facility] Last Admin: 11/25/17 08:55 Dose: 50 mg Propofol (Diprivan*) 100 mls @ 9.798 mls/hr IV .(Initial Rate) [facility]; 20 MCG/KG/ MIN PRN Reason: Protocol Last Admin: 11/25/17 08:21 Dose: 17.9 mls/hr Piperacillin Sod/Tazobactam (Sod 3.375 gm/ Sodium Chloride) 100 mls @ 25 mls/ hr IVPB Q12H [facility] Last Admin: 11/25/17 08:55 Dose: 25 mls/hr Dexmedetomidine HCl 200 mcg/ (Sodium Chloride) 50 mls @ 10.8 mls/hr IVPB Q4H [facility]; 0.5 MCG/KG/HR PRN Reason: Protocol Last Admin: 11/25/17 10:02 Dose: 10.8 mls/hr Isosorbide Mononitrate (Imdur Er Tab*) 60 mg PO QPM [facility] Last Admin: 11/24/17 16:57 Dose: Not Given Levothyroxine Sodium (Synthroid Tab*) 100 mcg G TUBE 0600 [facility] Last Admin: 11/25/17 05:32 Dose: 100 mcg Mometasone Furoate/Formoterol Fumar (Dulera 200/5 Mdi*) 2 puff INH BID [facility] Last Admin: 11/25/17 08:16 Dose: Not Given Ondansetron HCl (Zofran 40 Mg Vial*) 4 mg IV Q6H PRN PRN Reason: NAUSEA Pantoprazole Sodium (Protonix Iv*) 40 mg IV DAILY [facility] Last Admin: 11/25/17 08:56 Dose: 40 mg Pharmacy Consult (Zosyn Per Pharmacy*) 1 note FOLLOW UP . PRN PRN Reason: PER PROTOCOL Pharmacy Consult (Vancomycin Per Pharmacy*) 1 note FOLLOW UP .VANC PER PHARMACY [facility] Pharmacy Consult (Vancomycin - Dialysis Dosing*) 1 note FOLLOW UP . [facility] Pharmacy Consult (Vancomycin Random Level*) 1 note FOLLOW UP ONCE ONE Stop: 11/27/17 06:01 Physical Exam: General: intubated, awake/alert, anxious more than in resp distress Head: normocephalic, atraumatic HEENT: no pallor, no icterus, moist mucous membranes Neck: soft, supple, no jvd CVS: normal rate, regular, no murmur Resp: bilateral air entry, no rhales, no wheeze, no rhonchi, no acc muscle use Abdomen: soft, nontender, nondistended, bowel sounds present; right chest permacath+ Ext: pulses+, warm, no edema; right arm AVF+ Skin: intact Neuro: intubated, awake/alert, moves all ext, pupils reactive bilaterally Labs: Laboratory Results - last 24 hr 11/25/17 11/25/17 05:25 05:25 WBC 8.2 RBC 3.00 L Hgb 8.5 L Hct 27 L MCV 88 MCH 28 MCHC 32 RDW 18 H Plt Count 160 MPV 7.7 Sodium 130 L Potassium 3.5 Chloride 98 L Carbon Dioxide 26 Anion Gap 6 BUN 15 Creatinine 2.49 H Est GFR ( Amer) 24.5 Est GFR (Non-Af Amer) 19.0 BUN/Creatinine Ratio 6.0 L Glucose 105 H Calcium 7.7 L urine leg/strept ag negative 11/24 sputum culture - possible strept? pending final culture Imaging: cxr 11/24 - bilateral mild congestion, left effusion> right CTA chest 11/24 - no PE; small-mod effusions, patchy airspace disease+ Assessment: 72y F pmhx of ESRD on HD (recent permacath and right AVF), Descending thoracic Ao Aneurysm repair with stent, LV diastolic dysfunction, COPD, Uterine CA, HTN, HLD, Hypothyroidism; patient was at HD today, no significant new complaints noted. Later in evening became more dyspneic and in resp distress. EMS arrived, placed on NIV and in ER she demonstrated poor mental status, was intubated. Hypertensive, hypoxic, tachycardic at home. -Acute hypercapneic and hypoxic respiratory failure -Hypertensive Emergency -r/o pneumonia -pulmonary congestion mild -ESRD on HD Plan: Neuro- propfol weaned; start xanax for anxiety. restart home clonazepam po bid. add precedex. delirium prec. neurochecks. CVS- Hypertensive, but improved. remains off NTG. cont PO antihypertensives meds. Imdur PO once extubated. restart PO antihypertensives coreg/imdur/ clonidine/hydralazine. s/p HD 11/24 with 1-2 kg removed. Unclear reason for warfarin at home, will have to obtain clarification from , in NSR, no afib noted. Resp- intubated, on 50% fio2. placed on CPAP but tachypneic but more restless. restart anxiety meds. keep on CPAP, no plan to extubate unless parameters better. minimal secretions noted. tmax 100.5 only. cont Emprici IV abx. no wheezing. pending sputum culture in lab. No steroids indicated at this time. Bronchodilators PRN. ID- tmax 100. wbc 14. Patchy airspace infiltrates on CTA chest. Empiric HCAP coverage for now. BLood cultures in process. sputum culture pending still in lab, awaiting final, so far strept+ ongoing. GI- tube feeds with nepro. GI proph. Renal- ESRD; HD yesterday. Euvolemic appearing. K okay, no acidosis. Right IJ permacatha nd maturing Right arm AVF. Heme- hg oky, plt okay; need to obtain reason for warfarin at home? Endo- synthroid po. fingersticks as needed Musculsk- pressure ulcer proph Wounds- none Nutrition- nepro tube feeds DVT prophylaxis: heparin sq, scd GI prophylaxis: protonix Central Line: right IJ permacath on admission; RIJ TLC 11/24 for access Arterial Line: no Reyna Cathetor: yes Disposition: ICU Code Status: full code Total Critical Care time is 40 minutes, excluding procedures/teaching Kana Dinero MD Manufacturers Service Representative (Electronically Signed)
[2017-11-25] MEDS: ALPRAZolam TAB* 0.25 MG PO PRN (10:28)
[2017-11-25] MEDS: Isosorbide Mononitrate ER TAB* 60 MG PO SCH (18:21)
[2017-11-25] MEDS: Citalopram TAB* 20 MG PO SCH (22:17)
[2017-11-26] MEDS: Dexmedetomidine* 200 MCG in NS 0.9% 50 ML* 48 ML IVPB SCH ×4 (03:06→14:43)
[2017-11-26] MEDS: Heparin VIAL(*) 5000 UNITS/ML VIAL (FIVE THOUSAND) SUBCUT SCH ×3 (05:35→21:20)
[2017-11-26] MEDS: Levothyroxine TAB* 100 MCG TAB G TUBE SCH (05:36)
[2017-11-26 06:22] LABS: Hematocrit 25 % (35-47); Hemoglobin 8.1 g/dl (12.0-16.0); Mean Corpuscular HGB Conc 33 g/dl (31-36); Mean Corpuscular Hemoglobin 29 pg (27-31); Mean Corpuscular Volume 89 fL (80-97); Mean Platelet Volume 7.9 um3 (7.4-10.4); Platelet Count 181 10^3/ul (150-450); Red Cell Distribution Width 18 % (10.5-15); White Blood Count 7.1 10^3/ul (3.5-10.8)
[2017-11-26 06:34] LABS: EGFR Non-African American 11.2 (>60)
[2017-11-26] MEDS: Mometasone/Formoter 200/5 MDI INH SCH ×2 (08:51→19:53)
[2017-11-26] MEDS: Aspirin 81 mg CHEW TAB* 81 MG TAB.CHEW G TUBE SCH (10:19)
[2017-11-26] MEDS: hydrALAZINE TAB* 25 MG G TUBE SCH ×3 (10:40→21:20)
[2017-11-26] MEDS: Pantoprazole IV* 40 MG IV SCH (10:40)
[2017-11-26] MEDS: Famotidine TAB* 20 MG SCH (10:40)
[2017-11-26] MEDS: Carvedilol TAB* 25 MG G TUBE SCH (10:41)
[2017-11-26] MEDS: Piperacillin/Tazobac ADVAN(*) 3.375 GM in NS 0.9% 100 ML* 100 ML IVPB SCH ×2 (10:41→21:19)
--- NOTE | 2017-11-26 15:33 | PN ---
Hospitalist Progress Note Date of Service: 11/26/17 Pt seen and examined. Meds and labs reviewed. Changed meds for TF to PO since pt was recently transferred from the ICU to medical floors. ROS: Complained of some loose stools in AM. Denied WILEY/dizziness, F/C, N/V, CP , SOB, increased cough, sputum production, abd pain, constipation, dysuria, myalgias, arthralgias, throat pain, and new skin lesions. The rest of the 14 point ROS are unremarkable. PHYSICAL EXAM: GEN APPEARANCE: Awake, not in acute distress HEENT: NC/AT, PERRLA, moist oral mucosa, (-) throat erythema NECK: Soft, supple, (-) cervical LAD, (-)JVD HEART: S1S2 WNL, RRR, No MRG CHEST: CTA, BL, GAE, No W/R/R ABD: Soft, ND/NT, NABS 4x Q EXT: No C/C/E SKIN: Warm to touch PSYCH: No active psychosis, hallucinations, depression, SI/HI ASSESSMENT AND PLAN: #HCAP (lingular) with sepsis: -Continue with Zosyn and Vancomycin -(-) for Legionella and S. pneumo urine Ag test -Blood Cultures (-) x2 daysif pt continues to clinically be stable with (-) cultures by tomorrow, will de-escalate antibiotic therapy #HTN, uncontrolled: -Continue Carvedilol -Will add low dose Amlodipine -Continue watchful waiting #Loose stools: -Check stool lactoferrin and C. diff especially in the setting of broad- spectrum antibiotic use. #ESRD on HD: -Mentions her usual schedule is TR and Sat, however, had last dialysis last Monday #Hypothyroidism: -Continue Levothyroxine -Will order for TSH to be added-on to labs already drawn #DVTp: -Continue SCD #Dispo: -For PT eval -Possible D/C in 1-2 days
[2017-11-26] MEDS: Isosorbide Mononitrate ER TAB* 60 MG PO SCH (17:08)
[2017-11-26] MEDS: Citalopram TAB* 20 MG PO SCH (17:08)
[2017-11-26] MEDS: clonazePAM TAB(*) 0.5 MG PO PRN (17:08)
[2017-11-26] MEDS: Carvedilol TAB* 25 MG PO SCH (21:20)
[2017-11-27] MEDS: Heparin VIAL(*) 5000 UNITS/ML VIAL (FIVE THOUSAND) SUBCUT SCH ×3 (05:12→21:03)
[2017-11-27] MEDS: Levothyroxine TAB* 100 MCG TAB PO SCH (05:12)
[2017-11-27] MEDS ORDERED: Vancomycin Random Level* NOTE FOLLOW UP ONE (06:00)
[2017-11-27 06:05] LABS: Hematocrit 24 % (35-47); Hemoglobin 7.7 g/dl (12.0-16.0); Mean Corpuscular HGB Conc 32 g/dl (31-36); Mean Corpuscular Hemoglobin 29 pg (27-31); Mean Corpuscular Volume 89 fL (80-97); Platelet Count 189 10^3/ul (150-450); Red Blood Count 2.71 10^6/ul (4.0-5.4); Red Cell Distribution Width 18 % (10.5-15)
[2017-11-27 06:21] LABS: EGFR Non-African American 8.9 (>60)
[2017-11-27] MEDS: Aspirin 81 mg CHEW TAB* 81 MG TAB.CHEW PO SCH (07:29)
[2017-11-27] MEDS: Famotidine TAB* 20 MG SCH (07:29)
[2017-11-27] MEDS: Pantoprazole IV* 40 MG IV SCH (07:29)
[2017-11-27] MEDS: hydrALAZINE TAB* 25 MG G TUBE SCH ×3 (07:30→21:03)
[2017-11-27] MEDS: Carvedilol TAB* 25 MG PO SCH ×2 (07:30→21:03)
[2017-11-27] MEDS ORDERED: amLODIPine TAB* 5 MG PO SCH (09:00)
[2017-11-27] MEDS ORDERED: Potassium Chlor TAB* 20 MEQ TAB.ER PO ONE (09:11)
[2017-11-27] MEDS ORDERED: Heparin DIALYSIS ONLY(*) 1,000 UNITS/ML VIAL DIALYSIS ONE (12:00)
[2017-11-27] MEDS ORDERED: Epoetin Alfa* 10,000 UNITS/ML VIAL IV ONE (12:00)
[2017-11-27] MEDS: Mometasone/Formoter 200/5 MDI INH SCH ×2 (12:45→20:21)
[2017-11-27] MEDS ORDERED: Vancomycin(*) 750 MG in NS 0.9% 250 ML* 250 ML IVPB ONE (14:00)
[2017-11-27] MEDS: Piperacillin/Tazobac ADVAN(*) 3.375 GM in NS 0.9% 100 ML* 100 ML IVPB SCH ×2 (14:25→21:03)
[2017-11-27] MEDS: Citalopram TAB* 20 MG PO SCH (17:54)
[2017-11-27] MEDS: Isosorbide Mononitrate ER TAB* 60 MG PO SCH (17:54)
--- NOTE | 2017-11-27 18:47 | PN ---
Hospitalist Progress Note Date of Service: 11/27/17 Pt seen and examined. Meds and labs reviewed. H&H slowly trending down with any signs of gross active bleeding. No O/N issues. ROS: Denied WILEY/dizziness, F/C, N/V, CP, SOB, increased cough, sputum production , abd pain, diarrhea, constipation, dysuria, myalgias, arthralgias, throat pain , and new skin lesions. The rest of the 14 point ROS are unremarkable. PHYSICAL EXAM: GEN APPEARANCE: Awake, not in acute distress HEENT: NC/AT, PERRLA, moist oral mucosa, (-) throat erythema NECK: Soft, supple, (-) cervical LAD, (-)JVD HEART: S1S2 WNL, RRR, No MRG CHEST: CTA, BL, GAE, No W/R/R ABD: Soft, ND/NT, NABS 4x Q EXT: No C/C/E SKIN: Warm to touch PSYCH: No active psychosis, hallucinations, depression, SI/HI ASSESSMENT AND PLAN: #Anemia: -Will transfuse with 1 unit of appropriately typed and crossed PRBC while being dialyzed -Re-check CBC in AM #HCAP (lingular) with sepsis: -Continue with Zosyn and Vancomycin -(-) for Legionella and S. pneumo urine Ag test -Blood Cultures (-) x2 daysif pt continues to clinically be stable with (-) cultures by tomorrow, will de-escalate antibiotic therapy #HTN, uncontrolled: -Continue Carvedilol -Will increase Amlodipine to [address] pt on PRN Hydralazine in addition to PO -Continue watchful waiting -Continue Hydralzine #Loose stools: -Check stool lactoferrin and C. diff especially in the setting of broad- spectrum antibiotic use. #ESRD on HD: -Mentions her usual schedule is TR and Sat, however, had last dialysis last Monday and was evaluated in dialysis today while being transfused #Hypothyroidism: -Continue Levothyroxine -Will order for TSH to be added-on to labs already drawn #DVTp: -Continue SCD #Dispo: -For PT eval -Possible D/C in 1-2 days
[2017-11-27] MEDS: clonazePAM TAB(*) 0.5 MG PO PRN (21:03)
[2017-11-27] MEDS: hydrALAZINE IV* 20 MG/ML VIAL IV SLOW PU PRN (23:39)
[2017-11-28] MEDS: Acetaminophen TAB* 325 MG PO PRN ×3 (01:15→20:51)
[2017-11-28] MEDS: ALPRAZolam TAB* 0.25 MG PO PRN (01:15)
[2017-11-28 04:16] LABS: ABS Basophils 0.1 10^3/ul (0-0.2); ABS Eosinophils 0.3 10^3/ul (0-0.6); ABS Lymphocytes 0.8 10^3/ul (1.0-4.8); ABS Monocytes 0.7 10^3/ul (0-0.8); ABS Neutrophils 5.8 10^3/ul (1.5-7.7); ABS Nucleated RBC 0 10^3/ul; Eosinophil % 3.5 % (0-6); Hematocrit 28 % (35-47); Lymphocyte % 10.1 % (25-47); Mean Corpuscular HGB Conc 32 g/dl (31-36); Mean Corpuscular Hemoglobin 29 pg (27-31); Mean Corpuscular Volume 89 fL (80-97); Mean Platelet Volume 7.3 um3 (7.4-10.4); Nucleated Red Blood Cells % 0.1; Platelet Count 227 10^3/ul (150-450); Red Blood Count 3.12 10^6/ul (4.0-5.4); Red Cell Distribution Width 17 % (10.5-15); White Blood Count 7.6 10^3/ul (3.5-10.8)
[2017-11-28 04:30] LABS: EGFR Non-African American 12.5 (>60)
[2017-11-28] MEDS: Heparin VIAL(*) 5000 UNITS/ML VIAL (FIVE THOUSAND) SUBCUT SCH ×3 (05:04→20:54)
[2017-11-28] MEDS: Levothyroxine TAB* 100 MCG TAB PO SCH (05:04)
[2017-11-28] MEDS: hydrALAZINE IV* 20 MG/ML VIAL IV SLOW PU PRN (05:05)
[2017-11-28] MEDS: Mometasone/Formoter 200/5 MDI INH SCH ×2 (08:13→21:09)
[2017-11-28] MEDS: Pantoprazole IV* 40 MG IV SCH (09:12)
[2017-11-28] MEDS: Piperacillin/Tazobac ADVAN(*) 3.375 GM in NS 0.9% 100 ML* 100 ML IVPB SCH ×2 (09:12→20:50)
[2017-11-28] MEDS: amLODIPine TAB* 5 MG PO SCH (09:12)
[2017-11-28] MEDS: Carvedilol TAB* 25 MG PO SCH ×2 (09:13→20:51)
[2017-11-28] MEDS: hydrALAZINE TAB* 25 MG G TUBE SCH (09:13)
[2017-11-28] MEDS: Famotidine TAB* 20 MG SCH (09:14)
[2017-11-28] MEDS: Aspirin 81 mg CHEW TAB* 81 MG TAB.CHEW PO SCH (09:14)
[2017-11-28] MEDS ORDERED: traMADol TAB* 50 MG PO PRN (10:54)
--- NOTE | 2017-11-28 11:01 | PN ---
Subjective Date of Service: 11/28/17 Interval History: Pt is feeling depressed. She states she is tired of having a headache and back pain that developed post dialysis yesterday. She denies any SOB. Objective Active Medications: Acetaminophen (Tylenol Tab*) 650 mg PO Q6H PRN PRN Reason: FEVER/PAIN Last Admin: 11/28/17 09:13 Dose: 650 mg Albuterol (Ventolin 2.5 Mg/3 Ml Neb.Danita*) 2.5 mg INH Q2H PRN PRN Reason: SOB/WHEEZING Last Admin: 11/25/17 23:58 Dose: 2.5 mg Alprazolam (Xanax Tab*) 0.25 mg PO BID PRN PRN Reason: ANXIETY Last Admin: 11/28/17 01:15 Dose: 0.25 mg Amlodipine Besylate (Norvasc Tab*) 10 mg PO DAILY [facility] Last Admin: 11/28/17 09:12 Dose: 10 mg Aspirin (Aspirin 81 Mg Chew Tab*) 81 mg PO DAILY [facility] Last Admin: 11/28/17 09:14 Dose: Not Given Carvedilol (Coreg Tab*) 25 mg PO BID [facility] Last Admin: 11/28/17 09:13 Dose: 25 mg Citalopram Hydrobromide (Celexa Tab*) 20 mg PO QPM [facility] Last Admin: 11/27/17 17:54 Dose: 20 mg Clonazepam (Klonopin Tab(*)) 0.25 mg PO BID PRN PRN Reason: ANXIETY Last Admin: 11/27/17 21:03 Dose: 0.25 mg Clonidine HCl (Axbuuxpn-Pty-6 0.1 Mg Patch*) 0.1 mg TRANSDERM Q7D [facility] Last Admin: 11/24/17 13:12 Dose: 0.1 mg Famotidine (Pepcid Tab*) 20 mg .SEE ORDER QAM [facility] Last Admin: 11/28/17 09:14 Dose: 20 mg Heparin Sodium (Porcine) (Heparin Vial(*)) 5,000 units SUBCUT Q8HR [facility] Last Admin: 11/28/17 05:04 Dose: 5,000 units Hydralazine HCl (Apresoline Tab*) 50 mg G TUBE TID [facility] Last Admin: 11/28/17 09:13 Dose: 50 mg Hydralazine HCl (Apresoline Iv*) 5 mg IV SLOW PU Q6H PRN PRN Reason: Systolic Bp Greater Than:160 Last Admin: 11/28/17 05:05 Dose: 5 mg Piperacillin Sod/Tazobactam (Sod 3.375 gm/ Sodium Chloride) 100 mls @ 25 mls/ hr IVPB Q12H [facility] Last Admin: 11/28/17 09:12 Dose: 25 mls/hr Isosorbide Mononitrate (Imdur Er Tab*) 60 mg PO QPM [facility] Last Admin: 11/27/17 17:54 Dose: 60 mg Levothyroxine Sodium (Synthroid Tab*) 100 mcg PO 0600 [facility] Last Admin: 11/28/17 05:04 Dose: 100 mcg Mometasone Furoate/Formoterol Fumar (Dulera 200/5 Mdi*) 2 puff INH BID [facility] Last Admin: 11/28/17 08:13 Dose: 2 puff Ondansetron HCl (Zofran 40 Mg Vial*) 4 mg IV Q6H PRN PRN Reason: NAUSEA Pantoprazole Sodium (Protonix Iv*) 40 mg IV DAILY [facility] Last Admin: 11/28/17 09:12 Dose: 40 mg Pharmacy Consult (Zosyn Per Pharmacy*) 1 note FOLLOW UP . PRN PRN Reason: PER PROTOCOL Pharmacy Consult (Vancomycin Per Pharmacy*) 1 note FOLLOW UP .VANC PER PHARMACY [facility] Pharmacy Consult (Vancomycin - Dialysis Dosing*) 1 note FOLLOW UP . [facility] Pharmacy Consult (Vancomycin Random Level*) 1 note FOLLOW UP ONCE ONE Stop: 11/29/17 06:01 Tramadol HCl (Ultram*) 25 mg PO Q12H PRN PRN Reason: PAIN Vital Signs - 8 hr 11/28/17 11/28/17 11/28/17 04:12 04:34 08:15 Temperature 98.0 F Pulse Rate 75 72 Respiratory 16 16 18 Rate Blood Pressure 181/61 (mmHg) O2 Sat by Pulse 99 98 Oximetry Oxygen Devices in Use Now: Nasal Cannula - 3L Appearance: Elderly female sitting up in a chair, NAD Eyes: No Scleral Icterus Ears/Nose/Mouth/Throat: Mucous Membranes Moist Respiratory: Symmetrical Chest Expansion and Respiratory Effort, - - markedly diminished breath sounds in L, diminished with few crackles on R Cardiovascular: NL Sounds; No Murmurs; No JVD, RRR, No Edema Abdominal: NL Sounds; No Tenderness; No Distention Extremities: No Clubbing, Cyanosis Skin: No Nodules or Sclerosis Neurological: Alert and Oriented x 3 Result Diagrams: 11/28/17 04:07 11/28/17 04:07 Additional Lab and Data: Lab Results 11/23/17 11/23/17 11/23/17 Range/Units 22:25 22:25 22:25 WBC 14.6 H (3.5-10.8) 10^3/ul RBC 3.52 L (4.0-5.4) 10^6/ul Hgb 10.0 L (12.0-16.0) g/dl Hct 33 L (35-47) % MCV 94 (80-97) fL MCH 28 (27-31) pg MCHC 30 L (31-36) g/dl RDW 19 H (10.5-15) % Plt Count 238 (150-450) 10^3/ul MPV 7.7 (7.4-10.4) um3 Neut % (Auto) 62.4 (38-83) % Lymph % (Auto) 27.3 (25-47) % [place] % (Auto) 7.6 H (0-7) % Eos % (Auto) 1.4 (0-6) % Baso % (Auto) 1.3 (0-2) % Absolute Neuts (auto) 9.1 H (1.5-7.7) 10^3/ul Absolute Lymphs (auto) 4.0 (1.0-4.8) 10^3/ul Absolute Monos (auto) 1.1 H (0-0.8) 10^3/ul Absolute Eos (auto) 0.2 (0-0.6) 10^3/ul Absolute Basos (auto) 0.2 (0-0.2) 10^3/ul Absolute Nucleated RBC 0 10^3/ul Nucleated RBC % 0 INR (Anticoag Therapy) 1.16 H (0.77-1.02) APTT 30.8 (26.0-36.3) seconds D-Dimer, Quantitative > 1050 H (Less Than 230) ng/mL Sodium 136 L (139-145) mmol/L Potassium 4.4 (3.5-5.0) mmol/L Chloride 103 (101-111) mmol/L Carbon Dioxide 25 (22-32) mmol/L Anion Gap 8 (2-11) mmol/L BUN 18 (6-24) mg/dL Creatinine 2.66 H (0.51-0.95) mg/dL Est GFR ( Amer) 22.7 (>60) Est GFR (Non-Af Amer) 17.6 (>60) BUN/Creatinine Ratio 6.8 L (8-20) Glucose 258 H (70-100) mg/dL Lactic Acid (0.5-2.0) mmol/L Calcium 8.6 (8.6-10.3) mg/dL Magnesium 2.3 (1.9-2.7) mg/dL Total Bilirubin 0.50 (0.2-1.0) mg/dL AST 25 (13-39) U/L ALT 11 (7-52) U/L Alkaline Phosphatase 73 (34-104) U/L Troponin I 0.13 H* (<0.04) ng/mL B-Natriuretic Peptide ( - 100) pg/mL Total Protein 7.0 (6.4-8.9) g/dL Albumin 3.8 (3.2-5.2) g/dL Globulin 3.2 (2-4) g/dL Albumin/Globulin Ratio 1.2 (1-3) Blood Type Antibody Screen 11/23/17 11/23/17 11/23/17 Range/Units 22:25 22:25 22:25 WBC (3.5-10.8) 10^3/ul RBC (4.0-5.4) 10^6/ul Hgb (12.0-16.0) g/dl Hct (35-47) % MCV (80-97) fL MCH (27-31) pg MCHC (31-36) g/dl RDW (10.5-15) % Plt Count (150-450) 10^3/ul MPV (7.4-10.4) um3 Neut % (Auto) (38-83) % Lymph % (Auto) (25-47) % [place] % (Auto) (0-7) % Eos % (Auto) (0-6) % Baso % (Auto) (0-2) % Absolute Neuts (auto) (1.5-7.7) 10^3/ul Absolute Lymphs (auto) (1.0-4.8) 10^3/ul Absolute Monos (auto) (0-0.8) 10^3/ul Absolute Eos (auto) (0-0.6) 10^3/ul Absolute Basos (auto) (0-0.2) 10^3/ul Absolute Nucleated RBC 10^3/ul Nucleated RBC % INR (Anticoag Therapy) (0.77-1.02) APTT (26.0-36.3) seconds D-Dimer, Quantitative (Less Than 230) ng/mL Sodium (139-145) mmol/L Potassium (3.5-5.0) mmol/L Chloride (101-111) mmol/L Carbon Dioxide (22-32) mmol/L Anion Gap (2-11) mmol/L BUN (6-24) mg/dL Creatinine (0.51-0.95) mg/dL Est GFR ( Amer) (>60) Est GFR (Non-Af Amer) (>60) BUN/Creatinine Ratio (8-20) Glucose (70-100) mg/dL Lactic Acid 3.8 H* (0.5-2.0) mmol/L Calcium (8.6-10.3) mg/dL Magnesium (1.9-2.7) mg/dL Total Bilirubin (0.2-1.0) mg/dL AST (13-39) U/L ALT (7-52) U/L Alkaline Phosphatase (34-104) U/L Troponin I (<0.04) ng/mL B-Natriuretic Peptide 1319 H ( - 100) pg/mL Total Protein (6.4-8.9) g/dL Albumin (3.2-5.2) g/dL Globulin (2-4) g/dL Albumin/Globulin Ratio (1-3) Blood Type A Positive Antibody Screen Pending Microbiology and Other Data: Microbiology 11/24/17 07:21 Aerobic Blood Culture - Preliminary Blood Venous No Growth Day 4 Anaerobic Blood Culture - Final Not Reportable 11/27/17 14:15 Stool Gross Appearance - Final Stool C. difficile DNA Amplification - Final 027 Presumptive NEGATIVE Toxigenic C.diff NEGATIVE Stool Lactoferrin - Final 11/24/17 06:25 Gram Stain - Final Sputum Trach Sputum Culture - Final Normal Carmen 11/24/17 14:20 Legionella Urinary Antigen - Final Urine Negative Legionella Antigen Streptococcus pneumoniae Ag Screen - Final Negative S. pneumo Antigen 11/24/17 04:00 Nasal Screen MRSA (PCR)(RHIANNON) - Final Nasal Mrsa Not Detected 11/24/17 04:00 Influenza Types A,B Antigen (RHIANNON) - Final Nasal Specimen received for Influenza A/B Molecular testing Assess/Plan/Problems-Billing Ms Hannah is a 72 yo F who has a h/o ESRD on dialysis T,Th,Sa, CHF, COPD, HTN, HLD and hypothyroidism who presented to the ER with c/o SOB. - Patient Problems (1) Acute on chronic respiratory failure with hypoxia Current Visit: Yes Status: Acute Code(s): J96.21 - ACUTE AND CHRONIC RESPIRATORY FAILURE WITH HYPOXIA SNOMED Code(s): 90371179 Comment: Required intubation on admission. No resolved. [place] to be secondary to lingular pneumonia and pulmonary edema. (2) Lingular pneumonia Current Visit: Yes Status: Acute Code(s): J18.9 - PNEUMONIA, UNSPECIFIED ORGANISM SNOMED Code(s): 188411575 Comment: Improving on vanco and zosyn. WBC normalized. Will get CXR now given diminished breath sounds. (3) Atrial fibrillation Current Visit: Yes Status: Acute Code(s): I48.91 - UNSPECIFIED ATRIAL FIBRILLATION SNOMED Code(s): 87291939 Comment: The patient has been in and out of afib. She has a h/o PAF. Resume coumadin. (4) Anemia Current Visit: Yes Status: Acute Code(s): D64.9 - ANEMIA, UNSPECIFIED SNOMED Code(s): 596257865 Comment: Anemia of ESRD. She received 1 unit PRBC yesterday. Monitor. (5) COPD (chronic obstructive pulmonary disease) Current Visit: Yes Status: Chronic Code(s): J44.9 - CHRONIC OBSTRUCTIVE PULMONARY DISEASE, UNSPECIFIED SNOMED Code(s): 77354060 Comment: No signs of exacerbation. Continue prn nebs and dulera. (6) Diastolic CHF Current Visit: Yes Status: Chronic Code(s): I50.30 - UNSPECIFIED DIASTOLIC ( CONGESTIVE) HEART FAILURE SNOMED Code(s): 038438528 Comment: No signs of fluid overload at this time. Continue to monitor fluid status. (7) HTN (hypertension) Current Visit: Yes Status: Chronic Code(s): I10 - ESSENTIAL (PRIMARY) HYPERTENSION SNOMED Code(s): 22051847 Comment: BP is uncontrolled. Will continue current regimen but increase clonidine patch to 0.2mg. Monitor for improvement. (8) Hypothyroidism Current Visit: Yes Status: Chronic Code(s): E03.9 - HYPOTHYROIDISM, UNSPECIFIED SNOMED Code(s): 78341991 Comment: Continue current dose of synthroid. (9) DVT prophylaxis Current Visit: Yes Status: Acute Code(s): PKI7564 - SNOMED Code(s): 776337226 Comment: SQ heparin (10) DNR (do not resuscitate) Current Visit: Yes Status: Acute
[2017-11-28] MEDS ORDERED: cloNIDine 0.2 MG PATCH* 0.2 MG/24 HR 7 DAY PATCH TRANSDERM SCH (12:00)
--- NOTE | 2017-11-28 12:17 | RAD ---
HISTORY: Diminished breath sounds on the left COMPARISONS: November 24, 2014 VIEWS: 1: frontal portable view of the chest at 11:19 AM FINDINGS: LINES AND TUBES: The right internal jugular venous catheter is noted with the tip overlying the superior vena cava. A dual-lumen catheter is also noted from a right internal jugular vein approach with the tip overlying the cavoatrial junction. CARDIOMEDIASTINAL SILHOUETTE: The cardiac silhouette is enlarged. The aorta is tortuous. Metallic stent graft is noted. The cardiomediastinal silhouette is otherwise normal for portable technique. PLEURA: There are small, bilateral, left greater than right pleural effusions, with the right effusion new from the previous examination. LUNG PARENCHYMA: There is persistent confluent alveolar opacification of the left lower lung. ABDOMEN: The upper abdomen is clear. There is no subphrenic gas. BONES AND SOFT TISSUES: No bone or soft tissue abnormalities are noted. IMPRESSION: 1. LINES AND TUBES ABOVE. 2. CARDIOMEGALY. 3. SMALL BILATERAL PLEURAL EFFUSIONS LEFT BASILAR ATELECTASIS VERSUS CONSOLIDATION
[2017-11-28] MEDS: hydrALAZINE TAB* 25 MG PO SCH ×2 (15:18→20:50)
[2017-11-28] MEDS: Warfarin TAB(*) 5 MG PO SCH (17:53)
[2017-11-28] MEDS: Isosorbide Mononitrate ER TAB* 60 MG PO SCH (17:53)
[2017-11-28] MEDS: Citalopram TAB* 20 MG PO SCH (17:53)
[2017-11-28] MEDS: clonazePAM TAB(*) 0.5 MG PO PRN (20:51)
[2017-11-29] MEDS: Levothyroxine TAB* 100 MCG TAB PO SCH (05:47)
[2017-11-29] MEDS: Heparin VIAL(*) 5000 UNITS/ML VIAL (FIVE THOUSAND) SUBCUT SCH ×3 (05:47→21:18)
[2017-11-29] MEDS ORDERED: Vancomycin Random Level* NOTE FOLLOW UP ONE (06:00)
[2017-11-29 06:39] LABS: INR 1.07 (0.77-1.02)
[2017-11-29] MEDS: Piperacillin/Tazobac ADVAN(*) 3.375 GM in NS 0.9% 100 ML* 100 ML IVPB SCH ×2 (07:55→21:18)
[2017-11-29] MEDS: Famotidine TAB* 20 MG SCH (07:57)
[2017-11-29] MEDS: amLODIPine TAB* 5 MG PO SCH (07:57)
[2017-11-29] MEDS: Aspirin 81 mg CHEW TAB* 81 MG TAB.CHEW PO SCH ×2 (07:57→08:02)
[2017-11-29] MEDS: hydrALAZINE TAB* 25 MG PO SCH ×3 (07:57→20:24)
[2017-11-29] MEDS: Carvedilol TAB* 25 MG PO SCH ×2 (07:58→20:24)
[2017-11-29] MEDS: Pantoprazole IV* 40 MG IV SCH (07:58)
[2017-11-29] MEDS: Mometasone/Formoter 200/5 MDI INH SCH ×2 (08:38→20:42)
[2017-11-29] MEDS: hydrALAZINE IV* 20 MG/ML VIAL IV SLOW PU PRN (08:49)
--- NOTE | 2017-11-29 09:48 | PN ---
Subjective Date of Service: 11/29/17 Interval History: Pt feels well. Although pt needs to take a breath in mid sentence, she does not c/o SOB fearful of undergoing dialysis, due to headache that she got last time after HD Objective Active Medications: Acetaminophen (Tylenol Tab*) 650 mg PO Q6H PRN PRN Reason: FEVER/PAIN Last Admin: 11/28/17 20:51 Dose: 650 mg Albuterol (Ventolin 2.5 Mg/3 Ml Neb.Danita*) 2.5 mg INH Q2H PRN PRN Reason: SOB/WHEEZING Last Admin: 11/25/17 23:58 Dose: 2.5 mg Alprazolam (Xanax Tab*) 0.25 mg PO BID PRN PRN Reason: ANXIETY Last Admin: 11/28/17 01:15 Dose: 0.25 mg Amlodipine Besylate (Norvasc Tab*) 10 mg PO DAILY [facility] Last Admin: 11/29/17 07:57 Dose: 10 mg Aspirin (Aspirin 81 Mg Chew Tab*) 81 mg PO DAILY [facility] Last Admin: 11/29/17 08:02 Dose: Not Given Carvedilol (Coreg Tab*) 25 mg PO BID [facility] Last Admin: 11/29/17 07:58 Dose: 25 mg Citalopram Hydrobromide (Celexa Tab*) 20 mg PO QPM [facility] Last Admin: 11/28/17 17:53 Dose: 20 mg Clonazepam (Klonopin Tab(*)) 0.25 mg PO BID PRN PRN Reason: ANXIETY Last Admin: 11/28/17 20:51 Dose: 0.25 mg Clonidine HCl (Dfezfyzr-Wrp-7 0.2 Mg Patch*) 0.2 mg TRANSDERM Q7D [facility] Last Admin: 11/28/17 12:33 Dose: 0.2 mg Famotidine (Pepcid Tab*) 20 mg .SEE ORDER QAM [facility] Last Admin: 11/29/17 07:57 Dose: 20 mg Heparin Sodium (Porcine) (Heparin Vial(*)) 5,000 units SUBCUT Q8HR [facility] Last Admin: 11/29/17 05:47 Dose: 5,000 units Hydralazine HCl (Apresoline Iv*) 5 mg IV SLOW PU Q6H PRN PRN Reason: Systolic Bp Greater Than:160 Last Admin: 11/29/17 08:49 Dose: 5 mg Hydralazine HCl (Apresoline Tab*) 50 mg PO TID [facility] Last Admin: 11/29/17 07:57 Dose: 50 mg Piperacillin Sod/Tazobactam (Sod 3.375 gm/ Sodium Chloride) 100 mls @ 25 mls/ hr IVPB Q12H [facility] Last Admin: 11/29/17 07:55 Dose: 25 mls/hr Vancomycin HCl 750 mg/ Sodium (Chloride) 250 mls @ 166.667 mls/hr IVPB ONCE ONE Stop: 11/29/17 15:29 Isosorbide Mononitrate (Imdur Er Tab*) 90 mg PO QPM [facility] Levothyroxine Sodium (Synthroid Tab*) 100 mcg PO 0600 [facility] Last Admin: 11/29/17 05:47 Dose: 100 mcg Mometasone Furoate/Formoterol Fumar (Dulera 200/5 Mdi*) 2 puff INH BID [facility] Last Admin: 11/29/17 08:38 Dose: 2 puff Ondansetron HCl (Zofran 40 Mg Vial*) 4 mg IV Q6H PRN PRN Reason: NAUSEA Pantoprazole Sodium (Protonix Iv*) 40 mg IV DAILY [facility] Last Admin: 11/29/17 07:58 Dose: 40 mg Pharmacy Consult (Zosyn Per Pharmacy*) 1 note FOLLOW UP . PRN PRN Reason: PER PROTOCOL Pharmacy Consult (Vancomycin Per Pharmacy*) 1 note FOLLOW UP .VANC PER PHARMACY [facility] Pharmacy Consult (Vancomycin - Dialysis Dosing*) 1 note FOLLOW UP . [facility] Pharmacy Consult (Vancomycin Random Level*) 1 note FOLLOW UP 0600 ONE Stop: 12/01/17 06:01 Tramadol HCl (Ultram*) 25 mg PO Q12H PRN PRN Reason: PAIN Warfarin Sodium (Coumadin Tab(*)) 5 mg PO DAILY@1700 [facility] PRN Reason: Protocol Last Admin: 11/28/17 17:53 Dose: 5 mg Vital Signs - 8 hr 11/29/17 11/29/17 11/29/17 04:43 06:36 07:56 Temperature 97.7 F 98.0 F Pulse Rate 73 65 Respiratory 16 20 16 Rate Blood Pressure 158/60 191/58 (mmHg) O2 Sat by Pulse 98 100 Oximetry 11/29/17 11/29/17 11/29/17 07:57 08:40 08:41 Temperature Pulse Rate 73 76 67 Respiratory 16 14 Rate Blood Pressure 171/53 (mmHg) O2 Sat by Pulse 98 98 Oximetry Oxygen Devices in Use Now: Nasal Cannula Appearance: 72 yo F in nAD, AAOx3 Eyes: No Scleral Icterus, PERRLA Ears/Nose/Mouth/Throat: NL Teeth, Lips, Gums, Mucous Membranes Moist Neck: NL Appearance and Movements; NL JVP, Trachea Midline Respiratory: Symmetrical Chest Expansion and Respiratory Effort, - - decreased breath sounds b/l Cardiovascular: NL Sounds; No Murmurs; No JVD, No Edema Abdominal: NL Sounds; No Tenderness; No Distention, No Hepatosplenomegaly Lymphatic: No Cervical Adenopathy Extremities: No Edema, No Clubbing, Cyanosis Skin: No Rash or Ulcers, No Nodules or Sclerosis, - - R tunneled HD cath in subcalvian area. R IJ triple lumen in place Neurological: Alert and Oriented x 3, NL Muscle Strength and Tone Result Diagrams: 11/28/17 04:07 11/28/17 04:07 Additional Lab and Data: Lab Results 11/23/17 11/23/17 11/23/17 Range/Units 22:25 22:25 22:25 WBC 14.6 H (3.5-10.8) 10^3/ul RBC 3.52 L (4.0-5.4) 10^6/ul Hgb 10.0 L (12.0-16.0) g/dl Hct 33 L (35-47) % MCV 94 (80-97) fL MCH 28 (27-31) pg MCHC 30 L (31-36) g/dl RDW 19 H (10.5-15) % Plt Count 238 (150-450) 10^3/ul MPV 7.7 (7.4-10.4) um3 Neut % (Auto) 62.4 (38-83) % Lymph % (Auto) 27.3 (25-47) % [place] % (Auto) 7.6 H (0-7) % Eos % (Auto) 1.4 (0-6) % Baso % (Auto) 1.3 (0-2) % Absolute Neuts (auto) 9.1 H (1.5-7.7) 10^3/ul Absolute Lymphs (auto) 4.0 (1.0-4.8) 10^3/ul Absolute Monos (auto) 1.1 H (0-0.8) 10^3/ul Absolute Eos (auto) 0.2 (0-0.6) 10^3/ul Absolute Basos (auto) 0.2 (0-0.2) 10^3/ul Absolute Nucleated RBC 0 10^3/ul Nucleated RBC % 0 INR (Anticoag Therapy) 1.16 H (0.77-1.02) APTT 30.8 (26.0-36.3) seconds D-Dimer, Quantitative > 1050 H (Less Than 230) ng/mL Sodium 136 L (139-145) mmol/L Potassium 4.4 (3.5-5.0) mmol/L Chloride 103 (101-111) mmol/L Carbon Dioxide 25 (22-32) mmol/L Anion Gap 8 (2-11) mmol/L BUN 18 (6-24) mg/dL Creatinine 2.66 H (0.51-0.95) mg/dL Est GFR ( Amer) 22.7 (>60) Est GFR (Non-Af Amer) 17.6 (>60) BUN/Creatinine Ratio 6.8 L (8-20) Glucose 258 H (70-100) mg/dL Lactic Acid (0.5-2.0) mmol/L Calcium 8.6 (8.6-10.3) mg/dL Magnesium 2.3 (1.9-2.7) mg/dL Total Bilirubin 0.50 (0.2-1.0) mg/dL AST 25 (13-39) U/L ALT 11 (7-52) U/L Alkaline Phosphatase 73 (34-104) U/L Troponin I 0.13 H* (<0.04) ng/mL B-Natriuretic Peptide ( - 100) pg/mL Total Protein 7.0 (6.4-8.9) g/dL Albumin 3.8 (3.2-5.2) g/dL Globulin 3.2 (2-4) g/dL Albumin/Globulin Ratio 1.2 (1-3) Blood Type Antibody Screen 11/23/17 11/23/17 11/23/17 Range/Units 22:25 22:25 22:25 WBC (3.5-10.8) 10^3/ul RBC (4.0-5.4) 10^6/ul Hgb (12.0-16.0) g/dl Hct (35-47) % MCV (80-97) fL MCH (27-31) pg MCHC (31-36) g/dl RDW (10.5-15) % Plt Count (150-450) 10^3/ul MPV (7.4-10.4) um3 Neut % (Auto) (38-83) % Lymph % (Auto) (25-47) % [place] % (Auto) (0-7) % Eos % (Auto) (0-6) % Baso % (Auto) (0-2) % Absolute Neuts (auto) (1.5-7.7) 10^3/ul Absolute Lymphs (auto) (1.0-4.8) 10^3/ul Absolute Monos (auto) (0-0.8) 10^3/ul Absolute Eos (auto) (0-0.6) 10^3/ul Absolute Basos (auto) (0-0.2) 10^3/ul Absolute Nucleated RBC 10^3/ul Nucleated RBC % INR (Anticoag Therapy) (0.77-1.02) APTT (26.0-36.3) seconds D-Dimer, Quantitative (Less Than 230) ng/mL Sodium (139-145) mmol/L Potassium (3.5-5.0) mmol/L Chloride (101-111) mmol/L Carbon Dioxide (22-32) mmol/L Anion Gap (2-11) mmol/L BUN (6-24) mg/dL Creatinine (0.51-0.95) mg/dL Est GFR ( Amer) (>60) Est GFR (Non-Af Amer) (>60) BUN/Creatinine Ratio (8-20) Glucose (70-100) mg/dL Lactic Acid 3.8 H* (0.5-2.0) mmol/L Calcium (8.6-10.3) mg/dL Magnesium (1.9-2.7) mg/dL Total Bilirubin (0.2-1.0) mg/dL AST (13-39) U/L ALT (7-52) U/L Alkaline Phosphatase (34-104) U/L Troponin I (<0.04) ng/mL B-Natriuretic Peptide 1319 H ( - 100) pg/mL Total Protein (6.4-8.9) g/dL Albumin (3.2-5.2) g/dL Globulin (2-4) g/dL Albumin/Globulin Ratio (1-3) Blood Type A Positive Antibody Screen Pending Microbiology and Other Data: Microbiology 11/24/17 07:21 Aerobic Blood Culture - Preliminary Blood Venous No Growth Day 4 Anaerobic Blood Culture - Final Not Reportable 11/27/17 14:15 Stool Gross Appearance - Final Stool C. difficile DNA Amplification - Final 027 Presumptive NEGATIVE Toxigenic C.diff NEGATIVE Stool Lactoferrin - Final 11/24/17 06:25 Gram Stain - Final Sputum Trach Sputum Culture - Final Normal Carmen 11/24/17 14:20 Legionella Urinary Antigen - Final Urine Negative Legionella Antigen Streptococcus pneumoniae Ag Screen - Final Negative S. pneumo Antigen 11/24/17 04:00 Nasal Screen MRSA (PCR)(RHIANNON) - Final Nasal Mrsa Not Detected 11/24/17 04:00 Influenza Types A,B Antigen (RHIANNON) - Final Nasal Specimen received for Influenza A/B Molecular testing Assess/Plan/Problems-Billing Ms Hannah is a 72 yo F who has a h/o ESRD on dialysis T,Th,Sa, CHF, COPD, HTN, HLD and hypothyroidism who presented to the ER with c/o SOB. - Patient Problems (1) HTN (hypertension) Comment: BP is srtill uncontrolled and pt will not be discharged today. Will continue Coreg, Norvasc(instead of Procardia that is not on formulary), Clinidine(increased to 0.2 mg on 11/28/17), Hydralazine. will increase Imdur for 60 to 90 mg and restart home Lasix (2) Acute on chronic respiratory failure with hypoxia Comment: Required intubation on admission. No resolved. [place] to be secondary to lingular pneumonia and pulmonary edema. (3) Anemia Current Visit: Yes Comment: Anemia of ESRD. She received 1 unit PRBC on . Monitor. will get stool occult (4) Atrial fibrillation Comment: The patient has been in and out of afib. She has a h/o PAF. Resumed coumadin on 11/28/17. (5) Lingular pneumonia Comment: Improving on vanco and zosyn. WBC normalized. today day #6 of tx (6) COPD (chronic obstructive pulmonary disease) Comment: No signs of exacerbation. Continue prn nebs and dulera. (7) DNR (do not resuscitate) (8) DVT prophylaxis Comment: SQ heparin Status and Disposition: inpatient
[2017-11-29] MEDS ORDERED: Epoetin Alfa* 2,000 UNITS/ML VIAL IV ONE (12:00)
[2017-11-29] MEDS ORDERED: Epoetin Alfa* 3,000 UNITS/ML VIAL IV ONE (12:00)
[2017-11-29] MEDS ORDERED: Vancomycin(*) 750 MG in NS 0.9% 250 ML* 250 ML IVPB ONE (14:00)
[2017-11-29 15:07] LABS: Hematocrit 28 % (35-47); Mean Corpuscular HGB Conc 32 g/dl (31-36); Mean Corpuscular Hemoglobin 29 pg (27-31); Mean Corpuscular Volume 89 fL (80-97); Mean Platelet Volume 7.1 um3 (7.4-10.4); Platelet Count 251 10^3/ul (150-450); Red Blood Count 3.12 10^6/ul (4.0-5.4); Red Cell Distribution Width 18 % (10.5-15); White Blood Count 7.2 10^3/ul (3.5-10.8)
[2017-11-29 15:24] LABS: EGFR Non-African American 19.9 (>60)
[2017-11-29] MEDS: Acetaminophen TAB* 325 MG PO PRN (16:00)
[2017-11-29] MEDS: Citalopram TAB* 20 MG PO SCH (17:16)
[2017-11-29] MEDS: Warfarin TAB(*) 5 MG PO SCH (17:16)
[2017-11-29] MEDS ORDERED: Isosorbide Mononitrate ER TAB* 30 MG PO SCH (18:00)
[2017-11-29] MEDS: clonazePAM TAB(*) 0.5 MG PO PRN (21:18)
[2017-11-30] MEDS: hydrALAZINE IV* 20 MG/ML VIAL IV SLOW PU PRN (00:39)
[2017-11-30] MEDS: Acetaminophen TAB* 325 MG PO PRN ×2 (01:16→09:55)
[2017-11-30] MEDS: ALPRAZolam TAB* 0.25 MG PO PRN ×2 (01:35→21:13)
[2017-11-30] MEDS ORDERED: hydrALAZINE IV* 20 MG/ML VIAL IV SLOW PU ONE (04:20)
[2017-11-30 04:59] LABS: Hematocrit 26 % (35-47); Hemoglobin 8.3 g/dl (12.0-16.0); Mean Corpuscular HGB Conc 32 g/dl (31-36); Mean Corpuscular Hemoglobin 29 pg (27-31); Mean Corpuscular Volume 90 fL (80-97); Mean Platelet Volume 6.9 um3 (7.4-10.4); Platelet Count 245 10^3/ul (150-450); Red Blood Count 2.88 10^6/ul (4.0-5.4); Red Cell Distribution Width 18 % (10.5-15); White Blood Count 7.1 10^3/ul (3.5-10.8)
[2017-11-30 05:03] LABS: INR 1.15 (0.77-1.02)
[2017-11-30] MEDS: Levothyroxine TAB* 100 MCG TAB PO SCH (05:10)
[2017-11-30] MEDS: Heparin VIAL(*) 5000 UNITS/ML VIAL (FIVE THOUSAND) SUBCUT SCH ×3 (05:10→21:15)
[2017-11-30 05:15] LABS: EGFR Non-African American 11.8 (>60)
[2017-11-30] MEDS: Pantoprazole IV* 40 MG IV SCH (08:34)
[2017-11-30] MEDS: Piperacillin/Tazobac ADVAN(*) 3.375 GM in NS 0.9% 100 ML* 100 ML IVPB SCH ×2 (08:34→21:15)
[2017-11-30] MEDS: Furosemide TAB* 40 MG PO SCH (08:34)
[2017-11-30] MEDS: Famotidine TAB* 20 MG SCH (08:34)
[2017-11-30] MEDS: Carvedilol TAB* 25 MG PO SCH ×2 (08:34→21:11)
[2017-11-30] MEDS: amLODIPine TAB* 5 MG PO SCH (08:34)
[2017-11-30] MEDS: hydrALAZINE TAB* 25 MG PO SCH ×3 (08:34→21:13)
[2017-11-30] MEDS: Aspirin 81 mg CHEW TAB* 81 MG TAB.CHEW PO SCH (08:34)
[2017-11-30] MEDS: Mometasone/Formoter 200/5 MDI INH SCH ×2 (08:39→20:53)
[2017-11-30] MEDS: Lisinopril TAB* 10 MG PO SCH (09:55)
--- NOTE | 2017-11-30 09:56 | PN ---
Subjective Date of Service: 11/30/17 Interval History: Getting WILEY after dialysis, was up all night. SBP to 205 at 8am. WILEY 6/10 bitemporal radiating to neck. phonophobia, no photophobia. Diarrhea improved over last 2 days, 2x/day, soft. denies chest pain, wheezing. pink/brown sputum; coughing less "hard" difficult to navigate PCP Dr. Lockhart phone answering service. drives her to appointments. Objective Active Medications: Acetaminophen (Tylenol Tab*) 650 mg PO Q6H PRN PRN Reason: FEVER/PAIN Last Admin: 11/30/17 01:16 Dose: 650 mg Albuterol (Ventolin 2.5 Mg/3 Ml Neb.Danita*) 2.5 mg INH Q2H PRN PRN Reason: SOB/WHEEZING Last Admin: 11/25/17 23:58 Dose: 2.5 mg Alprazolam (Xanax Tab*) 0.25 mg PO BID PRN PRN Reason: ANXIETY Last Admin: 11/30/17 01:35 Dose: 0.25 mg Amlodipine Besylate (Norvasc Tab*) 10 mg PO DAILY [facility] Last Admin: 11/30/17 08:34 Dose: 10 mg Aspirin (Aspirin 81 Mg Chew Tab*) 81 mg PO DAILY [facility] Last Admin: 11/30/17 08:34 Dose: 81 mg Carvedilol (Coreg Tab*) 25 mg PO BID [facility] Last Admin: 11/30/17 08:34 Dose: 25 mg Citalopram Hydrobromide (Celexa Tab*) 20 mg PO QPM [facility] Last Admin: 11/29/17 17:16 Dose: 20 mg Clonazepam (Klonopin Tab(*)) 0.25 mg PO BID PRN PRN Reason: ANXIETY Last Admin: 11/29/17 21:18 Dose: 0.25 mg Clonidine HCl (Zjyryyys-Lvt-4 0.3 Mg Patch*) 0.3 mg TRANSDERM Q7D [facility] Famotidine (Pepcid Tab*) 20 mg .[facility] [place] Last Admin: 11/30/17 08:34 Dose: 20 mg Furosemide (Lasix Tab*) 40 mg PO QAM [facility] Last Admin: 11/30/17 08:34 Dose: 40 mg Heparin Sodium (Porcine) (Heparin Vial(*)) 5,000 units SUBCUT Q8HR [facility] Last Admin: 11/30/17 05:10 Dose: 5,000 units Heparin Sodium (Porcine) (Heparin Flush Picc/Ml/Cvc(*)) 0 ml IV FLUSH 0600, 1800 [facility] PRN Reason: Protocol Last Admin: 11/30/17 04:40 Dose: 3 ml Hydralazine HCl (Apresoline Iv*) 5 mg IV SLOW PU Q6H PRN PRN Reason: Systolic Bp Greater Than:160 Last Admin: 11/30/17 00:39 Dose: 5 mg Hydralazine HCl (Apresoline Tab*) 50 mg PO TID [facility] Last Admin: 11/30/17 08:34 Dose: 50 mg Piperacillin Sod/Tazobactam (Sod 3.375 gm/ Sodium Chloride) 100 mls @ 25 mls/ hr IVPB Q12H [facility] Last Admin: 11/30/17 08:34 Dose: 25 mls/hr Isosorbide Mononitrate (Imdur Er Tab*) 120 mg PO QPM [facility] Levothyroxine Sodium (Synthroid Tab*) 100 mcg PO 0600 [facility] Last Admin: 11/30/17 05:10 Dose: 100 mcg Lisinopril (Prinivil Tab*) 10 mg PO DAILY [facility] Mometasone Furoate/Formoterol Fumar (Dulera 200/5 Mdi*) 2 puff INH BID [facility] Last Admin: 11/30/17 08:39 Dose: 2 puff Ondansetron HCl (Zofran 40 Mg Vial*) 4 mg IV Q6H PRN PRN Reason: NAUSEA Pantoprazole Sodium (Protonix Iv*) 40 mg IV DAILY [facility] Last Admin: 11/30/17 08:34 Dose: 40 mg Pharmacy Consult (Zosyn Per Pharmacy*) 1 note FOLLOW UP . PRN PRN Reason: PER PROTOCOL Pharmacy Consult (Vancomycin Per Pharmacy*) 1 note FOLLOW UP .VANC PER PHARMACY [facility] Pharmacy Consult (Vancomycin - Dialysis Dosing*) 1 note FOLLOW UP . [facility] Pharmacy Consult (Vancomycin Random Level*) 1 note FOLLOW UP 0600 ONE Stop: 12/01/17 06:01 Tramadol HCl (Ultram*) 25 mg PO Q12H PRN PRN Reason: PAIN Warfarin Sodium (Coumadin Tab(*)) 5 mg PO DAILY@1700 [facility] PRN Reason: Protocol Last Admin: 11/29/17 17:16 Dose: 5 mg Vital Signs - 8 hr 11/30/17 11/30/17 11/30/17 04:20 05:37 06:51 Temperature 98.0 F 98.2 F Pulse Rate 77 83 Respiratory 16 16 20 Rate Blood Pressure 184/71 179/64 (mmHg) O2 Sat by Pulse 99 98 Oximetry 11/30/17 11/30/17 11/30/17 07:13 08:10 08:41 Temperature 97.7 F Pulse Rate 90 85 Respiratory 24 24 20 Rate Blood Pressure 205/72 (mmHg) O2 Sat by Pulse 98 97 Oximetry 11/30/17 09:27 Temperature 98.2 F Pulse Rate 87 Respiratory 20 Rate Blood Pressure 170/58 (mmHg) O2 Sat by Pulse 99 Oximetry Oxygen Devices in Use Now: Nasal Cannula Appearance: NAD Eyes: No Scleral Icterus, PERRLA Ears/Nose/Mouth/Throat: NL Teeth, Lips, Gums, Mucous Membranes Moist Neck: NL Appearance and Movements; NL JVP Respiratory: - - distant lung sounds, no wheezing, rhonchi or rales. Cardiovascular: NL Sounds; No Murmurs; No JVD, RRR Abdominal: NL Sounds; No Tenderness; No Distention, No Hepatosplenomegaly Extremities: No Edema Skin: No Rash or Ulcers, No Nodules or Sclerosis Neurological: Alert and Oriented x 3, NL Sensation, NL Muscle Strength and Tone Nutrition: Taking PO's Result Diagrams: 11/30/17 04:50 11/30/17 04:50 Additional Lab and Data: Laboratory Results - last 24 hr 11/29/17 11/29/17 11/30/17 14:55 14:55 04:50 WBC 7.2 RBC 3.12 L Hgb 9.0 L Hct 28 L MCV 89 MCH 29 MCHC 32 RDW 18 H Plt Count 251 MPV 7.1 L INR (Anticoag Therapy) 1.15 H Sodium 132 L Potassium 3.5 Chloride 100 L Carbon Dioxide 25 Anion Gap 7 BUN 10 Creatinine 2.39 H Est GFR ( Amer) 25.6 Est GFR (Non-Af Amer) 19.9 BUN/Creatinine Ratio 4.2 L Glucose 135 H Calcium 8.4 L 11/30/17 11/30/17 04:50 04:50 WBC 7.1 RBC 2.88 L Hgb 8.3 L Hct 26 L MCV 90 MCH 29 MCHC 32 RDW 18 H Plt Count 245 MPV 6.9 L INR (Anticoag Therapy) Sodium 134 L Potassium 3.7 Chloride 104 Carbon Dioxide 25 Anion Gap 5 BUN 17 Creatinine 3.76 H Est GFR ( Amer) 15.2 Est GFR (Non-Af Amer) 11.8 BUN/Creatinine Ratio 4.5 L Glucose 107 H Calcium 8.6 Microbiology and Other Data: Microbiology 11/29/17 17:10 Stool Stool Occult Blood (RHIANNON) - Final 11/24/17 07:21 Blood Venous Aerobic Blood Culture - Final No Growth Day 5 11/24/17 07:21 Blood Venous Anaerobic Blood Culture - Final Not Reportable 11/27/17 14:15 Stool Stool Gross Appearance - Final 11/27/17 14:15 Stool C. difficile DNA Amplification - Final 027 Presumptive NEGATIVE Toxigenic C.diff NEGATIVE 11/27/17 14:15 Stool Stool Lactoferrin - Final 11/24/17 06:25 Sputum Trach Gram Stain - Final 11/24/17 06:25 Sputum Trach Sputum Culture - Final Normal Carmen 11/24/17 14:20 Urine Legionella Urinary Antigen - Final Negative Legionella Antigen 11/24/17 14:20 Urine Streptococcus pneumoniae Ag Screen - Final Negative S. pneumo Antigen 11/24/17 04:00 Nasal Nasal Screen MRSA (PCR)(RHIANNON) - Final Mrsa Not Detected 11/24/17 04:00 Nasal Influenza Types A,B Antigen (RHIANNON) - Final Specimen received for Influenza A/B Molecular testing Assess/Plan/Problems-Billing ASSESSMENT: 72 yo female PMH ESRD on dialysis T,Th,Sa, CHF, COPD, HTN, HLD and hypothyroidism who presented to the ER with c/o SOB. s/p intubation for obtundation. - Patient Problems (1) HTN (hypertension) Current Visit: Yes Status: Chronic Code(s): I10 - ESSENTIAL (PRIMARY) HYPERTENSION SNOMED Code(s): 99614299 Comment: BP is still uncontrolled to SBP 205 and pt will not be discharged today. continue Coreg 25mg BID continue Norvasc 10mg(instead of Procardia that is not on formulary), increase Clonidine to 0.3 mg today continue Hydralazine 50mg TID increase Imdur to 120 mg continue home Lasix 40mg po daily add lisinopril 10mg daily headache control (2) Acute on chronic respiratory failure with hypoxia Current Visit: Yes Status: Acute Code(s): J96.21 - ACUTE AND CHRONIC RESPIRATORY FAILURE WITH HYPOXIA SNOMED Code(s): 23484330 Comment: Required intubation on admission. Now resolved. [place] to be secondary to lingular pneumonia and pulmonary edema/volume overload. 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 normocytic with elevated RDW. She received 1 unit PRBC on 11/27/17. Monitor. Stool occult was positive. describes diarrhea currently adding iron studies. has been started on warfarin, INR 1.15 (4) Atrial fibrillation Current Visit: Yes Status: Acute Code(s): I48.91 - UNSPECIFIED ATRIAL FIBRILLATION SNOMED Code(s): 60039466 Comment: The patient has been in and out of afib. She has a h/o PAF. Resumed coumadin on 11/28/17. INR suptherapeutic (5) DNR (do not resuscitate) Current Visit: Yes Status: Acute (6) DVT prophylaxis Current Visit: Yes Status: Acute Code(s): IZK7689 - SNOMED Code(s): 245196543 Comment: SQ heparin (7) Lingular pneumonia Current Visit: Yes Status: Acute Code(s): J18.9 - PNEUMONIA, UNSPECIFIED ORGANISM SNOMED Code(s): 745838938 Comment: Improved on vanco and zosyn. WBC normalized. today last day #7 of tx (8) COPD (chronic obstructive pulmonary disease) Current Visit: Yes Status: Chronic Code(s): J44.9 - CHRONIC OBSTRUCTIVE PULMONARY DISEASE, UNSPECIFIED SNOMED Code(s): 85680645 Comment: No signs of exacerbation. Continue prn nebs and dulera. (9) Diastolic CHF Current Visit: Yes Status: Chronic Code(s): I50.30 - UNSPECIFIED DIASTOLIC ( CONGESTIVE) HEART FAILURE SNOMED Code(s): 330599068 Comment: Continue to monitor fluid status. (10) CKD (chronic kidney disease) stage 5, GFR less than 15 ml/min Current Visit: No Status: Acute Code(s): N18.5 - CHRONIC KIDNEY DISEASE, STAGE 5 SNOMED Code(s): 137773512 Comment: - Tolerating HD with complaint of headaches afterward - establishing RUE fistula, currently Left IJ - outpatient HD for T, Th, Sat at [facility] while inpatient (11) Respiratory failure with hypoxia Current Visit: No Status: Acute Code(s): J96.91 - RESPIRATORY FAILURE, UNSPECIFIED WITH HYPOXIA SNOMED Code(s): 16708542701740994 Comment: - Acute on chronic, - Back to baseline O2 requirements of 2-3L Status and Disposition: medicine inpatient, blood pressures still poorly controlled.
[2017-11-30] MEDS ORDERED: cloNIDine 0.3 MG PATCH* 0.3 MG/24 HR 7 DAY PATCH TRANSDERM SCH (10:00)
[2017-11-30] MEDS: Warfarin TAB(*) 5 MG PO SCH (17:04)
[2017-11-30] MEDS: Citalopram TAB* 20 MG PO SCH (17:04)
[2017-11-30] MEDS ORDERED: Isosorbide Mononitrate ER TAB* 60 MG PO SCH (18:00)
[2017-11-30] MEDS ORDERED: NS 0.9% 100 ML* 100 ML ONE (21:00)
[2017-12-01] MEDS: Heparin VIAL(*) 5000 UNITS/ML VIAL (FIVE THOUSAND) SUBCUT SCH ×2 (05:27→13:02)
[2017-12-01] MEDS: Levothyroxine TAB* 100 MCG TAB PO SCH (05:28)
[2017-12-01] MEDS ORDERED: Vancomycin Random Level* NOTE FOLLOW UP ONE (06:00)
[2017-12-01 06:03] LABS: INR 1.2 (0.77-1.02)
[2017-12-01] MEDS: Aspirin 81 mg CHEW TAB* 81 MG TAB.CHEW PO SCH (08:19)
[2017-12-01] MEDS: Pantoprazole IV* 40 MG IV SCH (08:19)
[2017-12-01] MEDS: Famotidine TAB* 20 MG SCH (08:20)
[2017-12-01] MEDS: hydrALAZINE TAB* 25 MG PO SCH ×2 (08:20→13:07)
[2017-12-01] MEDS: Lisinopril TAB* 10 MG PO SCH (08:20)
[2017-12-01] MEDS: Carvedilol TAB* 25 MG PO SCH (08:20)
[2017-12-01] MEDS: Furosemide TAB* 40 MG PO SCH (08:20)
[2017-12-01] MEDS: amLODIPine TAB* 5 MG PO SCH (08:20)
[2017-12-01] MEDS: Mometasone/Formoter 200/5 MDI INH SCH (08:24)
[2017-12-01 11:55] VITALS: BP 135/50
[2017-12-01] MEDS ORDERED: Ferrous Sulfate TAB* 325 MG PO SCH (12:00)
--- NOTE | 2017-12-02 07:43 | DS ---
DISCHARGE SUMMARY: DATE OF ADMISSION: 11/24/17 DATE OF DISCHARGE: 12/01/17 CHIEF COMPLAINT: Shortness of breath, altered mental status. PRINCIPAL DIAGNOSES: 1. Acute hypoxic respiratory failure, requiring intubation, mechanical ventilation. 2. Pneumonia (lingular). 3. Hypertensive urgency. 4. Iron deficiency anemia, requiring blood transfusion. HISTORY OF PRESENT ILLNESS AND HOSPITAL COURSE: Gricelda Hannah is a 72-year-old female, with past medical history of recent initiation of hemodialysis for end- stage renal disease; descending thoracic aneurysm, status post repair; diastolic CHF; COPD; uterine cancer; hypertension; hyperlipidemia; hypothyroidism; recent atrial fibrillation, on Coumadin, who presented with fatigue, shortness of breath, and eventual obtunded mental status. She was intubated for airway protection, transferred to the ICU. Chest x-ray was concerning for a lingular pneumonia. She also had CTA which ruled out PE. She was started on vancomycin, Zosyn, and received 7-day course of antibiotics with resolution of her leukocytosis. Her T- max during this stay was 100.4 degrees Fahrenheit on 11/25/17. She was eventually able to be extubated. She continued to receive hemodialysis for volume removal. Her BNP was noted to be 1319 on admission. She was anemic and was given 1 unit of packed red blood cells on 11/27/17, was found to be iron deficient with iron of 26, iron sat 9, ferritin of 76, started on oral iron supplementation. Her INR was subtherapeutic on admission at 1.16. Dr. Boyd had recently increased her to 6 mg warfarin from 5 on 11/19/17. Coumadin was restarted on 11/28/17. INR on discharge is 1.2; of note she got only 5 mg on 11/28/17, 11/29/17, and . She is being recommended to increase to 6 and get an INR check with Dr. Dalal next week. She had poorly controlled blood pressure and additional agents and up-titration of her home meds was needed. Clonidine was raised to 0.3 mg transdermal patch from 0.1. Her isosorbide mononitrate was increased to 120 mg q.p.m. from 60. She was initiated again on lisinopril 10 mg. She had previously been on this medication remotely. She was continued on her Lasix 40 mg daily and her carvedilol 25 mg p.o. b.i.d. She received amlodipine 10 mg while in the hospital, but she will be returning to her nifedipine home dose upon discharge. She was given prescriptions also for Dulera and albuterol HFA inhaler for her COPD. She was not thought to be in exacerbation during this day. She will be resuming her Monday, , Monday schedule for hemodialysis. Last inpatient was on 11/29/17. She will get next session on 12/02/17, day after discharge. She has chornic complaint of headaches after hemodialysis sessions. Latest blood pressures since latest changes have been 130s/50s. She was ordered Physical Therapy, who cleared her for discharge home. She has a cane that she uses on the stairs. DISCHARGE MEDICATIONS: Include: 1. Carvedilol 25 mg p.o. b.i.d. 2. Citalopram 20 mg p.o. q.p.m. 3. Klonopin 0.25 mg p.o. b.i.d. 4. Pepcid 20 mg p.o. q.a.m. 5. Lasix 40 mg p.o. q.a.m. 6. Hydralazine 50 mg p.o. t.i.d. 7. Synthroid 100 mcg p.o. q.a.m. 8. Albuterol inhaler HFA q.6 hours p.r.n. 9. Berberine 1 capsule p.o. q.a.m. 10. Clonidine 0.3 mg transdermal patch q.7 days (increased dose). 11. Ferrous sulfate 325 mg p.o. daily (new). 12. Ipratropium 0.5 mg inhaled q.4 hours p.r.n. 13. Isosorbide mononitrate 120 mg p.o. q.p.m. (increased dose from 60). 14. Lisinopril 10 mg p.o. daily (new). 15. Dulera 2 puffs inhaled b.i.d. (new). 16. Nifedipine 60 mg p.o. daily. 17. Turmeric 1 capsule p.o. q.a.m. 18. Warfarin 5+1 mg tabs, total 6 mg, daily at 1700. DISCHARGE DIET: Heart healthy, unchanged. ACTIVITY LEVEL: No restrictions. FOLLOWUP: Please follow up with Dr. Iglesia Lockhart, on 12/06/17, at 3 p.m. She will need INR checks and blood pressure checks. She was asked to record her blood pressure in a log book and present to her PCP's office. Her Coumadin may need to be up-titrated further; highest level seen in our system is 1.5 on 08/27. TIME SPENT: On discharge is 45 minutes. [id number]/[facility] #: [id number] KASEY
== END 2017-12-01 15:35 | disposition home or self-care (01) | DRG 139 ==
LOC: ED 22:25 → ICU 11-24 00:57 → MEDTELE 11-26 08:17
PROVIDERS: ADMIT Hospitalist; ATTEND Internal Medicine
PROC: 0BH17EZ Insertion of Endotracheal Airway into Trachea, Via Natural or Artificial Opening (ICD-10-PCS; principal; 2017-11-24)
PROC: 5A1D70Z Performance of Urinary Filtration, Intermittent, Less than 6 Hours Per Day (ICD-10-PCS; 2017-11-24)
PROC: 05HM33Z Insertion of Infusion Device into Right Internal Jugular Vein, Percutaneous Approach (ICD-10-PCS; 2017-11-24)
PROC: B543ZZA Ultrasonography of Right Jugular Veins, Guidance (ICD-10-PCS; 2017-11-24)
PROC: 5A1945Z Respiratory Ventilation, 24-96 Consecutive Hours (ICD-10-PCS; 2017-11-24)
PROC: 5A1D70Z Performance of Urinary Filtration, Intermittent, Less than 6 Hours Per Day (ICD-10-PCS; 2017-11-27)
PROC: 30233N1 Transfusion of Nonautologous Red Blood Cells into Peripheral Vein, Percutaneous Approach (ICD-10-PCS; 2017-11-27)
PROC: 5A1D70Z Performance of Urinary Filtration, Intermittent, Less than 6 Hours Per Day (ICD-10-PCS; 2017-11-29)
DX: J18.1 Lobar pneumonia, unspecified organism (principal); J96.21 Acute and chronic respiratory failure with hypoxia; N18.6 End stage renal disease; J96.02 Acute respiratory failure with hypercapnia; I13.2 Hypertensive heart and chronic kidney disease with heart failure and with stage 5 chronic kidney disease, or end stage renal disease; J44.0 Chronic obstructive pulmonary disease with (acute) lower respiratory infection; I16.1 Hypertensive emergency; I50.32 Chronic diastolic (congestive) heart failure; E78.5 Hyperlipidemia, unspecified; E03.9 Hypothyroidism, unspecified; E66.9 Obesity, unspecified; R74.8 Abnormal levels of other serum enzymes; K44.9 Diaphragmatic hernia without obstruction or gangrene; K21.9 Gastro-esophageal reflux disease without esophagitis; F41.9 Anxiety disorder, unspecified; F32.9 Major depressive disorder, single episode, unspecified; R51 Headache; D63.1 Anemia in chronic kidney disease; I48.91 Unspecified atrial fibrillation; Z66 Do not resuscitate; D50.9 Iron deficiency anemia, unspecified; Z79.01 Long term (current) use of anticoagulants; Z99.2 Dependence on renal dialysis; Z85.42 Personal history of malignant neoplasm of other parts of uterus; Z88.1 Allergy status to other antibiotic agents; Z91.040 Latex allergy status; Z91.018 Allergy to other foods; Z91.048 Other nonmedicinal substance allergy status; Z90.710 Acquired absence of both cervix and uterus; Z87.891 Personal history of nicotine dependence; Z82.49 Family history of ischemic heart disease and other diseases of the circulatory system; Z82.0 Family history of epilepsy and other diseases of the nervous system; Z68.30 Body mass index [BMI] 30.0-30.9, adult
CPT/HCPCS: 31500; 36415; 71045; 71275; 80048; 80053; 80202; 82272; 82728; 82803; 83540; 83550; 83605; 83630; 83735; 83880; 84443; 84484; 85025; 85027; 85379; 85610; 85730; 86850; 86900; 86901; 86922; 87040; 87070; 87205; 87493; 87502; 87641; 87899; 90935; 93005; 94003; 94640; 99285; A9270-GY; G0257; G8978-GP-CI; G8979-GP-CI; G8980-GP-CI; J0360; J0885; J1644; J2405; J2543; J2704; J3010; J3370; P9040; Q9967

== ENCOUNTER 2017-12-22 11:31 | Day surgery (SDC) | payer BC ==
--- NOTE | 2017-12-14 13:58 | HP ---
CC: Dr. Boyd * HISTORY AND PHYSICAL: DATE OF ADMISSION: 12/15/2017 CHIEF COMPLAINT: End-stage renal disease, placement of arteriovenous graft. HISTORY OF PRESENT ILLNESS: The patient is a 72-year-old female with end-stage renal disease, currently being dialyzed via a temporary tunnel catheter, placed on the right internal jugular that has been present for the past two months. The patient underwent a right radiocephalic fistula on 11/10/17. The fistula is patent and working; however, the fistula is not mature to be able to use for dialysis. Even though the patient has been exercising her right hand and forearm , the growth and the length of the fistula is very small and it has not matured. The patient have been still have very frail skin and vessels and even though the fistula is patent is not mature for hemodialysis. Because the patient has had a central venous catheter for two months, it is of extreme importance to establish peripheral access for hemodialysis to avoid central vein stenosis from the catheter. For this reason, the patient is being admitted for placement of arteriovenous graft to start to be used for hemodialysis. PAST MEDICAL HISTORY: Remarkable for coronary artery disease, hypertension, renal failure, peripheral vascular disease, ruptured thoracic aortic aneurysm, and history of tobacco abuse, she quit approximately four months ago. ALLERGIES: Present allergies are ERYTHROMYCIN, LATEX, TAPE, NICKEL, and FOOD ALLERGIES. FAMILY HISTORY: Father had prostate cancer. Mother had diabetes. One sister had cancer and respiratory problems and the brother had hypertension. REVIEW OF SYSTEMS: Contributory for the above mentioned. PHYSICAL EXAMINATION HEAD AND NECK: Unremarkable. No neck nodes or masses. No JVD. There is an tunneled internal jugular on the right side that is being used for dialysis. No abnormalities are noted. UPPER EXTREMITIES: Reveal excellent palpable pulses at the brachial and at the radial. There is a arteriovenous fistula at the right radial that is patent and palpable, but the vein are not big enough for dialysis. On the left side, the patient has excellent palpable pulses at the axillary, brachial and radial as well as ulnar. LUNGS: Clear to auscultation bilaterally. There are no murmurs on auscultation. HEART: Regular. ABDOMEN: Soft and depressible. There is a long midline incision from the umbilicus down to the symphysis pubis. There is a large abdominal panniculus over the groin. LOWER EXTREMITIES: The patient has palpable pulses bilaterally at the femoral, popliteal, dorsalis pedis, and posterior tibial. DIAGNOSTIC IMPRESSION: End-stage renal disease with the patient being on hemodialysis via a central catheter over two months. The concern is for group home central vein stenosis after a month of exercise with a patent right radiocephalic fistula. This is not mature for use. For this reason, the patient is undergoing placement of dialysis graft on the right arm. The patient understands that there are potential complications including but not exclusive of others such as thrombosis, infection, hematoma, bruising, pain, etc. The patient understands, agrees, and wishes to proceed. [id number]/[facility] #: [id number] MTDD
[~2017-12-22 11:31] MED LIST changes: -Dexamethasone IV* 4 MG/ML 1 ML (4 MG) IV SLOW PU ONE; +Levalbuterol 0.63MG/3ML NEB* UNIT OF USE INH PRN; -NS 0.45% 1000 ML BAG* 1,000 ML IV SCH; +NS 0.9% 1000 ML* 1,000 ML IV SCH
[2017-12-22] MEDS ORDERED: ceFAZolin 2 GM PREMIX (*) 2 GM/50 ML BAG IVPB ONE (12:04)
[2017-12-22] MEDS ORDERED: Levalbuterol 0.63MG/3ML NEB* UNIT OF USE INH ONE (12:36)
[2017-12-22] MEDS ORDERED: Midazolam* 1 MG/ML 2 ML VIAL (2 MG) ONE (12:56)
[2017-12-22] MEDS ORDERED: fentaNYL* 50 MCG/ML 2 ML VIAL (100 MCG VIAL) ONE (12:56)
[2017-12-22] MEDS ORDERED: Lidocaine 1% INJ* 10 MG/ML 30 ML SDV ONE (13:04)
[2017-12-22] MEDS ORDERED: Heparin DIALYSIS ONLY(*) 1,000 UNITS/ML VIAL ONE ×2 (13:04→13:40)
[2017-12-22] MEDS ORDERED: Lidocaine 2% PF * 5 ML VIAL ONE (13:28)
[2017-12-22] MEDS ORDERED: Levalbuterol 0.63MG/3ML NEB* UNIT OF USE INH PRN (14:05)
[2017-12-22] MEDS ORDERED: Acetaminophen TAB* 325 MG PO PRN (14:05)
[2017-12-22] MEDS ORDERED: fentaNYL* 50 MCG/ML 2 ML VIAL (100 MCG VIAL) IV PRN (14:05)
[2017-12-22] MEDS ORDERED: DiMENhydriNATE IV* 50 MG/ML VIAL IV PUSH PRN (14:05)
[2017-12-22] MEDS ORDERED: Nalbuphine* 20 MG/ML 1 ML VIAL IV PRN (14:05)
[2017-12-22] MEDS ORDERED: PROCHLORPERAZINE INJ 5 MG/ML 2 ML VIAL IV PRN (14:05)
[2017-12-22] MEDS ORDERED: Naloxone* 0.4 MG/ML 1 ML VIAL IV PRN (14:05)
[2017-12-22] MEDS ORDERED: Lidocaine 1% MPF wEPI 200,000* 30 ML SDV ONE (14:09)
[2017-12-22] MEDS ORDERED: Propofol* 10 MG/ML 20 ML BTL IV PUSH ONE (14:44)
[2017-12-22 16:33] VITALS: BP 138/53
--- NOTE | 2017-12-23 07:16 | OP ---
DATE OF OPERATION: 12/22/17 - [facility] DATE OF : 45 SURGEON: Reginald Troy MD ANESTHESIA: Local plus MAC. PRE-OP DIAGNOSIS: End-stage renal disease. POST-OP DIAGNOSIS: End-stage renal disease. OPERATIVE PROCEDURE: Placement of arteriovenous fistula of the right arm with Propaten Acuseal tapered Gervais-Toribio graft. INDICATIONS: The patient is a 72-year-old female with end-stage renal disease. She had undergone approximately a month ago _right radio cephalic____ AV fistula that although remained open, it never matured adequately enough for dialysis, the patient has been dialyzed via a jugular temporal artery catheter for the past 2 months and for this reason, an arteriovenous graft was inserted today. ESTIMATED BLOOD LOSS: Approximately 20 cc. DESCRIPTION OF PROCEDURE: The patient was taken to the procedure room. She was placed in supine position. She was prepped and draped in the usual sterile fashion. She received preoperative antibiotics prior to the procedure. Ultrasound mapping of the antecubital veins at the junction between the cephalic and the basilic was marked as well as the brachial artery. After this was done and the patient had been prepped and draped and routine time-out was done, lidocaine 1% was used to infiltrate on the right arm in the antecubital fossa. A transverse incision was performed. Incision was carried down to the skin and subcutaneous tissue. Bleeders were controlled by electrocoagulation. At this point, we then proceeded to expose the antecubital vein extending towards the cephalic, the interconnecting vein and the basilic vein. Vesseloops were applied proximally and distally at the antecubital fossa and after this was done, dissection of the brachial artery was done. Vesseloops were placed proximally and distally and after this was completed, we then proceeded to perform a tunnel using a curved tunneler. We proceeded to tunnel the graft with a counterincision distally in the arm; the arterial arm being medial and the venous arm being lateral. After the entire graft was in place and making sure there were no kinks and there was adequate length, the venous anastomosis was performed first. Prior to the anastomosis and once the graft was tunneled, the patient received 2000 units of heparin. Four minutes later, we proceeded to clamp the cephalic vein, antecubital vein, and we then proceeded to make a venotomy. The [id number] anastomosis was then performed using 6-0 Prolene between the Acuseal Gervais-Toribio graft and the antecubital vein using a parachute technique under direct vision and after this was completed, the graft was then irrigated with heparinized saline. The graft was then clamped and the clamps around the veins were released. After this was completed , we then proceeded to perform the arterial anastomosis. The brachial artery was then cross clamped proximally and distally. The tapered 4-mm end of the Gervais-Toribio was then sutured end- to-side to the brachial artery using 6-0 Prolene in a parachute technique and once this was completed, flow was established. There was a strong Doppler signal with good flow into the antecubital and cephalic vein. Bleeders were controlled, the anastomosis by independent sutures. At the end of the procedure, there was no bleeding from the anastomosis. The field was dry. The subcutaneous tissue was then closed with 4 -0 Vicryl sutures and the skin was closed with a subcuticular 5-0 Biosyn. The patient tolerated the procedure well and she was taken in good condition to recovery room. [id number]/[facility] #: [id number] KASEY
== END 2017-12-22 16:48 | disposition home or self-care (01) ==
LOC: OR 11:31
PROVIDERS: ATTEND Surgery
DX: N18.6 End stage renal disease (principal); Z99.2 Dependence on renal dialysis; I25.10 Atherosclerotic heart disease of native coronary artery without angina pectoris; I12.9 Hypertensive chronic kidney disease with stage 1 through stage 4 chronic kidney disease, or unspecified chronic kidney disease; I73.9 Peripheral vascular disease, unspecified; Z87.891 Personal history of nicotine dependence; J44.9 Chronic obstructive pulmonary disease, unspecified; Z99.81 Dependence on supplemental oxygen; E03.9 Hypothyroidism, unspecified; D64.9 Anemia, unspecified
CPT/HCPCS: C1768; J0690; J1642; J1644; J2001; J2250; J2704; J3010

== ENCOUNTER 2017-12-29 11:10 | Day surgery (SDC) | payer BC ==
--- NOTE | 2017-12-28 23:38 | HP ---
HISTORY AND PHYSICAL: DATE OF ADMISSION: 12/29/17 ADDENDUM: The patient underwent a week ago an arteriovenous graft on the right arm. The graft is a loop graft for hemodialysis. She came to see us for followup 5 days after the surgery, was having some discomfort at the site of the graft. On evaluation, the graft was not patent; it had clotted. There was no Doppler signal and the ultrasound revealed fresh clot within the lumen of the graft. Because of the early closure, the patient requires admission for thrombectomy, angiography, possible revision of the graft. For this reason, the patient is being admitted this time. As a new finding, the patient states that when she was in dialysis this week, she experienced palpitations and she was sent from dialysis to the emergency room for possible atrial fibrillation, which she has had in the past. However, when she was seen in the emergency room , she had no palpitations, no atrial fibrillation, and no abnormalities were found. For now, the plan is to proceed with declotting of the graft. The procedure would be canceled if the patient goes into atrial fibrillation. [id number]/[facility] #: [id number] KASEY
[~2017-12-29 11:10] MED LIST changes: -Levalbuterol 0.63MG/3ML NEB* UNIT OF USE INH PRN
[2017-12-29] MEDS ORDERED: ceFAZolin 2 GM PREMIX (*) 2 GM/50 ML BAG IVPB ONE (11:14)
[2017-12-29] MEDS ORDERED: Lidocaine 1%* 5 ML VIAL ONE (11:16)
[2017-12-29] MEDS ORDERED: Heparin DIALYSIS ONLY(*) 1,000 UNITS/ML VIAL ONE ×2 (11:17→14:04)
[2017-12-29] MEDS ORDERED: Iohexol 180 (CONTRAST) 10 ML SDV IV ONE ×3 (11:17→14:50)
[2017-12-29] MEDS ORDERED: Heparin 2 UNITS/ML IVPREMIX* 2,000 ML IV ONE (11:25)
[2017-12-29] MEDS ORDERED: Buffered Lidocaine 0.9% SYRIN* 5 ML/SYR SYRINGE ONE (11:54)
[2017-12-29] MEDS ORDERED: Midazolam* 1 MG/ML 2 ML VIAL (2 MG) ONE (12:30)
[2017-12-29] MEDS ORDERED: fentaNYL* 50 MCG/ML 2 ML VIAL (100 MCG VIAL) ONE ×3 (12:30→15:23)
[2017-12-29] MEDS ORDERED: diPHENhydraMINE IV* 50 MG/ML 1 ml VIAL (BENADRYL) IV PRN (12:42)
[2017-12-29] MEDS ORDERED: Naloxone* 0.4 MG/ML 1 ML VIAL IV PRN (12:42)
[2017-12-29] MEDS ORDERED: Levalbuterol 0.63MG/3ML NEB* UNIT OF USE INH PRN (12:42)
[2017-12-29] MEDS ORDERED: DiMENhydriNATE IV* 50 MG/ML VIAL IV PUSH PRN (12:42)
[2017-12-29] MEDS ORDERED: Acetaminophen TAB* 325 MG PO PRN (12:42)
[2017-12-29] MEDS ORDERED: PROCHLORPERAZINE INJ 5 MG/ML 2 ML VIAL IV PRN (12:42)
[2017-12-29] MEDS ORDERED: Lidocaine 2% PF * 5 ML VIAL ONE (12:56)
[2017-12-29] MEDS ORDERED: cloNIDine 0.3 MG PATCH* 0.3 MG/24 HR 7 DAY PATCH TRANSDERM SCH (13:00)
[2017-12-29] MEDS ORDERED: Famotidine IV* 10 MG/ML 2 ML (20 mg) ONE (14:02)
[2017-12-29] MEDS ORDERED: Dexamethasone IV* 4 MG/ML 1 ML (4 MG) ONE (14:02)
[2017-12-29] MEDS ORDERED: Propofol* 10 MG/ML 20 ML BTL IV PUSH ONE (14:02)
[2017-12-29] MEDS: fentaNYL* 50 MCG/ML 2 ML VIAL (100 MCG VIAL) IV PRN ×3 (15:25→16:25)
[2017-12-29] MEDS ORDERED: Acetaminophen TAB* 325 MG ONE (16:22)
--- NOTE | 2017-12-29 17:03 | RAD ---
CPT II Codes: G9500 INDICATION: Renal failure. Arteriovenous graft is thrombosed. TECHNIQUE: Intraoperative fluoroscopy was provided during rather gram, thrombectomy and venoplasty. FINDINGS: Intraoperative fluoroscopy demonstrates contrast angiography of a right upper extremity arteriovenous graft. Images appeared to depict graft thrombectomy with balloon pullback technique followed by angioplasty of the arterial inflow, the graft and venous outflow. Patent flow of the brachial artery is recorded with flow into the graft. There is flow past the arterial anastomosis filling the proximal most radial and ulnar arteries as well. Fluoroscopy time: 740 seconds IMPRESSION: As above.
[2017-12-29 17:12] VITALS: BP 155/71
--- NOTE | 2017-12-30 07:35 | OP ---
CC: Dr. Boyd * DATE OF OPERATION: 12/29/17 - [facility] DATE OF : 45 SURGEON: Reginald Troy MD ANESTHESIA: Local plus MAC. PRE-OP DIAGNOSIS: Thrombosis of right arteriovenous graft. 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 OPERATIVE PROCEDURE: 1. Right arteriovenous graft angiogram. 2. Mechanical thrombectomy (AngioJet). 3. Cephalic vein angioplasty. 4. Brachial artery angioplasty. ESTIMATED BLOOD LOSS: Less than 50 cc. DESCRIPTION OF PROCEDURE: The patient was taken to the operating room. She was placed in a supine position. She was prepped and draped in the usual sterile fashion. After proper identification and time-out, lidocaine 1% was used to infiltrate right over the graft close to the arterial anastomosis in an antegrade puncture using an 18-gauge Angiocath. The graft was accessed. We then proceeded to advance a 0.035 Starter wire which was then advanced up to the cephalic vein. Once this was in place, we then proceeded to advance over the wire the AngioJet catheter. Prior to this, the AngioJet catheter was primed and the catheter was then advanced under direct fluoroscopic guidance past the anastomosis at the cephalic vein and at this point, the AngioJet was activated. The catheter was then pulled back slowly with the activation in place and using intermittently and once this was done we then proceeded to repeat it again from proximal to distal and after this, we then were able to shoot a venogram via the 5-port which revealed stenosis of the cephalic vein above the anastomosis approximately 2 cm above the anastomosis likely present from before of any punctures. We then proceeded to advance the 7-mm 4 cm long Casmalia angioplasty catheter and angioplasty of the segment was done x2 and after this performing the venogram, there was excellent flow into it. We then proceeded to work on the arterial side by puncturing in an antegrade fashion towards the arterial anastomosis from distal to proximal. Using again an 18- gauge Angiocath following with a 0.035 guidewire that was advanced past the arterial anastomosis and after this was done, we then proceeded to advance a 5- Turkish angiography catheter past the arterial anastomosis into the brachial artery. An angiogram was performed revealed occlusion of the arterial graft and a stenosis at the site of the anastomosis and below the segment. At this point , we then proceeded to perform and over the wire Tj embolectomy in order to remove the platelet plug from the arterial site and under direct fluoroscopic guidance, a 5- Turkish Tj was advanced over the wire inflated and pulled back slowly and gradually. After this was completed, there was flow into the graft. We then proceeded to advance a Casmalia balloon angioplasty catheter over the wire into the arterial anastomosis 5-mm in diameter, 4 cm long and the angioplasties of these segments were performed with almost complete correction of the stenosis. There was excellent inflow into the graft and distally into the brachial artery. After this was done, we then noticed that the graft had thrilled and there was a good pulse in the radial artery and good capillary refill in the hand. At this point, we then proceeded to remove the wires and performing a thigde-xk-obwwd Z-stitch technique. The sheath were pulled out and the suture was tightened and torque was applied to the opening and held in place with Steri-Strips. The patient was then taken in good condition to recovery room. [id number]/[facility] #: [id number] KASEY
== END 2017-12-29 17:32 | disposition home or self-care (01) ==
LOC: OR 11:10
PROVIDERS: ATTEND Surgery
DX: T82.868A Thrombosis due to vascular prosthetic devices, implants and grafts, initial encounter (principal); N18.6 End stage renal disease; Z99.2 Dependence on renal dialysis; I25.10 Atherosclerotic heart disease of native coronary artery without angina pectoris; I10 Essential (primary) hypertension; I73.9 Peripheral vascular disease, unspecified; I77.1 Stricture of artery; Z88.1 Allergy status to other antibiotic agents; Z91.040 Latex allergy status; Z91.048 Other nonmedicinal substance allergy status; Z91.018 Allergy to other foods; X58.XXXA Exposure to other specified factors, initial encounter
CPT/HCPCS: 76001; A9270-GY; C1887; J0690; J1100; J1644; J2250; J2704; J3010

== ENCOUNTER → 2018-01-23 05:52 | Day surgery (SDC) | payer BC ==
[~2018-01-23 05:52] MED LIST changes: +Dexamethasone TAB* 4 MG ONE; +Dexamethasone TAB* 4 MG PO ONE; +Famotidine IV* 10 MG/ML 2 ML (20 mg) IV ONE; +Famotidine IV* 10 MG/ML 2 ML (20 mg) ONE; +Heparin DIALYSIS ONLY(*) 1,000 UNITS/ML VIAL ONE; +Heparin VIAL(*) 5000 UNITS/ML VIAL (FIVE THOUSAND) ONE; +KETAMINE HCL* 50 MG/ML 10 ML VIAL ONE; +Lidocaine 1% INJ* 10 MG/ML 30 ML SDV ONE; +Midazolam* 1 MG/ML 5 ML VIAL (5 MG) ONE; +NS 0.45% 1000 ML BAG* 1,000 ML IV SCH; -NS 0.9% 1000 ML* 1,000 ML IV SCH; +Naloxone* 0.4 MG/ML 1 ML VIAL IV PRN; +Ondansetron ODT TAB* 4 MG ONE; +Ondansetron TAB* 4 MG PO ONE; +Propofol* 500 MG/50 ML BTL ONE; +ceFAZolin 2 GM PREMIX (*) 2 GM/50 ML BAG IVPB ONE; +fentaNYL* 50 MCG/ML 2 ML VIAL (100 MCG VIAL) ONE
[2018-01-23] MEDS: fentaNYL* 50 MCG/ML 2 ML VIAL (100 MCG VIAL) IV PRN ×3 (11:05→11:58)
[2018-01-23 12:16] VITALS: BP 135/48
--- NOTE | 2018-01-24 02:45 | OP ---
DATE OF OPERATION: 01/23/18 - [facility] DATE OF : 45 SURGEON: Reginald Troy MD LEGISLATORS: Brenda Warren NP ANESTHESIA: Local plus MAC. PRE-OP DIAGNOSIS: End-stage renal disease POST-OP DIAGNOSIS: End-stage renal disease OPERATIVE PROCEDURE: Placement of Lavallette-Toribio arteriovenous graft upper right arm. ESTIMATED BLOOD LOSS: Approximately 30 cc. INDICATIONS: The patient has end-stage renal disease, being dialyzed via a temporary internal jugular catheter. She had undergone a loop graft in the antecubital area as well as an AV fistula. The AV fistula did not mature. The AV graft clotted and she was taken back for de-clotting and angiography revealing stenoses along the cephalic vein where the graft was connected as well as stenoses of the lower segment of the brachial artery. There was balloon angioplasty; however, this again re-clotted, it was felt that the quality of the vessels for inflow and outflow was inadequate and decision was made to perform a higher loop for the vessels were bigger. The patient was then prepared and taken to the operative room with a planned brachiobasilic vein Lavallette-Toribio Propaten graft. DESCRIPTION OF PROCEDURE: The patient was taken to the procedure room. She was placed in a supine position. She received preoperative antibiotics. She had pneumatic compression device in place. She was prepped and draped in the usual sterile fashion. Under sedation and after appropriate time-out, an oblique incision was performed under the right axilla. The incision was carried down through the skin, subcutaneous tissue. The fascia was opened. The cephalic vein was identified. Vessel loops were placed proximally and distally and into a branch and after this was done, the brachial artery, which appeared to be deep, was then identified, encircled in vessel loops, taking care of avoiding the brachial nerve and after this was completed, we then proceeded to infiltrate lidocaine 1% in a loop configuration with a lateral limb of the graft to be on the outside and the venous side on the inside using a curved tunneler. We then proceeded to create a tunnel and bring a 6 mm Propaten Lavallette-Toribio graft. A counterincision was made right above the antecubital area and one arm was pulled out this way and then the tunneler was used in the other direction and pulled out the other way creating a complete loop. The length of the graft was 45 cm. After this was in place, the patient received 3000 units of heparin. We then proceeded to cross-clamp the cephalic vein. A venotomy was performed. The graft was then spatulated and the anastomosis was performed using 6-0 Prolene in a parachute style, and after this was completed, it was irrigated, it would go easily. This was done via the graft. Clamp was then placed right distal next to the venous anastomosis on the graft and we then proceeded to perform the arterial anastomosis. The Lavallette- Toribio was then transected, completely across to reduce the diameter to be used on the brachial artery, and decrease steal syndrome; and after this was done, the brachial artery was cross-clamped proximally and distally. An arteriotomy was performed. The quality of the artery was quite poor with very friable plaque formation; however, it was made to the size of the graft and this was then anastomosed using a parachute technique as well, from the artery to the graft and then taken down doing the posterior anastomosis first and the anterior anastomosis. Care was taken to avoid posterior wall since the quality of the artery was significantly poor. Anastomosis was completed. The venous side was then opened. The distal cross- clamp was released and then later the proximal cross-clamp. There was minor oozing from the anastomosis, which was controlled with Surgicel. The patient had excellent flow into the brachial artery proximally and distally and at the level of the radial artery. There was excellent flow into the cephalic vein, Doppler signal. There was ecchymosis around the loop graft area, but no hematoma formation. At this point , we then proceeded to close the incisions, subcutaneous tissue with 4-0 Vicryl and the skin with a subcuticular 5-0 Biosyn. The patient tolerated the procedure well and she was taken in good condition to recovery room. [id number]/[facility] #: [id number] KASEY
== END | disposition home or self-care (01) ==
LOC: OR 05:52
PROVIDERS: ATTEND Surgery
DX: N18.6 End stage renal disease (principal); Z99.2 Dependence on renal dialysis; I12.9 Hypertensive chronic kidney disease with stage 1 through stage 4 chronic kidney disease, or unspecified chronic kidney disease; J44.9 Chronic obstructive pulmonary disease, unspecified; I73.9 Peripheral vascular disease, unspecified; M19.90 Unspecified osteoarthritis, unspecified site; I48.91 Unspecified atrial fibrillation; I25.10 Atherosclerotic heart disease of native coronary artery without angina pectoris; K21.9 Gastro-esophageal reflux disease without esophagitis; E03.9 Hypothyroidism, unspecified; D64.9 Anemia, unspecified
CPT/HCPCS: A9270-GY; C1768; J0690; J1644; J2250; J2704; J3010; J8540

== ENCOUNTER 2019-04-19 11:03 | Emergency (ER) | payer BC, MEDICARE ==
[2019-04-19] MEDS ORDERED: Tranexamic Acid 1,000 MG/10 ML 1,000 MG in NS 0.9% 50 ML* 50 ML IV ONE (11:18)
--- OUTSIDE RECORDS SUMMARY | 2019-04-19 11:24 | XMS REPORT | Summary of Care ---
:1945 Author Organization [facility] Address [address] [place] [address] Care Team Providers Name Role Phone Iglesia Lockhart MD Primary Care Provider Reason for Visit Reason Comments Medication Check pt presents for follow up with medication. Follow Up pt presents for labs Encounter Details Date Type Department Care Team Description 03/26/2019 Office Visit [facility] Iglesia Lockhart MD CKD (chronic kidney disease) stage V requiring chronic dialysis (HCC) ( Primary Dx); Practice [address] Primary hypothyroidism; [address] [place] [address] Flu vaccine need; [place] [address] Need for vaccination; [phone] Essential hypertension; Tobacco abuse Allergies Active Allergy Reactions Severity Noted Date Comments Environmental Other 04/16/2015 Seasonal allergies, new carpeting Erythromycin GI Reaction 08/04/2007 vomit Food Swelling 11/01/2017 walnuts Hydralazine Musculoskeletal 06/26/2017 Latex Dermatologic Reaction 08/04/2007 Skin rash Metals Dermatologic Reaction 08/04/2007 Skin rash Tape: Silk Or Adhesive Dermatologic Reaction 08/04/2007 Skin rash Tea Other 12/06/2017 Tingling mouth documented as of this encounter (statuses as of 03/26/2019) Medications Medication Sig Dispensed Refills Start Date End Date Status albuterol HFA Take 2 Puffs by 1 Inhaler 0 07/11/2017 Active (VENTOLIN) 108 (90 inhalation EVERY Base) MCG/ACT SIX HOURS Inhalation Aero NEEDED (COPD). Soln albuterol-ipratropi 3 mg by 0 Active um (DUO-NEB) Inhalation-SVN 0.5-2.5 (3) MG/3ML route EVERY FOUR Inhalation Solution HOURS. Barberry-Oreg Take by mouth 0 Active Grape-Goldenseal DAILY. (BERBERINE COMPLEX PO) warfarin (COUMADIN) Take 1 Tab by 30 Tab 0 11/13/2017 Active 5 MG Oral Tab mouth DAILY. As directed which is 5mg daily carvedilol (COREG) Take 1 Tab by 180 Tab 3 04/19/2018 Active 25 MG Oral Tab mouth TWO TIMES DAILY WITH MEALS. citalopram (CELEXA) TAKE ONE TABLET 30 Tab 11 05/25/2018 Active 20 MG Oral BY MOUTH ONCE TabIndications: DAILY Anxiety state famotidine (PEPCID) Take 1 Tab by 90 Tab 1 10/30/2018 Active 20 MG Oral Tab mouth DAILY. furosemide (LASIX) Take 1 Tab by 90 Tab 1 10/30/2018 Active 40 MG Oral Tab mouth DAILY. hydrALAZINE Take 1 Tab by 180 Tab 1 10/30/2018 Active (APRESOLINE) 50 MG mouth TWICE Oral Tab DAILY. lisinopril TAKE 1 TABLET BY 30 Tab 1 01/08/2019 Active (PRINIVIL, ZESTRIL) MOUTH ONCE DAILY 10 MG Oral Tab clonazePAM Take 1 Tab by 30 Tab 0 02/04/2019 Active (KLONOPIN) 0.5 MG mouth TWO TIMES Oral DAILY NEEDED TabIndications: (anxiety). Max Anxiety state Daily Amount: 1 mg. levothyroxine TAKE 1 TABLET BY 90 Tab 0 02/12/2019 Active (SYNTHROID) 125 MCG MOUTH BEFORE Oral Tab BREAKFAST fluticasone [place] 2 Sprays 1 Bottle 5 03/26/2019 Active (FLONASE) 50 in nose DAILY. MCG/ACT Nasal Suspension cloNIDine Place 1 Patch 4 Patch 5 01/09/2018 Discontinued (CATAPRES-TTS) 0.3 onto skin EVERY 9 MG/24HR Transdermal MONDAY. PATCH WEEKLY NIFEdipine Take 1 Tab by 90 Tab 1 10/30/2018 Discontinued (PROCARDIA XL) 60 mouth DAILY. 9 MG Oral TABLET SR [address] 0.3 mg 4 Patch 5 12/11/2018 Discontinued (CATAPRES-TTS) 0.3 onto skin EVERY 9 MG/24HR Transdermal MONDAY. PATCH WEEKLY documented as of this encounter (statuses as of 03/26/2019) Active Problems Problem Noted Date Acute renal failure on dialysis 12/06/2017 [facility] (current) use of anticoagulants 11/02/2017 Overview: 11/17/[address] Boyd Managed by: patient to establish with [facility] Referring Provider: Carol Indication: PAF Target Range: 2.0-3.0 Duration: Indefinite Additional factors influencing anticoagulation: CHADS2 score of 2 for congestive heart failure and hypertension [id number] score of 5 for age > 65, congestive heart failure, hypertension, female gender, vascular disease ESRD on dialysis Citalopram increases warfarin level Levothyroxine increases warfarin effect Nifedipine increases warfarin level Initiation of Warfarin therapy: unknown Initial Referral: 11/01/17 Initial ACS Orders: 11/02/17 Paroxysmal atrial fibrillation 11/01/2017 Aortic aneurysm, descending 10/07/2015 Chronic systolic congestive heart failure 05/27/2015 Primary hypothyroidism 05/20/2015 Panlobular emphysema 05/20/2015 False positive stress test 03/30/2015 Overview: Cardiac cath negative 2007 BMI 33.0-33.9,adult 03/25/2013 Overview: This patient's BMI has been calculated and is above average, and BMI management plan is completed. General patient education discussion including: weight loss link to reduction of risk factors for car diac and other diseases Advised beginning daily walking for 30-45 minutes and reduce total caloric intake and portion sizes without skipping meals. VERO OTTO CORPUS UTERI 01/13/2010 Depression with anxiety 08/06/2007 Tobacco abuse Overview: 10 cigarettes per day Began age 30 Hyperlipidemia Hypertension CKD (chronic kidney disease) stage V requiring chronic dialysis documented as of this encounter (statuses as of 03/26/2019) Resolved Problems Problem Noted Date Resolved Date Shortness of breath 08/06/2007 08/17/2007 General symptoms NEC 08/06/2007 08/17/2007 Hyperventilation 08/06/2007 08/17/2007 Intermediate coronary syndrome 08/04/2007 03/30/2015 documented as of this encounter (statuses as of 03/26/2019) Immunizations Name Administration Dates Next Due Influenza Vaccine 65 Yrs + 03/26/2019 Pneumococcal Conjugate(13 Valent) 03/26/2019 documented as of this encounter Social History Tobacco Use Types Packs/Day Years Used Date Former Smoker Cigarettes 0.5 30 Smokeless Tobacco: Former User Quit: 08/28/2017 Comments: has been trying to cut back, less than pack per day Alcohol Use Drinks/Week oz/Week Comments No 0 Standard drinks or equivalent 0.0 occasional Sex Assigned at Date Recorded Not on file Job Start Date Occupation Industry Not on file Not on file Not on file Travel History Travel Start Travel End No recent travel history available. documented as of this encounter Last Filed Vital Signs Vital Sign Reading Time Taken Comments Blood Pressure 112/64 03/26/2019 11:25 AM EDT Pulse 65 03/26/2019 11:25 AM EDT Temperature - - Respiratory Rate - - Oxygen Saturation 99% 03/26/2019 11:25 AM EDT Inhaled Oxygen Concentration - - Weight 92.3 kg (203 lb 6.4 oz) 03/26/2019 11:25 AM EDT Height 160 cm (5' 3") 03/26/2019 11:25 AM EDT Body Mass Index 36.03 03/26/2019 11:25 AM EDT documented in this encounter Progress Notes Iglesia Lockhart MD - 03/26/2019 11:20 AM EDT PATIENT: Gricelda Hannah : 1945 DATE OF SERVICE: 03/26/2019 CHIEF COMPLAINT: Chief Complaint Patient presents with Medication Check pt presents for follow up with medication. Follow Up pt presents for labs Subjective HISTORY OF PRESENT ILLNESS: Gricelda Hannah is a 74-y.o. female. She had called me few mo ago complaining her BP too low She was symptomatic We made some changes and is off nifedipine and clonidine patch Takes half hydralazine and she noteshome BP range 84-160 systolic. Average about 130 and pulse in the 60s. She is still lowest right after dialysis bit not as dizzy They think the reeason her thyroid is off is she takes the med then goes todialysis . They wonder if change to PM would be better for her system would be 2 hours after dinner and 1 hour before a snack. dtr wonders why they are not checking her kidney fxn. She still voids and wonders would get betterBefore dialysis she was in hospital all the time with fluid overload etc. Labs done show Hgb 11.5 Ca 9.6 Lay 4.0 K 5.7 told to cut fruits , chol 231, a1c 5.1 glucose 110 She has congestion and wonders if can take a claritin etc. Past Medical History: Diagnosis Date Anemia Anxiety Aortic aneurysm, descending (HCC) 10/07/2015 Aortic regurgitation CHF (congestive heart failure) (HCC) due to thyroid CKD (chronic kidney disease) stage V requiring chronic dialysis (HCC) Depression with anxiety Emphysema lung (HCC) Hyperlipidemia Irregular uterine bleeding Macular degeneration Osteopenia 2015 10 and 2.7 Panic attacks on clonopin Primary hypothyroidism 05/20/2015 Tobacco abuse Unspecified essential hypertension Uterine cancer (HCC) Family History Problem Relation Age of Onset Hypertension Mother Heart Mother Diabetes Mother Hypertension Father Heart Father Prostate Cancer Father Current Outpatient Medications Medication Sig albuterol HFA (VENTOLIN) 108 (90 Base) MCG/ACT Inhalation Aero Soln Take 2 Puffs by inhalation EVERY SIX HOURS NEEDED (COPD). albuterol-ipratropium (DUO-NEB) 0.5-2.5 (3) MG/3ML Inhalation Solution 3 mg by Inhalation-SVNroute EVERY FOUR HOURS. Barberry-Oreg Grape-Goldenseal (BERBERINE COMPLEX PO) Take by mouth DAILY. carvedilol (COREG) 25 MG Oral Tab Take 1 Tab by mouth TWO TIMES DAILY WITH MEALS. citalopram (CELEXA) 20 MG Oral Tab TAKE ONE TABLET BY MOUTH ONCE DAILY clonazePAM (KLONOPIN) 0.5 MG Oral Tab Take 1 Tab by mouth TWO TIMES DAILY NEEDED (anxiety). Max Daily Amount: 1 mg. famotidine (PEPCID) 20 MG Oral Tab Take 1 Tab by mouth DAILY. fluticasone (FLONASE) 50 MCG/ACT Nasal Suspension [place] 2 Sprays in nose DAILY. furosemide (LASIX) 40 MG Oral Tab Take 1 Tab by mouth DAILY. hydrALAZINE (APRESOLINE) 50 MG Oral Tab Take 1 Tab by mouth TWICE DAILY. levothyroxine (SYNTHROID) 125 MCG Oral Tab TAKE 1 TABLET BY MOUTH BEFORE BREAKFAST lisinopril (PRINIVIL, ZESTRIL) 10 MG Oral Tab TAKE 1 TABLET BY MOUTH ONCE DAILY warfarin (COUMADIN) 5 MG Oral Tab Take 1 Tab by mouth DAILY. As directed which is 5mg daily No current facility-administered medications for this visit. Allergies Allergen Reactions Environmental Other Seasonal allergies, new carpeting Erythromycin GI Reaction vomit Food Swelling walnuts Hydralazine Musculoskeletal Latex Dermatologic Reaction Skin rash Nickel [Metals] Dermatologic Reaction Skin rash Tape: Silk Or Adhesive Dermatologic Reaction Skin rash Tea Other Tingling mouth Social History Socioeconomic History Marital status: Spouse name: Not on file Number of children: Not on file Years of education: Not on file Highest education level: Not on file Occupational History Not on file Social Needs Financial resource strain: Not on file Food insecurity: Worry: Not on file Inability: Not on file Transportation needs: Medical: Not on file Non-medical: Not on file Tobacco Use Smoking status: Former Smoker Packs/day: 0.50 Years: 30.00 Pack years: 15.00 Types: Cigarettes Smokeless tobacco: Former User Quit date: 08/28/2017 Tobacco comment: has been trying to cut back, less than pack per day Substance and Sexual Activity Alcohol use: No Alcohol/week: 0.0 standard drinks Comment: occasional Drug use: No Sexual activity: Yes Lifestyle Physical activity: Days per week: Not on file Minutes per session: Not on file Stress: Not on file Relationships Social connections: Talks on phone: Not on file Gets together: Not on file Attends mormonism service: Not on file Active member of club or organization: Not on file Attends meetings of clubs or organizations: Not on file Relationship status: Not on file Intimate partner violence: Fear of current or ex partner: Not on file Emotionally abused: Not on file Physically abused: Not on file Forced sexual activity: Not on file Other Topics Concern Not on file Social History Narrative to Ap who works in the [employer] business. 3 children retired REVIEW OF SYSTEMS: ROS Objective PHYSICAL EXAM: VITALS: BP 112/64 (BP Location: Left arm, Patient Position: Sitting) | Pulse 65 | Ht 5' 3" (1.6 m) | Wt 203 lb 6.4 oz (92.3 kg) | SpO2 99% | BMI 36.03 kg /m Body mass index is 36.03 kg/m. Physical Exam Constitutional: No distress (gained about 10 lb older than stated age. has a supportive walker ). HENT: Mouth/Throat: Oropharynx is clear and moist. Cardiovascular: Normal rate and regular rhythm. Pulmonary/Chest: Effort normal and breath sounds normal. No respiratory distress. Musculoskeletal: She exhibits no edema. Psychiatric: She has a normal mood and affect. Vitals reviewed. ASSESSMENT / IMPRESSION: ICD-9-CM ICD-10-CM 1. CKD (chronic kidney disease) stage V requiring chronic dialysis (HCC) told family that if not change mgmt they wont check a test but will order next time gets thyroid checked 585.6 N18.6 COMPREHENSIVE METABOLIC PANEL V45.11 Z99.2 2. Primary hypothyroidism ok to take synthroid 8 PM and check labs 2 mo 244.9 E03.9 THYROID STIMULATING HORMONE 3. Flu vaccine need V04.81 Z23 ND FLU VACCINE 65 YRS + 4. Need for vaccination prevnar 13 dtr made her do it V05.9 Z23 ND PNEUMOCOCCAL CONJ VAC(13 VALENT)(Z23) 5. Essential hypertension BP acceptable, no changes 401.9 I10 6. Tobacco abuse 305.1 Z72.0 Congratulate on quitting although likely the cause of the weight gain Plan She declines mammogram Author: Iglesia Lockhart MD 03/26/2019 21:40 documented in this encounter Plan of Treatment Name Type Priority Associated Diagnoses Order Schedule THYROID STIMULATING Lab Routine Primary hypothyroidism Ordered: 03/26/2019 HORMONE COMPREHENSIVE METABOLIC Lab Routine CKD (chronic kidney Ordered: 03/26/2019 PANEL disease) stage V requiring chronic dialysis (HCC) Health Maintenance Due Date Last Done Comments MEDICARE ANNUAL WELLNESS 1945 VISIT HIV SCREENING 1960 HEPATITIS C SCREENING 1985 ZOSTER IMMUNIZATION SERIES 1995 (1 of 2) PNEUMOCOCCAL 65+YRS (1 of 2 2010 - PCV13) MAMMOGRAM (SCREENING) 12/20/2016 12/21/2015 (Declined), 12/20/2011 (Postponed), 06/13/2011 (Declined) INFLUENZA VACCINE (#1) 2019 FALL RISK ASSESSMENT 05/07/2019 05/07/2018, 05/07/2018 LIPID DISORDER SCREENING 05/14/2019 05/14/2018, 11/16/2016, 05/20/2015, Additional history exists DEPRESSION SCREENING 10/31/2019 10/30/2018, 06/26/2017 COLONOSCOPY SCREENING 12/19/2021 12/20/2011 (Postponed) OSTEOPOROSIS SCREENING 12/29/2025 12/30/2015 HPV IMMUNIZATION SERIES Aged Out No longer eligible based on patient's age to complete this topic MENINGOCOCCAL VACCINE IMM Aged Out No longer eligible based on patient's age to complete this topic documented as of this encounter Goals Goal Patient Goal Associated Recent Patient-Stated? Author Type Problems Progress Blood Pressure Blood Pressure 112/64 No Chantelle, < 150/90 (03/26/2019 MD Iglesia 11:25 AM EDT) Note: This is an individualized treatment (blood pressure) goal for Gricelda A Cam[place]: Displayed above (on the left) is your goal for blood pressure control. Your most recent blood pressure is also shown above, on the right. You should try to achieve blood pressures that are lower than your goal listed above (on the left). Weight increase vs. 18 mo CHF 26.4 (03/26/2019 11:25 AM EDT) Iglesia Rudd MD min (lbs) < 5 Note: This is an individualized treatment (congestive heart failure, CHF) goal for Gricelda Hannah: Displayed above (on the right) is how many pounds you are in excess of your lowest weight over the past 18 months. Note that lower numbers are better. Excessive weight gain often indicates fluid reten tion and worsening heart failure. You should contact your doctor immediately if the above number is too high (above your goal, the number on the left). Smoking Cessation COPD No Iglesia Lockhart MD Note: This is an individualized treatment (COPD) goal for Gricelda Hannah: Quit smoking immediately! Your provider has information and resources that may help you to quit. Depression screen (PHQ-9) Depression 16 (06/26/2017 10:24 AM No Iglesia Lockhart MD total score < 5 EST) Note: This is an individualized treatment (depression) goal for Gricelda Hannah: Displayed above is your goal for a depression screening (PHQ-9) score that would indicate good control of your depression. Keep immunizations current Lifestyle Iglesia Rudd MD Note: This is an individualized lifestyle goal for Gricelda Hannah: Please be sure to keep up-to-date on recommended immunizations. For example, this would include a yearly influenza vaccine. Immunization status can be seen by looking at the Health Maintenance sections of your [facility], Plan of Care, and any After Visit Summaries. Consume a [id number] diet Lifestyle No Iglesia Lockhart MD Note: This is an individualized lifestyle goal for Gricelda Hannah: Please do not add additional salt to your food. Additional salt may lead to fluid retention and worsen your congestive heart failure. Keep a regular sleep schedule Lifestyle No Iglesia Lockhart MD Note: This is an individualized lifestyle goal for Gricelda Hannah: Please maintain a regular sleep schedule. This may help with some symptoms of depression. Take all prescribed medications as directed Self-management No Iglesia Lockhart MD Note: This is an individualized self-management goal for Gricelda Hannah: Please take all prescribed medications as directed. 1. Do not skip doses. If you cannot afford your medications, talk with your doctor. 2. Use a pill reminder system such as a pill box if needed. Your pharmacist can help you with this. 3. Contact your Pharmacy 5 days before your medication runs out. If you cannot take your medications for any reasons, talk with your doctor. 4. Please bring all of your medication bottles and inhalers (or a list of all your medications/inhalers) with you to every visit. Potential barriers to meeting all of your care plan goals will continue to be addressed on an ongoing basis. Check your weight daily Self-management No Iglesia Lockhart MD Note: This is an individualized self-management goal for Gricelda Hannah: Please check your weight daily. Refer to the accompanying CHF treatment goal and call your doctor immediately for further instructions on how to respond to unexpected weight gain. documented as of this encounter Results Not on filedocumented in this encounter Visit Diagnoses Diagnosis CKD (chronic kidney disease) stage V requiring chronic dialysis (HCC) - Primary End stage renal disease Primary hypothyroidism Unspecified hypothyroidism Flu vaccine need Need for prophylactic vaccination and inoculation against influenza Need for vaccination Need for prophylactic vaccination and inoculation against unspecified single disease Essential hypertension Unspecified essential hypertension Tobacco abuse Tobacco use disorder documented in this encounter Insurance Payer Benefit Plan / Subscriber ID Effective Dates Phone Address Type Group MEDICARE MEDICARE PART xxxxxxxxxxx [facility] Medicare A & B t [facility] xxxxxxxxxxxx 2016-[facility] Cross/Blue Shield documented as of this encounter
--- NOTE | 2019-04-19 11:36 | ED ---
Upper Extremity Pain - HPI Summary HPI Summary: 74 year old female reports to [facility] with a chief complaint of uncontrollable bleeding on her right upper extremity secondary to complications with dialysis. Patient reports a stinging pain, of 5/10 intensity. The bleeding stopped prior to arrival, and the patient came to the ED with a clamp on her arm. She says she felt exhaustion after the dialysis. Dialysis performed by Dr. Troy. Patient reports being on Warfarin and Heparin. - History of Current Complaint Chief Complaint: EDGeneral Stated Complaint: BLEEDING FROM SURGICAL SIGHT PER PT Time Seen by Provider: 04/19/19 11:13 Hx Obtained From: Patient Mechanism Of Injury: Other - Due to AV fistula from dialysis. Onset/Duration: Started Minutes Ago, Resolved Timing: Lasting Minutes Severity Initially: Severe Severity Currently: Moderate Pain Location: Arm Character: Burning Aggravating Factor(s): Nothing Alleviating Factor(s): Nothing Associated Signs & Symptoms: Positive: Other - Exhaustion - Allergies/Home Medications Allergies/Adverse Reactions: Allergies Allergy/AdvReac Type Severity Reaction Status Date / Time erythromycin base Allergy Severe See Comment Verified 04/19/19 13:09 latex Allergy Severe Itching Verified 04/19/19 13:09 nickel Allergy Severe Hives Verified 04/19/19 13:09 walnut Allergy Severe Anaphylatic Verified 04/19/19 13:09 Shock TEA Allergy Severe Difficulty Uncoded 04/19/19 13:09 Breathing Home Medications: Home Medications Albuterol HFA INHALER* [Ventolin HFA Inhaler*] 2 puff INH Q6H PRN 04/19/19 [ History Confirmed 04/19/19] Fluticasone NASAL SPRAY 50MCG* [Flonase NASAL SPRAY 50MCG*] 2 spray BOTH NARES DAILY 04/19/19 [History Confirmed 04/19/19] PMH/Surg Hx/FS Hx/Imm Hx Endocrine/Hematology History: Reports: Hx Thyroid Disease, Hx Anemia Denies: Hx Diabetes, Hx Sickle Cell Disease Cardiovascular History: Reports: Hx Aneurysm - repair 2 years ago, Hx Angina, Hx Congestive Heart Failure - diastolic, Hx Coronary Artery Disease - 6 stents from aneurysm in descending aorta, Hx Hypercholesterolemia, Hx Hypertension - on meds, Hx Valvular Heart Disease - leaky valve, Other Cardiovascular Problems/ Disorders - Repaired AORTIC descending Aneurysm rupture Respiratory History: Reports: Hx Chronic Obstructive Pulmonary Disease (COPD) - 2L, Hx Pulmonary Edema - in past resolved, Other Respiratory Problems/Disorders - PTX Denies: Hx Asthma GI History: Reports: Hx Gastroesophageal Reflux Disease, Hx Hiatal Hernia, Hx Jaundice - as a kid Denies: Other GI Disorders History: Reports: Hx Chronic Renal Failure, Hx Dialysis - 3x per week, Hx Renal Disease - stage 4 Denies: Hx Kidney Stones, Other Problems/Disorders Musculoskeletal History: Reports: Hx Arthritis - spine, ankles, Other Musculoskeletal History - broke right ankle age 15 Denies: Hx Osteoporosis Sensory History: Reports: Hx Contacts or Glasses - glasses Denies: Hx Hearing Aid Opthamlomology History: Reports: Hx Contacts or Glasses - glasses Neurological History: Denies: Other Neuro Impairments/Disorders Psychiatric History: Reports: Hx Anxiety, Hx Depression - Cancer History Cancer Type, 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 hysterectomy ( urterine CA). REPAIR OF descending thoracic ANEURYSM. right radiocephalic arterovenous fistula 11/10/17. 2 right fistula for dialysis Hx Anesthesia Reactions: No - Immunization History Date of Tetanus Vaccine: unk Date of Influenza Vaccine: unk Infectious Disease History: No Infectious Disease History: Denies: Traveled Outside the [place] in Last 30 Days - Family History Known Family History: Positive: Cardiac Disease - mother - Social History Alcohol Use: None Hx Substance Use: No Substance Use Type: Reports: None Hx Tobacco Use: Yes Smoking Status (MU): Former Smoker Type: Cigarettes Amount Used/How Often: 30 years smoked, 1ppd Have You Smoked in the Last Year: Yes Review of Systems Negative: Fever Positive: Other - bleeding on RUE Neurological: Other - Exhaustion All Other Systems Reviewed And Are Negative: Yes Physical Exam - Summary Physical Exam Summary: VITAL SIGNS: Reviewed. GENERAL: Patient is an elderly well-developed and nourished female who is lying comfortable in the stretcher. Patient is not in any acute respiratory distress. HEAD AND FACE: No signs of trauma. No ecchymosis, hematomas or skull depressions. No sinus tenderness. EYES: PERRLA, EOMI x 2, No injected conjunctiva, no nystagmus. EARS: Hearing grossly intact. Ear canals and tympanic membranes are within normal limits. MOUTH: Oropharynx within normal limits. NECK: Supple, trachea is midline, no adenopathy, no JVD, no carotid bruit, no c- spine tenderness, neck with full ROM. CHEST: Symmetric, no tenderness at palpation. LUNGS: Clear to auscultation bilaterally. No wheezing or crackles. CVS: Regular rate and rhythm, S1 and S2 present, no murmurs or gallops appreciated. ABDOMEN: Soft, non-tender. No signs of distention. No rebound, no guarding, and no masses palpated. Bowel sounds are normal. EXTREMITIES: FROM in all major joints, no edema, no cyanosis or clubbing. AV fistula right upper extremity. No active bleeding. NEURO: Alert and oriented x 3. No acute neurological deficits. Speech is normal and follows commands. SKIN: Dry and warm. Triage Information Reviewed: Yes Vital Signs On Initial Exam: Initial Vitals Temp Pulse Resp BP Pulse Ox 97.8 F 77 18 154/54 94 04/19/19 11:06 04/19/19 11:06 04/19/19 11:06 04/19/19 11:06 04/19/19 11:06 Vital Signs Reviewed: Yes Procedures - Sedation Patient Received Moderate/Deep Sedation with Procedure: No Diagnostics - Vital Signs Vital Signs Temp Pulse Resp BP Pulse Ox 04/19/19 11:06 97.8 F 77 18 154/54 94 - Laboratory Result Diagrams: 04/19/19 12:23 Lab Statement: Any lab studies that have been ordered have been reviewed, and results considered in the medical decision making process. Course/Dx - Course Assessment/Plan: Bleeding from the right arm AV fistula is controlled. I applied Surgicel and TXA I removed the clamp and has no bleeding. The patient is observed for approximately 2 hours and the symptoms did not return. Therefore the patient will be discharged home with follow-up with PCP. Blood work without a significant abnormality except for hemoglobin 11 hematocrit 34 which is her baseline. INR is 1.90. Therefore the patient will be discharged home with follow-up with primary care physician. Patient continues to be asymptomatic is no further bleeding. I discussed all the findings and test results with the patient. Patient was instructed to return to the emergency room immediately if any of the symptoms return worsens. Plan of care was discussed with the patient and understands and agrees. All questions were answered at patient satisfaction. There were no further complaints or concerns. Lung exam before discharge: CTA B/L. Good air exchange. No wheezing or crackles heard. CVS: S1 and S2 present. No murmurs appreciated. Patient is alert and oriented x 3. Patient is hemodynamically stable. Patient will be discharged home with follow up PCP in the next 2-3 days - Diagnoses Provider Diagnoses: Hemorrhage of arteriovenous fistula Discharge ED - Sign-Out/Discharge Documenting (check all that apply): Patient Departure - discharge - Discharge Plan Condition: Stable Disposition: HOME Patient Education Materials: Arteriovenous Fistula Creation for Hemodialysis ( [place]) Referrals: Iglesia Lockhart MD [Primary Care Provider] - Additional Instructions: Follow up with your primary care provider in 2-3 days. Return to the Emergency Department if you experience new or worsening symptoms. - Billing Disposition and Condition Condition: STABLE Disposition: Home - Attestation Statements Document Initiated by Wilibe: Yes Documenting Scribe: Shimon Ash Provider For Whom Eligio is Documenting (Include Credential): Clyde Brown MD. Scribe Attestation: Shimon Castro scribed for Clyde Brown MD. on 04/20/19 at 2127. Scribe Documentation Reviewed: Yes Provider Attestation: The documentation as recorded by the scribeShimon accurately reflects the service I personally performed and the decisions made by Clyde torres MD. Status of Scribe Document: Viewed
[2019-04-19 12:35] LABS: ABS Basophils 0.1 10^3/ul (0-0.2); ABS Eosinophils 0.3 10^3/ul (0-0.6); ABS Lymphocytes 1.1 10^3/ul (1.0-4.8); ABS Monocytes 0.6 10^3/ul (0-0.8); ABS Neutrophils 6.3 10^3/ul (1.5-7.7); Eosinophil % 3.5 %; Hematocrit 34 % (35-47); Lymphocyte % 13.4 %; Mean Corpuscular HGB Conc 33 g/dL (31-36); Mean Corpuscular Hemoglobin 34 pg (27-31); Mean Corpuscular Volume 104 fL (80-97); Mean Platelet Volume 6.8 fL (7.4-10.4); Platelet Count 136 10^3/uL (150-450); Red Blood Count 3.24 10^6 /uL (3.70-4.87); Red Cell Distribution Width 14 % (10-15); White Blood Count 8.4 10^3/uL (3.5-10.8)
[2019-04-19 12:52] LABS: INR 1.98 (0.82-1.09)
[2019-04-19 13:09] VITALS: BP 126/65
== END 2019-04-19 13:04 | disposition home or self-care (01) ==
LOC: ED 11:03
DX: I13.0 Hypertensive heart and chronic kidney disease with heart failure and stage 1 through stage 4 chronic kidney disease, or unspecified chronic kidney disease (principal); N18.4 Chronic kidney disease, stage 4 (severe); I50.30 Unspecified diastolic (congestive) heart failure; Z99.2 Dependence on renal dialysis; E07.9 Disorder of thyroid, unspecified; D63.1 Anemia in chronic kidney disease; I25.10 Atherosclerotic heart disease of native coronary artery without angina pectoris; E78.00 Pure hypercholesterolemia, unspecified; J44.9 Chronic obstructive pulmonary disease, unspecified; K21.9 Gastro-esophageal reflux disease without esophagitis; F41.9 Anxiety disorder, unspecified; F32.9 Major depressive disorder, single episode, unspecified; Z95.5 Presence of coronary angioplasty implant and graft; Z99.81 Dependence on supplemental oxygen; Z85.42 Personal history of malignant neoplasm of other parts of uterus; Z90.710 Acquired absence of both cervix and uterus; Z87.891 Personal history of nicotine dependence; Z88.1 Allergy status to other antibiotic agents; Z91.040 Latex allergy status; Z79.01 Long term (current) use of anticoagulants; Z79.899 Other long term (current) drug therapy
CPT/HCPCS: 36415; 85025; 85610; 99283

== ENCOUNTER → 2019-05-03 10:57 | Day surgery (SDC) | payer BC, MEDICARE ==
--- NOTE | 2019-05-02 15:05 | HP ---
HISTORY AND PHYSICAL: DATE OF ADMISSION: 05/03/19. CHIEF COMPLAINT: Prolonged bleeding from brachial graft. HISTORY OF PRESENT ILLNESS: The patient is a 74-year-old female with end-stage renal disease, undergoing hemodialysis via a right arm [place] arteriovenous fistula that was placed approximately a year ago. The patient has been undergoing uneventful hemodialysis until recently, they had difficulty stopping the bleeding from the needle site that she required to go to the emergency room to stop the bleeding. The patient is on Coumadin for coronary artery disease and peripheral vascular disease. However, the bleeding was longer than usual and for this reason, the patient is being admitted to rule out the possibility of more proximal stenosis. The plan is for admission for angiography and possible balloon angioplasty. PAST MEDICAL HISTORY: Remarkable for end-stage renal disease, coronary artery disease. She has had 6 stents placed in her coronary. She states that she has valvular insufficiency. Other medical problems include acid reflux disease and end- stage renal disease likely secondary to hypertension. PAST SURGICAL HISTORY: Involves hysterectomy, tonsillectomy, foot surgery, coronary stents x6, history of brachial graft placement for hemodialysis. CURRENT MEDICATIONS: Include: 1. Carvedilol 25 mg p.o. b.i.d. 2. Citalopram 20 mg p.o. daily. 3. Clonidine 0.1 mg p.o. daily. 4. Famotidine 20 mg p.o. daily. 5. Hydralazine 50 mg p.o. t.i.d. 6. Isosorbide mononitrate ER 60 mg p.o. daily. 7. Klonopin 0.5 mg p.o. daily. 8. Levothyroxine 100 mcg p.o. daily. 9. Nifedipine 10 mg p.o. daily. 10. Tramadol 50 mg p.o. q.4 hours p.r.n. 11. Tylenol with Codeine No. 3 one tablet p.o. q.4 hours p.r.n. 12. Velphoro 500 mg p.o. daily. 13. Warfarin 5 mg p.o. daily. ALLERGIES: Current allergies include ERYTHROMYCIN, LATEX, NICKEL, TAPE, TEA and WALNUTS. FAMILY HISTORY: Father had hypertension and of prostate cancer. Mother had diabetes, of congestive heart failure. One brother has hypertension and one sister has hypertension and cancer. SOCIAL HISTORY: Retired. Former smoker, not a smoker any longer. REVIEW OF SYSTEMS: Contributory for the above mentioned; however, musculoskeletal, the patient has osteoarthritic problems and denies respiratory or any other metabolic problems. PHYSICAL EXAMINATION GENERAL: The patient is alert and oriented, in no acute distress. VITAL SIGNS: Height is 63, weight 172 pounds. Blood pressure 137/58, BMI of 30.5, pulse of 85, respirations of 18. HEAD AND NECK: Reveals no neck nodes or masses. LUNGS: Clear to auscultation bilaterally. HEART: Regular with mild systolic murmur. EXTREMITIES: On upper extremity examination, the patient has brachial graft in the upper arm that is patent. She has excellent palpable pulses both radials, brachial, and axillaries. Extremity examination, mild lower extremity edema, no other abnormalities noted. DIAGNOSTIC IMPRESSION: Prolonged bleeding after dialysis, possibly contributing to malfunction. The patient is being admitted for angiography to rule out proximal stenosis in the outflow. The patient understands that there are potential complications including, but not exclusive of others such as bleeding, infection, etc. The patient understands, agrees and wishes to proceed. [id number]/CPS #: [id number] [facility]
[~2019-05-03 10:57] MED LIST changes: +Acetaminophen TAB* 325 MG PO PRN; -Buffered Lidocaine 0.9% SYRIN* 5 ML/SYR SYRINGE INTRADERM ONE; +Buffered Lidocaine 1% SYRIN* 1 ML/SYRINGE INTRADERM ONE; -Dexamethasone TAB* 4 MG ONE; -Dexamethasone TAB* 4 MG PO ONE; +Heparin 2 UNITS/ML IVPREMIX* 1,000 ML IV ONE; -Heparin DIALYSIS ONLY(*) 1,000 UNITS/ML VIAL ONE; -Heparin VIAL(*) 5000 UNITS/ML VIAL (FIVE THOUSAND) ONE; +Iohexol 180 (CONTRAST) 10 ML SDV IV ONE; -KETAMINE HCL* 50 MG/ML 10 ML VIAL ONE; +Levalbuterol 0.63MG/3ML NEB* UNIT OF USE INH PRN; +Midazolam* 1 MG/ML 2 ML VIAL (2 MG) ONE; -Midazolam* 1 MG/ML 5 ML VIAL (5 MG) ONE; -Ondansetron ODT TAB* 4 MG ONE; -Ondansetron TAB* 4 MG PO ONE; +Propofol* 10 MG/ML 20 ML BTL ONE; -Propofol* 500 MG/50 ML BTL ONE; -ceFAZolin 2 GM PREMIX (*) 2 GM/50 ML BAG IVPB ONE; +ceFAZolin 2 GM PREMIX in ORs 2 GM/50 ML BAG ONE
[2019-05-03 14:51] VITALS: BP 145/66
--- NOTE | 2019-05-03 22:42 | OP ---
CC: Dr. Boyd * DATE OF OPERATION: 05/03/19 - [facility] DATE OF : 45 SURGEON: Reginald Troy MD ANESTHESIA: Local plus MAC. PRE-OP DIAGNOSIS: Malfunctioning right arteriovenous dialysis [place] graft. POST-OP DIAGNOSIS: Malfunctioning right arteriovenous dialysis [place] graft secondary to graft venous anastomosis stenosis. OPERATIVE PROCEDURE: Right arm graft angiogram with percutaneous balloon angioplasty of stenosis. ESTIMATED BLOOD LOSS: Less than 20 cc. CONTRAST USED: Approximately 60 cc. INDICATIONS: The patient is a 74-year-old female who has been undergoing hemodialysis for endstage renal disease via a right loop arm graft. In one of the recent dialysis, the patient had prolonged bleeding and has been consistently having prolonged bleeding after the needles removed, an indirect sign that there may be stenosis in the outflow. For this reason, the patient is being taken to the operating room for an on-table angiogram. DESCRIPTION OF PROCEDURE: The patient was taken to the procedure room. She was placed in a supine position. After proper identification of the patient and site of surgery, under sedation she was prepped and draped in the usual sterile fashion. Proper time-out was performed and after this was completed, we then proceeded to access the venous limb of the graft on the medial aspect of the right arm using an 18-gauge needle after which we proceeded to advance a 0.018 guidewire and subsequently over the wire, we advanced a 4-[place] catheter. We then proceeded to advance an 0.035 glidewire to cross the anastomosis which had to be manipulated in order to go around it. An angiogram performed at this level revealed a tight stenosis, greater than 70% stenosis at the graft vein anastomosis. The wire was then managed to advance and pass through the stenosis and advanced into the brachial and axillary vein. Once in place, we then proceeded to perform an angiogram that revealed only this area of stenosis at the venous anastomosis site. An angiogram performed of the graft revealed the graft to be flowing well and into the arterial brachial artery. At this point, we then proceeded to advance a 6 mm diameter, 40 mm long balloon angioplasty catheter, specifically [place] 6 x 40 mm, and this was advanced to the wire. The tight stenosis was then dilated at different levels up to a pressure of 12 atmosphere, the equivalent to 6.16 mm dilatation. The balloon was left inflated for 30 seconds on each of the inflations that were performed and after this was completed, the balloon angioplasty was then pulled back out of the sheath and we then proceeded to perform another angiogram. The angiogram revealed free flowing to the brachial vein. No residual stenosis. At this point , we then proceeded, decided this was the end of the procedure. The guidewire was then removed. The 6-[place] sheath was used to advance the angioplasty catheter. We then removed after placing a [id number] suture at the entry site. At the end of the procedure, there was excellent thrill on the graft. No bleeding at the site of the access point and the patient had good peripheral pulses. The patient was then taken in good conditions to recovery room. [id number]/CPS #: [id number] [facility]
== END | disposition home or self-care (01) ==
LOC: OR 10:57
PROVIDERS: ATTEND Surgery
DX: T82.858A Stenosis of other vascular prosthetic devices, implants and grafts, initial encounter (principal); N18.6 End stage renal disease; Z99.2 Dependence on renal dialysis; R01.1 Cardiac murmur, unspecified; I25.10 Atherosclerotic heart disease of native coronary artery without angina pectoris; Z79.01 Long term (current) use of anticoagulants; I73.9 Peripheral vascular disease, unspecified; Z95.5 Presence of coronary angioplasty implant and graft; Z87.891 Personal history of nicotine dependence
CPT/HCPCS: 76000; J0690; J1642; J1644; J2250; J2704; J3010

== ENCOUNTER → 2019-09-10 11:02 | Day surgery (SDC) | payer BC, MEDICARE ==
[~2019-09-10 11:02] MED LIST changes: -Acetaminophen TAB* 325 MG PO PRN; -Buffered Lidocaine 1% SYRIN* 1 ML/SYRINGE INTRADERM ONE; +Clindamycin 600 MG/D5W BAG(*) 600 MG/50 ML BAG IV ONE; -Famotidine IV* 10 MG/ML 2 ML (20 mg) IV ONE; -Famotidine IV* 10 MG/ML 2 ML (20 mg) ONE; +Heparin(*) 1000 UNIT/ML 10 ML VIAL CATH LAB IV ONE; +Iodixanol 320 (CONTRAST) 100 ML SDV ONE; -Iohexol 180 (CONTRAST) 10 ML SDV IV ONE; -Levalbuterol 0.63MG/3ML NEB* UNIT OF USE INH PRN; -Lidocaine 1% INJ* 10 MG/ML 30 ML SDV ONE; -Midazolam* 1 MG/ML 2 ML VIAL (2 MG) ONE; +Midazolam* 1 MG/ML 5 ML VIAL (5 MG) ONE; -NS 0.45% 1000 ML BAG* 1,000 ML IV SCH; -Naloxone* 0.4 MG/ML 1 ML VIAL IV PRN; -Propofol* 10 MG/ML 20 ML BTL ONE; -ceFAZolin 2 GM PREMIX in ORs 2 GM/50 ML BAG ONE
[2019-09-10 12:26] LABS: ABS Basophils 0.1 10^3/ul (0-0.2); ABS Eosinophils 0.2 10^3/ul (0-0.6); ABS Lymphocytes 1.2 10^3/ul (1.0-4.8); ABS Monocytes 0.6 10^3/ul (0-0.8); Eosinophil % 3.2 %; Hematocrit 30 % (35-47); Lymphocyte % 17.1 %; Mean Corpuscular HGB Conc 33 g/dL (31-36); Mean Corpuscular Hemoglobin 34 pg (27-31); Mean Corpuscular Volume 102 fL (80-97); Mean Platelet Volume 6.9 fL (7.4-10.4); Platelet Count 113 10^3/uL (150-450); Red Blood Count 2.94 10^6 /uL (3.70-4.87); Red Cell Distribution Width 14 % (10-15); White Blood Count 7.1 10^3/uL (3.5-10.8)
[2019-09-10 12:37] LABS: INR 1.09 (0.82-1.09)
[2019-09-10 12:53] LABS: Albumin 3.8 g/dL (3.2-5.2); Albumin/Globulin Ratio 1.5 (1-3); Calcium 9.2 mg/dL (8.6-10.3); EGFR African American 8.4 (>60); Globulin 2.5 g/dL (2-4); Potassium 4.6 mmol/L (3.5-5.0); Total Bilirubin 0.6 mg/dL (0.2-1.0); Total Protein 6.3 g/dL (6.4-8.9)
--- NOTE | 2019-09-10 16:35 | OP ---
Operative Report - Blank - Operative Report Date of Operation: 09/10/19 Note: Right AVG Angiogram Procedure Note: Performed by: Dr. Tara Malone, [facility] Neph[facility] Procedure date: 09/10/2019 ESRD on HD Indication for procedure: High venous pressures, and prolonged post HD bleeding Procedure: AVG Angiogram with radiology supervision and interpretation by me Percutaneous balloon angioplasty of AVG stenosis Procedure Note: Consent was obtained, in chart. Patient understands risks, benefits, alternatives and wants to proceed. Following strict hand hygiene and standard sterile precautions, a full sterile attire for myself and all personnel involved in the procedure, including a gown , cap, face mask with an eye shield, and double sterile gloves. The procedure started with 2 ID time out after marking the AVG Patient was put in supine position. Right UE and Chest were prepped with 2% Chlorhexidine, and the surgical field was surrounded by sterile surgical towels. A sterile full body drape was placed to cover the patient from head to toe. Rt AVG was accessed by a 21-G micro puncture needle, near the Arterial inflow, towards the outflow, then a 0.018 micro wire was threaded through the 21-G needle towards the outflow, and the 21-G needle was pulled out, leaving the micro wire in, then a 4-Fr sheath and inner stylet were passed over the micro wire into the vein. Both, the micro wire and the inner stylet were removed and the 4-Fr sheath was kept in place. Confirmed using Fluoro. Then, a 0.035 inch floppy tip Hydrophilic wire, was passed through the 4-Fr sheath, that was exchanged with a 6-Fr sheath and dilator, and the dilator was removed. Unfortunately, the 0.035 wire won't cross the venous anastomosis, even with Kumpe and manipulation. Contrast based images were obtained in different projections showed: Loop AVG, with multiple luminal irregularities especially in the cannulation zone near the Arterial inflow. Outflow through Rt Basilic V, blood flows first towards the hand, as the venous anastomosis stenosis hinders the flow up the arm. Severe venous anastomosis stenosis, with a short yet very narrow segment of the Basilic vein right north of the venous anastomosis, only few mm wide. Balloon angioplasty was performed for the above mentioned luminal irregularities in the loop of the AVG, using 8 mm x 4 cm Conquest Balloon. Balloon was inflated slowly to Nominal Pressure for 30 sec. Unfortunately, the 0.035 wire won't cross the venous anastomosis, even with Kumpe and manipulation. This wasn't treated. The multiple lesions in the cannualtion zone near the arterial anastomosis responded very well. Lesions improved to <30% residual This cannulation site was repaired using two 2-0 Prolene stitches in a Z-stitch fashion and the 6-Fr sheath was removed and the stitch tightened. Another cannulation site in the Rt AVG was accessed by a 21-G micro puncture needle, near the venous anastomosis, hoping to be able to cross the very tight venous anastomosis stenosis, then a 0.018 micro wire was threaded through the 21 -G needle towards the outflow, and the 21-G needle was pulled out, leaving the micro wire in, then a 4-Fr sheath and inner stylet were passed over the micro wire into the vein. Both, the micro wire and the inner stylet were removed and the 4-Fr sheath was kept in place. Confirmed using Fluoro. Then, a 0.035 inch floppy tip Hydrophilic wire, was passed through the 4-Fr sheath, but unfortunately, it won't cross the venous anastomosis, even with Kumpe, Terumo NaviCross, and 5F Kayli. C2 with manipulation. The 4-Fr sheath was exchanged for 6-Fr sheath and dilator, and the dilator was removed. The wire kept going down the curve down the Basilic V. towards the hand, but not across the venous anastomosis and up the arm. It showed mild stenosis of 40-50%-down the curve down the Basilic V. towards the hand- that was treated successfully with Conquest 6 mm x 4 cm balloon that was inflated to nominal for 30 Sec, with minimal residual. Another effort, this time using a Fortrex 2 mm x 2 cm balloon was performed to try to steer the wire up to the arm across the tight venous anastomosis, possibly causing a small intimal flap and minimal extravasation, which caused further sluggish flow in the venous outflow up to the arm, but kept flowing very nicely through the Basilic V down to the hand. No further efforts to cross the venous anastomosis were attempted. Central circulation: No stenosis Outflow: Basilic Vein Access is a high flow, high pressure circuit, hence retrograde arteriogram wasn' t done. This cannulation site was repaired using one 2-0 Prolene stitches in a Z-stitch fashion and the 6-Fr sheath was removed and the stitch tightened. Procedure was considered Complete. Patient awake & comfortable, transferred in stable condition to the recovery room. No hand pain pallor or numbness. Complications: None Estimated Bleeding: < 20cc *Radiation safety: 1)Fluoro Time: 35.6 Minutes 2)Radiation Exposure: 297 mGy *ABx: Clindamycin 600 mg IVPB pre Op. *Medications: 1)IV Contrast: 75 cc Vesipaue 2)Fentanyl: 75 Mcg 3)Versed: 0.75 mg 4)Heparin: 3,000
[2019-09-10 16:45] VITALS: BP 175/65
== END | disposition home or self-care (01) ==
LOC: CHICATH 11:02
PROVIDERS: ATTEND Internal Medicine Nephrology
DX: T85.858A Stenosis due to other internal prosthetic devices, implants and grafts, initial encounter (principal); N18.6 End stage renal disease; Z99.2 Dependence on renal dialysis; J44.9 Chronic obstructive pulmonary disease, unspecified; I10 Essential (primary) hypertension; E78.5 Hyperlipidemia, unspecified; Z85.42 Personal history of malignant neoplasm of other parts of uterus; E03.9 Hypothyroidism, unspecified; Z79.01 Long term (current) use of anticoagulants
CPT/HCPCS: 36415; 36901; 36902; 80053; 85025; 85610; 99156; 99157; C1725; C1887; J1644; J2250; J3010

== ENCOUNTER 2021-04-05 07:44 | Inpatient (IN) ==
[2021-04-05] MEDS ORDERED: Morphine 4 MG/ML VIAL (1 ml) IV ONE (08:04)
[2021-04-05] MEDS ORDERED: Ondansetron 4 mg VIAL 2 MG/ML 2 ml VIAL IV ONE ×2 (08:15→18:14)
[2021-04-05 08:29] LABS: ABS Basophils 0.2 10^3/ul (0-0.2); ABS Eosinophils 0.3 10^3/ul (0-0.6); ABS Lymphocytes 2.9 10^3/ul (1.0-4.8); ABS Monocytes 0.7 10^3/ul (0-0.8); ABS Neutrophils 12.6 10^3/ul (1.5-7.7); Hematocrit 37 % (35-47); Hemoglobin 11.8 g/dL (12.0-16.0); Lymphocyte % 17.4 %; Mean Corpuscular HGB Conc 32 g/dL (31-36); Mean Corpuscular Hemoglobin 34 pg (27-31); Mean Corpuscular Volume 105 fL (80-97); Mean Platelet Volume 7.5 fL (7.4-10.4); Platelet Count 163 10^3/uL (150-450); Red Blood Count 3.52 10^6 /uL (3.70-4.87); Red Cell Distribution Width 15 % (10-15); White Blood Count 16.7 10^3/uL (3.5-10.8)
[2021-04-05 08:43] LABS: ALT 15 U/L (7-52); AST 25 U/L (13-39); Albumin 4.1 g/dL (3.2-5.2); Albumin/Globulin Ratio 1.2 (1-3); Alkaline Phosphatase 78 U/L (35-149); Anion Gap 10 mmol/L (2-11); Blood Urea Nitrogen 74 mg/dL (6-24); CO2 Carbon Dioxide 29 mmol/L (22-32); Calcium 8.8 mg/dL (8.6-10.3); Chloride 97 mmol/L (101-111); EGFR African American 5.9 (>60); EGFR Non-African American 4.8 (>60); Globulin 3.3 g/dL (2-4); Glucose 254 mg/dL (70-100); Potassium 5.3 mmol/L (3.5-5.0); Sodium 136 mmol/L (135-145); Total Protein 7.4 g/dL (6.4-8.9)
[2021-04-05 08:47] LABS: INR 1.39 (0.86-1.15)
[2021-04-05] MEDS ORDERED: Lorazepam PYXIS KEY PRN (08:53)
[2021-04-05] MEDS ORDERED: LORazepam 2 mg VIAL 1 ml IV PUSH ONE (08:53)
[2021-04-05 09:53] LABS: Troponin I 0.04 ng/mL (<0.03)
[2021-04-05 13:02] LABS: Rapid COVID-19 Molecular Undetected (Undetected)
[2021-04-05] MEDS: Heparin *DIALYSIS* ONLY 1,000 UNITS/ML VIAL DIALYSIS ONE (15:05)
[2021-04-05] MEDS ORDERED: Al Hydrox/Mg Hydrox/Simet LIQ 30 ML UDC PO PRN (18:12)
[2021-04-05] MEDS ORDERED: Al Hydrox/Mg Hydrox/Simet LIQ 30 ML UDC ONE (18:14)
[2021-04-05] MEDS ORDERED: Ondansetron 4 mg VIAL 2 MG/ML 2 ml VIAL ONE (18:14)
[2021-04-05] MEDS ORDERED: Ondansetron 4 mg VIAL 2 MG/ML 2 ml VIAL IV PRN (18:16)
[2021-04-05] MEDS ORDERED: LORazepam 2 mg VIAL 1 ml IV PUSH PRN (18:23)
[2021-04-05] MEDS ORDERED: LORazepam 2 mg VIAL 1 ml ONE (18:24)
[2021-04-05] MEDS ORDERED: Lorazepam PYXIS KEY ONE (18:24)
[2021-04-05] MEDS ORDERED: Pantoprazole VIAL 40 MG VIAL IV ONE ×2 (18:25→21:00)
[2021-04-05] MEDS ORDERED: Albuterol HFA INHALER 8 gm MDI INH PRN (19:55)
[2021-04-05] MEDS ORDERED: FERRIC CITRATE 210 MG PO SCH (20:00)
[2021-04-05] MEDS: Albuterol/Ipratropium NEB.SOL (2.5/0.5 MG) 3 ML NEB.SOLN INH SCH (21:10)
[2021-04-06] MEDS: Albuterol/Ipratropium NEB.SOL (2.5/0.5 MG) 3 ML NEB.SOLN INH SCH ×3 (00:12→07:00)
[2021-04-06 04:46] LABS: Hematocrit 34 % (35-47); Hemoglobin 10.9 g/dL (12.0-16.0); Mean Corpuscular HGB Conc 32 g/dL (31-36); Mean Corpuscular Hemoglobin 34 pg (27-31); Mean Corpuscular Volume 104 fL (80-97); Mean Platelet Volume 7.6 fL (7.4-10.4); Platelet Count 118 10^3/uL (150-450); Red Blood Count 3.25 10^6 /uL (3.70-4.87); Red Cell Distribution Width 15 % (10-15); White Blood Count 11.6 10^3/uL (3.5-10.8)
[2021-04-06 05:17] LABS: Troponin I 0.19 ng/mL (<0.03)
[2021-04-06 07:58] LABS: Anion Gap 13 mmol/L (2-11); Blood Urea Nitrogen 46 mg/dL (6-24); CO2 Carbon Dioxide 23 mmol/L (22-32); Calcium 8.7 mg/dL (8.6-10.3); Chloride 100 mmol/L (101-111); EGFR African American 8.5 (>60); Glucose 138 mg/dL (70-100); Magnesium 2.5 mg/dL (1.9-2.7); Phosphorus 5.1 mg/dL (2.5-5.0); Potassium 4.6 mmol/L (3.5-5.0); Sodium 136 mmol/L (135-145)
[2021-04-06 08:04] LABS: Troponin I 0.18 ng/mL (<0.03)
[2021-04-06] MEDS ORDERED: Flu vaccine *QUAD* 2021-22* 0.5 ML SYRINGE IM ONE (10:30)
[2021-04-07 07:19] LABS: Hematocrit 31 % (35-47); Hemoglobin 10.4 g/dL (12.0-16.0); Mean Corpuscular HGB Conc 34 g/dL (31-36); Mean Corpuscular Hemoglobin 34 pg (27-31); Mean Corpuscular Volume 102 fL (80-97); Mean Platelet Volume 7.8 fL (7.4-10.4); Platelet Count 115 10^3/uL (150-450); Red Blood Count 3.02 10^6 /uL (3.70-4.87); Red Cell Distribution Width 15 % (10-15); White Blood Count 14.9 10^3/uL (3.5-10.8)
[2021-04-07 07:26] LABS: INR 2.39 (0.86-1.15)
[2021-04-07 07:35] LABS: Anion Gap 11 mmol/L (2-11); Blood Urea Nitrogen 69 mg/dL (6-24); CO2 Carbon Dioxide 25 mmol/L (22-32); Chloride 96 mmol/L (101-111); EGFR African American 5.9 (>60); EGFR Non-African American 4.9 (>60); Glucose 133 mg/dL (70-100); Magnesium 2.8 mg/dL (1.9-2.7); Phosphorus 5.1 mg/dL (2.5-5.0); Sodium 132 mmol/L (135-145)
[2021-04-07] MEDS: Heparin *DIALYSIS* ONLY 1,000 UNITS/ML VIAL DIALYSIS ONE (08:04)
[2021-04-07] MEDS ORDERED: Ondansetron 4 mg VIAL 2 MG/ML 2 ml VIAL IV ONE (08:28)
[2021-04-07] MEDS ORDERED: Lorazepam PYXIS KEY PRN (08:58)
[2021-04-07] MEDS ORDERED: LORazepam 2 mg VIAL 1 ml IV PUSH ONE (08:58)
[2021-04-07] MEDS ORDERED: Metoclopramide 5 MG/ML VIAL (10 mg) IV ONE (09:00)
[2021-04-07 09:39] LABS: Calcium 8.9 mg/dL (8.6-10.3); EGFR African American 11.1 (>60); EGFR Non-African American 9.2 (>60); Potassium 3.9 mmol/L (3.5-5.0)
[2021-04-07 09:50] LABS: Troponin I 0.15 ng/mL (<0.03)
[2021-04-07] MEDS ORDERED: Metoprolol Tartrate 5 mg VIAL 5 ml VIAL (1 mg/ml) IV ONE ×2 (10:55→11:15)
[2021-04-07 16:23] LABS: TSH Ultra Thyroid Stim Horm 1.1 mcIU/mL (0.34-5.60)
[2021-04-08 06:47] LABS: Calcium 8.9 mg/dL (8.6-10.3); EGFR Non-African American 6.6 (>60); Phosphorus 4.1 mg/dL (2.5-5.0); Potassium 4.9 mmol/L (3.5-5.0)
[2021-04-08] MEDS ORDERED: Perflutren Lipid Microsphere 3 ML VIAL ONE (07:50)
[2021-04-08] MEDS ORDERED: Metoprolol Tartrate 5 mg VIAL 5 ml VIAL (1 mg/ml) IV ONE (17:30)
[2021-04-09] MEDS ORDERED: HEPARIN DIALYSIS ONE (07:00)
[2021-04-09 07:13] LABS: Anion Gap 13 mmol/L (2-11); Blood Urea Nitrogen 73 mg/dL (6-24); CO2 Carbon Dioxide 24 mmol/L (22-32); Calcium 8.8 mg/dL (8.6-10.3); Chloride 98 mmol/L (101-111); EGFR African American 6.2 (>60); EGFR Non-African American 5.2 (>60); Glucose 114 mg/dL (70-100); Sodium 135 mmol/L (135-145)
[2021-04-09] MEDS ORDERED: Metoprolol Tartrate 5 mg VIAL 5 ml VIAL (1 mg/ml) ONE ×2 (11:05→11:27)
[2021-04-09] MEDS ORDERED: Metoprolol Tartrate 5 mg VIAL 5 ml VIAL (1 mg/ml) IV ONE ×2 (11:10→11:29)
[2021-04-09] MEDS ORDERED: Metoclopramide 5 MG/ML VIAL (10 mg) IV ONE (11:44)
[2021-04-09 20:32] LABS: ABS Basophils 0.1 10^3/ul (0-0.2); ABS Eosinophils 0.1 10^3/ul (0-0.6); ABS Lymphocytes 1.2 10^3/ul (1.0-4.8); ABS Monocytes 0.7 10^3/ul (0-0.8); ABS Neutrophils 8.6 10^3/ul (1.5-7.7); Eosinophil % 1.2 %; Hematocrit 30 % (35-47); Mean Corpuscular HGB Conc 34 g/dL (31-36); Mean Corpuscular Hemoglobin 35 pg (27-31); Mean Corpuscular Volume 103 fL (80-97); Mean Platelet Volume 7.9 fL (7.4-10.4); Platelet Count 184 10^3/uL (150-450); Red Blood Count 2.88 10^6 /uL (3.70-4.87); Red Cell Distribution Width 15 % (10-15); White Blood Count 10.7 10^3/uL (3.5-10.8)
[2021-04-09 22:58] LABS: Troponin I 0.25 ng/mL (<0.03)
[2021-04-09 23:03] LABS: % Iron Saturation 18 % (15-55); Iron 42 ug/dL (50-212); Total Iron Binding Capacity 228 mcg/dL (250-450); Transferrin 163 mg/dL (203-362); Unsaturated Iron Binding < 213 ug/dL
[2021-04-10 00:10] LABS: Ferritin > 1500.0 ng/mL (11-307)
[2021-04-10 09:39] LABS: ABS Basophils 0.1 10^3/ul (0-0.2); ABS Eosinophils 0.1 10^3/ul (0-0.6); ABS Lymphocytes 0.8 10^3/ul (1.0-4.8); ABS Monocytes 0.6 10^3/ul (0-0.8); ABS Neutrophils 7.3 10^3/ul (1.5-7.7); Eosinophil % 1.4 %; Hematocrit 30 % (35-47); Hemoglobin 9.8 g/dL (12.0-16.0); Lymphocyte % 8.8 %; Mean Corpuscular HGB Conc 33 g/dL (31-36); Mean Corpuscular Hemoglobin 33 pg (27-31); Mean Corpuscular Volume 103 fL (80-97); Mean Platelet Volume 7.6 fL (7.4-10.4); Platelet Count 195 10^3/uL (150-450); Red Blood Count 2.93 10^6 /uL (3.70-4.87); Red Cell Distribution Width 15 % (10-15)
[2021-04-10 09:58] LABS: Calcium 8.5 mg/dL (8.6-10.3); EGFR African American 7.9 (>60); EGFR Non-African American 6.5 (>60); Potassium 4.5 mmol/L (3.5-5.0)
[2021-04-10 10:25] LABS: Folate 5.8 ng/mL (5.90-24.80)
[2021-04-11] MEDS ORDERED: Polyethylene Glycol 3350 17 GM PACKET PO PRN (01:29)
[2021-04-11] MEDS: Senna TAB 8.6 mg TAB PO PRN ×3 (02:56→20:18)
[2021-04-11] MEDS: Magnesium Hydroxide LIQ 30 ML UDC PO PRN (02:56)
[2021-04-11 11:14] LABS: INR 4.88 (0.86-1.15)
[2021-04-11 11:20] LABS: Free T4 0.96 ng/dL (0.61-1.12)
[2021-04-11] MEDS: Nystatin TOP POWDER 15 GM BTL TOPICAL SCH (20:17)
[2021-04-12 06:40] LABS: ABS Basophils 0.1 10^3/ul (0-0.2); ABS Eosinophils 0.1 10^3/ul (0-0.6); ABS Monocytes 0.7 10^3/ul (0-0.8); ABS Neutrophils 7.4 10^3/ul (1.5-7.7); Eosinophil % 1.4 %; Hematocrit 31 % (35-47); Hemoglobin 10.4 g/dL (12.0-16.0); Mean Corpuscular HGB Conc 33 g/dL (31-36); Mean Corpuscular Hemoglobin 35 pg (27-31); Mean Corpuscular Volume 105 fL (80-97); Mean Platelet Volume 7.5 fL (7.4-10.4); Platelet Count 204 10^3/uL (150-450); Red Cell Distribution Width 15 % (10-15); White Blood Count 9.3 10^3/uL (3.5-10.8)
[2021-04-12 06:50] LABS: Calcium 8.5 mg/dL (8.6-10.3); EGFR African American 5.1 (>60); EGFR Non-African American 4.2 (>60); Magnesium 3.2 mg/dL (1.9-2.7); Phosphorus 7.3 mg/dL (2.5-5.0); Potassium 5.8 mmol/L (3.5-5.0)
[2021-04-12 07:11] LABS: INR 5.2 (0.86-1.15)
[2021-04-12] MEDS: Nystatin TOP POWDER 15 GM BTL TOPICAL SCH ×2 (09:00→21:06)
[2021-04-12 09:47] LABS: Albumin 3.6 g/dL (3.2-5.2); Albumin/Globulin Ratio 1.2 (1-3); Direct Bilirubin 0.1 mg/dL (0.03-0.18); Globulin 2.9 g/dL (2-4); Indirect Bilirubin 0.3 mg/dL (0.3-1.0); Total Bilirubin 0.4 mg/dL (0.2-1.0); Total Protein 6.5 g/dL (6.4-8.9)
[2021-04-12] MEDS ORDERED: Warfarin DAILY REMINDER **NOTE FOLLOW UP SCH (17:00)
[2021-04-13 06:12] LABS: ABS Basophils 0.1 10^3/ul (0-0.2); ABS Eosinophils 0.1 10^3/ul (0-0.6); ABS Monocytes 0.8 10^3/ul (0-0.8); ABS Neutrophils 8.5 10^3/ul (1.5-7.7); Hematocrit 30 % (35-47); Lymphocyte % 9.4 %; Mean Corpuscular HGB Conc 33 g/dL (31-36); Mean Corpuscular Hemoglobin 35 pg (27-31); Mean Corpuscular Volume 104 fL (80-97); Mean Platelet Volume 6.9 fL (7.4-10.4); Platelet Count 218 10^3/uL (150-450); Red Blood Count 2.88 10^6 /uL (3.70-4.87); Red Cell Distribution Width 15 % (10-15); White Blood Count 10.5 10^3/uL (3.5-10.8)
[2021-04-13 06:25] LABS: INR 3.94 (0.86-1.15)
[2021-04-13 06:39] LABS: Calcium 8.5 mg/dL (8.6-10.3); Magnesium 2.7 mg/dL (1.9-2.7); Phosphorus 4.6 mg/dL (2.5-5.0); Potassium 4.5 mmol/L (3.5-5.0)
[2021-04-13] MEDS: Magnesium Hydroxide LIQ 30 ML UDC PO PRN (07:49)
[2021-04-13] MEDS: Nystatin TOP POWDER 15 GM BTL TOPICAL SCH (07:51)
[2021-04-13 07:55] VITALS: BP 152/59
== END 2021-04-13 17:55 | disposition home or self-care (01) | DRG 280 ==
LOC: ED 07:44 → SUATTDRO 11:16 → ICU 11:16 → MED 04-06 17:05 → MEDTELE 04-09 00:40
PROVIDERS: ADMIT Internal Medicine; ATTEND Internal Medicine

== ENCOUNTER 2021-05-03 10:29 | Inpatient (IN) ==
[2021-05-03] MEDS ORDERED: Morphine 4 MG/ML VIAL (1 ml) IV ONE (13:56)
[2021-05-03 15:05] LABS: ABS Basophils 0.1 10^3/ul (0-0.2); ABS Eosinophils 0.1 10^3/ul (0-0.6); ABS Lymphocytes 0.6 10^3/ul (1.0-4.8); ABS Monocytes 0.5 10^3/ul (0-0.8); ABS Neutrophils 8.2 10^3/ul (1.5-7.7); Eosinophil % 1.2 %; Hematocrit 33 % (35-47); Hemoglobin 10.6 g/dL (12.0-16.0); Lymphocyte % 6.6 %; Mean Corpuscular HGB Conc 32 g/dL (31-36); Mean Corpuscular Hemoglobin 34 pg (27-31); Mean Corpuscular Volume 107 fL (80-97); Platelet Count 186 10^3/uL (150-450); Red Blood Count 3.08 10^6 /uL (3.70-4.87); Red Cell Distribution Width 17 % (10-15); White Blood Count 9.5 10^3/uL (3.5-10.8)
[2021-05-03 15:14] LABS: ALT 7 U/L (7-52); Albumin 3.9 g/dL (3.2-5.2); Albumin/Globulin Ratio 1.3 (1-3); Alkaline Phosphatase 65 U/L (35-149); Blood Urea Nitrogen 47 mg/dL (6-24); C Reactive Protein 14.29 mg/L (<8.01); CO2 Carbon Dioxide 30 mmol/L (22-32); Calcium 8.8 mg/dL (8.6-10.3); Chloride 97 mmol/L (101-111); Globulin 3.1 g/dL (2-4); Glucose 200 mg/dL (70-100); Magnesium 2.7 mg/dL (1.9-2.7); Sodium 135 mmol/L (135-145)
[2021-05-03 15:16] LABS: AST 14 U/L (13-39); Anion Gap 8 mmol/L (2-11); Potassium 4.4 mmol/L (3.5-5.0)
[2021-05-03 15:17] LABS: Phosphorus 3.2 mg/dL (2.5-5.0)
[2021-05-03 15:28] LABS: Troponin I 0.04 ng/mL (<0.03)
[2021-05-03 15:29] LABS: Activated Partial Thrombo Time 36.7 seconds (26.0-38.0); INR 2.23 (0.86-1.15)
[2021-05-03] MEDS ORDERED: Heparin DRIP 25,000 UNITS BAG 25,000 UNITS/500 ML BAG IV SCH (16:30)
[2021-05-03] MEDS ORDERED: Clindamycin 600 MG/D5W BAG 600 MG/50 ML BAG IV ONE (16:32)
[2021-05-03] MEDS ORDERED: Morphine 2 MG/ML SYRINGE IV ONE (16:45)
[2021-05-03] MEDS ORDERED: Heparin 5000 UNITS/ML 1 mL VIAL IV SCH (17:00)
[2021-05-03] MEDS ORDERED: Ondansetron 4 mg VIAL 2 MG/ML 2 ml VIAL ONE (17:25)
[2021-05-03] MEDS ORDERED: Ondansetron 4 mg VIAL 2 MG/ML 2 ml VIAL IV ONE (17:26)
[2021-05-03] MEDS ORDERED: Iodixanol (CONTRAST) 320 MG/ML 100 ML SDV IV ONE (18:17)
[2021-05-03 18:19] LABS: PCO2 Arterial 57 mmHg (35-45); PO2 Arterial 144 mmHg (80-100)
[2021-05-03] MEDS ORDERED: Ondansetron 4 mg VIAL 2 MG/ML 2 ml VIAL IV PRN (21:45)
[2021-05-03] MEDS ORDERED: oxyCODONE/Acetamin 5/325 mg TAB PO ONE (22:01)
[2021-05-03] MEDS ORDERED: Albuterol HFA INHALER 8 gm MDI INH PRN (22:02)
[2021-05-03] MEDS ORDERED: Albuterol 2.5mg/3 ml (0.083%) NEB.SOLN INH PRN (22:02)
[2021-05-03 22:27] LABS: Rapid COVID-19 Molecular Undetected (Undetected)
[2021-05-03] MEDS ORDERED: oxyCODONE/Acetamin 5/325 mg TAB PO PRN (22:52)
[2021-05-04] MEDS ORDERED: Clindamycin 600 MG/D5W BAG 600 MG/50 ML BAG IV SCH (02:30)
[2021-05-04] MEDS: SPIRIVA Respimat (tiotropium) 2.5 mcg/inh Inhaler INH SCH (07:36)
[2021-05-04 08:34] LABS: ABS Basophils 0.1 10^3/ul (0-0.2); ABS Lymphocytes 0.8 10^3/ul (1.0-4.8); ABS Neutrophils 15.6 10^3/ul (1.5-7.7); Hematocrit 33 % (35-47); Hemoglobin 10.2 g/dL (12.0-16.0); Lymphocyte % 4.6 %; Mean Corpuscular HGB Conc 32 g/dL (31-36); Mean Corpuscular Hemoglobin 33 pg (27-31); Mean Corpuscular Volume 106 fL (80-97); Mean Platelet Volume 7.4 fL (7.4-10.4); Platelet Count 160 10^3/uL (150-450); Red Blood Count 3.07 10^6 /uL (3.70-4.87); Red Cell Distribution Width 17 % (10-15); White Blood Count 17.4 10^3/uL (3.5-10.8)
[2021-05-04 08:51] LABS: Calcium 8.3 mg/dL (8.6-10.3)
[2021-05-04 09:45] LABS: Potassium 6.1 mmol/L (3.5-5.0)
[2021-05-04] MEDS ORDERED: Dextrose 50% Syringe 50 ml 25 GM/50 ML SYRINGE IV PUSH ONE ×2 (09:49→09:50)
[2021-05-04] MEDS ORDERED: SODIUM ZIRCONIUM CYCLOSILICATE 10 GM PACKET PO ONE (09:49)
[2021-05-04] MEDS: ceFAZolin 1 GM ADVAN 1 GM in NS 0.9% 50 ML 50 ML IVPB SCH (16:16)
[2021-05-04] MEDS: Heparin DRIP 25,000 UNITS BAG 25,000 UNITS/500 ML BAG IV SCH (19:54)
[2021-05-04] MEDS ORDERED: NS 0.9% 1000 ml BAG 1,000 ML IV ONE (20:15)
[2021-05-04 21:02] LABS: Calcium 8.5 mg/dL (8.6-10.3)
[2021-05-05 04:28] LABS: ABS Lymphocytes 0.8 10^3/ul (1.0-4.8); ABS Monocytes 0.8 10^3/ul (0-0.8); ABS Neutrophils 13.2 10^3/ul (1.5-7.7); Eosinophil % 0.1 %; Hematocrit 31 % (35-47); Hemoglobin 9.5 g/dL (12.0-16.0); Lymphocyte % 5.1 %; Mean Corpuscular HGB Conc 31 g/dL (31-36); Mean Corpuscular Hemoglobin 33 pg (27-31); Mean Corpuscular Volume 107 fL (80-97); Mean Platelet Volume 7.7 fL (7.4-10.4); Platelet Count 142 10^3/uL (150-450); Red Blood Count 2.87 10^6 /uL (3.70-4.87); Red Cell Distribution Width 17 % (10-15); White Blood Count 14.7 10^3/uL (3.5-10.8)
[2021-05-05 04:39] LABS: Albumin 3.4 g/dL (3.2-5.2); Albumin/Globulin Ratio 1.1 (1-3); Calcium 8.3 mg/dL (8.6-10.3); Globulin 3.1 g/dL (2-4); Magnesium 2.3 mg/dL (1.9-2.7); Phosphorus 5.9 mg/dL (2.5-5.0); Potassium 4.7 mmol/L (3.5-5.0); Total Bilirubin 0.6 mg/dL (0.2-1.0); Total Protein 6.5 g/dL (6.4-8.9)
[2021-05-05] MEDS: SPIRIVA Respimat (tiotropium) 2.5 mcg/inh Inhaler INH SCH (08:00)
[2021-05-05] MEDS ORDERED: Heparin 2 UNITS/ML IVPREMIX 3,000 UNIT/1,500 ML BAG IV ONE (13:29)
[2021-05-05] MEDS ORDERED: Iodixanol 320 (CONTRAST) 100 ML SDV ONE (13:29)
[2021-05-05] MEDS ORDERED: Lidocaine 1% VIAL 10 MG/ML VIAL ONE (13:29)
[2021-05-05] MEDS ORDERED: fentaNYL 100 mcg/2 ml 50 MCG/ML VIAL ONE (13:34)
[2021-05-05] MEDS ORDERED: Midazolam 5 mg/5 ml VIAL 1 mg/ml 5 ml VIAL (5 mg) ONE (13:34)
[2021-05-05] MEDS ORDERED: Ondansetron 4 mg VIAL 2 MG/ML 2 ml VIAL ONE (14:31)
[2021-05-05] MEDS ORDERED: Heparin 2 UNITS/ML IVPREMIX 1,000 UNIT/500 ML BAG IV ONE (14:38)
[2021-05-05] MEDS ORDERED: Prochlorperazine 5 mg/ml 2 ml VIAL (10 mg) IV PRN (15:32)
[2021-05-06] MEDS: ceFAZolin 1 GM ADVAN 1 GM in NS 0.9% 50 ML 50 ML IVPB SCH ×3 (00:45→18:30)
[2021-05-06] MEDS: Heparin 5000 UNITS/ML 1 mL VIAL IV SCH ×2 (06:10→13:09)
[2021-05-06] MEDS ORDERED: Iodixanol (CONTRAST) 320 MG/ML 100 ML SDV IV ONE (08:10)
[2021-05-06] MEDS: SPIRIVA Respimat (tiotropium) 2.5 mcg/inh Inhaler INH SCH (08:25)
[2021-05-06 10:06] LABS: INR 2.17 (0.86-1.15)
[2021-05-06 10:34] LABS: ABS Basophils 0.1 10^3/ul (0-0.2); ABS Eosinophils 0.1 10^3/ul (0-0.6); ABS Lymphocytes 0.6 10^3/ul (1.0-4.8); ABS Monocytes 0.7 10^3/ul (0-0.8); ABS Neutrophils 10.1 10^3/ul (1.5-7.7); Eosinophil % 0.6 %; Hematocrit 29 % (35-47); Hemoglobin 9.3 g/dL (12.0-16.0); Lymphocyte % 5.3 %; Mean Corpuscular HGB Conc 32 g/dL (31-36); Mean Corpuscular Hemoglobin 34 pg (27-31); Mean Corpuscular Volume 105 fL (80-97); Mean Platelet Volume 8.4 fL (7.4-10.4); Platelet Count 134 10^3/uL (150-450); Red Blood Count 2.73 10^6 /uL (3.70-4.87); Red Cell Distribution Width 17 % (10-15); White Blood Count 11.6 10^3/uL (3.5-10.8)
[2021-05-06 10:52] LABS: Calcium 8.4 mg/dL (8.6-10.3); Potassium 4.3 mmol/L (3.5-5.0)
[2021-05-06] MEDS: Heparin DRIP 25,000 UNITS BAG 25,000 UNITS/500 ML BAG IV SCH (13:11)
[2021-05-07] MEDS: SPIRIVA Respimat (tiotropium) 2.5 mcg/inh Inhaler INH SCH (08:17)
[2021-05-07 11:24] LABS: Activated Partial Thrombo Time 45.3 seconds (26.0-38.0); INR 2.54 (0.86-1.15)
[2021-05-07] MEDS: Heparin 5000 UNITS/ML 1 mL VIAL IV SCH (11:46)
[2021-05-07] MEDS: Heparin DRIP 25,000 UNITS BAG 25,000 UNITS/500 ML BAG IV SCH (11:47)
[2021-05-07] MEDS: ceFAZolin 1 GM ADVAN 1 GM in NS 0.9% 50 ML 50 ML IVPB SCH (15:26)
[2021-05-08] MEDS: Aspirin EC 81 mg TAB.EC (enteric coated) PO SCH (08:26)
[2021-05-08] MEDS: SPIRIVA Respimat (tiotropium) 2.5 mcg/inh Inhaler INH SCH (08:59)
[2021-05-08] MEDS: ceFAZolin 1 GM ADVAN 1 GM in NS 0.9% 50 ML 50 ML IVPB SCH (16:03)
[2021-05-09 06:13] LABS: INR 2.3 (0.86-1.15)
[2021-05-09 06:34] LABS: Calcium 8.7 mg/dL (8.6-10.3); Potassium 4.1 mmol/L (3.5-5.0)
[2021-05-09 06:59] LABS: Hematocrit 28 % (35-47); Hemoglobin 8.8 g/dL (12.0-16.0); Mean Corpuscular HGB Conc 31 g/dL (31-36); Mean Corpuscular Hemoglobin 33 pg (27-31); Mean Corpuscular Volume 106 fL (80-97); Mean Platelet Volume 7.4 fL (7.4-10.4); Platelet Count 163 10^3/uL (150-450); Red Blood Count 2.65 10^6 /uL (3.70-4.87); Red Cell Distribution Width 17 % (10-15); White Blood Count 8.6 10^3/uL (3.5-10.8)
[2021-05-09] MEDS: SPIRIVA Respimat (tiotropium) 2.5 mcg/inh Inhaler INH SCH (08:10)
[2021-05-09 08:15] LABS: ABS Basophils 0.1 10^3/ul (0-0.2); ABS Eosinophils 0.2 10^3/ul (0-0.6); ABS Lymphocytes 1.1 10^3/ul (1.0-4.8); ABS Neutrophils 6.3 10^3/ul (1.5-7.7); ABS Nucleated RBC 0.1 10^3/ul; Lymphocyte % 12.8 %; Nucleated Red Blood Cells % 0.6
[2021-05-09 08:21] LABS: Macrocytosis 2+; Polychromasia 1+
[2021-05-09] MEDS: Aspirin EC 81 mg TAB.EC (enteric coated) PO SCH (08:48)
[2021-05-09] MEDS: ceFAZolin 1 GM ADVAN 1 GM in NS 0.9% 50 ML 50 ML IVPB SCH (16:50)
[2021-05-10 06:11] LABS: Hematocrit 28 % (35-47); Hemoglobin 8.9 g/dL (12.0-16.0); Mean Corpuscular HGB Conc 32 g/dL (31-36); Mean Corpuscular Hemoglobin 34 pg (27-31); Mean Corpuscular Volume 106 fL (80-97); Mean Platelet Volume 7.2 fL (7.4-10.4); Platelet Count 156 10^3/uL (150-450); Red Blood Count 2.62 10^6 /uL (3.70-4.87); Red Cell Distribution Width 17 % (10-15); White Blood Count 9.4 10^3/uL (3.5-10.8)
[2021-05-10 06:24] LABS: Calcium 8.4 mg/dL (8.6-10.3)
[2021-05-10 06:28] LABS: Macrocytosis 1+
[2021-05-10 06:29] LABS: ABS Basophils 0.1 10^3/ul (0-0.2); ABS Eosinophils 0.1 10^3/ul (0-0.6); ABS Lymphocytes 0.9 10^3/ul (1.0-4.8); ABS Monocytes 0.8 10^3/ul (0-0.8); ABS Neutrophils 7.6 10^3/ul (1.5-7.7); Anisocytosis 1+; Eosinophil % 1.3 %; Lymphocyte % 9.2 %; Nucleated Red Blood Cells % 0.3; Polychromasia 1+
[2021-05-10] MEDS: SPIRIVA Respimat (tiotropium) 2.5 mcg/inh Inhaler INH SCH (08:19)
[2021-05-10] MEDS: Aspirin EC 81 mg TAB.EC (enteric coated) PO SCH (14:19)
[2021-05-10] MEDS: ceFAZolin 1 GM ADVAN 1 GM in NS 0.9% 50 ML 50 ML IVPB SCH (17:25)
[2021-05-11] MEDS: Aspirin EC 81 mg TAB.EC (enteric coated) PO SCH (09:03)
[2021-05-11] MEDS: SPIRIVA Respimat (tiotropium) 2.5 mcg/inh Inhaler INH SCH (09:23)
[2021-05-11] MEDS ORDERED: Warfarin per PHARMACY **NOTE FOLLOW UP SCH (16:00)
[2021-05-11 16:19] LABS: INR 3.22 (0.86-1.15)
[2021-05-11] MEDS: Polyethylene Glycol 3350 17 GM PACKET PO SCH (16:52)
[2021-05-11] MEDS: ceFAZolin 1 GM ADVAN 1 GM in NS 0.9% 50 ML 50 ML IVPB SCH (17:06)
[2021-05-11] MEDS ORDERED: ceFAZolin 1 GM ADVAN 1 GM ADDV.VIAL IVPB SCH (18:00)
[2021-05-11] MEDS: ceFAZolin 1 GM (AddVan) IVPB SCH (18:45)
[2021-05-12 06:31] LABS: Hematocrit 30 % (35-47); Hemoglobin 9.6 g/dL (12.0-16.0); Mean Corpuscular HGB Conc 32 g/dL (31-36); Mean Corpuscular Hemoglobin 35 pg (27-31); Mean Corpuscular Volume 107 fL (80-97); Mean Platelet Volume 8.6 fL (7.4-10.4); Platelet Count 236 10^3/uL (150-450); Red Blood Count 2.78 10^6 /uL (3.70-4.87); Red Cell Distribution Width 17 % (10-15)
[2021-05-12 07:09] LABS: CO2 Carbon Dioxide 27 mmol/L (22-32); Calcium 8.5 mg/dL (8.6-10.3); Chloride 98 mmol/L (101-111); Sodium 137 mmol/L (135-145)
[2021-05-12 07:15] LABS: Blood Urea Nitrogen 41 mg/dL (6-24); Glucose 124 mg/dL (70-100)
[2021-05-12 07:34] LABS: INR 2.84 (0.86-1.15)
[2021-05-12 07:45] LABS: Anion Gap 12 mmol/L (2-11)
[2021-05-12 08:33] LABS: ABS Basophils 0.1 10^3/ul (0-0.2); ABS Eosinophils 0.1 10^3/ul (0-0.6); ABS Lymphocytes 0.9 10^3/ul (1.0-4.8); ABS Monocytes 0.7 10^3/ul (0-0.8); ABS Neutrophils 7.1 10^3/ul (1.5-7.7); Eosinophil % 1.6 %; Lymphocyte % 10.3 %; Nucleated Red Blood Cells % 0.2
[2021-05-12] MEDS: SPIRIVA Respimat (tiotropium) 2.5 mcg/inh Inhaler INH SCH (10:02)
[2021-05-12] MEDS: Aspirin EC 81 mg TAB.EC (enteric coated) PO SCH (17:19)
[2021-05-12] MEDS: Polyethylene Glycol 3350 17 GM PACKET PO SCH (17:19)
[2021-05-12] MEDS: Warfarin DAILY REMINDER **NOTE FOLLOW UP SCH (17:20)
[2021-05-12] MEDS: ceFAZolin 1 GM (AddVan) IVPB SCH (17:49)
[2021-05-12 17:52] LABS: Rapid COVID-19 Molecular Undetected (Undetected)
[2021-05-13 05:07] LABS: INR 2.15 (0.86-1.15)
[2021-05-13] MEDS: Aspirin EC 81 mg TAB.EC (enteric coated) PO SCH (07:59)
[2021-05-13] MEDS: Polyethylene Glycol 3350 17 GM PACKET PO SCH (07:59)
[2021-05-13] MEDS: SPIRIVA Respimat (tiotropium) 2.5 mcg/inh Inhaler INH SCH (08:26)
[2021-05-13] MEDS ORDERED: Senna TAB 8.6 mg TAB PO PRN (09:43)
[2021-05-13] MEDS: Magnesium Hydroxide LIQ 30 ML UDC PO PRN ×2 (10:07→21:23)
[2021-05-13] MEDS: Warfarin DAILY REMINDER **NOTE FOLLOW UP SCH (15:16)
[2021-05-14 06:46] LABS: INR 2.04 (0.86-1.15)
[2021-05-14] MEDS: Aspirin EC 81 mg TAB.EC (enteric coated) PO SCH (07:58)
[2021-05-14] MEDS: Polyethylene Glycol 3350 17 GM PACKET PO SCH (07:59)
[2021-05-14] MEDS: SPIRIVA Respimat (tiotropium) 2.5 mcg/inh Inhaler INH SCH (08:30)
[2021-05-14] MEDS: Warfarin DAILY REMINDER **NOTE FOLLOW UP SCH (16:58)
[2021-05-15 07:09] LABS: Hematocrit 31 % (35-47); Hemoglobin 10.1 g/dL (12.0-16.0); INR 2.24 (0.86-1.15); Mean Corpuscular HGB Conc 32 g/dL (31-36); Mean Corpuscular Hemoglobin 34 pg (27-31); Mean Corpuscular Volume 106 fL (80-97); Mean Platelet Volume 7.8 fL (7.4-10.4); Platelet Count 215 10^3/uL (150-450); Red Blood Count 2.96 10^6 /uL (3.70-4.87); Red Cell Distribution Width 18 % (10-15); White Blood Count 9.1 10^3/uL (3.5-10.8)
[2021-05-15 07:16] LABS: Calcium 8.9 mg/dL (8.6-10.3); Potassium 4.7 mmol/L (3.5-5.0)
[2021-05-15] MEDS: SPIRIVA Respimat (tiotropium) 2.5 mcg/inh Inhaler INH SCH (07:45)
[2021-05-15 07:59] LABS: ABS Basophils 0.1 10^3/ul (0-0.2); ABS Eosinophils 0.1 10^3/ul (0-0.6); ABS Lymphocytes 0.9 10^3/ul (1.0-4.8); ABS Monocytes 0.8 10^3/ul (0-0.8); ABS Neutrophils 7.2 10^3/ul (1.5-7.7); Lymphocyte % 9.7 %; Nucleated Red Blood Cells % 0.1
[2021-05-15] MEDS: Aspirin EC 81 mg TAB.EC (enteric coated) PO SCH (09:05)
[2021-05-15] MEDS: Polyethylene Glycol 3350 17 GM PACKET PO SCH (09:05)
[2021-05-15] MEDS: Warfarin DAILY REMINDER **NOTE FOLLOW UP SCH (17:31)
[2021-05-16] MEDS: SPIRIVA Respimat (tiotropium) 2.5 mcg/inh Inhaler INH SCH (08:07)
[2021-05-16] MEDS: Aspirin EC 81 mg TAB.EC (enteric coated) PO SCH (08:55)
[2021-05-16] MEDS: Polyethylene Glycol 3350 17 GM PACKET PO SCH (08:56)
[2021-05-16 09:47] LABS: INR 2.61 (0.86-1.15)
[2021-05-16] MEDS: Warfarin DAILY REMINDER **NOTE FOLLOW UP SCH (17:47)
[2021-05-17 06:59] LABS: INR 2.99 (0.86-1.15)
[2021-05-17] MEDS: SPIRIVA Respimat (tiotropium) 2.5 mcg/inh Inhaler INH SCH (10:14)
[2021-05-17] MEDS: Aspirin EC 81 mg TAB.EC (enteric coated) PO SCH (13:35)
[2021-05-17] MEDS: Polyethylene Glycol 3350 17 GM PACKET PO SCH (13:36)
[2021-05-17] MEDS: Warfarin DAILY REMINDER **NOTE FOLLOW UP SCH (17:38)
[2021-05-18 04:47] LABS: INR 2.6 (0.86-1.15)
[2021-05-18] MEDS: SPIRIVA Respimat (tiotropium) 2.5 mcg/inh Inhaler INH SCH (08:44)
[2021-05-18] MEDS: Aspirin EC 81 mg TAB.EC (enteric coated) PO SCH (09:15)
[2021-05-18] MEDS: Polyethylene Glycol 3350 17 GM PACKET PO SCH (09:19)
[2021-05-18 12:12] VITALS: BP 123/47
== END 2021-05-18 12:38 | disposition home health service (06) | DRG 602 ==
LOC: ED 10:29 → SUATTDRO 21:37 → MEDTELE 21:37
PROVIDERS: ADMIT Internal Medicine; ATTEND Internal Medicine

== ENCOUNTER 2021-07-05 03:27 | Inpatient (IN) ==
[2021-07-05 04:04] LABS: PCO2 Arterial 69 mmHg (35-45); PO2 Arterial 62 mmHg (80-100)
[2021-07-05 04:17] LABS: ALT 11 U/L (7-52); Activated Partial Thrombo Time 34.8 seconds (26.0-38.0); Albumin 3.8 g/dL (3.2-5.2); Albumin/Globulin Ratio 1.2 (1-3); Alkaline Phosphatase 69 U/L (35-149); Blood Urea Nitrogen 68 mg/dL (6-24); C Reactive Protein 65.94 mg/L (<8.01); CO2 Carbon Dioxide 26 mmol/L (22-32); Calcium 8.7 mg/dL (8.6-10.3); Chloride 94 mmol/L (101-111); Creatine Kinase 33 U/L (10-223); Globulin 3.1 g/dL (2-4); Glucose 232 mg/dL (70-100); INR 1.84 (0.86-1.15); Sodium 133 mmol/L (135-145); Total Protein 6.9 g/dL (6.4-8.9); eGFR CKD-EPI 4.5 (>60)
[2021-07-05 04:19] LABS: Anion Gap 13 mmol/L (2-11); Potassium 5.5 mmol/L (3.5-5.0)
[2021-07-05 04:20] LABS: AST 28 U/L (13-39)
[2021-07-05 04:34] LABS: Troponin I 0.36 ng/mL (<0.03)
[2021-07-05 04:49] LABS: Hematocrit 31 % (35-47); Hemoglobin 9.7 g/dL (12.0-16.0); Mean Corpuscular HGB Conc 31 g/dL (31-36); Mean Corpuscular Hemoglobin 34 pg (27-31); Mean Corpuscular Volume 110 fL (80-97); Mean Platelet Volume 7.6 fL (7.4-10.4); Platelet Count 200 10^3/uL (150-450); Red Blood Count 2.82 10^6 /uL (3.70-4.87); Red Cell Distribution Width 17 % (10-15); White Blood Count 12.5 10^3/uL (3.5-10.8)
[2021-07-05 05:08] LABS: ABS Basophils 0.1 10^3/ul (0-0.2); ABS Eosinophils 0.1 10^3/ul (0-0.6); ABS Lymphocytes 5.4 10^3/ul (1.0-4.8); ABS Monocytes 0.9 10^3/ul (0-0.8); ABS Neutrophils 6.1 10^3/ul (1.5-7.7); Eosinophil % 0.6 %; Lymphocyte % 42.9 %; Nucleated Red Blood Cells % 0.2
[2021-07-05 05:27] LABS: PCO2 Arterial 53 mmHg (35-45); PO2 Arterial 156 mmHg (80-100)
[2021-07-05] MEDS ORDERED: Cefepime 2 GM in Dextrose 2 GM/50 ML BAG IV ONE (05:29)
[2021-07-05] MEDS ORDERED: HYDROcodone/ACETAMIN 5/325 mg TAB PO ONE (06:53)
[2021-07-05] MEDS ORDERED: Warfarin per PHARMACY **NOTE FOLLOW UP SCH (10:00)
[2021-07-05] MEDS ORDERED: Furosemide 40 mg/4 ml IV VIAL IV SLOW PU ONE (10:05)
[2021-07-05] MEDS ORDERED: Remdesivir 100 mg Vial 200 MG in NS 0.9% 250 ml 210 ML IV ONE (10:38)
[2021-07-05] MEDS ORDERED: Heparin *DIALYSIS* ONLY 1,000 UNITS/ML VIAL DIALYSIS ONE (11:28)
[2021-07-05 11:35] LABS: ALT 20 U/L (7-52); AST 69 U/L (13-39); Albumin 3.5 g/dL (3.2-5.2); Albumin/Globulin Ratio 1.3 (1-3); Alkaline Phosphatase 71 U/L (35-149); Blood Urea Nitrogen 74 mg/dL (6-24); CO2 Carbon Dioxide 23 mmol/L (22-32); Calcium 8.2 mg/dL (8.6-10.3); Chloride 98 mmol/L (101-111); Globulin 2.8 g/dL (2-4); Glucose 133 mg/dL (70-100); Sodium 134 mmol/L (135-145); Total Protein 6.3 g/dL (6.4-8.9); eGFR CKD-EPI 4.2 (>60)
[2021-07-05 11:37] LABS: INR 2.13 (0.86-1.15)
[2021-07-05 11:41] LABS: Troponin I 0.79 ng/mL (<0.03)
[2021-07-05 11:42] LABS: Anion Gap 13 mmol/L (2-11); Potassium 6.4 mmol/L (3.5-5.0)
[2021-07-05] MEDS ORDERED: Azithromycin 500 mg/250 ml NS 500 MG/250 ML BAG IVPB SCH (12:00)
[2021-07-05] MEDS ORDERED: Dextrose 50% Syringe 50 ml 25 GM/50 ML SYRINGE IV PUSH ONE (13:09)
[2021-07-05] MEDS ORDERED: SODIUM ZIRCONIUM CYCLOSILICATE 10 GM PACKET PO ONE (13:15)
[2021-07-05] MEDS ORDERED: Doxycycline 100 MG in NS 0.9% 250 ML BAG IVPB SCH (16:00)
[2021-07-05] MEDS: Albuterol HFA INHALER 8 gm MDI INH SCH ×2 (16:09→20:19)
[2021-07-05] MEDS: SPIRIVA Respimat (tiotropium) 2.5 mcg/inh Inhaler INH SCH (16:10)
[2021-07-05] MEDS: DOXYcycline 100 MG in NS 0.9% 250 ml 250 ML IVPB SCH (16:22)
[2021-07-05] MEDS ORDERED: Buffered Lidocaine 1% SYRIN 1 ml INTRADERM ONE (16:51)
[2021-07-05] MEDS: Nystatin TOP POWDER 15 GM BTL TOPICAL SCH ×2 (17:23→21:35)
[2021-07-05 18:11] LABS: Troponin I 0.92 ng/mL (<0.03)
[2021-07-05] MEDS: Senna TAB 8.6 mg TAB PO SCH (21:35)
[2021-07-06 01:04] LABS: Hepatitis A Ab IgM Negative (Negative); Hepatitis B Core IgM Nonreactive (Nonreactive)
[2021-07-06 01:17] LABS: Hepatitis C Antibody Negative (Negative)
[2021-07-06 02:10] LABS: CO2 Carbon Dioxide 17 mmol/L (22-32); Calcium 6.8 mg/dL (8.6-10.3); Chloride 107 mmol/L (101-111); Sodium 137 mmol/L (135-145)
[2021-07-06 02:11] LABS: Anion Gap 13 mmol/L (2-11)
[2021-07-06 02:15] LABS: Blood Urea Nitrogen 32 mg/dL (6-24); Glucose 68 mg/dL (70-100); eGFR CKD-EPI 10.1 (>60)
[2021-07-06 02:43] LABS: Troponin I 0.69 ng/mL (<0.03)
[2021-07-06 03:44] LABS: ABS Basophils 0.1 10^3/ul (0-0.2); ABS Monocytes 0.3 10^3/ul (0-0.8); ABS Neutrophils 4.6 10^3/ul (1.5-7.7); Eosinophil % 0.4 %; Hematocrit 28 % (35-47); Hemoglobin 9.1 g/dL (12.0-16.0); Mean Corpuscular HGB Conc 32 g/dL (31-36); Mean Corpuscular Hemoglobin 34 pg (27-31); Mean Corpuscular Volume 106 fL (80-97); Mean Platelet Volume 7.6 fL (7.4-10.4); Nucleated Red Blood Cells % 0.1; Platelet Count 146 10^3/uL (150-450); Red Blood Count 2.66 10^6 /uL (3.70-4.87); Red Cell Distribution Width 17 % (10-15)
[2021-07-06 03:51] LABS: Albumin 3.3 g/dL (3.2-5.2); Calcium 8.3 mg/dL (8.6-10.3); Magnesium 2.3 mg/dL (1.9-2.7); Potassium 4.8 mmol/L (3.5-5.0); Total Bilirubin 0.6 mg/dL (0.2-1.0)
[2021-07-06 03:57] LABS: Albumin/Globulin Ratio 1.3 (1-3); Globulin 2.6 g/dL (2-4); Phosphorus 4.6 mg/dL (2.5-5.0); Total Protein 5.9 g/dL (6.4-8.9); eGFR CKD-EPI 7.5 (>60)
[2021-07-06 04:03] LABS: INR 1.94 (0.86-1.15)
[2021-07-06] MEDS ORDERED: Dextrose 50% Syringe 50 ml 25 GM/50 ML SYRINGE IV PUSH PRN (04:26)
[2021-07-06] MEDS: DOXYcycline 100 MG in NS 0.9% 250 ml 250 ML IVPB SCH ×2 (04:40→15:43)
[2021-07-06] MEDS: Albuterol HFA INHALER 8 gm MDI INH SCH ×4 (08:02→19:16)
[2021-07-06] MEDS: SPIRIVA Respimat (tiotropium) 2.5 mcg/inh Inhaler INH SCH ×2 (08:03→09:10)
[2021-07-06] MEDS: Aspirin EC 81 mg TAB.EC (enteric coated) PO SCH (09:06)
[2021-07-06] MEDS: Polyethylene Glycol 3350 17 GM PACKET PO SCH (09:06)
[2021-07-06] MEDS: Nystatin TOP POWDER 15 GM BTL TOPICAL SCH ×3 (09:07→23:07)
[2021-07-06] MEDS ORDERED: Remdesivir 100 mg Vial 100 MG in NS 0.9% 250 ml 230 ML IV SCH (10:45)
[2021-07-06 14:28] LABS: Hepatitis B Surface Antigen Nonreactive (Nonreactive)
[2021-07-06] MEDS: Senna TAB 8.6 mg TAB PO SCH (21:05)
[2021-07-07] MEDS: DOXYcycline 100 MG in NS 0.9% 250 ml 250 ML IVPB SCH ×2 (05:13→15:04)
[2021-07-07 06:29] LABS: INR 3.82 (0.86-1.15)
[2021-07-07 06:41] LABS: ABS Lymphocytes 0.7 10^3/ul (1.0-4.8); ABS Monocytes 0.3 10^3/ul (0-0.8); ABS Neutrophils 4.4 10^3/ul (1.5-7.7); Hematocrit 26 % (35-47); Hemoglobin 8.3 g/dL (12.0-16.0); Lymphocyte % 13.1 %; Mean Corpuscular HGB Conc 32 g/dL (31-36); Mean Corpuscular Hemoglobin 35 pg (27-31); Mean Corpuscular Volume 107 fL (80-97); Mean Platelet Volume 8.7 fL (7.4-10.4); Nucleated Red Blood Cells % 0.7; Platelet Count 165 10^3/uL (150-450); Red Cell Distribution Width 17 % (10-15); White Blood Count 5.3 10^3/uL (3.5-10.8)
[2021-07-07 06:52] LABS: Albumin 3.2 g/dL (3.2-5.2); Albumin/Globulin Ratio 1.3 (1-3); Calcium 7.8 mg/dL (8.6-10.3); Globulin 2.4 g/dL (2-4); Magnesium 2.4 mg/dL (1.9-2.7); Phosphorus 5.7 mg/dL (2.5-5.0); Total Bilirubin 0.5 mg/dL (0.2-1.0); Total Protein 5.6 g/dL (6.4-8.9); eGFR CKD-EPI 5.7 (>60)
[2021-07-07 07:13] LABS: Potassium 5.2 mmol/L (3.5-5.0)
[2021-07-07] MEDS: SPIRIVA Respimat (tiotropium) 2.5 mcg/inh Inhaler INH SCH (08:02)
[2021-07-07] MEDS: Albuterol HFA INHALER 8 gm MDI INH SCH ×3 (08:02→15:58)
[2021-07-07] MEDS ORDERED: Heparin *DIALYSIS* ONLY 1,000 UNITS/ML VIAL DIALYSIS ONE (09:00)
[2021-07-07] MEDS: Polyethylene Glycol 3350 17 GM PACKET PO SCH (10:31)
[2021-07-07] MEDS: Aspirin EC 81 mg TAB.EC (enteric coated) PO SCH (11:55)
[2021-07-07] MEDS: Nystatin TOP POWDER 15 GM BTL TOPICAL SCH ×3 (11:57→20:33)
[2021-07-07] MEDS ORDERED: Ondansetron 4 mg VIAL 2 MG/ML 2 ml VIAL ONE (11:59)
[2021-07-07] MEDS: Ondansetron 4 mg VIAL 2 MG/ML 2 ml VIAL IV PRN (12:02)
[2021-07-07] MEDS: Warfarin DAILY REMINDER **NOTE FOLLOW UP SCH (15:09)
[2021-07-07] MEDS ORDERED: Albuterol HFA INHALER 8 gm MDI INH PRN (15:58)
[2021-07-07] MEDS ORDERED: Warfarin - No Order Today **NOTE FOLLOW UP ONE (17:00)
[2021-07-07] MEDS: Senna TAB 8.6 mg TAB PO SCH (20:33)
[2021-07-08] MEDS: DOXYcycline 100 MG in NS 0.9% 250 ml 250 ML IVPB SCH ×2 (04:21→17:17)
[2021-07-08 06:49] LABS: ABS Lymphocytes 0.6 10^3/ul (1.0-4.8); ABS Monocytes 0.3 10^3/ul (0-0.8); ABS Neutrophils 6.7 10^3/ul (1.5-7.7); ABS Nucleated RBC 0.1 10^3/ul; Hematocrit 25 % (35-47); Lymphocyte % 7.6 %; Mean Corpuscular HGB Conc 33 g/dL (31-36); Mean Corpuscular Hemoglobin 34 pg (27-31); Mean Corpuscular Volume 106 fL (80-97); Mean Platelet Volume 8.6 fL (7.4-10.4); Nucleated Red Blood Cells % 0.9; Platelet Count 215 10^3/uL (150-450); Red Blood Count 2.32 10^6 /uL (3.70-4.87); Red Cell Distribution Width 17 % (10-15); White Blood Count 7.5 10^3/uL (3.5-10.8)
[2021-07-08 07:04] LABS: INR 5.3 (0.86-1.15)
[2021-07-08 07:05] LABS: Albumin 3.1 g/dL (3.2-5.2); Albumin/Globulin Ratio 1.3 (1-3); Calcium 8.2 mg/dL (8.6-10.3); Globulin 2.4 g/dL (2-4); Magnesium 2.1 mg/dL (1.9-2.7); Phosphorus 4.8 mg/dL (2.5-5.0); Potassium 4.5 mmol/L (3.5-5.0); Total Bilirubin 0.5 mg/dL (0.2-1.0); Total Protein 5.5 g/dL (6.4-8.9)
[2021-07-08] MEDS: SPIRIVA Respimat (tiotropium) 2.5 mcg/inh Inhaler INH SCH (08:10)
[2021-07-08] MEDS: Nystatin TOP POWDER 15 GM BTL TOPICAL SCH ×3 (08:17→20:14)
[2021-07-08] MEDS: Aspirin EC 81 mg TAB.EC (enteric coated) PO SCH (08:17)
[2021-07-08] MEDS: Polyethylene Glycol 3350 17 GM PACKET PO SCH (08:17)
[2021-07-08] MEDS ORDERED: Magnesium Hydroxide LIQ 30 ML UDC PO PRN (14:07)
[2021-07-08] MEDS ORDERED: Warfarin - No Order Today **NOTE FOLLOW UP ONE (17:00)
[2021-07-08] MEDS: Warfarin DAILY REMINDER **NOTE FOLLOW UP SCH (17:17)
[2021-07-08] MEDS: Senna TAB 8.6 mg TAB PO SCH (20:15)
[2021-07-08 22:13] LABS: TSH Ultra Thyroid Stim Horm 2.79 mcIU/mL (0.34-5.60)
[2021-07-09] MEDS: DOXYcycline 100 MG in NS 0.9% 250 ml 250 ML IVPB SCH (04:09)
[2021-07-09] MEDS: Ondansetron 4 mg VIAL 2 MG/ML 2 ml VIAL IV PRN ×2 (05:32→09:01)
[2021-07-09 06:07] LABS: Hematocrit 24 % (35-47); Hemoglobin 8.1 g/dL (12.0-16.0); Mean Corpuscular HGB Conc 33 g/dL (31-36); Mean Corpuscular Hemoglobin 35 pg (27-31); Mean Corpuscular Volume 105 fL (80-97); Mean Platelet Volume 8.3 fL (7.4-10.4); Platelet Count 232 10^3/uL (150-450); Red Blood Count 2.32 10^6 /uL (3.70-4.87); Red Cell Distribution Width 17 % (10-15); White Blood Count 10.5 10^3/uL (3.5-10.8)
[2021-07-09 06:10] LABS: ABS Lymphocytes 0.6 10^3/ul (1.0-4.8); ABS Monocytes 0.4 10^3/ul (0-0.8); ABS Neutrophils 9.5 10^3/ul (1.5-7.7); ABS Nucleated RBC 0.1 10^3/ul; Lymphocyte % 5.8 %
[2021-07-09] MEDS ORDERED: Heparin *DIALYSIS* ONLY 1,000 UNITS/ML VIAL DIALYSIS ONE (06:26)
[2021-07-09 06:29] LABS: Albumin 3.1 g/dL (3.2-5.2); Albumin/Globulin Ratio 1.3 (1-3); Calcium 8.2 mg/dL (8.6-10.3); Globulin 2.4 g/dL (2-4); Total Bilirubin 0.5 mg/dL (0.2-1.0); Total Protein 5.5 g/dL (6.4-8.9); eGFR CKD-EPI 6.9 (>60)
[2021-07-09 06:34] LABS: Potassium 5.2 mmol/L (3.5-5.0)
[2021-07-09 06:45] LABS: INR 5.45 (0.86-1.15)
[2021-07-09] MEDS: SPIRIVA Respimat (tiotropium) 2.5 mcg/inh Inhaler INH SCH (08:04)
[2021-07-09] MEDS ORDERED: Warfarin - No Order Today **NOTE FOLLOW UP SCH (09:00)
[2021-07-09] MEDS: Nystatin TOP POWDER 15 GM BTL TOPICAL SCH ×2 (11:28→14:09)
[2021-07-09 14:07] VITALS: BP 129/44
[2021-07-09] MEDS: Aspirin EC 81 mg TAB.EC (enteric coated) PO SCH (14:08)
[2021-07-09] MEDS: Polyethylene Glycol 3350 17 GM PACKET PO SCH (14:08)
== END 2021-07-10 17:56 | disposition swing bed (61) | DRG 871 ==
LOC: ED 03:27 → EDHOLD 09:23 → SUATTDRO 09:23 → ICU 14:17 → MED 07-07 16:39
PROVIDERS: ADMIT Internal Medicine; ATTEND Hospitalist

== ENCOUNTER 2021-07-09 14:36 | Inpatient (IN) ==
[2021-07-09] MEDS ORDERED: Albuterol HFA INHALER 8 gm MDI INH PRN (15:12)
[2021-07-09] MEDS ORDERED: Senna TAB 8.6 mg TAB PO PRN (15:12)
[2021-07-09] MEDS ORDERED: Ondansetron 4 mg VIAL 2 MG/ML 2 ml VIAL IV PRN (15:12)
[2021-07-09] MEDS ORDERED: Warfarin per PHARMACY **NOTE FOLLOW UP SCH (16:00)
[2021-07-09] MEDS: Magnesium Hydroxide LIQ 30 ML UDC PO SCH (20:35)
[2021-07-09] MEDS: Nystatin TOP POWDER 15 GM BTL TOPICAL SCH (20:35)
[2021-07-10 06:17] LABS: INR 4.64 (0.86-1.15)
[2021-07-10] MEDS ORDERED: SPIRIVA Respimat (tiotropium) 2.5 mcg/inh Inhaler INH SCH (09:00)
[2021-07-10] MEDS: Magnesium Hydroxide LIQ 30 ML UDC PO SCH (10:07)
[2021-07-10] MEDS: Nystatin TOP POWDER 15 GM BTL TOPICAL SCH (10:07)
[2021-07-10 11:25] VITALS: BP 103/46
[2021-07-10 13:10] LABS: Hematocrit 26 % (35-47); Hemoglobin 8.4 g/dL (12.0-16.0); Mean Corpuscular HGB Conc 32 g/dL (31-36); Mean Corpuscular Hemoglobin 34 pg (27-31); Mean Corpuscular Volume 106 fL (80-97); Mean Platelet Volume 8.3 fL (7.4-10.4); Platelet Count 274 10^3/uL (150-450); Red Blood Count 2.46 10^6 /uL (3.70-4.87); Red Cell Distribution Width 17 % (10-15); White Blood Count 16.7 10^3/uL (3.5-10.8)
[2021-07-10 13:32] LABS: Albumin 3.2 g/dL (3.2-5.2); Albumin/Globulin Ratio 1.2 (1-3); Calcium 8.7 mg/dL (8.6-10.3); Globulin 2.7 g/dL (2-4); Magnesium 2.6 mg/dL (1.9-2.7); Potassium 4.9 mmol/L (3.5-5.0); Total Bilirubin 0.6 mg/dL (0.2-1.0); Total Protein 5.9 g/dL (6.4-8.9); eGFR CKD-EPI 8.4 (>60)
[2021-07-10 13:48] LABS: ABS Lymphocytes 0.9 10^3/ul (1.0-4.8); ABS Monocytes 0.4 10^3/ul (0-0.8); ABS Neutrophils 15.4 10^3/ul (1.5-7.7); ABS Nucleated RBC 0.2 10^3/ul; Lymphocyte % 5.6 %
[2021-07-10] MEDS ORDERED: Warfarin - No Order Today **NOTE FOLLOW UP ONE (17:00)
== END 2021-07-10 17:56 | disposition expired | DRG 177 ==
LOC: MED 14:36 → SUATTDRO 14:36
PROVIDERS: ADMIT Hospitalist; ATTEND Hospitalist